=== PATIENT | female | born 1965 | race Caucasian/White ===

== ENCOUNTER 2019-10-07 12:04 | Emergency (ER) | payer OTHER, SELFPAY ==
[2019-10-07 12:21] VITALS: BP 135/89; PULSE 74; RESP 16; TEMP 36.6; O2SAT 100
--- NOTE | 2019-10-07 12:46 | ED.URI ---
HPI - URI/Sore Throat General Chief Complaint: Upper Respiratory Infection Stated Complaint: sore throat Time Seen by Provider: 10/07/19 12:30 Source: patient and RN notes reviewed Mode of arrival: ambulatory Limitations: no limitations History of Present Illness HPI Narrative: Patient presents today complaining of a 3-day history of severe postnasal drip and sore throat. 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 She is currently taking Zyrtec and using the [place] pot without relief. She was told that if her symptoms did not improve that she needed to be seen at urgent care and possibly tested for COVID-19. Denies congestion, rhinorrhea, fever. States he has a chronic cough for the past several years related to a hiatal hernia, but this cough is no worse than normal. Denies shortness of breath. Patient works at [employer] and states she has been exposed to people that were not wearing masks appropriately. MD elicited complaint: sore throat Related Data Home Medications Medication Instructions Recorded Confirmed cetirizine 10 mg PO DAILY 10/07/19 10/07/19 levothyroxine 88 mcg PO DAILY 10/07/19 10/07/19 Allergies Allergy/AdvReac Type Severity Reaction Status Date / Time adhesive Allergy Unknown Blister Verified 10/07/19 12:32 latex Allergy Unknown Blister Verified 10/07/19 12:32 Penicillins Allergy Unknown Itching Verified 10/07/19 12:32 sulfite Allergy Unknown Itching Verified 10/07/19 12:32 triamcinolone Allergy Headache Verified 10/07/19 12:32 [From Nasacort AQ] Contrast Media Allergy Unknown Hives Uncoded 10/07/19 12:32 MEPERIDINE HCL Allergy Unknown Hives Uncoded 10/07/19 12:32 Scallop Allergy Unknown Hives Uncoded 10/07/19 12:32 Review of Systems Review of Systems: Narrative: CONSTITUTIONAL: Denies body aches, fever, chills, or sweats. EYES: Denies visual changes, redness, or discharge. ENT: Denies rhinorrhea, congestion, or otalgia. + Sore throat, postnasal drip CARDIOVASCULAR: Denies chest pain, palpitations, or edema. RESPIRATORY: Denies cough or dyspnea. GASTROINTESTINAL: Denies abdominal pain, nausea, vomiting, or diarrhea. GENITOURINARY: Denies dysuria or hematuria. SKIN: Denies rash, itching, or wounds. MUSCULOSKELETAL: Denies back pain, joint pain, or myalgia. NEUROLOGIC: Denies headache, numbness, tingling, or weakness. PSYCH: Denies depression or anxiety. [facility] Past Medical History Medical History (Updated 10/07/19 @ 14:03 by Dominique Walker, [facility], ) Seasonal allergies Comments At time of signature, I have reviewed and agree with nursing past medical, surgical, social and family history unless otherwise noted. Please see nursing chart for further information. There is no relevant family history pertinent to the presenting complaint Exam Narrative: Exam Narrative: GENERAL: Well-appearing, well-nourished, and in no acute distress. HEAD: Normocephalic, atraumatic. EYES: EOMI. No redness or drainage. Conjunctivae normal. ENT: Mucous membranes pink and moist. Nares clear. No rhinorrhea. TMs normal bilaterally. Throat normal. Uvula midline. NECK: Normal AROM. Supple. Mild tenderness to the left anterior cervical chain. No lymphadenitis noted. CHEST: No respiratory distress. Clear to auscultation. HEART: Regular rate and rhythm. No murmur appreciated. Normal peripheral pulses. EXTREMITIES: Normal range of motion. No edema. SKIN: Warm, dry, no rash. Capillary refill normal. Normal skin turgor. NEURO: No focal deficits. Alert and oriented x3. Gait steady. PSYCH: Normal affect. No signs of depression or anxiety. Course Vital Signs Vital signs: Vital Signs Temperature 97.8 F 10/07/19 12:21 Pulse Rate 74 10/07/19 12:21 Respiratory Rate 16 10/07/19 12:21 Blood Pressure 135/89 10/07/19 12:21 Pulse Oximetry 100 10/07/19 12:21 Temperature 97.8 F 10/07/19 12:21 Pulse Rate 74 10/07/19 12:21 Respiratory Rate 16
--- NOTE | 2019-10-11 17:36 | PC.NURSE ---
sap pp consultant had talked to pt over telephone and pt requested copy of covid result. sap pp consultant requested to give copy of covid and strep cx. pt was given copy of results.
== END 2019-10-07 13:02 | disposition home or self-care (01) ==
PROVIDERS: Emergency Provider Nurse Practitioner; PCP Family Medicine
DX: J02.9 Acute pharyngitis, unspecified (principal); R09.82 Postnasal drip; Z20.828 Contact with and (suspected) exposure to other viral communicable diseases
CPT/HCPCS: 87081; 87880; 99213; G0463

== ENCOUNTER 2021-11-27 12:33 | Emergency (ER) | payer OTHER, SELFPAY ==
[2021-11-27] VITALS (20 sets, daily range): BP systolic 117–131; BP diastolic 74–98; PULSE 61–85; RESP 14–16; TEMP 36.2; O2SAT 97–100
--- NOTE | ~2021-11-27 | CT_ITS ---
EXAMINATION: CT brain wo con DATE: 11/27/2021 14:37 INDICATION: presyncope w/ headache . TECHNIQUE: Computed tomography (CT) of the head was performed without intravenous contrast. The mA wa s adjusted according to patient size. Iterative reconstruction technique was employed. The dose-lengt h product was 605.33 mGy-cm. COMPARISON: 09/10/2013 FINDINGS: No acute intracranial hemorrhage or extra-axial fluid collection. No hydrocephalus, mass, or herniation. No acute ischemic infarct. Unremarkable dural venous sinus attenuation. No acute osseous abnormality. Left maxillary mucosal thickening and small retention cyst/polyp. The remaining aerated spaces are cl ear. Mild atrophy and chronic white matter change. Atherosclerotic intracranial calcification. Possible sm all left hemisphere arachnoid cyst near the vertex. IMPRESSION: No acute intracranial process. Reviewed, dictated and finalized at location K.
--- NOTE | ~2021-11-27 | XR_ITS ---
EXAMINATION: XR chest 1V portable DATE: 11/27/2021 13:20 INDICATION: Arm weakness. TECHNIQUE: A single frontal view of the chest was obtained. COMPARISON: Chest 2 views 09/13/2018, CT abdomen and pelvis 09/13/2018 FINDINGS: There is mild atelectasis at left lung base. No pleural effusion or pneumothorax. The heart size is normal. IMPRESSION: 1. Mild atelectasis at left lung base. Reviewed, dictated and finalized at location A.
--- NOTE | 2021-11-27 13:05 | ECG_ITS ---
Measurements Intervals [place] Rate: 78 P: 19 [place]: 152 QRS: 7 QRSD: 79 T: 8 QT: 368 QTc: 420 Interpretive Statements SINUS RHYTHM MODERATE VOLTAGE CRITERIA FOR LVH, CONSIDER NORMAL VARIANT COMPARED TO ECG 09/13/2018 16:38:49 NO SIGNIFICANT CHANGES Electronically Signed On 11-28-2021 17:20:17 CDT by Kevyn Pearson M.D.
[2021-11-27 13:23] LABS: Basophils Percent Auto 0.4 % (0.2-1.2); Eosinophils Absolute Auto 0.1 K/mm3 (0-0.3); Eosinophils Percent Auto 2.5 % (0-4.4); Hematocrit 40.7 % (37.0-47.0); Hemoglobin 13.9 g/dL (12.0-15.0); Lymphocytes Absolute Auto 0.53 K/mm3 (0.9-3.2); Lymphocytes Percent Auto 11.2 % (18.3-44.2); Mean Corpuscular HGB Conc 34.2 g/dl (32-36); Mean Corpuscular Hemoglobin 32.4 pg (26-34); Mean Corpuscular Volume 94.9 fl (80-100); Mean Platelet Volume 9.1 fl (7.4-10.4); Monocytes Absolute Auto 0.6 K/mm3 (0.1-0.6); Monocytes Percent Auto 11.8 % (2.6-8.5); Neutrophils Absolute Auto 3.5 K/mm3 (1.3-6.7); Neutrophils Percent Auto 74.1 % (45.5-73.1); Platelet Count Result 216 k/mm3 (150-375); Red Blood Count 4.29 M/mm3 (4.2-5.4); Red Cell Distribution Width 12.7 % (11.5-14.5); White Blood Count 4.7 K/mm3 (4.5-10.0)
[2021-11-27 13:34] LABS: Appearance Urine Clear (Clear); Bilirubin Urine Negative (Negative); Blood Urine Negative (Negative); Color Urine Yellow (Yellow); Glucose Urine UA Negative (Negative); Ketones Urine Negative (Negative); Leukocyte Esterase Ur Negative LEU/UL (Negative); Nitrate Urine Negative (Negative); Protein Urine Negative (Negative); Urobilinogen Urine 0.2 mg/dL (<2.0)
[2021-11-27 13:38] LABS: Add Urine Microscopic? NO
[2021-11-27 13:42] LABS: Alanine Aminotransferase 17 U/L (6-35); Albumin Level 4.4 g/dL (3.5-5.1); Alkaline Phosphatase 109 U/L (38-126); Anion Gap 7 mmol/L (8-16); Aspartate Amino Transferase 25 U/L (14-36); Bilirubin,Total 0.4 mg/dL (0.2-1.3); Blood Urea Nitrogen 16 mg/dL (7-17); Calcium 8.9 mg/dL (8.4-10.2); Carbon Dioxide 27 mmol/L (22-30); Chloride 101 mmol/L (98-107); Estimated CRCL calculation 57 ml/min; Estimated Glomerular Filt Rate > 60; Glucose 85 mg/dL (65-110); Potassium 3.5 mmol/L (3.4-5.0); Sodium 135 mmol/L (137-145)
[2021-11-27 14:51] LABS: Troponin I < 0.012 ng/mL (0.000-0.034)
[2021-11-27 17:40] LABS: Troponin I < 0.012 ng/mL (0.000-0.034)
--- NOTE | 2021-11-27 21:57 | ED.GENADULT ---
HPI - General Adult General Chief complaint: Weakness Stated complaint: pain in arm, shaking, weakness Time Seen by Provider: 11/27/21 13:11 History of Present Illness HPI narrative: this is a 56-year-old female presenting to ED with a chief complaint of a dizzy spell. 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 Patient also felt dizzy at this time. It then resolved on its own after several minutes. Patient noticed that she was to have a sharp pain in her right shoulder at this time but is unknown if that is related or not. Patient says she has a history of dizzy spells like this in the happen multiple times per year and half gone on for many years. Patient denies any other complaints this time. Related Data Home Medications Medication Instructions Recorded Confirmed cetirizine 10 mg tablet 10 mg PO DAILY 10/07/19 10/07/19 levothyroxine 88 mcg tablet 88 mcg PO DAILY 10/07/19 10/07/19 Allergies Allergy/AdvReac Type Severity Reaction Status Date / Time adhesive Allergy Unknown Blister Verified 10/07/19 12:32 latex Allergy Unknown Blister Verified 10/07/19 12:32 Penicillins Allergy Unknown Itching Verified 10/07/19 12:32 sulfite Allergy Unknown Itching Verified 10/07/19 12:32 triamcinolone Allergy Headache Verified 10/07/19 12:32 [From Nasacort AQ] Contrast Media Allergy Unknown Hives Uncoded 10/07/19 12:32 MEPERIDINE HCL Allergy Unknown Hives Uncoded 10/07/19 12:32 Scallop Allergy Unknown Hives Uncoded 10/07/19 12:32 Review of Systems Review of Systems: CONSTITUTIONAL: Denies night sweats. EYES: No eye pain ENT: Denies rhinorrhea CARDIOVASCULAR: Denies palpitations RESPIRATORY: Denies hemoptysis GASTROINTESTINAL: Denies hematemesis GENITOURINARY: Denies hematuria. SKIN: Denies rash MUSCULOSKELETAL: Denies myalgia. NEUROLOGIC: Denies weakness. PSYCHIATRIC: Denies delusions PMFSH Past Medical History Medical History GERD (gastroesophageal reflux disease) Hypothyroid Seasonal allergies Surgical History Surgical History H/O: hysterectomy Social History Social History (Updated 11/27/21 @ 22:31 by Antwon Barron MD) Social History: Patient drinks alcohol occasionally, denies toba Exam Narrative: APPEARANCE: No apparent distress. Head atraumatic. EYES: PERRLA/EOMI, NOSE: Normal no drainage NECK: Supple, Trachea midline RESPIRATORY: CTAB, No increased work of breathing. CARDIOVASCULAR: S1S2 appreciated ABDOMINAL: Soft, nontender, nondistended, MUSCULOSKELETAl: No obvious deformities, Focal exam of the right upper extremity revealed tenderness palpation of the lateral deltoid. Median, ulnar and radial motor distributions are intact. Cap refills less than 2 seconds and pulses are +2 radial and ulnar distribution. No pain with range of motion of the shoulder or elbow or wrist. NEURO: Alert. Cranial nerves 2-12 grossly intact. Sensation light touch, motor function cerebellar function intact for 4 extremities. Gait exam was normal. SKIN:: Warm, dry. Normal color PSYCHIATRIC: Normal affect Course Vital Signs Vital signs: Vital Signs Temperature 97.2 F L 11/27/21 12:37 Pulse Rate 79 11/27/21 12:37 Respiratory Rate 14 11/27/21 12:37 Blood Pressure 121/90 11/27/21 12:37 Pulse Oximetry 100 11/27/21 12:37 Oxygen Delivery Room Air 11/27/21 12:37 Temperature 97.2 F L 11/27/21 12:37 Pulse Rate 79 11/27/21 17:45 Respiratory Rate 16 11/27/21 17:45 Blood Pressure 129/76 11/27/21 17:45 Pulse Oximetry 99 11/27/21 17:45 Oxygen Delivery Room Air 11/27/21 12:[address] [facility] Narrative Medical decision making narrative: This is a 56-year-old female presenting to the ED with a chief complaint of presyncope. Patient has a history o
== END 2021-11-27 18:00 | disposition home or self-care (01) ==
PROVIDERS: Emergency Provider Emergency Medicine
DX: R55 Syncope and collapse (principal); E03.9 Hypothyroidism, unspecified; K21.9 Gastro-esophageal reflux disease without esophagitis; Z90.710 Acquired absence of both cervix and uterus
CPT/HCPCS: 36415; 70450; 71045; 80053; 81003; 84484; 85025; 93005; 99284

== ENCOUNTER 2022-09-29 13:30 | Outpatient (RCR) | payer OTHER, SELFPAY ==
--- NOTE | 2022-08-29 16:08 | OPREHPOC ---
Outpatient Therapy Plan of Care This is a Multidisciplinary Plan of Care that may contain components documented by all disciplines (PT, OT, and ST.) PT Problem 1 PT Problem #1 Knowledge Deficit PT Goal 1 Goal 1. Patient will perform indpendent HEP Target Visit 4 PT Goal 1 Goal 1. No pain with palpation of pelvic floor Target Visit 5 PT Problem 3 PT Problem #3 Impaired Strength PT Goal 1 Goal 1. Improve pelvic floor strength to 4/5 Target Visit 5 PT Goal 2 Goal 2. Improve pelvic floor endurance to 10 seconds to decrease incontinence Target Visit 5
--- NOTE | 2022-08-29 16:09 | PTOPEVAL1 ---
Assessment and note entered by Nancy Brasher DPT Evaluation Information Assessment Status Evaluation Subjective Information Pt reports she had a hysterectomy in 2019 and was told she needed her bladder raised , was told to come back in 2019 but was unable due to needing to care for her parents. Will get incontinence if she lifts with a full bladder. Reports difficulty with stress as well. Urinary incontinence with cough or sneeze, a few drops at least multiple times a day. Amount may vary. Denies pain with urination. Wears a pad all the time, 4 a day. Urinates about 9 times a day, does not wake up at night. Urgency in the morning and occasionally throughout the week. BM 3 times a week, without pain. No fecal incontinence. Does report some pain that feels like menstrual cramps used to. In the past reports difficulty using tampons and may have had some pain. Patient goal: decrease incontinence, not have to wear pads any more D and C approximately 2002. Vaginal delivery with tearing in 2000. Reported Pain Level Pain Score 0: Self Report Assessment PT Clinical Summary The patient is presenting to skilled therapy with a history of urinary incontinence and pelvic pain. She presents with decreased pelvic floor muscle strength and endurance, decreased core strength, and increased pelvic floor muscle tone/pain with palpation. These impairments are contributing to her daily incontinence and pain. She will benefit from therapy to address these impairments and safely reduce pain and incontinence. Plan of Care Interventions Manual Therapy,Neuro Re-education,Patient/ Caregiver Education,Therapeutic Activities, Therapeutic Exercise PT Services Indicated Yes Treatment Frequency and 1 time a week for 4 weeks Duration These treatments will address the objective and functional deficits as defined above. The patient will be advanced safely and appropriately in order for the patient to progress towards his/her prior level of function. Additional exercises will be introduced and as well as a comprehensive home exercise program upon discharge, if needed, ?to ensure carryover of functional gains achieved in the clinic. This treatment plan has been reviewed and agreement upon by the patient.
--- NOTE | 2022-09-29 13:45 | OPREHPOC ---
Outpatient Therapy Plan of Care This is a Multidisciplinary Plan of Care that may contain components documented by all disciplines (PT, OT, and ST.) PT Problem 1 PT Problem #1 Knowledge Deficit PT Goal 1 Goal 1. Patient will perform indpendent HEP Target Visit 4 Progress Met PT Goal 1 Goal 1. No pain with palpation of pelvic floor Target Visit 5 Progress Met PT Problem 3 PT Problem #3 Impaired Strength PT Goal 1 Goal 1. Improve pelvic floor strength to 4/5 Target Visit 5 Progress Not Met PT Goal 2 Goal 2. Improve pelvic floor endurance to 10 seconds to decrease incontinence Target Visit 5 Progress Met
--- NOTE | 2022-09-29 13:45 | PTOPDC ---
Assessment and note entered by Nancy Brasher DPT Evaluation Information Assessment Status Discharge Subjective Information Pt reports improvements with therapy, is having less incontinence. Volume and frequency of incontinence has decreased. Still occuring daily. Has noticed urge to void without leaking though which is improvement. Feels confident continuing HEP independently at this point due to schedule and traveling and will follow up with MD if more is needed in the future. Reported Pain Level Pain Score 0: Self Report Assessment PT Clinical Summary The patient has made good progress in therapy and reports that the volume and frequency of her incontinence has decreased. She demonstrates improved pelvic floor endurance, no pain with palpation of pelvic floor, and improved overall hip and core strength. The patient reports she would like to continue HEP independently at this time and will follow up if more therapy is needed. Plan of Care PT Services Indicated No
== END 2022-09-30 14:25 | disposition home or self-care (01) ==
LOC: ANHPT 13:30
DX: N39.46 Mixed incontinence (principal); M79.18 Myalgia, other site; N95.2 Postmenopausal atrophic vaginitis
CPT/HCPCS: 97112; 97161; 97530

== ENCOUNTER 2024-04-25 12:34 | Inpatient (IN) | payer OTHER, SELFPAY ==
--- NOTE | ~2024-04-25 | XR_ITS ---
Portable chest x-ray Comparison: 11/27/2021 Clinical History: Tube placement Findings: Endotracheal tube, NG tube, and right IJ line are in place. Right IJ line tip is in the ri ght atrium. Lungs are clear, without focal consolidation or effusion. No pneumothorax. Cardiomediasti nal silhouette is stable. Bones and soft tissues are unremarkable. Impression: Support tubes, as above. Clear lungs. Reviewed, dictated and finalized at location M. RAL COMMUNICATIONS SPECIALIST Impression: Support tubes, as above. Clear lungs.
--- NOTE | ~2024-04-25 | CT_ITS ---
EXAMINATION: CT chst ab pel thor lum wo DATE: 04/25/2024 14:39 INDICATION: Rib and back pain post fall TECHNIQUE: Computed tomography (CT) of the chest, abdomen, pelvis as well as of the thoracic and lumb ar spine was performed without intravenous contrast. Automated exposure control and iterative reconst ruction technique were employed. The dose-length product was 381.23 mGy-cm. COMPARISON: Chest radiograph and CT abdomen and pelvis dated 09/13/2018 FINDINGS: CHEST CT: Mild elevation the left hemidiaphragm. Mild linear atelectasis/scarring at the basilar left lower lob e and lingula. No pneumonia, pulmonary edema, pleural effusion or pneumothorax. Heart size is normal. Small amount of atherosclerotic coronary artery calcification. No pericardial or pleural effusion. T horacic aorta is normal in caliber. No pathologically enlarged thoracic lymphadenopathy. ABDOMEN/PELVIS CT: Liver, gallbladder, spleen, pancreas and bilateral adrenal glands are normal. 1.3 cm low-attenuation left renal cyst. 1-2 mm nonobstructing stone at an inferior calyx of the right kidney. Bowels includi ng the appendix are normal. Bladder is normal. The uterus is not identified and has likely been surgi ephraim resected. No free intraperitoneal gas or fluid. No pathologically enlarged abdominal or pelvic lymphadenopathy. THORACIC SPINE CT: Thoracic kyphosis with chronic mild anterior wedging at T6, T7 and T8. There is an acute appearing T1 1 compression fracture with linear lucency along the fracture plane, buckling of the anterior cortex and 20% anterior vertebral body height loss. Mild disc height loss and small endplate osteophytes at several levels in the midthoracic spine. No central canal stenosis. Multilevel mild to moderate thora cic facet osteoarthritis with minimal to mild neural from stenosis at a few levels on the left and ri ght. LUMBAR SPINE CT: Alignment is normal. Vertebral body and disc heights are normal. No central canal stenosis. Mild mult ilevel lumbar lumbar facet osteoarthritis with minimal to mild neural from stenosis bilaterally at L2 -L3 to L5-S1. IMPRESSION: 1. Acute appearing T11 compression fracture with 20% anterior vertebral body height loss. 2. No acute pulmonary disease or acute intra-abdominal/pelvic process. 2. 1-2 mm nonobstructing stone at the lower pole of the right kidney. Reviewed, dictated and finalized at location L. ILE FINISHER IMPRESSION: 1. Acute appearing T11 compression fracture with 20% anterior vertebral body he ight loss. 2. No acute pulmonary disease or acute intra-abdominal/pelvic process. 2. 1-2 mm nonobstructing stone at the lower pole of the right kidney.
--- NOTE | ~2024-04-25 | MR_ITS ---
EXAMINATION: MR thoracic spine wo/w con DATE: 04/27/2024 12:33 INDICATION: T11 compression fracture TECHNIQUE: Magnetic resonance imaging (MRI) of the thoracic spine was performed without and with 13 m L ProHance intravenous contrast. Sagittal localizer T1-weighted FSE of the cervicothoracic spine was obtained. Sequences included sagittal T2-weighted FSE, sagittal T2-weighted FS FSE, sagittal T1-weigh raul FSE and axial T1-weighted SE. Postcontrast sequences included axial T2-weighted FSE, sagittal T1- weighted FS FSE, and axial T1-weighted FS SE. COMPARISON: None FINDINGS: Moderate thoracic kyphosis. Relatively acute T11 burst fracture with mild edema extending along the t ransverse fracture plane. There is 20% anterior vertebral body height loss. 1 mm retropulsion at the posterior wall. Chronic mild anterior wedging at T6-T8. Mild disc height loss at T5-T6 through T8-T9. Mild fibrovascular degenerative endplate changes anteriorly at T6-T7 through T8-T9. Marrow signal is otherwise unremarkable. Mild disc bulge atL1-L2.The thoracic discs do not extend beyond the endplate margin. No significant central canal stenosis. There is normal spinal cord signal. The conus termina julio cesar at L1. Paravertebral soft tissues are unremarkable. No abnormally enhancing lesions identified. IMPRESSION: 1. Acute T11 burst fracture with 20% anterior vertebral body height loss and 1 mm retropulsion. 2. Moderate thoracic kyphosis with additional chronic mild anterior wedging at T6-T8. 3. Mild thoracic and upper lumbar spondylosis. Reviewed, dictated and finalized at location A. E RACING MANAGER
--- NOTE | ~2024-04-25 | CT_ITS ---
Non-contrast Head CT History: status post fall Comparison: 04/25/2024 Technique: Axial non-contrast imaging of the brain was performed. Dose reduction technique was used on this scan by utilizing automated exposure control and iterative reconstruction technique. The dose -length product (DLP) was 756.67 mGy-cm. Findings: There is no evidence of intracranial hemorrhage, mass lesion, or acute infarct. Brain par enchyma appears normal. The ventricles and subarachnoid spaces are normal in size. The calvarium ap pears normal. The visualized paranasal sinuses and mastoid air cells are clear. Impression: No significant abnormality seen. Reviewed, dictated and finalized at location . WRAPPER OPERATOR Impression: No significant abnormality seen.
--- NOTE | ~2024-04-25 | CT_ITS ---
EXAMINATION: CT brain wo con DATE: 04/25/2024 14:39 INDICATION: Fall. TECHNIQUE: Computed tomography (CT) of the head was performed without intravenous contrast. The mA wa s adjusted according to patient size. Iterative reconstruction technique was employed. The dose-lengt h product was 681.00 mGy-cm. COMPARISON: Head CT 11/27/2021 FINDINGS: There is no intracranial hemorrhage, acute infarction, or abnormal intracranial mass lesion . The ventricles are normal in size. The orbits are normal. There is mild mucosal thickening in the p aranasal sinuses. The mastoid air cells are normal. There is plate and screw fixation of anterior wal l of right maxillary sinus. IMPRESSION: 1. Normal brain. Reviewed, dictated and finalized at location A. SCAPE CONTRACTOR IMPRESSION: 1. Normal brain.
--- NOTE | ~2024-04-25 | XR_ITS ---
Portable chest x-ray Comparison: 04/28/2024 Clinical History: Intubated Findings: Endotracheal tube, NG tube, and right IJ line are unchanged. Lungs are clear. Possible GENERAL WORKER D. Cardiomediastinal silhouette is stable. Bones and soft tissues are unremarkable. Impression: Stable support tubes. Right IJ line tip remains in the right atrium. Clear lungs. Possible COPD. Reviewed, dictated and finalized at location . IAN LANGUAGE INSTRUCTOR Impression: Stable support tubes. Right IJ line tip remains in the right atrium. Clear lungs. Possible COPD.
--- NOTE | ~2024-04-25 | CT_ITS ---
EXAMINATION: CT cervical spine wo con DATE: 04/25/2024 14:39 INDICATION: Neck injury. Fall. TECHNIQUE: Computed tomography (CT) of the cervical spine was performed without intravenous contrast. Automated exposure control and iterative reconstruction technique were employed. The dose-length pro duct was 115.55 mGy-cm. COMPARISON: CT cervical spine 09/10/2013 FINDINGS: There is hypolordosis of cervical spine. Vertebral body heights are normal. Intervertebral disc heights are normal. The following disc levels are specifically discussed: C2-C3: There is no uncovertebral joint osteoarthritis. There is moderate right and mild left facet darrian int osteoarthritis. There is no neural foraminal stenosis. There is no central canal stenosis. C3-C4: There is mild bilateral uncovertebral joint osteoarthritis. There is moderate right and mild l eft facet joint osteoarthritis. There is no neural foraminal stenosis. There is no central canal sten osis. C4-C5: There is no uncovertebral joint osteoarthritis. There is mild bilateral facet joint osteoarthr itis. There is no neural foraminal stenosis. There is no central canal stenosis. C5-C6: There is no uncovertebral joint osteoarthritis. There is severe right and mild left facet join t osteoarthritis. There is no neural foraminal stenosis. There is no central canal stenosis. C6-C7: There is no uncovertebral joint osteoarthritis. There is mild bilateral facet joint osteoarthr itis. There is no neural foraminal stenosis. There is no central canal stenosis. C7-T1: There is no uncovertebral joint osteoarthritis. There is mild bilateral facet joint osteoarthr itis. There is no neural foraminal stenosis. There is no central canal stenosis. IMPRESSION: 1. No fracture. 2. Mild cervical spondylosis. Reviewed, dictated and finalized at location A. OMER MARKETING INTERN
--- NOTE | ~2024-04-25 | XR_ITS ---
Ck). VIEWS THORACIC SPINE Ordering provider: Eber oGng MD History: . t11 compression fracture, . Comparison: None. FINDINGS: VERTEBRAL BODIES: Severe kyphosis. Loss of volume of T11 which may be acute or chronic with multiple vertebrae in the midthoracic area is noted most likely chronic. Otherwise, Normal height and alignmen t. No visible fracture or subluxation. DISK SPACES: Multiple narrowing in the upper and midthoracic area. SOFT TISSUES: Normal. IMPRESSION: Compression fracture of T11 which may be acute or chronic. MRI is advised. Loss of volume of multiple vertebrae in the midthoracic area most likely chronic. Reviewed, dictated and finalized at location A. RINARY PATHOLOGIST
--- NOTE | ~2024-04-25 | CT_ITS ---
Noncontrast CT scan of the cervical spine Technique: Multiple contiguous axial [address] images of the cervical spine were obtained and rec onstructed in 2D sagittal and coronal planes on the acquisition scanner. Dose reduction technique was used on this scan by utilizing automated exposure control, adjustment of the mA and/or kV according to patient size. The dose-length product (DLP) was 141.59 mGy-cm. Clinical History: Pain Comparison: 04/25/2024 Findings: No fractures or dislocations. Stable mild degenerative changes. The intervertebral disc sp aces are preserved. No prevertebral soft tissue swelling. Impression: No fracture or subluxation of the cervical spine. Reviewed, dictated and finalized at location . AND FISH PROTECTOR Impression: No fracture or subluxation of the cervical spine.
--- NOTE | ~2024-04-25 | CT_ITS ---
Clinical Indication: Status post fall CT Scan of the Chest with Contrast: Technique: Contiguous sections were acquired throughout the chest after intravenous administration of 100 cc of Omnipaque 350. Dose reduction technique was used on this scan by utilizing automated expos ure control and iterative reconstruction technique. The dose-length product (DLP) was 275.37 mGy-cm. Findings: There is no evidence of any significant mediastinal, hilar or axillary lymphadenopathy. There is no f illing defect in the pulmonary arterial tree to suggest pulmonary embolus. There is no evidence of ao rtic dissection or aneurysm. There is no evidence of pleural or pericardial effusion. The lungs are clear, aside from minimal dependent atelectatic changes. Images through the upper abdomen reveal no abnormalities. There is mild to moderate compression fract ure, likely acute. Impression: No evidence of pulmonary embolus, aortic dissection, or aortic aneurysm. Clear lungs. Acute T11 compression fracture. Please see prior MR from 04/27/2024. Reviewed, dictated and finalized at [facility]. 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 Clear lungs. Acute T11 compression fracture. Please see prior MR from 04/27/2024.
--- NOTE | ~2024-04-25 | US_ITS ---
EXAMINATION: US carotid duplex BI DATE: 04/28/2024 17:14 INDICATION: Syncope. TECHNIQUE: Grayscale, color Doppler, and pulsed Doppler images of the cervical carotid arteries were obtained. The degree of vessel stenosis is placed in one of the following categories: normal, <50%, 5 0-69%, >=70% but less than near-occlusion, near-occlusion, or total occlusion. Note that percent sten osis relative to normal distal artery lumen diameter is indirectly measured from velocity measurement s as described by Jose, et al. Radiology 2003; 229:340-346. COMPARISON: None. FINDINGS: RIGHT: The right common carotid artery (CCA) peak systolic velocity (PSV) cannot be measured due to an IV in the area. The right internal carotid artery (ICA) PSV is 52 cm/s. The right ICA end-diastolic veloci ty (EDV) is 18 cm/s. The right ICA/CCA PSV ratio could not be measured. Grayscale and color Doppler i mages yield an estimate of <50% diameter reduction from plaque in the ICA. There is antegrade flow in the right vertebral artery. LEFT: The left CCA PSV is 54 cm/s. The left ICA PSV is 60 cm/s. The left ICA EDV is 15 cm/s. The left ICA/C CA PSV ratio is 1.1. Grayscale and color Doppler images yield an estimate of <50% diameter reduction from plaque in the ICA. There is antegrade flow in the left vertebral artery. IMPRESSION: 1. <50% stenosis in the right internal carotid artery. 2. <50% stenosis in the left internal carotid artery. 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
[2024-04-25 13:08] VITALS: BP 120/77; PULSE 88; RESP 15; TEMP 36.4; O2SAT 97
--- OUTSIDE RECORDS SUMMARY | 2024-04-25 13:28 | XMS_ITS | Patient Health Summary ---
Author Organization [facility] Address [address] [place] [address] Care Team Providers Care Head Scorer Name Role Phone Pawan Blanchard MD Primary Care Provider Note from [facility],non-owned Affiliates and Associated Physician Practices is amultiple site organization consisting of ambulatory clinics and hospital sitesin [place], [place], [place] and [place]. This disclosure is being madepursuant to the Care Everywhere program and may not contain all information available regarding this patient. Last updated 17[facility] Allergies * Albuterol(Nausea and/or Vomiting) -Low Criticality * Sayda-D(Other) -Low Criticality * Contrast-Iodinated Agents For Ct/Other(Other) -Low Criticality * Latex(Skin Reactions) -Medium Criticality * Meperidine(Other) -Low Criticality * Penicillin G(Swelling) -Low Criticality * Shellfish-Derived Products(Itching,Swelling) -Medium Criticality * Sulfites(Nausea and/or Vomiting) -Low Criticality Medications * Be aware that medications may not be up to date on this document. Alwaysverify current medications with the patient. * betamethasone dipropionate augmented (DIPROLENE AF) 0.05 % cream(Started 05/08/2019) RUB IN WELL TO RED AREAS TWICE DAILY DIRECTED UNTIL CLEAR * cetirizine (ZYRTEC) 10 MG tablet(Started 10/14/2019) TAKE 1 TABLET BY MOUTH ONCE DAILY FOR 90 DAYS * clobetasol (TEMOVATE) 0.05 % cream Apply to affected area as needed * cyclobenzaprine (FLEXERIL) 10 MG tablet(Started 12/24/2019) Take 10 mg by mouth 3 times daily as needed FOR MUSCLE SPASM * Docusate Sodium (DSS) 100 MG Take 100 mg by mouth once daily as needed * famotidine (PEPCID) 40 MG tablet(Started 04/22/2020) Take 40 mg by mouth 2 times daily * levothyroxine (SYNTHROID) 88 MCG tablet(Started 02/07/2020) Take 88 mcg by mouth once daily * olopatadine (PATANASE) 0.6 % nasal solution(Started 03/25/2019) USE 2 SPRAY(S) IN EACH NOSTRIL TWICE DAILY * triamcinolone (NASACORT AQ) 55 MCG/ACT nasal inhaler [place] 2 sprays into the nose once daily Active Problems Problem Noted Date Diagnosed Date Closed fracture of zygoma 04/05/2013 Social History Tobacco Use Types Packs/Day Years Used Date Smoking Tobacco: Never Smokeless Tobacco: Never Alcohol Use Standard Drinks/Week Comments Not Currently 0 (1 standard drink = 0.6 oz pur e alcohol) less than one / month Sex and Gender Information Value Date Recorded Sex Assigned at Not on file Gender Identity Not on file Sexual Orientation Not on file Last Filed Vital Signs Vital Sign Reading Time Taken Comments Blood Pressure 106/71 08/16/2013 9:40 AM CDT Pulse 75 08/16/2013 9:40 AM CDT Temperature 36.6 C (97.9 F) 08/16/2013 9:40 AM CDT Respiratory Rate 13 04/10/2013 7:05 PM BI MANAGER Oxygen Saturation 97% 04/10/2013 7:50 PM BI MANAGER Inhaled Oxygen Concentration - - Weight 63.5 kg (140 lb) 12/03/2020 7:43 AM CDT Height 167.6 cm (5' 6 ) 12/03/2020 7:43 AM CDT Body Mass Index 22.6 12/03/2020 7:43 AM CDT Procedures * ESOPHAGUS/GASTROESOPHAGEAL REFLUX TEST(Performed 12/03/2020) Performed for Regurgitation of food, Cough * GASTRIC MOTILITY STUDY(Performed 12/03/2020) Performed for Regurgitation of food, Cough Care Teams Head Scorer Relationship Specialty Start Date End Date Pawan Blanchard MD PCP - General 04/04/13
--- OUTSIDE RECORDS SUMMARY | 2024-04-25 13:28 | XMS_ITS | Clinical Summary ---
Author Organization [facility] Address [address] [place] [address] Care Team Providers Care Oil House Attendant Name Role Phone Pawan Blanchard MD Primary Care Provider [phone] Source Comments [facility],non-owned Affiliates and Associated Physician Practices is amultiple site organization consisting of ambulatory clinics and hospital sitesin [place], [place], [place] and [place]. This disclosure is being madepursuant to the Care Everywhere program and may not contain all information available regarding this patient. Last updated 17.[facility] Allergies Active Allergy Reactions Criticality Noted Date Comments Albuterol Nausea and/or Vomiting Low 11/07/2018 Sayda-D Other Low 04/05/2013 Chest pain Contrast-Iodinated Agents For Ct/Other Other Low 04/05/2013 Body feels on fire Latex Skin Reactions Medium 04/05/2013 Latex paint causes chest tightness Meperidine Other Low 04/05/2013 vomiting Penicillin G Swelling Low 04/05/2013 Shellfish-Derived Products Itching,Swelling Medium 06/22/2012 Mostly scallops, can eat other shellfish without problems Sulfites Nausea and/or Vomiting Low 04/05/2013 Medications * Be aware that medications may not be up to date on this document. Alwaysverify current medications with the patient. Medication Sig Dispensed Refills Start Date End Date Status betamethasone dipropionate augmented (DIPROLENE AF) 0.05 % cream RUB IN WELL TO RED AREAS TWICE DAILY DIRECTED UNTIL CLEAR 05/08/2019 Active cetirizine (ZYRTEC) 10 MG tablet TAKE 1 TABLET BY MOUTH ONCE DAILY FOR 90 DAYS 10/14/2019 Active clobetasol (TEMOVATE) 0.05 % cream Apply to affected area as needed Active cyclobenzaprine (FLEXERIL) 10 MG tablet Take 10 mg by mouth 3 times daily as needed FOR MUSCLE SPASM 12/24/2019 Active Docusate Sodium (DSS) 100 MG Take 100 mg by mouth once daily as needed Active famotidine (PEPCID) 40 MG tablet Take 40 mg by mouth 2 times daily 04/22/2020 Active levothyroxine (SYNTHROID) 88 MCG tablet Take 88 mcg by mouth once daily 02/07/2020 Active olopatadine (PATANASE) 0.6 % nasal solution USE 2 SPRAY(S) IN EACH NOSTRIL TWICE DAILY 03/25/2019 Active triamcinolone (NASACORT AQ) 55 MCG/ACT nasal inhaler [place] 2 sprays into the nose once daily Active Active Problems Problem Noted Date Diagnosed Date Closed fracture of zygoma 04/05/2013 Family History Medical History Relation Name Comments Diabetes; unknown type Maternal Grandfather Relation Name Status Comments Maternal Grandfather Social History Tobacco Use Types Packs/Day Years [...] CDT Respiratory Rate 13 04/10/2013 7:05 PM GEOSPATIAL SPECIALIST Oxygen Saturation 97% 04/10/2013 7:50 PM GEOSPATIAL SPECIALIST Inhaled Oxygen Concentration - - Weight 63.5 kg (140 lb) 12/03/2020 7:43 AM CDT Height 167.6 cm (5' 6 ) 12/03/2020 7:43 AM CDT Body Mass Index 22.6 12/03/2020 7:43 AM CDT Plan of Treatment Health Maintenance Due Date Last Done Comments COLOGUARD (AGES 45-75) - COL ON CA SCREENING 1964 COLON MONITORING 1964 COLONOSCOPY - COLON CA SCREENING 1964 CT COLONOGRAPHY - COLON CA SCREENING 1964 Colorectal Cancer Screening 1964 FIT - COLON CA SCREENING 1964 FLEX SIG - COLON CA SCREENING 1964 LIPID TESTING 1964 MAMMOGRAM 1964 PAP SMEAR 1964 HIV SCREENING 02/05/1979 HEPATITIS C SCREENING 02/01/1982 DTAP/TDAP/TD VACCINES (1 - Tdap) 02/05/1983 PNEUMOCOCCAL VACCINE 50+ (1 of 1 - PCV) 02/05/2014 ZOSTER VACCINE (1 of 2) 02/05/2014 COVID-19 VACCINE (1 - 2023-2 5 season) 2023 INFLUENZA VACCINE (#1) 2023 0, 01/03/2019 DEPRESSION SCREENING 02/28/2024 Respiratory Syncytial Virus (RSV) Vaccine Pt: or over 60 yrs (1 - 1-dose 75+ series) 02/05/2039 HEPATITIS B VACCINE Aged Out No longe r eligible based on patient's age to complete this topic HIB VACCINE Aged Out No longer eligi ble based on patient's age to complete this topic HPV VACCINE Aged Out No longer eligi ble based on patient's age to complete this topic MENINGOCOCCAL (Group B) VACCINE Aged Out No longer eligible b ased on patient's age to complete this topic MENINGOCOCCAL VACCINE Aged Out No marcus sheila eligible based on patient's age to complete this topic PNEUMOCOCCAL VACCINE Aged Out No long er eligible based on patient's age to complete this topic Care Teams Oil House Attendant Relationship Specialty Start Date End Date Pawan Blanchard MD PCP - General 04/04/13
--- OUTSIDE RECORDS SUMMARY | 2024-04-25 13:28 | XMS_ITS | Encounter Summary ---
Author Organization [facility] Address 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
--- OUTSIDE RECORDS SUMMARY | 2024-04-25 13:28 | XMS_ITS | Encounter Summary ---
Author Organization [facility] Address 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
--- OUTSIDE RECORDS SUMMARY | 2024-04-25 13:28 | XMS_ITS | Clinical Summary ---
Author Organization [facility] Address [address] [facility] [place] [address] Care Team Providers Care Insulation Blanket Maker Name Role Phone Ruben Bird DO Primary Care Provider Allergies Active Allergy Reactions Criticality Noted Date Comments Fexofenadine Chest pressure Low 04/05/2013 Sayda D causes chest pain, heart races Esomeprazole Nausea Only 06/22/2012 Fluticasone Headache 09/29/2015 Iodinated Contrast Media Other (see comment) Low 04/05/2013 Body feels on fire Latex Hives Medium 04/05/2013 Latex paint causes chest tightness, latex causes hives on contact Meperidine Vomiting Low 04/05/2013 vomiting Penicillin G Swelling Low 04/05/2013 Albuterol Nausea and Vomiting 11/07/2018 Shellfish-Derived Products Itching,Swelling 06/22/2012 Mostly scallops, can eat other shellfish without problems Sulfa Antibiotics Unknown 07/03/2017 Sulfites Nausea and Vomiting Low 04/05/2013 Medications EPINEPHrine 0.3 MG/0.3ML injectionIndicatio ns:Allergy history, seafood Inject 0.3 mLs (0.3 mg total) into the muscle as needed. 1 each 9 Active famotidine 40 MG tablet Take 40 mg by mouth 2 (two) times daily. 1 Active ipratropium 0.03 % nasal spray USE 2 SPRAY(S) IN EACH NOSTRIL TWICE DAILY 2 Active triamcinolone (KENALOG) 0.025 % cream Apply topically 2 (two) times daily. Active clobetasol (TEMOVATE) 0.05 % cream Apply topically 2 (two) times daily. Active levothyroxine (SYNTHROID) 100 MCG tabletIndications: Acquired hypothyroidism TAKE 1 TABLET BY MOUTH IN THE MORNING 90 tablet 3 Active estradiol (ESTRACE) 0.1 MG/GM vaginal cream Insert one gram vaginally nightly for 2 weeks and then decrease to 2 times per week (such as Monday/ ay) 3 Active pantoprazole EC (PROTONIX) 40 MG tablet TAKE 1 TABLET BY MOUTH TWICE DAILY BEFORE MEAL(S) IN THE MORNING AND BEFORE DINNER 3 Active Active Problems Problem Noted Date Diagnosed Date Urinary incontinence, unspecified type 4 Upper respiratory tract infection, unspecified t ype 02/24/2023 Chronic left shoulder pain 03/14/2022 Lymphadenitis 09/29/2020 Anxiety 10/24/2019 Hiatal hernia 09/26/2018 Anemia 07/26/2017 Uterine prolapse 07/13/2017 Dyslipidemia 10/25/2016 Allergic rhinitis 06/22/2012 Overview (09/24/2018): Description: perennial Dermatitis 06/22/2012 Acquired hypothyroidism 06/22/2012 Resolved Problems Problem Noted Date Diagnosed Date Resolved Date Malodorous urine 02/01/2022 03/14/2022 Thoracic myofascial strain, initial encounter 12/24/19 20 03/14/2022 Acute upper respiratory infection 05/01/2019 03/14/2022 Dysuria 02/21/2017 03/14/2022 Closed fracture of zygoma ([facility]) 04/05/2013 11/18/2019 Knee pain 11/08/2012 03/14/2022 Routine general medical exam ination at a health care facility 05/07/2012 03/21/2022 Immunizations Name Administration Dates Next Due Dt (1-<7 Y.O.) 07/22/2003 Flublok (Quadrivalent) 03/14/2022,03/08/2021, Fluzone 6 Months+ Quad (0.5 mL Prefilled Syringe) 01/03/2019 Tdap (Generic) 10/07/2013 Family History Medical History Relation Comments Hypertension Brother COPD Father Cancer Father Tremors Father Heart Disease Maternal Aunt Stroke Maternal Aunt Heart Disease Maternal Uncle 1 Cancer Maternal Uncle 2 Heart Disease Maternal Uncle 2 Cancer Mother lung cancer, Heart Disease Mother [place] Mother Stroke Mother Cancer Paternal Grandfather Diabetes Paternal Grandfather Relation Status Comments Brother Alive Daughter Alive Father Alive Maternal Aunt Maternal Uncle 1 Maternal Uncle 2 Mother Alive Paternal Grandfather Social History Tobacco Use Types Packs/Day Years Used Date Smoking Tobacco: Never Smokeless Tobacco: Never Tobacco Cessation:Counseling Given: Not Answered Alcohol Use Standard Drinks/Week Comments No 0 (1 standard drink = 0.6 oz pur e alcohol) rarely drinks alcohol Comments No Sex and Gender Information Value Date Recorded Sex Assigned at Not on file Legal Sex Female 7:13 PM CDT Gender Identity Not on file Sexual Orientation Not on file Last Filed Vital Signs Vital Sign Reading Time Taken Comments Blood Pressure 119/86 05/31/2023 1:21 PM CDT Pulse 94 05/31/2023 1:21 PM CDT Temperature 36.3 C (97.4 F) 05/31/2023 7:35 AM CDT Respiratory Rate 18 05/31/2023 1:21 PM CDT Oxygen Saturation 99% 05/31/2023 1:21 PM CDT Inhaled Oxygen Concentration - - Weight 65.8 kg (145 lb) 05/31/2023 7:35 AM CDT Height 165.1 cm (5' 5 ) 05/31/2023 7:35 AM CDT Body Mass Index 24.13 05/31/2023 7:35 AM CDT Plan of Treatment Health Maintenance Due Date Last Done Comments Hepatitis C 02/05/1982 Zoster Vaccines (1 of 2) 02/05/2014 Colorectal Cancer Screening Colonoscopy (10 Years) 12/28/2014 12/28/2004 Annual Physical 03/14/2023 03/14/2022, 02/27, 11/18/2019, Additional history exists DTaP, Tdap and Td Vaccines (2 - Td or Tdap) 10/08/2023 10/07/2013, 07/22/2003 COVID-19 Vaccine ( season) 2023 01/24/2021, 05/24/2020, 05/03/2020 Influenza Adult (#1) 2023 03/14/2022, 03/08/2021, 12/24/2019, Additional history exists Mammogram Screening 02/11/2024 02/10/2022, 8 RSV Immunization or 60+ Years (1 - 1-dose 75+ series) 02/05/2039 Meningococcal B Vaccine Aged Out No l onger eligible based on patient's age to complete this topic Meningococcal Vaccine Aged Out No marcus sheila eligible based on patient's age to complete this topic Pneumococcal Vaccine: Pediatrics (0 to 5 Years) and At-Risk Patients (6 to 64 Years) Aged Out No longer eligible based on patient's age to complete this topic RSV Immunizations Under 20 Months Aged Out No longer eligible based on patient's age to complete this topic Procedures Procedure Name Priority Date/Time Associated Diagnosis Comments MG SCREENING W YULIANA ROBBIE DIGI Routine 02/10/2022 1:47 PM BLENDER SNUFF Encounter for screening mammogram for malignant neoplasm of breast COLONOSCOPY Routine 12/28/2004 12:00 AM BLENDER SNUFF from Last 3 Months or Most Recently Relevant to Health Maintenance Results * MG SCREENING W YULIANA ROBBIE DIGI (02/10/2022 1:47 PM BLENDER SNUFF) Anatomical Region Laterality Modality Breast Bilateral Mammography 02/10/2022 2:18 PM BLENDER SNUFF Narrative 02/10/2022 2:19 PM BLENDER SNUFF Examination: Digital screening mammogram with CAD. Clinical history: Asymptomatic patient presents for routine screening. Comparison: 10/23/2017, 03/30/2016, 06/15/2011. Technique: Bilateral digital mammograms. The exam was interpreted with the use of a computer-aided detection (CAD) system. Additional 3-D tomosynthesis images were acquired. Tissue density: The breast tissue is heterogeneously dense. Findings: The breast tissue is heterogeneously dense. The dense tissue may obscure some lesions mammographically. The denser tissues lie in the upper outer quadrants. Benign-appearing calcification noted. No suspicious mass, microcalcification or area of architectural distortion can be identified. From a mammographic standpoint, routine followup in one year would seem adequate. IMPRESSION: No suspicious change since the previous exams. Recommendation: 1: Routine Screening Bilateral in 1 Year Assessment: ACR BI-RADS 2 - BENIGN FINDING(S) Ordered By: BRADY GOODSON Interpreted By: Willie Landeros MD, 02/10/2022 2:18 PM us Brady Goodson MD MAMMO Final Resu lt * Colonoscopy (12/28/2004 12:00 AM BLENDER SNUFF) 12/28/2004 12/28/2004 Narrative TOUCHWORKS TO EPIC CONVERSION - 12/28/2004 12:00 AM BLENDER SNUFF Documented hx of procedure Procedure Note Lester Saucedo MD - 05/17/2018 Documented hx of procedure us Generic Conversion Md SAUC[facility] GI PROCEDURE ORDERABLES Final Result Performing Organization Address City/State/[facility] Co de Phone Number TOUCHWORKS TO EPIC CONVERSION from Last 3 Months or Most Recently Relevant to Health Maintenance Insurance [facility] Advance Directives * Full Code (Latest Code Status on File) Date Activated Date Inactivated Comments 07/13/2017 2:41 PM 07/14/2017 9:06 PM Care Teams Insulation Blanket Maker Relationship Specialty Start Date End Date Ruben Bird DO [address] [place] [id number] PCP - General FAMILY PRACTICE 05/31/23
--- OUTSIDE RECORDS SUMMARY | 2024-04-25 13:28 | XMS_ITS | Referral Summary ---
Author Organization [facility] Address [address] [place] [address] Care Team Providers Care High Density Finishing Operator Name Role Phone Pawan Blanchard MD Primary Care Provider Source Comments [facility],non-owned Affiliates and Associated Physician Practices is amultiple site organization consisting of ambulatory clinics and hospital sitesin [place], [place], [place] and [place]. This disclosure is being madepursuant to the Care Everywhere program and may not contain all information available regarding this patient. Last updated 17.[facility] Allergies Active Allergy Reactions Criticality Noted Date [...] triamcinolone (NASACORT AQ) 55 MCG/ACT nasal inhaler [place] 2 sprays into the nose once daily [...] CDT Respiratory Rate 13 04/10/2013 7:05 PM AFFIRMATIVE ACTION SPECIALIST Oxygen Saturation 97% 04/10/2013 7:50 PM AFFIRMATIVE ACTION SPECIALIST Inhaled Oxygen Concentration - - Weight 63.5 kg (140 lb) 12/03/2020 7:43 AM CDT Height 167.6 cm (5' 6 ) 12/03/2020 7:43 AM CDT Body Mass Index 22.6 12/03/2020 7:43 AM CDT Plan of Treatment Not on file Care Teams High Density Finishing Operator Relationship Specialty Start Date End Date Pawan Blanchard MD PCP - General 04/04/13
--- OUTSIDE RECORDS SUMMARY | 2024-04-25 13:28 | XMS_ITS | Encounter Summary ---
Author Organization [employer] Address 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
--- OUTSIDE RECORDS SUMMARY | 2024-04-25 13:28 | XMS_ITS | Encounter Summary ---
Author Organization [facility] Address [address] [place] [address] Care Team Providers Care Control Clerk Name Role Phone Pawan Blanchard MD Primary Care Provider [phone] Ruben Bird DO Primary Care Provider [phone] Encounter Details Date Type Department Care Team (Late st Contact Info) Description 03/28/2020 Prep for Procedure [facility] [place], [place] [id number] Garrett Adrian MD [address] [id number] Social History Tobacco Use Types Packs/Day Years Used Date Smoking Tobacco: Never Smokeless Tobacco: Never Alcohol Use Standard Drinks/Week Comments No 0 (1 standard drink = 0.6 oz pur e alcohol) rarely drinks alcohol Comments No Sex and Gender Information Value Date Recorded Sex Assigned at Not on file Legal Sex Female 7:13 PM CDT Gender Identity Not on file Sexual Orientation Not on file COVID-19 Exposure Response Date Recorded In the last month, have you been in contact with someone who was confirmed or suspected to have Coronavirus / COVID-19? No / Unsure 03/31/2020 12:39 PM MANAGER NON PROFIT documented as of this encounter Plan of Treatment Not on file documented as of this encounter Results * PRE-SURGICAL/PRE-PROCEDURE CORONAVIRUS (COVID 19) (03/28/2020 10:37 AM MANAGER NON PROFIT) CORONAVIRUS SARS COV 2 PCR (RESP) NOT DETECTED NOT DETECTED 03/29/2020 3:16 PM MANAGER NON PROFIT [facility] Comment: A Not Detected (negative) test result for this test means that SARS- CoV-2 RNA was not present in the specimen above the limit of detection. A negative result does not rule out the possibility of COVID-19 and should not be used as the sole basis for treatment or patient management decisions. If COVID-19 is still suspected, based on exposure history together with other clinical findings, re-testing should be considered in consultation with public health authorities. Laboratory test results should always be considered in the context of clinical observations and epidemiological data in making a final diagnosis and patient management decisions. Please review the Fact Sheets and FDA authorized labeling available for health care providers and patients using the following websites: https://www.[employer]/home/Covid-19/HCP/QuestIVD/fact- sheet.html https://www.[employer]/home/Covid-19/Patients/ Quest[employer]D/fact-sheet.html This test has been authorized by the FDA under an Emergency Use Authorization (EUA) for use by authorized laboratories. Due to the current public health emergency, [facility] [facility] is receiving a high volume of samples from a wide variety of swabs and media for COVID-19 testing. In order to serve patients during this public health crisis, samples from appropriate clinical sources are being tested. Negative test results derived from specimens received in non-commercially manufactured viral collection and transport media, or in media and sample collection kits not yet authorized by FDA for COVID-19 testing should be cautiously evaluated and the patient potentially subjected to extra precautions such as additional clinical monitoring, including collection of an additional specimen. Methodology: Nucleic Acid Amplification Test (NAAT) includes RT-PCR or TMA Additional information about COVID-19 can be found at the [employer] [facility] website: www.[employer]/Covid19. Test performed at [facility] [address] [place] [address] Director: PEDRO LUIS GONZALEZ DO,MPH FIRST TEST NO 03/28/2020 8:43 AM [facility] EMPLOYED IN [facility] NO 03/28/2020 8:43 AM MANAGER NON PROFIT [facility] SYMPTOMATIC DEFINED BY CDC NO 03/28/2020 8:43 AM MANAGER NON PROFIT [facility] DATE OF SYMPTOM ONSET NO 03/28/2020 11:03 AM MANAGER NON PROFIT [facility] HOSPITALIZATION STATUS NO 03/28/2020 8:43 AM MANAGER NON PROFIT [facility] PATIENT IN ICU NO 03/28/2020 8:43 AM MANAGER NON PROFIT [facility] RESIDENT OF [facility] NO 03/28/2020 8:43 AM MANAGER NON PROFIT [facility] NOT 03/28/2020 8:43 AM MANAGER NON PROFIT [facility] PATIENT'S RACE WHITE OR 03/28/2020 8:43 AM MANAGER NON PROFIT [facility] ETHNICITY NONHISPANIC 03/28/2020 8:43 AM MANAGER NON PROFIT [facility] SOURCE (QST) NASOPHARYNGEAL SWAB 03/28/2020 8:43 AM MANAGER NON PROFIT [facility] NASOPHARYNGEAL SWAB / Unknown 03/28/2020 10:37 AM MANAGER NON PROFIT us Garrett Adrian MD MICROBIOLOGY - GENERAL YEMI GRANADOS Final Result [facility] [address] [place] [address], [facility] [facility] [address] [place] [address], documented in this encounter Visit Diagnoses Diagnosis Early satiety- Primary documented in this encounter Additional Health Concerns Infection Onset Date Last Indicated Resolved Time COVID-19 Rule Out 03/28/2020 03/28/2020 03/29/2020 3:16 PM MANAGER NON PROFIT documented as of this encounter Care Teams Control Clerk Relationship Specialty Start Date End Date Pawan Blanchard MD [address] [address] PCP - General 03/30/16 05/30/23 Ruben Bird DO [address] [place] [id number] PCP - General FAMILY PRACTICE 05/31/23 documented as of this encounter
--- OUTSIDE RECORDS SUMMARY | 2024-04-25 13:28 | XMS_ITS | Encounter Summary ---
Author Organization [facility] Address [address] [place] [address] Care Team Providers Care Hog Sawyer Name Role Phone Unavailable Primary Care Provider Unavailabl e Encounter Details Date Type Department Care Team (Latest Contact Info) Description 02/02/2000 Outpatient Historical [facility] Pickett, Ashlee Lloyd MD NO ADDRESS ON FILE Female infertility associated with anovulation (Primary Dx) Social History Tobacco Use Types Packs/Day Years Used Date Smoking Tobacco: Never Assessed Comments Unknown Sex and Gender Information Value Date Recorded Sex Assigned at Not on file Legal Sex Female 4:11 AM CRUISE GUIDE Gender Identity Not on file Sexual Orientation Not on file documented as of this encounter Plan of Treatment Not on file documented as of this encounter Visit Diagnoses Diagnosis Female infertility associated with anovulation- Primary documented in this encounter
--- OUTSIDE RECORDS SUMMARY | 2024-04-25 13:28 | XMS_ITS | Clinical Summary ---
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 Gender Identity Not on file Sexual Orientation Not on file Plan of Treatment Health Maintenance Due Date Last Done Comments DTAP/TDAP/TD VACCINES (1 - Tdap) 02/05/1983 CERVICAL CANCER SCREENING 02/05/1994 BREAST CANCER SCREENING 2004 COLORECTAL SCREENING 02/05/2009 Colorectal Cancer Screening 02/05/2009 FIT-DNA Q 3 years 02/05/2009 FIT/FOBT Q 1 year 02/05/2009 Flex Sig/CT Colonography Q 5 years 02/05/2009 ZOSTER VACCINE (1 of 2) 02/05/2014 INFLUENZA VACCINE (#1) 2023 RSV VACCINE (60+ or ) (1 - 1-dose 75+ series) 02/05/2039 HEPATITIS B VACCINES Aged Out No long er eligible based on patient's age to complete this topic
--- OUTSIDE RECORDS SUMMARY | 2024-04-25 13:28 | XMS_ITS | Continuity of Care Document ---
Author Organization [facility] Address [id number] [place] [address] [address] [place] [address] Phone Care Team Providers Care Fire Management Technician Name Role Phone Doisy, Edward Unavailable Unavailable Advance Directives Directive Yes / No Effective Date File Name No Information Encounters Encounter Description Practice Location Reason(s) For Visit Diagnoses Date Provider Providers Copied on Encounter [facility], [address], [place], [place], [id number], [place] tel:[phone] [facility] No Information Apr-2 1-200 3 Doisy Edward. [address] , [address], [place], [address], [place]. tel:[phone] Family History Family Member Type Diagnosis Age At Onset No Information Payers Payer name Insurance type Covered constitution party ID Authoriza tion(s) No Information Social History [...]
--- OUTSIDE RECORDS SUMMARY | 2024-04-25 13:28 | XMS_ITS | Encounter Summary ---
Author Organization [facility] Address 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
--- NOTE | 2024-04-25 14:09 | ED_ITS ---
HPI - Fall General Chief Complaint: Fall <Birgit Adan PA-C - Last Filed: 04/26/24 10:48> Stated Complaint: fall, does not remember falling, back pain <Birgit Adan PA-C - Last Filed: 04/26/24 10:48> Time Seen by Provider: 04/25/24 14:09 <Birgit Adan PA-C - Last Filed: 04/26/24 10:48> Focused HPI: This is a 59 year old female that presents to the ER for a fall. Reports after taking a bath she fell. She is unsure what caused her to fall. Reports lower right sided low back pain. No other focal injuries or areas of pain at this time. Reports she currently has influenza B. She is currently taking Tamiflu GENERAL: Uncomfortable, well-nourished, in no acute distress. HEAD: Normocephalic, atraumatic. CHEST: Clear to auscultation. ?No respiratory distress. HEART: Regular rate and rhythm.? NEURO: ?Alert and oriented x3. Patient screened in triage and initial orders placed.? ?Additional care and disposition to be based upon?diagnostic testing and treatment. <Birgit Adan PA-C - Last Filed: 04/26/24 10:48> History of Present Illness HPI Narrative: Patient is 59-year-old female who presents emergency department with chief complaint of fall patient reports that she has influenza B has been taking Tamiflu and also Zithromax the patient states she took a bath apparently got out of the bathtub and does not remember falling and landing on the floor the patient reports he has severe back pain patient denies bowel or bladder incontinence denies numbness or tingling in her lower extremities denies footdrop. <Eber Gong MD - Last Filed: 04/25/24 16:30> Related Data Home Medications: Home Medications ?Medication ?Instructions ?Recorded ?Confirmed ?Last Taken ?Type levothyroxine 88 mcg tablet 88 mcg PO DAILY 10/07/19 04/25/24 04/25/24 History azithromycin 250 mg tablet 250 mg PO Q12H 04/25/24 04/25/24 04/25/24 History ipratropium bromide 21 mcg (0.03 2 spray intranasal BID allergies 04/25/24 04/25/24 04/24/24 History %) nasal spray oseltamivir 75 mg capsule 75 mg PO Q12H 04/25/24 04/25/24 04/25/24 History <Birgit Adan PA-C - Last Filed: 04/26/24 10:48> Allergies/Adverse Reactions: Allergies Allergy/AdvReac Type Severity Reaction Status Date / Time Penicillins Allergy Severe Swelling Verified 04/25/24 18:43 latex Allergy Unknown Blister Verified 04/25/24 18:43 triamcinolone (From Nasacort Allergy Headache Verified 04/25/24 18:43 AQ) honey AdvReac Intermediate Migraine Verified 04/25/24 18:44 sulfite AdvReac Intermediate Migraine Verified 04/25/24 18:43 fexofenadine (From Sayda-D) AdvReac Mild Headache Verified 04/25/24 18:43 pseudoephedrine (From AdvReac Mild Headache Verified 04/25/24 18:43 Sayda-D) Scallop Allergy Severe Anaphylaxis Uncoded 04/25/24 18:43 Contrast Media Allergy Unknown burning Uncoded 04/25/24 18:43 MEPERIDINE HCL AdvReac Unknown Headache Uncoded 04/25/24 18:43 <Birgit Adan PA-C - Last Filed: 04/26/24 10:48> Review of Systems 2 Review of Systems: A 10 system review of systems was completed on the patient and is negative except for what is stated in the HPI. Nursing and ancillary documentation was reviewed. <Eber Gong MD - Last Filed: 04/25/24 16:30> [facility] Past Medical History Medical History: Medical History GERD (gastroesophageal reflux disease) Hypothyroid Seasonal allergies <Birgit Adan PA-C - Last Filed: 04/26/24 10:48> Surgical History Surgical History: Surgical History H/O: hysterectomy <Birgit Adan PA-C - Last Filed: 04/26/24 10:48> Social History Social History: Social History Social History: Patient drinks alcohol occasionally, denies toba Smoking status: Never smoker Alcohol intake: former Substance use: never Substance use type: does not use Do You Feel Safe in your Home?: Yes Lack of Transportation: No Lack of Food: Never True Current Housing: Decline to Answer Concerned About Future Housing: Decline to Answer Difficulty Paying Gas/Electric Bills: Decline to Answer Difficulty Paying for Meds: Decline to Answer Currently Unemployed: Decline to Answer Education: Decline to Answer Difficulty w/ Childcare or Family Care: Decline to Answer Spiritual care concerns: No <Birgit Adan PA-C - Last Filed: 04/26/24 10:48> Exam 2 Narrative: GENERAL: Well-appearing, well-nourished, and in moderate acute pain distress. HEAD: Normocephalic, atraumatic. EYES: PERRLA and EOMI. ENT: Nares clear, no rhinorrhea or epistaxis. Mucous membranes moist. NECK: Supple. CHEST: Clear to auscultation. No respiratory distress. HEART: Regular rate and rhythm. No murmur heard. Normal peripheral pulses. ABDOMEN: Soft, nontender, nondistended, normal active bowel sounds. Back: Tenderness to palpation in the thoracic spine area no step-off EXTREMITIES: Normal range of motion. No edema. SKIN: Warm, dry, no rash. NEURO: No focal deficits. Alert and oriented x3. No saddle anesthesia no foot drop PSYCH: Normal mood and affect. <Birgit Adan PA-C - Last Filed: 04/26/24 10:48> GENERAL: Well-appearing, well-nourished, and in moderate acute pain distress. HEAD: Normocephalic, atraumatic. EYES: PERRLA and EOMI. ENT: Nares clear, no rhinorrhea or epistaxis. Mucous membranes moist. NECK: Supple. CHEST: Clear to auscultation. No respiratory distress. HEART: Regular rate and rhythm. No murmur heard. Normal peripheral pulses. ABDOMEN: Soft, nontender, nondistended, normal active bowel sounds. Back: Tenderness to palpation in the thoracic spine area no step-off EXTREMITIES: Normal range of motion. No edema. SKIN: Warm, dry, no rash. NEURO: No focal deficits. Alert and oriented x3. No saddle anesthesia no footdrop PSYCH: Normal mood and affect. <Eber Gong MD - Last Filed: 04/25/24 16:30> Course Vital Signs Vital signs: Vital Signs Temperature 97.6 F 04/25/24 13:08 Pulse Rate 88 04/25/24 13:08 Respiratory Rate 15 04/25/24 13:08 Blood Pressure 120/77 04/25/24 13:08 Pulse Oximetry 97 04/25/24 13:08 Oxygen Delivery Room Air 04/25/24 13:08 Temperature 97.1 F L 04/26/24 06:00 Pulse Rate 59 L 04/26/24 06:00 Respiratory Rate 14 04/26/24 06:00 Blood Pressure 106/67 04/26/24 06:00 Pulse Oximetry 95 04/26/24 06:00 Oxygen Delivery Room Air 04/25/24 20:00 <Birgit Adan PA-C - Last Filed: 04/26/24 10:48> Vital Signs Temperature 97.6 F 04/25/24 13:08 Pulse Rate 88 04/25/24 13:08 Respiratory Rate 15 04/25/24 13:08 Blood Pressure 120/77 04/25/24 13:08 Pulse Oximetry 97 04/25/24 13:08 Oxygen Delivery Room Air 04/25/24 13:08 Temperature 97.1 F L 04/26/24 06:00 Pulse Rate 59 L 04/26/24 06:00 Respiratory Rate 14 04/26/24 06:00 Blood Pressure 106/67 04/26/24 06:00 Pulse Oximetry 95 04/26/24 06:00 Oxygen Delivery Room Air 04/25/24 20:00 <Eber Gong MD - Last Filed: 04/25/24 16:30> MDM - Fall MDM Narrative Medical decision making narrative: Differential diagnosis includes syncope, influenza, pneumonia, fracture, intrathoracic injury, intra-abdominal injury CT head was negative CT C-spine was negative CT chest abdomen pelvis showed a T11 compression fracture with approximately 20% loss of height with no retropulsion of fragments. Patient is neurologically intact showing no signs of cauda equina The case was discussed with neurosurgery who will consult on the patient a TLSO brace was ordered The case was discussed with the hospitalist for admission for pain control PT and also syncope workup. <Eber Gong MD - Last Filed: 04/25/24 16:30> Lab Data Result diagrams: 04/26/24 05:28 04/26/24 05:28 <Birgit Adan PA-C - Last Filed: 04/26/24 10:48> Labs: Lab Results 04/25/24 Range/Units 15:16 WBC 4.9 (4.5-10.0) K/mm3 RBC 4.50 (4.2-5.4) M/mm3 Hgb 13.7 (12.0-15.0) g/dL Hct 41.0 (37.0-47.0) % MCV 91.1 (80-100) fl MCH 30.4 (26-34) pg MCHC 33.4 (32-36) g/dl RDW 12.5 (11.5-14.5) % Plt Count 192 (150-375) k/mm3 MPV 9.9 (7.4-10.4) fl Immature Gran % (Auto) 0.4 (0-0.5) % Neut % (Auto) 83.9 H (45.5-73.1) % Lymph % (Auto) 8.2 L (18.3-44.2) % Sebastian % (Auto) 7.3 (2.6-8.5) % Eos % (Auto) 0.0 (0-4.4) % Baso % (Auto) 0.2 (0.2-1.2) % Lymph # (Auto) 0.40 L (0.9-3.2) K/mm3 Sebastian # (Auto) 0.4 (0.1-0.6) K/mm3 Eos # (Auto) 0.0 (0-0.3) K/mm3 Baso # (Auto) 0.0 (0.0-0.1) K/mm3 Abs Immat Gran (auto) 0.02 (0.00-0.031) K/mm3 Absolute Neuts (auto) 4.1 (1.3-6.7) K/mm3 Absolute Nucleated RBC 0.000 (0.0-0.012) K/mm3 Nucleated RBC % 0.0 (0.0-0.2) % PT 13.4 (11.1-14.7) Seconds INR 1.0 APTT 27.5 (22.3-36.8) Seconds Sodium 134 L (137-145) mmol/L Potassium 4.5 (3.4-5.0) mmol/L Chloride 103 (98-107) mmol/L Carbon Dioxide 19 L (22-30) mmol/L Anion Gap 12 (4-12) mmol/L BUN 25 H (7-17) mg/dL Creatinine 0.69 L (0.7-1.0) mg/dL Estim Creat Clear Calc 67 ml/min Estimated GFR > 60 (59 - ) Glucose 101 (65-110) mg/dL Calcium 9.3 (8.4-10.2) mg/dL Total Bilirubin 0.7 (0.2-1.3) mg/dL AST 43 H (14-36) U/L ALT 24 (6-35) U/L Alkaline Phosphatase 95 (38-126) U/L Troponin I < 0.012 (0.000-0.034) ng/mL Total Protein 7.0 (6.3-8.2) g/dL Albumin 4.2 (3.5-5.1) g/dL <Birgit Adan PA-C - Last Filed: 04/26/24 10:48> Lab Results 04/25/24 Range/Units 15:16 WBC 4.9 (4.5-10.0) K/mm3 RBC 4.50 (4.2-5.4) M/mm3 Hgb 13.7 (12.0-15.0) g/dL Hct 41.0 (37.0-47.0) % MCV 91.1 (80-100) fl MCH 30.4 (26-34) pg MCHC 33.4 (32-36) g/dl RDW 12.5 (11.5-14.5) % Plt Count 192 (150-375) k/mm3 MPV 9.9 (7.4-10.4) fl Immature Gran % (Auto) 0.4 (0-0.5) % Neut % (Auto) 83.9 H (45.5-73.1) % Lymph % (Auto) 8.2 L (18.3-44.2) % Sebastian % (Auto) 7.3 (2.6-8.5) % Eos % (Auto) 0.0 (0-4.4) % Baso % (Auto) 0.2 (0.2-1.2) % Lymph # (Auto) 0.40 L (0.9-3.2) K/mm3 Sebastian # (Auto) 0.4 (0.1-0.6) K/mm3 Eos # (Auto) 0.0 (0-0.3) K/mm3 Baso # (Auto) 0.0 (0.0-0.1) K/mm3 Abs Immat Gran (auto) 0.02 (0.00-0.031) K/mm3 Absolute Neuts (auto) 4.1 (1.3-6.7) K/mm3 Absolute Nucleated RBC 0.000 (0.0-0.012) K/mm3 Nucleated RBC % 0.0 (0.0-0.2) % PT 13.4 (11.1-14.7) Seconds INR 1.0 APTT 27.5 (22.3-36.8) Seconds Sodium 134 L (137-145) mmol/L Potassium 4.5 (3.4-5.0) mmol/L Chloride 103 (98-107) mmol/L Carbon Dioxide 19 L (22-30) mmol/L Anion Gap 12 (4-12) mmol/L BUN 25 H (7-17) mg/dL Creatinine 0.69 L (0.7-1.0) mg/dL Estim Creat Clear Calc 67 ml/min Estimated GFR > 60 (59 - ) Glucose 101 (65-110) mg/dL Calcium 9.3 (8.4-10.2) mg/dL Total Bilirubin 0.7 (0.2-1.3) mg/dL AST 43 H (14-36) U/L ALT 24 (6-35) U/L Alkaline Phosphatase 95 (38-126) U/L Troponin I < 0.012 (0.000-0.034) ng/mL Total Protein 7.0 (6.3-8.2) g/dL Albumin 4.2 (3.5-5.1) g/dL <Eber Gong MD - Last Filed: 04/25/24 16:30> Imaging Data Radiologist's impression: ITS Impressions Chest/Abdomen/Pelvis/Spine CT 04/25/24 14:41 IMPRESSION: 1. Acute appearing T11 compression fracture with 20% anterior vertebral body height loss. 2. No acute pulmonary disease or acute intra-abdominal/pelvic process. 2. 1-2 mm nonobstructing stone at the lower pole of the right kidney. Head CT 04/25/24 14:41 IMPRESSION: 1. Normal brain. Cervical Spine CT 04/25/24 14:43 IMPRESSION: 1. No fracture. 2. Mild cervical spondylosis. <Birgit Adan PA-C - Last Filed: 04/26/24 10:48> Critical Care Time Critical Care Time Critical Care Time: No <Birgit Adan PA-C - Last Filed: 04/26/24 10:48> Discharge Plan Discharge Clinical Impression: Syncope Qualifiers: Syncope type: unspecified Qualified Code(s): R55 - Syncope and collapse Fracture of T11 vertebra Qualifiers: Encounter type: initial encounter Fracture type: closed Fracture morphology: o ther fracture Qualified Code(s): S22.088A - Other fracture of T11-T12 vertebra, initial encounter for closed fracture <Birgit Adan PA-C - Last Filed: 04/26/24 10:48> Patient Disposition: Still a Patient <Birgit Adan PA-C - Last Filed: 04/26/24 10:48> Condition: Stable <Birgit Adan PA-C - Last Filed: 04/26/24 10:48> Time of Disposition: 16:27 <Birgit Adan PA-C - Last Filed: 04/26/24 10:48> 16:27 <Eber Gong MD - Last Filed: 04/25/24 16:30>
--- NOTE | 2024-04-25 14:12 | ECG_ITS ---
Test Date: 2024-04-25 15:11:27 Measurements Intervals Badger Rate: 79 P: 240 CO: 157 QRS: 73 QRSD: 80 T: 155 QT: 364 QTc: 418 Interpretive Statements SINUS RHYTHM LOW QRS VOLTAGE INLIMB LEADS BORDERLINE T WAVE ABNORMALITY- ANTERIOR LEADS BASELINE ARTIFACT- I, II, III, AVR, AVL, AVF BORDERLINE ECG No previous ECG available for comparison Electronically Signed On 04-25-2024 15:12:53 BOX OFFICE MANAGER by Juan Manuel Mittal D.O.
[2024-04-25 15:17] VITALS: BP 110/78; PULSE 89; RESP 18; O2SAT 96
[2024-04-25 15:29] LABS: Basophils Percent Auto 0.2 % (0.2-1.2); Hemoglobin 13.7 g/dL (12.0-15.0); Immature Granulocyte Absolute 0.02 K/mm3 (0.00-0.031); Immature Granulocyte Percent A 0.4 % (0-0.5); Lymphocytes Percent Auto 8.2 % (18.3-44.2); Mean Corpuscular HGB Conc 33.4 g/dl (32-36); Mean Corpuscular Hemoglobin 30.4 pg (26-34); Mean Corpuscular Volume 91.1 fl (80-100); Mean Platelet Volume 9.9 fl (7.4-10.4); Monocytes Absolute Auto 0.4 K/mm3 (0.1-0.6); Monocytes Percent Auto 7.3 % (2.6-8.5); Neutrophils Absolute Auto 4.1 K/mm3 (1.3-6.7); Neutrophils Percent Auto 83.9 % (45.5-73.1); Platelet Count Result 192 k/mm3 (150-375); Red Cell Distribution Width 12.5 % (11.5-14.5); White Blood Count 4.9 K/mm3 (4.5-10.0)
[2024-04-25] MEDS: MORPHINE SULFATE (*CRX) 4 MG/ML INJ IV PUSH (15:35)
[2024-04-25 15:41] LABS: Alanine Aminotransferase 24 U/L (6-35); Albumin Level 4.2 g/dL (3.5-5.1); Alkaline Phosphatase 95 U/L (38-126); Anion Gap 12 mmol/L (4-12); Aspartate Amino Transferase 43 U/L (14-36); Bilirubin,Total 0.7 mg/dL (0.2-1.3); Blood Urea Nitrogen 25 mg/dL (7-17); Calcium 9.3 mg/dL (8.4-10.2); Carbon Dioxide 19 mmol/L (22-30); Chloride 103 mmol/L (98-107); Estimated CRCL calculation 67 ml/min; Estimated Glomerular Filt Rate > 60; Glucose 101 mg/dL (65-110); Potassium 4.5 mmol/L (3.4-5.0); Sodium 134 mmol/L (137-145)
--- OUTSIDE RECORDS SUMMARY | 2024-04-25 15:41 | XMS_ITS | Clinical Summary ---
Author Organization [facility] Address [address] [place] [address] Care Team Providers Care Senior Clinical Consultant Name Role Phone Ruben Bird DO Primary Care Provider Allergies Active Allergy Reactions Criticality Noted Date Comments Albuterol Nausea And Vomiting Low 11/07/2018 Fexofenadine Palpitations,Chest tightness Medium 04/05/2013 Sayda D causes chest pain, heart races Fexofenadine-Pseudoeph edrine Palpitations High 04/05/2013 Chest pain Folic Acid Headache Low 07/14/2022 Iodinated Contrast Media Other (See comments) Low Feels like my veins are on fire Iodine And Iodide Containing Products Other (See comments) Low Feels like veins are on fire Latex Blisters High Meperidine Vomiting Low Penicillins Hives Medium Scallops Anaphylaxis High 07/14/2022 Sulfa (Sulfonamide Antibiotics) Swelling,Headache Medium Medications ipratropium (ATROVENT) 21 mcg (0.03 %) nasal sprayIndications:P erennial Allergic Rhinitis Administer 2 sprays into each nostril 2 (two) times a day 2 Active acetaminophen-aspi rin-caffeine (Excedrin Migraine) 250-250-65 mg per tabletIndications: Migraine Take 1 tablet by mouth every 6 (six) hours as needed for headaches or pain Active EPINEPHrine 0.3 mg/0.3 mL auto-injection syringe Inject 0.3 mL (0.3 mg total) into the muscle as instructed as needed 9 Active famotidine (PEPCID) 40 mg tabletIndications: gastroesophageal reflux disease Take 1 tablet (40 mg total) by mouth nightly And as needed if has problems during day 1 Active estradioL (Estrace) 0.01 % (0.1 mg/gram) vaginal creamIndications:V aginal atrophy Insert one gram vaginally nightly for 2 weeks and then decrease to 2 times per week (such as Monday/) 42.5 g 1 3 Active cholecalciferol, vitamin D3, 1,000 unit tablet,chewableInd ications:Vitamin D Deficiency Take 3 tablet/chew tab by mouth 2 (two) times a day [place] Brand Active triamcinolone (KENALOG) 0.1 % cream Apply 1 g topically 2 (two) times a day as needed for irritation Active clobetasoL (TEMOVATE) 0.05 % ointment APPLY OINTMENT TOPICALLY TWICE DAILY FOR 14 DAYS THEN ONCE DAILY FOR 7 DAYS 15 g 4 Active levothyroxine (SYNTHROID) 100 mcg tabletIndications: Acquired hypothyroidism Take 1 tablet (100 mcg total) by mouth every morning 90 tablet [address] (PROTONIX) 40 mg EC tabletIndications: gastroesophageal reflux disease Take 1 tablet (40 mg total) by mouth 2 (two) times a day 180 tablet 3 4 025 Active tacrolimus (PROTOPIC) 0.1 % ointment 4 Active Active Problems Problem Noted Date Diagnosed Date Vitiligo 10/02/2023 GERD without esophagitis 10/02/2023 Overview (10/02/2023): Chronic, stable condition on Protonix and Pepcid Continue same medications Routine physical examination 06/06/2023 Overview (06/06/2023): New: June 06, 2023 Hematoma 05/31/2023 Mixed stress and urge urinary incontinence 07/15 Overview (06/06/2023): Mid urethral sling procedure April 2023 Continues to follow with Urology Assessment & Plan (10/24/2022 12:13 PM CDT): -somewhat improved with PFPT but still reports RENALDO -reviewed lifestyle changes including avoidance of bladder irritants (carbonated beverages) -she will keep a 3 day bladder diary and return for urodynamics to further assess symptoms and guide management Assessment & Plan (07/15/2022 5:26 AM CDT): -There is no evidence of incomplete bladder emptying on PVR check today and she has good pelvic support -Management options were discussed for stress-predominant MARLEY including expectant, conservative (behavioral modification, pelvic floor physical therapy, incontinence pessary), medical management and surgical management (synthetic midurethral sling, sacral neuromodulation, intravesicular botulinum toxin injections). -Urine culture is being sent today to rule out a UTI as a possible cause of her symptoms. -I reviewed the behavior modification recommendations for urgency, frequency and urge incontinence inclusive of: volume restriction to 50-60 ounces per day, avoidance of bladder irritants specifically caffeine and artificial sweeteners, scheduled voids q 2-3 hours as tolerated -We discussed that her vaginal atrophy may be contributing to her urinary symptoms (see below). -Her pelvic floor dysfunction likely plays a role in her symptoms, and will be addressed with pelvic floor PT -Would recommend urodynamics if no significant improvement following PFPT Pelvic floor dysfunction in female 07/15/2022 Assessment & Plan (10/24/2022 12:13 PM CDT): -continue PFPT exercises -may want to consider WUPFPT consult in future Assessment & Plan (07/15/2022 5:24 AM CDT): -Exam limited secondary to vaginal stenosis and patinet tolerance however, on examination, we elicited significant pain to palpation of the pelvic floor muscles: bilateral levator ani (cutting sensation). -We discussed the role that her pelvic floor muscle dysfunction is likely playing in her urinary symptoms. -Management options for levator ani/obturator pain/spasm were discussed including pelvic floor physical therapy. -A prescription for PFPT was given. Vaginal atrophy 07/15/2022 Assessment & Plan (10/24/2022 12:14 PM CDT): -symptomatically improved, continue twice weekly VET Assessment & Plan (07/15/2022 5:28 AM CDT): We discussed the use of vaginal estrogen cream. I discussed the WHI study and the risks of systemic estrogen use. I explained that with vaginal application of 1g 2X per week minimal systemic absorption of estrogen occurs. We discussed the risks of not using the cream including atrophy, erosion, increased risk of UTI. At the end of the discussion the patient desires to use vaginal estrogen. She will start with nightly VET for two weeks and then decrease to twice per week. Vaginal stenosis 07/15/2022 Bilateral myofascial pain 07/15/2022 Overview (06/06/2023): Overall stable with very rare use of muscle relaxer Lymphadenitis 09/29/2020 07/15/2022 Anxiety 10/24/2019 07/15/2022 Hiatal hernia 09/26/2018 07/15/2022 Anemia 07/26/2017 07/15/2022 Dyslipidemia 10/25/2016 07/15/2022 Overview (06/06/2023): Chronic, stable condition requiring medication LDL 101 in February 2022 Knee pain 11/08/2012 Acquired hypothyroidism 06/22/2012 07/16/19 23 Overview (10/02/2023): Chronic and stable on daily replacement Normal labs April 2022, May 2023 Assessment & Plan (06/06/2023 3:12 PM CDT): Repeat lab today Resolved Problems Problem Noted Date Diagnosed Date Resolved Date Urinary incontinence 03/23/2023 024 Upper respiratory tract infection 02/24/2023 06/06/2023 RENALDO (stress urinary incontinence, female) 01/18/2023 06/06/2023 Uterine prolapse 07/13/2017 07/15/2022 07/15/2022 Closed fracture of zygoma ([facility]) 04/05/201307/1507/15/2022 Encounters Date Type Department Care Team Description 04/25/2024 Nurse Triage [facility] [address] [place] [phone] Tammie Kiser, RN 04/18/2024 Telephone [facility] [address] [place] [phone] Ruben Bird, Medical Question/Miscellane ous 03/20/2024 Telephone [facility] [address] [place] [phone] Ruben Bird, DO Test Results 03/20/2024 Telephone [facility] [address] [place] [phone] Ruben Bird, DO Test Results 03/19/2024 3:15 PM [employer] Office Visit [facility] [address] [place] [phone] Ruben Bird, Left wrist pain (Primary Dx) 03/19/2024 12:45 PM [employer] - 03/19/2024 11:59 PM [employer] Hospital Encounter [facility] 1 DIAG IMG [address] [place] [phone] Left wrist pain Discharge Disposition: Discharge to home or self care 03/09/2024 8:30 AM [employer] Clinical Support [facility] at [address] [phone] Left wrist pain (Primary Dx) 03/08/2024 12:40 PM [employer] Ancillary Procedure [facility] at [address] [phone] Left hand pain 03/08/2024 12:35 PM [employer] Ancillary Procedure [facility] at [address] [phone] Left hand pain 03/08/2024 12:30 PM [employer] Office Visit [facility] [address] [phone] Jillian Ram NP Left hand pain (Primary Dx); Accidental fall, initial encounter 03/08/2024 Nurse Triage [facility] [address] [place] [address] Ruben Bird DO from Last 3 Months Immunizations Immunization Administration Dates Next Due DT 07/22/2003 Influenza, Quadrivalent, Rec ombinant, Egg Free, Preservative Free, Intramuscular 03/14/2022,03/08/2021,12/24/2019 Influenza, Quadrivalent, Spl it, Preservative Free, Intramuscular 01/03/2019 Influenza, Unspecified 01/01/2024(Deferr ed: Patient Refused),05/27/2023(Deferred: Patient Refused) Tdap 10/07/2013 Surgical History Surgery Date Site/Laterality Comments DILATION AND CURETTAGE OF UTERUS 4 - 02/27/20042003 FACIAL SURGERY 02/27/2017 - 02/26/2018 Fell on ice and broke facial bones- doesn't know exact date VAGINAL HYSTERECTOMY W/ ANTE RIOR AND POSTERIOR VAGINAL REPAIR 07/13/2017 COLONOSCOPY ESOPHAGOGASTRODUODENOSCOPY 03/31/2020 OTHER SURGICAL HISTORY 12/03/2020 Gastric Motility Study HYSTERECTOMY RETROPUBIC SLING 05/11/2023 TVT CYSTOSCOPY 05/11/2023 Medical History Medical History Date Comments Thyroid disease Kidney stones 1998,2021, 2022 Hiatal hernia Vertigo Uterine prolapse 07/13/2017 PONV (postoperative nausea and vomiting) Delayed emergence from gener al anesthesia Motion sickness TMJ (dislocation of temporom andibular joint) Hypothyroidism GERD (gastroesophageal reflux disease) Allergic rhinitis Migraines Not sure happens for Over 40 years Family History Medical History Relation Name Comments Hypertension Brother 1 KRM Other Brother 3 Alive and well; Hyperlipidemia Brother 4 Hyperlipidemi a; Cancer Father DDA Family history of malignant neoplasm - (Added by TW Conv) Other Father DDA Alive and well; Skin cancer Father DDA Cancer, skin; Cancer Maternal Grandfather ELM Family history of malignant neoplasm - Relation: Grandfather (Added by TW Conv) Cancer Mother JMA Family history of malignant neoplasm - (Added by TW Conv) Hearing loss Mother JMA Heart attack Mother JMA Myocardial infa rction; Hyperlipidemia Mother JMManolo Hyperlipidemi a; Hypertension Mother JMA Hypertension; Lung cancer Mother JMA Cancer, lung; Other Mother JMA Alive and well; Skin cancer Mother JMA Cancer, skin; Stroke Mother JMA Stroke; Heart attack Mother's Brother 1 LM Heart attack Mother's Brother 2 GM Heart disease Mother's Sister FM Stroke Mother's Sister FM Cancer Paternal Grandfather HAA Diabetes Paternal Grandfather HAA Family history of diabetes mellitus - (Added by TW Conv) Anesthesia problems Neg Hx Relation Name Status Comments Brother 1 KRM Alive Brother 2 Alive Brother 3 Brother 4 Father DDA Alive Maternal Grandfather ELM Mother JMA Alive Mother's Brother 1 LM Mother's Brother 2 GM Mother's Sister FM Paternal Grandfather HAA Social History Tobacco Use Types Packs/Day Years Used Date Smoking Tobacco: Never Passive Smoke Exposure: Current Smokeless Tobacco: Never Tobacco Cessation:Counseling Given: Not Answered Alcohol Use Standard Drinks/Week Comments Yes 0 (1 standard drink = 0.6 oz pur e alcohol) AUDIT-C Answer Date Recorded Q1: How often do you have a drink containing alcohol? Never 06/06/2023 Q2: How many drinks containi ng alcohol do you have on a typical day when you are drinking? Patient does not drink Q3: How often do you have si x or more drinks on one occasion? Never 06/06/2023 PHQ-2 Answer Date Recorded PHQ-2 Total Score (If total score is 3 or more points, staff should administer the PHQ-9) 0 06/06/2023 Personal Safety Answer Date Recorded Have you ever been in or are you currently in a harmful physical or emotional relationship or is someone making you feel afraid or unsafe? Denies 05/31/2023 Comments No Sex and Gender Information Value Date Recorded Sex Assigned at Not on file Legal Sex Female 8:09 PM [employer] Gender Identity Female 05/30/2023 9:12 AM CDT Sexual Orientation Not on file Obstetrics History Para Term AB IAB SAB Ectopic Multiple Livin g Live Births 2 1 1 1 1 1 1 Date Outcome GA Total Labor Labor/2nd/3rd Weight Sex Type Anes PTL María A1 A5 Name Clin SAB Demise 2000 Term F Vag-S pont Living Last Filed Vital Signs Vital Sign Reading Time Taken Comments Blood Pressure 122/80 03/19/2024 3:00 PM [employer] Pulse 82 03/19/2024 3:00 PM [employer] Temperature 35.9 C (96.7 F) 03/19/2024 3:00 PM [employer] Respiratory Rate 18 03/19/2024 3:00 PM [employer] Oxygen Saturation 99% 03/19/2024 3:00 PM [employer] Inhaled Oxygen Concentration - - Weight 65.5 kg (144 lb 8 oz) 03/19/2024 3:00 PM [employer] Height 163.8 cm (5' 4.5 ) 03/19/2024 3:00 PM [employer] Body Mass Index 24.42 03/19/2024 3:00 PM [employer] Plan of Treatment Health Maintenance Due Date Last Done Comments Hepatitis B Screening 02/05/1982 Zoster Vaccine (1 of 2) 02/05/2014 Breast Cancer Screening-Mammogram 02/10/2023 02/10/2022, 02/10/2022, 10/23/2017 DTaP/Tdap/Td Vaccine (3 - Td or Tdap) 10/08/2023 10/07/2013, 07/22/2003 Covid-19 Vaccine ( season) 2023 08/09/2021, 01/24/2021, 05/24/2020, Additional history exists Influenza Vaccine (#1) 2023 , 03/08/2021, 12/24/2019, Additional history exists Depression Screening 06/05/2024 06/06/2023, 05/31/2023, 05/31/2023 Regular Well Visit/Exam 18-64 06/05/2024 06/06/2023 Colon Cancer Screening-Colonoscopy 12/28/2024 12/28/2014 Hepatitis C Screening Completed 06/06/2023 Pneumococcal vaccine <65 Aged Out No longer eligible based on patient's age to complete this topic Medical Devices Implanted Type Area Firer Portable Boiler Device Identifier Shelf Expiration Date Model / Serial / Lot [employer] Endo Surgery Gynecare Tvt Tape Laser Cut Retropubic Mesh Gynecological Blue [id number] - [id number] Implanted:Qty: 1 on 05/11/2023 by Digna Goodman MD at [facility] Mesh N/A: Urethra [employer] Endo Surgery 08/26/2025 [id number] / / [id number] Procedures Procedure Name Priority Date/Time Associated Diagnosis Comments XR WRIST LEFT 3 OR MORE VIEWS Schedule Routine, Read Routine (OP Routine) 03/19/2024 3:39 PM [employer] Left wrist pain XR WRIST LEFT 3 OR MORE VIEWS Schedule BREE, Read BREE (Appt Today, Awaiting Results) 03/08/2024 12:44 PM [employer] Left hand pain XR HAND LEFT 3 OR MORE VIEWS Schedule BREE, Read BREE (Appt Today, Awaiting Results) 03/08/2024 12:43 PM [employer] Left hand pain HEPATITIS C ANTIBODY Routine 06/06/2023 3:19 PM CDT Need for hepatitis C screening test COLONOSCOPY Routine 12/28/2014 from Last 3 Months or Most Recently Relevant to Health Maintenance Results * XR Wrist Left 3+ Vw (03/19/2024 3:39 PM [employer]) Anatomical Region Laterality Modality Upper Extremities, Wrist Left Compute d Radiography 03/20/2024 11:3 5 AM [employer] Narrative 03/20/2024 11:36 AM [employer] EXAM DESCRIPTION: XR WRIST LEFT 3 OR MORE VIEWS REASON FOR STUDY: fall 03/08 -- initial imaging negative - still pain L wrist and base thumb FINDINGS: Three views of the left wrist are submitted for interpretation and compared to prior 03/08/2024. Moderate basal joint thumb osteoarthritis. No fracture seen. Alignment is anatomic. IMPRESSION: Moderate basal joint thumb osteoarthritis. No radiographically evident acute left wrist fracture. THIS IS AN ELECTRONICALLY VERIFIED FINAL REPORT 03/20/2024 11:36 AM - Electronically signed by Dorian Ragsdale M.D. TH: TH Report ID: [id number] Reading Location: [id number] Procedure Note Dorian Ragsdale MD - 03/20/2024 EXAM DESCRIPTION: XR WRIST LEFT 3 OR MORE VIEWS REASON FOR STUDY: fall 03/08 -- initial imaging negative - still pain Lwrist and base thumb FINDINGS: Three views of the left wrist are submitted for interpretationand compared to prior 03/08/2024. Moderate basal joint thumb osteoarthritis. No fracture seen. Alignmentis anatomic. IMPRESSION: Moderate basal joint thumb osteoarthritis. No radiographically evident acute left wrist fracture. THIS IS AN ELECTRONICALLY VERIFIED FINAL REPORT 03/20/2024 11:36 AM - Electronically signed by Dorian Ragsdale M.D. TH: TH Report ID: [id number] Reading Location: [id number] Ruben Bird DO IMG XR PROCEDURES Jen l Result * XR Wrist Left 3 or More Views (03/08/2024 12:44 PM [employer]) Anatomical Region Laterality Modality Upper Extremities, Wrist Left Digital Radiography 03/08/2024 2:00 PM [employer] Narrative 03/08/2024 2:02 PM [employer] EXAM DESCRIPTION: XR WRIST LEFT 3 OR MORE VIEWS; XR HAND LEFT 3 OR MORE VIEWS REASON FOR STUDY: accidental fall Pt complains of hand and wrist pain after falling on ice x 1 day ago. No prior fx or surgery ; accidental fall, yesterday Pt complains of hand and wrist pain after falling on ice x 1 day ago. No prior fx or surgery TECHNIQUE: There are 3 radiographic view(s) of the left wrist. There are three views of the left hand. COMPARISON: No prior. FINDINGS: Left hand: Normal mineralization. No acute fracture or dislocation. Joint spaces are intact. Cazo-fx-wdttggqe osteoarthritis 1st carpometacarpal joint. Soft tissues are unremarkable. Left wrist: No fracture or dislocation. Lkwk-kw-qbtllpce osteoarthritis 1st carpometacarpal joint. Soft tissue structures are unremarkable. IMPRESSION: No acute fracture. Vjql-xq-nmhjbrpm osteoarthritis 1st carpometacarpal joint. THIS IS AN ELECTRONICALLY VERIFIED FINAL REPORT 03/08/2024 2:02 PM - Electronically signed by Brady Paz M.D. T: Report ID: [id number] Reading Location: [id number] Procedure Note Brady Paz MD - 03/08/2024 EXAM DESCRIPTION: XR WRIST LEFT 3 OR MORE VIEWS; XR HAND LEFT 3 OR MOREVIEWS REASON FOR STUDY: accidental fall Pt complains of hand and wrist pain after falling on ice x 1 day ago. Noprior fx or surgery ; accidental fall, yesterday Pt complains of hand and wrist pain after falling on ice x 1 day ago. Noprior fx or surgery TECHNIQUE: There are 3 radiographic view(s) of the left wrist. There are three views of the left hand. COMPARISON: No prior. FINDINGS: Left hand: Normal mineralization. No acute fracture or dislocation. Joint spacesare intact. Ejkf-rd-aqwnjqzt osteoarthritis 1st carpometacarpal joint. Soft tissues are unremarkable. Left wrist: No fracture or dislocation. Fgvk-hh-arkxlqsc osteoarthritis 1st carpometacarpal joint. Soft tissue structures are unremarkable. IMPRESSION: No acute fracture. Ofaz-sd-ucqvlovc osteoarthritis 1st carpometacarpal joint. THIS IS AN ELECTRONICALLY VERIFIED FINAL REPORT 03/08/2024 2:02 PM - Electronically signed by Brady PFEIFFER T: Report ID: [id number] Reading Location: [id number] Jillian Ram NP IM XR PROCEDURES Final Result * XR Hand Left 3 or More Views (03/08/2024 12:43 PM [employer]) Anatomical Region Laterality Modality Upper Extremities, Hand Left Digital Radiography 03/08/2024 2:00 PM [employer] Narrative 03/08/2024 2:02 PM [employer] EXAM DESCRIPTION: XR WRIST LEFT 3 OR MORE VIEWS; XR HAND LEFT 3 OR MORE VIEWS REASON FOR STUDY: accidental fall Pt complains of hand and wrist pain after falling on ice x 1 day ago. No prior fx or surgery ; accidental fall, yesterday Pt complains of hand and wrist pain after falling on ice x 1 day ago. No prior fx or surgery TECHNIQUE: There are 3 radiographic view(s) of the left wrist. There are three views of the left hand. COMPARISON: No prior. FINDINGS: Left hand: Normal mineralization. No acute fracture or dislocation. Joint spaces are intact. Thnv-xh-uuxpuhuh osteoarthritis 1st carpometacarpal joint. Soft tissues are unremarkable. Left wrist: No fracture or dislocation. Xide-zx-qumzustw osteoarthritis 1st carpometacarpal joint. Soft tissue structures are unremarkable. IMPRESSION: No acute fracture. Fiax-th-wkqdypmx osteoarthritis 1st carpometacarpal joint. THIS IS AN ELECTRONICALLY VERIFIED FINAL REPORT 03/08/2024 2:02 PM - Electronically signed by Brady PFEIFFER T: Report ID: [id number] Reading Location: [id number] Procedure Note Brady Paz MD - 03/08/2024 EXAM DESCRIPTION: XR WRIST LEFT 3 OR MORE VIEWS; XR HAND LEFT 3 OR MOREVIEWS REASON FOR STUDY: accidental fall Pt complains of hand and wrist pain after falling on ice x 1 day ago. Noprior fx or surgery ; accidental fall, yesterday Pt complains of hand and wrist pain after falling on ice x 1 day ago. Noprior fx or surgery TECHNIQUE: There are 3 radiographic view(s) of the left wrist. There are three views of the left hand. COMPARISON: No prior. FINDINGS: Left hand: Normal mineralization. No acute fracture or dislocation. Joint spacesare intact. Xgtk-qz-lkwjjxyy osteoarthritis 1st carpometacarpal joint. Soft tissues are unremarkable. Left wrist: No fracture or dislocation. Ypsm-oo-jikdjhtz osteoarthritis 1st carpometacarpal joint. Soft tissue structures are unremarkable. IMPRESSION: No acute fracture. Hnbl-bb-uvfelhhg osteoarthritis 1st carpometacarpal joint. THIS IS AN ELECTRONICALLY VERIFIED FINAL REPORT 03/08/2024 2:02 PM - Electronically signed by Brady PFEIFFER T: Report ID: [id number] Reading Location: [id number] Jillian Ram NP IMG XR PROCEDURES Final Result * Hepatitis C antibody Blood (06/06/2023 3:19 PM CDT) Hep C Ab Nonreactive Nonreactive Comment: Antibodies to HCV not detected. Does NOT exclude the possibility of recent exposure to HCV. Current interpretive data was last revised on 21 Interpretive Data Nonreactive: Antibodies to HCV not detected. Does NOT exclude the possibility of recent exposure to HCV. Equivocal: Equivocal for HCV antibodies. Supplemental molecular testing will be automatically performed to determine infection status in accordance with current CDC screening recommendations. Reactive: Positive for HCV antibodies. This may represent current or past HCV infection. Supplemental molecular testing will be automatically performed to determine current infection status in accordance with current CDC screening recommendations. Interpretive data was last revised on 2019. Blood 06/06/2023 3:19 PM CDT 06/06/2023 5:18 PM CDT Ruben Bird DO LAB MICROBIOLOGY - GEN ERAL ORDERABLES Final Result Performing Organization Address City/State/[facility] Co de Phone Number ELIZABETH [address] [facility] Department [place] [address] * Colonoscopy (12/28/2014) Anatomical Region Laterality Modality Other Historical Provider ENDOSCOPY PROCEDURES Jen l Result from Last 3 Months or Most Recently Relevant to Health Maintenance Insurance [facility] Address: [address] [address] [facility] Address: [address] [address] Advance Directives For more information, please contact: [phone] * Full Code (Latest Code Status on File) Date Activated Date Inactivated Comments 05/31/2023 5:39 PM 06/01/2023 8:27 PM * Full Code Date Activated Date Inactivated Comments 05/11/2023 1:25 PM 05/12/2023 1:00 AM * Full Code Date Activated Date Inactivated Comments 05/11/2023 1:25 PM 05/11/2023 1:25 PM Care Teams Senior Clinical Consultant Relationship Specialty Start Date End Date Ruben Bird DO [address] [place] [id number] PCP - General Family Medicine 06/06/23
--- OUTSIDE RECORDS SUMMARY | 2024-04-25 15:41 | XMS_ITS | Encounter Summary ---
Author Organization [facility] Healthcare Address [address] [place] [address] Care Team Providers Care Dietitian Therapeutic Name Role Phone WinnRuben giron Primary Care Provider Reason for Visit * Reason Onset Date Comments Fall 04/25/2024 Encounter Details Date Type Department Care Team (Late st Contact Info) Description 04/25/[address] [facility] Medical Group Primary Care [address] [place] [phone] Tammie Ksier, RN Social History Tobacco Use Types Packs/Day Years Used Date Smoking Tobacco: Never Passive Smoke Exposure: Current Smokeless Tobacco: Never Alcohol Use Standard Drinks/Week Comments Yes 0 [...] on file Legal Sex Female 8:09 PM DIRECTOR OF PHARMACY Gender Identity Female 05/30/2023 9:12 AM CDT Sexual Orientation Not on file documented as of this encounter Miscellaneous Notes * Telephone Encounter - Tammie Kiser RN - 04/25/2024 11:43 AM DIRECTOR OF PHARMACY [facility] Nurse Triage: [facility] 03/19/24 cc: fall, LOC, back pain, nausea Patient doesn't have any memory of what happened. She was taking a bath and fell about 2.5 hours ago. She had extreme low back pain. Her hair was what but that is how she knew she had been taking a bath. She took 2 Alieve and one muscle relaxer and still in intense pain. Pain is lower back, mostly on the right side. She also felt nauseated but hasn't vomitted yet. Her head does not hurt. She is also having numbness and tingling in both arms and back. She was lightheaded but not anymore. She hasinfluenza B (she found out Monday) and is on Tamiflu and a z-mecca. She has 2 days left on the z-mecca. She is having difficulty walking and even standing. She normally ambulates with a cane and she cannot get around now without leaning on her spouse quite a bit. Disposition indicated is ED Now. Patient is requesting Dr. Bird's opinion. Provider contacted via secure chat for ED disposition consult. Recommendation from provider:Proceedto ED I called the patient back and reviewed Dr. Bird's recommendations with her. She agrees to go to the ED. [facility]. Reason for Disposition Passed out (e.g., fainted, lost consciousness, blacked out and was not responding) Fainted > 15 minutes ago and still feels weak or dizzy Protocols used: Falls and Ojfpkxu-Oyfym-AT, Pzevbgbb-Xwufr-TZ CTOR OF PHARMACY * Telephone Encounter - Haylie Rivera - 04/25/2024 11:36 AM CST Call Back Caller???s Concern: Patient having issues with her phone; would like to be called at [phone]. Dropped call as information was being collected. Does message need to be routed? Yes-FYI Only CTOR OF PHARMACY * Telephone Encounter - Heidy Hernandez RN - 04/25/2024 11:17 AM DIRECTOR OF PHARMACY Regarding: Fall, LOC, Back Pain, Nausea ----- Message from [employer] sent at 04/25/2024 11:10 AM DIRECTOR OF PHARMACY ----- Symptom Based Call Chief Complaint(s): Fall, LOC, Back Pain, Nausea Duration: 2-2.5 hours What type of symptom(s) is the patient experiencing? Red Flag. Is the patient concerned they are experiencing a medical emergency requiring an ambulance? No Additional Comments: Patient reports she fell while getting dressed after a bath this morning. Patient states when she first got back up, she had no memory of the day, but her memories have slowly been returning. Patient states she has had severe low back pain since the fall. Patient reports she initially felt nauseous after regaining consciousness. Patient states she took two aleve and a muscle r elaxant to help with the pain. Does message need to be routed? Yes-Action Needed CTOR OF PHARMACY documented in this encounter Plan of Treatment Not on file documented as of this encounter Visit Diagnoses Not on filedocumented in this encounter Care Teams Dietitian Therapeutic Relationship Specialty Start Date End Date Ruben Bird DO [address] [place] [address] PCP - General Family Medicine 06/06/23 documented as of this encounter
--- OUTSIDE RECORDS SUMMARY | 2024-04-25 15:41 | XMS_ITS | Encounter Summary ---
Author Organization [employer] [facility] Address [address] [place] [address] Care Team Providers Care Record Center Coordinator Name Role Phone Unavailable Primary Care Provider Unavailabl e Encounter Details Date Type Department Care Team (Latest Contact Info) Description 04/26/2000 Outpatient Historical HIS [facility] HERMINIA [place], Ashlee Lloyd MD NO ADDRESS ON FILE Female infertility of unspecified origin (Primary Dx) Social History Tobacco Use Types Packs/Day Years Used Date Smoking Tobacco: Never Assessed Comments Unknown Sex and Gender Information Value Date Recorded Sex Assigned at Not on file Legal Sex 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
--- OUTSIDE RECORDS SUMMARY | 2024-04-25 15:41 | XMS_ITS | Encounter Summary ---
Author Organization [employer] Address [address] [place] [address] Care Team Providers Care Survey Research Center Director Name Role Phone Unavailable Primary Care Provider [...] on file Legal Sex Female 4:11 AM WEB SERVICES DEVELOPER Gender Identity Not on file Sexual Orientation Not on file documented as of this encounter Plan of Treatment Not on file documented as of this encounter Visit Diagnoses Diagnosis with history of infertility- Primary documented in this encounter
--- OUTSIDE RECORDS SUMMARY | 2024-04-25 15:41 | XMS_ITS | Referral Summary ---
Author Organization [facility] Address [address] [place] [address] Care Team Providers Care Gear Straightener Name Role Phone Ruben Bird DO Primary Care Provider Encounters Date Type Department Care Team Description 04/25/2024 Nurse Triage [facility] Primary Care [address] [place] [phone] Tammie Kiser, SHANNON 04/18/2024 Telephone [facility] Primary Care [address] [place] [phone] Ruben Bird, Medical Question/Miscellane ous 03/20/2024 Telephone [facility] Primary Care [address] [place] [phone] Ruben Bird, Test Results 03/20/2024 Telephone [facility] Primary Care [address] [place] [phone] Ruben Bird, Test Results 03/19/2024 12:45 PM COURTROOM DEPUTY OR CALENDAR CLERK - 03/19/2024 11:59 PM COURTROOM DEPUTY OR CALENDAR CLERK Hospital Encounter [facility] MOB 1 DIAG IMG [address] [place] [address] Left wrist pain Discharge Disposition: Discharge to home or self care 03/19/2024 3:15 PM COURTROOM DEPUTY OR CALENDAR CLERK Office Visit [facility] Primary Care [address] [place] [phone] Ruben Bird DO Left wrist pain (Primary Dx) 03/09/2024 8:30 AM COURTROOM DEPUTY OR CALENDAR CLERK Clinical Support [facility] at [address] [phone] Left wrist pain (Primary Dx) 03/08/2024 12:40 PM COURTROOM DEPUTY OR CALENDAR CLERK Ancillary Procedure [facility] Imaging at [address] [phone] Left hand pain 03/08/2024 12:35 PM COURTROOM DEPUTY OR CALENDAR CLERK Ancillary Procedure [facility] Imaging at [address] [phone] Left hand pain 03/08/2024 12:30 PM COURTROOM DEPUTY OR CALENDAR CLERK Office Visit [facility] at [address] [phone] Jillian Ram NP Left hand pain (Primary Dx); Accidental fall, initial encounter 03/08/2024 Nurse Triage [facility] Primary Care [facility] [address] [place] [address] Ruben Bird DO from Last 3 Months Allergies Active Allergy Reactions Criticality Noted Date [...] by mouth 2 (two) times a day CyberSp[employer] Active triamcinolone (KENALOG) 0.1 % cream Apply [...] 07/13/2017 07/15/2022 07/15/2022 Closed fracture of zygoma ([facility]) 04/05/201307/1507/15/2022 Immunizations Immunization Administration Dates Next Due DT 07/22/2003 Influenza, Quadrivalent, Rec ombinant, Egg Free, Preservative Free, Intramuscular 03/14/2022,03/08/2021,12/24/2019 Influenza, Quadrivalent, Spl it, Preservative Free, Intramuscular 01/03/2019 Influenza, Unspecified 01/01/2024(Deferr ed: Patient Refused),05/27/2023(Deferred: Patient Refused) Tdap 10/07/2013 Social History Tobacco Use Types Packs/Day Years [...] on file Legal Sex Female 8:09 PM COURTROOM DEPUTY OR CALENDAR CLERK Gender Identity Female 05/30/2023 9:12 AM CDT Sexual Orientation Not on file Last Filed Vital Signs Vital Sign Reading Time Taken Comments Blood Pressure 122/80 03/19/2024 3:00 PM COURTROOM DEPUTY OR CALENDAR CLERK Pulse 82 03/19/2024 3:00 PM COURTROOM DEPUTY OR CALENDAR CLERK Temperature 35.9 C (96.7 F) 03/19/2024 3:00 PM COURTROOM DEPUTY OR CALENDAR CLERK Respiratory Rate 18 03/19/2024 3:00 PM COURTROOM DEPUTY OR CALENDAR CLERK Oxygen Saturation 99% 03/19/2024 3:00 PM COURTROOM DEPUTY OR CALENDAR CLERK Inhaled Oxygen Concentration - - Weight 65.5 kg (144 lb 8 oz) 03/19/2024 3:00 PM COURTROOM DEPUTY OR CALENDAR CLERK Height 163.8 cm (5' 4.5 ) 03/19/2024 3:00 PM COURTROOM DEPUTY OR CALENDAR CLERK Body Mass Index 24.42 03/19/2024 3:00 PM COURTROOM DEPUTY OR CALENDAR CLERK Plan of Treatment Not on file Medical Devices Implanted Type Area Wax Specialist Device Identifier Shelf Expiration Date Model / Serial / Lot Ethicon Endo Surgery Gynecare Tvt Tape Laser Cut Retropubic Mesh Gynecological Blue [id number] - [id number] Implanted:Qty: 1 on 05/11/2023 by Digna Goodman MD at [facility] Mesh N/A: Urethra Ethicon Endo Surgery 08/26/2025 [id number] / / [id number] Procedures Procedure Name Priority Date/Time Associated Diagnosis Comments XR WRIST LEFT 3 OR MORE VIEWS Schedule Routine, Read Routine (OP Routine) 03/19/2024 3:39 PM COURTROOM DEPUTY OR CALENDAR CLERK Left wrist pain XR WRIST LEFT 3 OR MORE VIEWS Schedule BREE, Read BREE (Appt Today, Awaiting Results) 03/08/2024 12:44 PM COURTROOM DEPUTY OR CALENDAR CLERK Left hand pain XR HAND LEFT 3 OR MORE VIEWS Schedule BREE, Read BREE (Appt Today, Awaiting Results) 03/08/2024 12:43 PM COURTROOM DEPUTY OR CALENDAR CLERK Left hand pain HEPATITIS C ANTIBODY Routine 06/06/2023 3:19 PM CDT Need for hepatitis C screening test COLONOSCOPY Routine 12/28/2014 from Last 3 Months or Most Recently Relevant to Health Maintenance Results * XR Wrist Left 3+ Vw (03/19/2024 3:39 PM COURTROOM DEPUTY OR CALENDAR CLERK) Anatomical Region Laterality Modality Upper Extremities, Wrist Left Compute d Radiography 03/20/2024 11:3 5 AM COURTROOM DEPUTY OR CALENDAR CLERK Narrative 03/20/2024 11:36 AM COURTROOM DEPUTY OR CALENDAR CLERK EXAM DESCRIPTION: XR WRIST LEFT 3 OR [...] Dorian Ragsdale M.D. TH: TH Report ID: [id number] Reading Location: [id number] Procedure Note Dorian Ragsdale MD - 03/20/2024 [...] Dorian Ragsdale M.D. TH: TH Report ID: [id number] Reading Location: [id number] Ruben Bird DO IMG XR PROCEDURES Jen l Result * XR Wrist Left 3 or More Views (03/08/2024 12:44 PM COURTROOM DEPUTY OR CALENDAR CLERK) Anatomical Region Laterality Modality Upper Extremities, Wrist Left Digital Radiography 03/08/2024 2:00 PM COURTROOM DEPUTY OR CALENDAR CLERK Narrative 03/08/2024 2:02 PM COURTROOM DEPUTY OR CALENDAR CLERK EXAM DESCRIPTION: XR WRIST LEFT 3 OR [...] fracture or dislocation. Joint spaces are intact. Qmdy-al-feaqpwnq osteoarthritis 1st carpometacarpal joint. Soft tissues are unremarkable. Left wrist: No fracture or dislocation. Yxkj-ks-kbgxeesf osteoarthritis 1st carpometacarpal joint. Soft tissue structures are unremarkable. IMPRESSION: No acute fracture. Pfhs-cd-tqbufyjk osteoarthritis 1st carpometacarpal joint. THIS IS AN ELECTRONICALLY VERIFIED FINAL REPORT 03/08/2024 2:02 PM - Electronically signed by Brady PFEIFFER T: Report ID: [id number] Reading Location: [place] [address] Procedure Note Brady Paz MD - 03/08/2024 [...] acute fracture or dislocation. Joint spacesare intact. Srze-lq-ktrztjjo osteoarthritis 1st carpometacarpal joint. Soft tissues are unremarkable. Left wrist: No fracture or dislocation. Qyrc-jt-ykzdtbfp osteoarthritis 1st carpometacarpal joint. Soft tissue structures are unremarkable. IMPRESSION: No acute fracture. Axuq-pm-fyshrfsw osteoarthritis 1st carpometacarpal joint. THIS IS AN ELECTRONICALLY VERIFIED FINAL REPORT 03/08/2024 2:02 PM - Electronically signed by Brady PFEIFFER T: Report ID: [id number] Reading Location: [id number] us Jillian Ram PEDIATRIC NURSE PRACTITIONER IMG XR PROCEDURES Final Result * XR Hand Left 3 or More Views (03/08/2024 12:43 PM COURTROOM DEPUTY OR CALENDAR CLERK) Anatomical Region Laterality Modality Upper Extremities, Hand Left Digital Radiography 03/08/2024 2:00 PM COURTROOM DEPUTY OR CALENDAR CLERK Narrative 03/08/2024 2:02 PM COURTROOM DEPUTY OR CALENDAR CLERK EXAM DESCRIPTION: XR WRIST LEFT 3 OR [...] fracture or dislocation. Joint spaces are intact. Frcl-tf-swdthhpn osteoarthritis 1st carpometacarpal joint. Soft tissues are unremarkable. Left wrist: No fracture or dislocation. Rhch-is-fiiwjxnl osteoarthritis 1st carpometacarpal joint. Soft tissue structures are unremarkable. IMPRESSION: No acute fracture. Eglf-ez-ltrshsiw osteoarthritis 1st carpometacarpal joint. THIS IS AN ELECTRONICALLY VERIFIED FINAL REPORT 03/08/2024 2:02 PM - Electronically signed by Brady PFEIFFER T: Report ID: [id number] Reading Location: [id number] Procedure Note Brady Paz MD - 03/08/2024 [...] acute fracture or dislocation. Joint spacesare intact. Otlj-jd-gfmgdxyw osteoarthritis 1st carpometacarpal joint. Soft tissues are unremarkable. Left wrist: No fracture or dislocation. Hhwz-bv-upoyhxxc osteoarthritis 1st carpometacarpal joint. Soft tissue structures are unremarkable. IMPRESSION: No acute fracture. Yvgr-kb-dpyvnlan osteoarthritis 1st carpometacarpal joint. THIS IS AN ELECTRONICALLY VERIFIED FINAL REPORT 03/08/2024 2:02 PM - Electronically signed by Brady Paz M.D. MJ T: Report ID: [id number] Reading Location: [id number] Jillian Ram NP IMG XR PROCEDURES Final [...] MICROBIOLOGY - GEN ERAL ORDERABLES Final Result [facility] [address] [facility] Department [place] [address] * Colonoscopy (12/28/2014) Anatomical Region Laterality Modality Other Historical Provider ENDOSCOPY PROCEDURES Jen l Result from Last 3 Months or Most Recently Relevant to Health Maintenance Insurance [address] [place] [id number] [facility] Member Subscriber Plan / Payer (Ef fective 2021-Present) Name:Leticia Doyle Member ID:[id number] Relation to Subscriber:Self Name:Leticia Doyle Subscriber ID:[id number] Payer ID:[id number] (NAIC) Type:[facility] HMO/PPO Address: [place] [id number] [address] [place] [id number] [facility] Advance Directives For more information, please contact: [phone] * Full Code (Latest Code Status on File) Date Activated Date Inactivated Comments 05/31/2023 5:39 PM 06/01/2023 8:27 PM * Full Code Date Activated Date Inactivated Comments 05/11/2023 1:25 PM 05/12/2023 1:00 AM * Full Code Date Activated Date Inactivated Comments 05/11/2023 1:25 PM 05/11/2023 1:25 PM Care Teams Gear Straightener Relationship Specialty Start Date End Date Ruben Bird DO [address] [address] PCP - General Family Medicine 06/06/23
--- OUTSIDE RECORDS SUMMARY | 2024-04-25 15:41 | XMS_ITS | Encounter Summary ---
Author Organization [employer] Address 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
--- OUTSIDE RECORDS SUMMARY | 2024-04-25 15:41 | XMS_ITS | Continuity of Care Document ---
Author Organization [facility] Address [address] [place] [address] [address] [place] [address] Phone Care Team Providers Care Rolled Glass Crosscutter Name Role Phone Doisy, Edward Unavailable Unavailable Advance Directives Directive Yes / No Effective Date File Name No Information Encounters Encounter Description Practice Location Reason(s) For Visit Diagnoses Date Provider Providers Copied on Encounter [facility], [address], [place], [place], [id number], [place] tel:[phone] [facility] No Information Apr-2 1-200 3 Doisy Edward. [address] [facility] , [address], [place], [address], [place]. tel:[phone] Family History Family Member Type Diagnosis Age [...]
--- OUTSIDE RECORDS SUMMARY | 2024-04-25 15:41 | XMS_ITS | Clinical Summary ---
Author Organization [facility] Address [facility] [place] [address] Care Team Providers Care Size Maker Name Role Phone Ruben Bird DO [...] Dysuria 02/21/2017 03/14/2022 Closed fracture of zygoma ([facility]) 04/05/2013 11/18/2019 Knee pain 11/08/2012 03/14/2022 Routine [...] Cancer Mother lung cancer, Heart Disease Mother NM Mother Stroke Mother Cancer Paternal Grandfather Diabetes [...] YULIANA ROBBIE DIGI Routine 02/10/2022 1:47 PM CALL CENTER TRAINER Encounter for screening mammogram for malignant neoplasm of breast COLONOSCOPY Routine 12/28/2004 12:00 AM CALL CENTER TRAINER from Last 3 Months or Most Recently Relevant to Health Maintenance Results * MG SCREENING W YULIANA ROBBIE DIGI (02/10/2022 1:47 PM CALL CENTER TRAINER) Anatomical Region Laterality Modality Breast Bilateral Mammography 02/10/2022 2:18 PM CALL CENTER TRAINER Narrative 02/10/2022 2:19 PM CALL CENTER TRAINER Examination: Digital screening mammogram with CAD. Clinical [...] Resu lt * Colonoscopy (12/28/2004 12:00 AM CALL CENTER TRAINER) 12/28/2004 12/28/2004 Narrative TOUCHWORKS TO EPIC CONVERSION - 12/28/2004 12:00 AM CALL CENTER TRAINER Documented hx of procedure Procedure Note Lester Saucedo MD - 05/17/2018 Documented hx of procedure us Generic Conversion Md [facility] GI PROCEDURE ORDERABLES Final Result Performing Organization Address City/State/RUST Co de Phone Number TOUCHWORKS TO EPIC CONVERSION from Last 3 Months or Most Recently Relevant to Health Maintenance Insurance [facility] Advance Directives * Full Code (Latest Code Status on File) Date Activated Date Inactivated Comments 07/13/2017 2:41 PM 07/14/2017 9:06 PM Care Teams Size Maker Relationship Specialty Start Date End Date Ruben Bird DO [address] [place] [address] PCP - General FAMILY PRACTICE 05/31/23
--- OUTSIDE RECORDS SUMMARY | 2024-04-25 15:41 | XMS_ITS | Encounter Summary ---
Author Organization [employer] Address 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
--- OUTSIDE RECORDS SUMMARY | 2024-04-25 15:41 | XMS_ITS | Referral Summary ---
Author Organization [facility] [employer] Address [address] [place] [address] Care Team Providers Care Cordwood Cutter Name Role Phone Pawan Blanchard MD Primary Care Provider Source Comments [facility] [employer],non-owned Affiliates and Associated Physician Practices is amultiple site organization consisting of ambulatory clinics and hospital sitesin [place], [place], [place] and [place]. This disclosure is being madepursuant to the Care Everywhere program and may not contain all information available regarding this patient. Last updated 17.[facility] [employer] Allergies Active Allergy Reactions Criticality Noted Date [...] triamcinolone (NASACORT AQ) 55 MCG/ACT nasal inhaler [facility] 2 sprays into the nose once daily [...] CDT Respiratory Rate 13 04/10/2013 7:05 PM REHABILITATION CONSTRUCTION SPECIALIST Oxygen Saturation 97% 04/10/2013 7:50 PM REHABILITATION CONSTRUCTION SPECIALIST Inhaled Oxygen Concentration - - Weight 63.5 kg (140 lb) 12/03/2020 7:43 AM CDT Height 167.6 cm (5' 6 ) 12/03/2020 7:43 AM CDT Body Mass Index 22.6 12/03/2020 7:43 AM CDT Plan of Treatment Not on file Care Teams Cordwood Cutter Relationship Specialty Start Date End Date Pawan Blanchard MD PCP - General 04/04/13
--- OUTSIDE RECORDS SUMMARY | 2024-04-25 15:41 | XMS_ITS | Encounter Summary ---
Author Organization [employer] [facility] Address 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
--- OUTSIDE RECORDS SUMMARY | 2024-04-25 15:41 | XMS_ITS | Clinical Summary ---
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
--- OUTSIDE RECORDS SUMMARY | 2024-04-25 15:41 | XMS_ITS | Clinical Summary ---
Author Organization [facility] Address [address] [place] [address] Care Team Providers Care Engraving Plate Maker Name Role Phone Pawan Blanchard MD Primary Care Provider Source Comments [facility],non-owned Affiliates and Associated Physician Practices is amultiple site organization consisting of ambulatory clinics and hospital sitesin [place], [place], [place] and [place]. This disclosure is being madepursuant to the Care Everywhere program and may not contain all information available regarding this patient. Last updated 17.[facility] Allergies Active Allergy Reactions Criticality Noted Date [...] triamcinolone (NASACORT AQ) 55 MCG/ACT nasal inhaler [place] 2 sprays into the nose once daily [...] CDT Respiratory Rate 13 04/10/2013 7:05 PM CAPACITY PLANNER Oxygen Saturation 97% 04/10/2013 7:50 PM CAPACITY PLANNER Inhaled Oxygen Concentration - - Weight 63.5 [...] age to complete this topic Care Teams Engraving Plate Maker Relationship Specialty Start Date End Date Pawan Blanchard MD PCP - General 04/04/13
--- OUTSIDE RECORDS SUMMARY | 2024-04-25 15:41 | XMS_ITS | Encounter Summary ---
Author Organization [facility] Address [address] [place] [address] Care Team Providers Care Evening Or Night Nurse Supervisor Name Role Phone Pawan Blanchard MD Primary Care Provider [phone] Ruben Bird DO Primary Care Provider [phone] Encounter Details Date Type Department Care Team (Late st Contact Info) Description 03/28/2020 Prep for Procedure [facility] [place], [place] [id number] Garrett Adrian MD [address] [id number] Social History Tobacco Use Types Packs/Day Years [...] COVID-19? No / Unsure 03/31/2020 12:39 PM INDUSTRIAL RELATIONS ANALYST documented as of this encounter Plan of Treatment Not on file documented as of this encounter Results * PRE-SURGICAL/PRE-PROCEDURE CORONAVIRUS (COVID 19) (03/28/2020 10:37 AM INDUSTRIAL RELATIONS ANALYST) CORONAVIRUS SARS COV 2 PCR (RESP) NOT DETECTED NOT DETECTED 03/29/2020 3:16 PM INDUSTRIAL RELATIONS ANALYST [facility] Comment: A Not Detected (negative) test result [...] providers and patients using the following websites: https://www.ethority.Seahorse/home/Covid-19/HCP/[facility]/fact- sheet.html https://www.ethority.Seahorse/home/Covid-19/Patients/ [facility]/fact-sheet.html This test has been authorized by the FDA under an Emergency Use Authorization (EUA) for use by authorized laboratories. Due to the current public health emergency, [facility] is receiving a high volume of samples [...] about COVID-19 can be found at the [facility] website: www.Yours Florally.Seahorse/Covid19. Test performed at [facility] [place] [address] [place] [address] Director: PEDRO LUIS GONZALEZ DO,MPH FIRST TEST NO 03/28/2020 8:43 AM [facility] NO 03/28/2020 8:43 AM INDUSTRIAL RELATIONS ANALYST [facility] SYMPTOMATIC DEFINED BY CDC NO 03/28/2020 8:43 AM INDUSTRIAL RELATIONS ANALYST [facility] DATE OF SYMPTOM ONSET NO 03/28/2020 11:03 AM INDUSTRIAL RELATIONS ANALYST [facility] HOSPITALIZATION STATUS NO 03/28/2020 8:43 AM INDUSTRIAL RELATIONS ANALYST [facility] PATIENT IN ICU NO 03/28/2020 8:43 AM INDUSTRIAL RELATIONS ANALYST [facility] RESIDENT OF [facility] NO 03/28/2020 8:43 AM INDUSTRIAL RELATIONS ANALYST [facility] NOT 03/28/2020 8:43 AM INDUSTRIAL RELATIONS ANALYST [facility] PATIENT'S RACE WHITE OR 03/28/2020 8:43 AM INDUSTRIAL RELATIONS ANALYST [facility] ETHNICITY NONHISPANIC 03/28/2020 8:43 AM INDUSTRIAL RELATIONS ANALYST [facility] SOURCE (QST) NASOPHARYNGEAL SWAB 03/28/2020 8:43 AM INDUSTRIAL RELATIONS ANALYST [facility] NASOPHARYNGEAL SWAB / Unknown 03/28/2020 10:37 AM INDUSTRIAL RELATIONS ANALYST us Garrett Adrian MD MICROBIOLOGY - GENERAL YEMI GRANADOS Final Result [facility] [address] [place] [address], [facility] [address] [place] [address], documented in this encounter Visit Diagnoses Diagnosis Early satiety- Primary documented in this encounter Additional Health Concerns Infection Onset Date Last Indicated Resolved Time COVID-19 Rule Out 03/28/2020 03/28/2020 03/29/2020 3:16 PM INDUSTRIAL RELATIONS ANALYST documented as of this encounter Care Teams Evening Or Night Nurse Supervisor Relationship Specialty Start Date End Date Pawan Blanchard MD [address] [address] PCP - General 03/30/16 05/30/23 Ruben Bird DO [address] [place] [id number] PCP - General FAMILY PRACTICE 05/31/23 documented as of this encounter
--- OUTSIDE RECORDS SUMMARY | 2024-04-25 15:41 | XMS_ITS | Patient Health Summary ---
Author Organization [facility] Address [address] [place] [address] Care Team Providers Care Wild Oyster Harvester Name Role Phone Pawan Blanchard MD Primary Care Provider Note from [facility] [place][note 2],non-owned Affiliates and Associated Physician Practices is amultiple site organization consisting of ambulatory clinics and hospital sitesin [place], [place], [place] and [place]. This disclosure is being madepursuant to the Care Everywhere program and may not contain all information available regarding this patient. Last updated 17.[facility] Allergies * Albuterol(Nausea and/or Vomiting) -Low Criticality [...] triamcinolone (NASACORT AQ) 55 MCG/ACT nasal inhaler [place] 2 sprays into the nose once daily [...] CDT Respiratory Rate 13 04/10/2013 7:05 PM FILAMENT WELDER Oxygen Saturation 97% 04/10/2013 7:50 PM FILAMENT WELDER Inhaled Oxygen Concentration - - Weight 63.5 kg (140 lb) 12/03/2020 7:43 AM CDT Height 167.6 cm (5' 6 ) 12/03/2020 7:43 AM CDT Body Mass Index 22.6 12/03/2020 7:43 AM CDT Procedures * ESOPHAGUS/GASTROESOPHAGEAL REFLUX TEST(Performed 12/03/2020) Performed for Regurgitation of food, Cough * GASTRIC MOTILITY STUDY(Performed 12/03/2020) Performed for Regurgitation of food, Cough Care Teams Wild Oyster Harvester Relationship Specialty Start Date End Date Pawan Blanchard MD PCP - General 04/04/13
[2024-04-25 15:42] LABS: Partial Thromboplastin Time 27.5 Seconds (22.3-36.8); Prothrombin Time 13.4 Seconds (11.1-14.7)
[2024-04-25 15:52] LABS: Troponin I < 0.012 ng/mL (0.000-0.034)
--- NOTE | 2024-04-25 17:24 | PC.NURSE ---
pt dinner tray ordered.
[2024-04-25 17:35] VITALS: BP 103/73; PULSE 84; RESP 18; O2SAT 97
--- NOTE | 2024-04-25 17:39 | PC.NURSE ---
Patient currently rates pain 3/10. Offered patient tylenol, patient declines.
[2024-04-25 18:01] VITALS: BP 102/81; PULSE 84; RESP 18; O2SAT 96
[2024-04-25] MEDS: SODIUM CHLORIDE 0.9% IV 1,000 ML 125 ML IV CONT (18:26)
[2024-04-25 18:43] VITALS: BMI 23.8
--- NOTE | 2024-04-25 18:56 | ADMGEN ---
This patient, Leticia Doyle, was admitted to Medical Room 344-01. Patient/family oriented to hospital policies and general routines including ID bracelet, bed and alarms, visiting hours, pain management, procedures, bathroom and other care routines, personal items, smoking policy, room service/diet, and visiting hours. Information on how to activate the Rapid Response Team has been discussed. Patient/Family are encouraged to report perceived risks to care and to ask questions if they do not understand what they are told or what they should do.
[2024-04-25] MEDS: HYDROcodone/acetaminophen (*CRX) 5-325 MG TABLET 1 TAB PO (20:00)
[2024-04-25 21:15] VITALS: PULSE 86
[2024-04-25 21:49] VITALS: BP 94/52; PULSE 80; RESP 16; TEMP 36.1; O2SAT 95
--- NOTE | 2024-04-25 22:40 | P.HP_ITS ---
H&P: HPI History of Present Illness Date/Time: 04/26/24 02:16 Chief Complaint: 1. Fall 2. Back pain Narrative: Leticia Doyle is a 59 F with a Mhx significant for multiple fractures, kyphoplasty, Hypothyroidism. Hours SURGICAL RESIDENT, after coming out to the tub and walking a few steps, she lost consciousness and recalls waking up on the floor; she is unsure how long she laid there; but when she woke up she had developed new onset mid-back pain; she describes the pain as sharp, localized; rated 10 in intensity; aggravated by movement of her trunk and on standing;; associated with an antalgic gait and a restriction of her ADLs. Her was downstairs and the fall was not witnessed. Her attempts at standing up by self was unsuccessful and she texted him asking for help and when he came up to help her, she was unable to bear weight but with assist devices previously owned, she was able to get to the vehicle and her drove her to the ED. She has previously experienced feet fractures deemed stress fractures as well as a clavicular fracture due to a hyperextension of the ipsilateral limb; does not smoke/chew tobacco, drink alcohol or consume recreational/illicit drugs. Work-up findings: CTAP: 1. Acute appearing T11 compression fracture with 20% anterior vertebral body height loss. 2. No acute pulmonary disease or acute intra-abdominal/pelvic process. 2. 1-2 mm nonobstructing stone at the lower pole of the right kidney. CT Head: Unremarkable CT cervical spine: 1. No fracture. 2. Mild cervical spondylosis. XR thoracic spine: VERTEBRAL BODIES: Severe kyphosis. Loss of volume of T11 which may be acute or chronic with multiple vertebrae in the midthoracic area is noted most likely chronic. Otherwise, Normal height and alignment. No visible fracture or subluxation. DISK SPACES: Multiple narrowing in the upper and midthoracic area. SOFT TISSUES: Normal. IMPRESSION: Compression fracture of T11 which may be acute or chronic. MRI is advised. Loss of volume of multiple vertebrae in the midthoracic area most likely chronic. Leticia Doyle will be admitted, evaluated and managed for Review of Systems Review of Systems: All systems reviewed & are unremarkable except as noted in HPI and below PMFSH Past Medical History Medical History GERD (gastroesophageal reflux disease) Hypothyroid Seasonal allergies Surgical History Surgical History H/O: hysterectomy Social History Social History Social History: Patient drinks alcohol occasionally, denies toba Smoking status: Never smoker Alcohol intake: former Substance use: never Substance use type: does not use Do You Feel Safe in your Home?: Yes Lack of Transportation: No Lack of Food: Never True Current Housing: Decline to Answer Concerned About Future Housing: Decline to Answer Difficulty Paying Gas/Electric Bills: Decline to Answer Difficulty Paying for Meds: Decline to Answer Currently Unemployed: Decline to Answer Education: Decline to Answer Difficulty w/ Childcare or Family Care: Decline to Answer Spiritual care concerns: No Meds Home Medications and Allergies Home Medications ?Medication ?Instructions ?Recorded ?Confirmed ?Type levothyroxine 88 mcg tablet 88 mcg PO DAILY 10/07/19 04/25/24 History azithromycin 250 mg tablet 250 mg PO Q12H 04/25/24 04/25/24 History ipratropium bromide 21 mcg (0.03 2 spray intranasal BID allergies 04/25/24 04/25/24 History %) nasal spray oseltamivir 75 mg capsule 75 mg PO Q12H 04/25/24 04/25/24 History Allergies Allergy/AdvReac Type Severity Reaction Status Date / Time Penicillins Allergy Severe Swelling Verified 04/25/24 18:43 latex Allergy Unknown Blister Verified 04/25/24 18:43 triamcinolone (From Nasacort Allergy Headache Verified 04/25/24 18:43 AQ) honey AdvReac Intermediate Migraine Verified 04/25/24 18:44 sulfite AdvReac Intermediate Migraine Verified 04/25/24 18:43 fexofenadine (From Sayda-D) AdvReac Mild Headache Verified 04/25/24 18:43 pseudoephedrine (From AdvReac Mild Headache Verified 04/25/24 18:43 Sayda-D) Scallop Allergy Severe Anaphylaxis Uncoded 04/25/24 18:43 Contrast Media Allergy Unknown burning Uncoded 04/25/24 18:43 MEPERIDINE HCL AdvReac Unknown Headache Uncoded 04/25/24 18:43 Vital Signs Vital Signs - 24 hr 04/25/24 13:08 04/25/24 15:17 04/25/24 17:35 Temperature 97.6 F Pulse Rate 88 89 84 Respiratory Rate 15 18 18 Blood Pressure 120/77 110/78 103/73 Pulse Oximetry 97 96 97 Oxygen Delivery Room Air 04/25/24 18:01 04/25/24 20:00 04/25/24 21:15 Temperature Pulse Rate 84 86 Respiratory Rate 18 Blood Pressure 102/81 Pulse Oximetry 96 Oxygen Delivery Room Air 04/25/24 21:49 04/26/24 00:00 Temperature 97.0 F L Pulse Rate 80 61 Respiratory Rate 16 Blood Pressure 94/52 L Pulse Oximetry 95 Oxygen Delivery Exam Const: General: in distress HENMT: Face/Nose/Sinus: Normal nares present Mouth: Yes moist mucous membranes Eyes: General: appearance normal, both eyes and all related structures Pupils: Equal, round and reactive pupils present Neck: Neck: supple and no JVD Resp: Effort & Inspection: normal respiratory effort Auscultation: clear to auscultation bilaterally, no crackles, no rales and no rhonchi Cardio: Rate: regular rate Rhythm: regular rhythm Back/Spine/Pelvis: Thoracic/Lumbar Spine: thoracic and lumbar spine normal to inspection, kyphosis and thoracic spinal tenderness Skin: General skin exam: normal color Lesions: lesion noted Rashes: rashes noted Neuro: General: No gait normal Motor exam (neuro): 5/5 motor strength present throughout, Normal motor muscle tone present throughout and Abnormal motor strength present Extrem: General: normal to inspection Psych: Mental Status: mental status grossly normal Affect: normal affect and Anxious affect present H&P: Results Labs Labs: Short CBC 04/25/24 Range/Units 15:16 WBC 4.9 (4.5-10.0) K/mm3 Hgb 13.7 (12.0-15.0) g/dL Hct 41.0 (37.0-47.0) % Plt Count 192 (150-375) k/mm3 BMP 04/25/24 15:16 Sodium 134 L Potassium 4.5 Chloride 103 Carbon Dioxide 19 L BUN 25 H Creatinine 0.69 L Glucose 101 Calcium 9.3 Cardiac Enzymes 04/25/24 Range/Units 15:16 Troponin I < 0.012 (0.000-0.034) ng/mL Liver Function 04/25/24 Range/Units 15:16 Total Bilirubin 0.7 (0.2-1.3) mg/dL AST 43 H (14-36) U/L ALT 24 (6-35) U/L Alkaline Phosphatase 95 (38-126) U/L Albumin 4.2 (3.5-5.1) g/dL Assessment and Plan Assessment and plan (1) Fracture of T11 vertebra: Qualifiers: Encounter type: initial encounter Fracture morphology: other fracture Fracture type: closed Qualified Code(s): S22.088A - Other fracture of T11-T12 vertebra, initial encounter for closed fracture Code(s): S22.089A - Unspecified fracture of T11-T12 vertebra, initial encounter for closed fracture Status: Acute (2) GERD (gastroesophageal reflux disease): Code(s): K21.9 - Gastro-esophageal reflux disease without esophagitis Status: Acute (3) Hypothyroid: Code(s): E03.9 - Hypothyroidism, unspecified Status: Acute (4) Syncope: Code(s): R55 - Syncope and collapse Status: Acute Plan Acute and principal conditions 1. Fall 2. Syncope 3. Back pain; T11 fractures Rx: A. MRI thoracic spine B. Analgesia; Anti-spasmodic C. PT/OT eval and Rx Chronic and stable conditions 1. Hypothyroidism. On Levothyroxine 2. Kyphosis 3. Recurrent fractures. 4. GERD. Miscellaneous care 1. Code status. Full 2. Nutrition. NPO 3. VTE prophylaxis. SCDs; SHAVON Hospitalist MIPS Advance Care Plan I have confirmed that the patient's Advanced Care Plan is present, code status is documented, or surrogate decision maker is listed in patient medical record.: Yes Medication Reconciliation I have utilized all available resources to obtain, update and review the patients current medications (includes all prescriptions, OTC, herbals, cannabis, and nutritional supplements).: Yes The patient is not eligible for med reconciliation; the patient is in a emergent medical situation where delaying treatment would jeopardize the patients health.: Yes
[2024-04-26] VITALS (7 sets, daily range): BP systolic 106–117; BP diastolic 64–79; PULSE 59–81; RESP 14–18; TEMP 35.3–36.2; O2SAT 95–99
--- NOTE | 2024-04-26 | ECHO_ITS ---
Patient Info Name: Leticia Doyle Age: 59 years : 1965 Gender: Female Ht: 65 in Wt: 143 lbs BSA: 1.73 m2 HR: 59 bpm BP: 106 / 67 mmHg Technical Quality: Fair Exam Date: 04/26/2024 11:40 AM Exam Location: Echo Lab Patient Status: Inpatient Admit Date: 04/25/2024 Staff Ordering Physician: Baljeet Hernandez MD Industrial Psychology Professor: Desiree Lopez RDCS Attending Provider: Jani Jarrett MD Referring Physician: David GIBBONS; Exam Type: CA echo doppler color flow Study Info Indications - SYNCOPE Complete two-dimensional, color flow and Doppler transthoracic echocardiogram is performed. Summary 1. Complete two-dimensional, color flow and Doppler transthoracic echocardiogram is performed. 2. Left ventricular chamber dimension is normal. 3. Left ventricular systolic function is normal, estimated at 55-60%. 4. The left ventricular diastolic function is grade I diastolic dysfunction. 5. E/e' 4 is not elevated. 6. There is trace mitral valve regurgitation. 7. There is trace tricuspid valve regurgitation. 8. No pulmonary hypertension, estimated pulmonary arterial systolic pressure is 27 mmHg. Left Ventricle E/e' 4 is not elevated. Left ventricular chamber dimension is normal. Left ventricular systolic function is normal, estimated at 55-60%. The left ventricular diastolic function is grade I diastolic dysfunction. Right Ventricle Right ventricular systolic function is normal and with normal TAPSE 1.8 cm. Right ventricular chamber dimension is normal. Left Atria Left atrial chamber dimension is normal. Right Atria Right atrial chamber dimension is normal. Aortic Valve The aortic valve is trileaflet. There is no aortic valve stenosis. There is no aortic valve regurgitation. Pulmonic Valve There is no pulmonic regurgitation. Mitral Valve There is no mitral valve stenosis. There is trace mitral valve regurgitation. Tricuspid Valve There is trace tricuspid valve regurgitation. No pulmonary hypertension, estimated pulmonary arterial systolic pressure is 27 mmHg. Pericardium/Pleural There is no pericardial effusion. Inferior Vena Cava Normal inferior vena cava with >50% collapse upon inspiration consistent with normal right atrial pressure, 5 mmHg. Aorta The aortic root size at the sinus of Valsalva is normal. Left Ventricular Outflow Tract Name Value Normal LVOT 2D LVOT Diameter 1.8 cm LVOT Doppler LVOT Peak Gradient 3 mmHg LVOT Mean Gradient 2 mmHg LVOT VTI 21 cm LVOT VTI/AV VTI Ratio 1.0 LVOT Stroke Volume 53 ml Pulmonic Valve Name Value Normal RVOT Doppler RVOT Peak Gradient 1 mmHg PV Doppler PV Peak Gradient 2 mmHg Mitral Valve Name Value Normal MV Doppler MV Decel [place] 218 cm/s2 MV PHT 61 ms MV Area (PHT) 3.6 cm2 4.0-5.0 MV Diastolic Function MV E Peak Velocity 46 cm/s MV A Peak Velocity 44 cm/s MV E/A 1.0 MV Decel Time 209 ms Tricuspid Valve Name Value Normal TV Regurgitation Doppler TR Peak Velocity 235 cm/s TR Peak Gradient 18 mmHg Estimated PAP/RSVP RA Pressure 5 mmHg <=5 PA Systolic Pressure 27 mmHg <36 RV Systolic Pressure 27 mmHg <36 Aorta Name Value Normal Ascending Aorta Ao Root Diameter (MM) 3.7 cm Ao Root Diam Index (MM) 2.1 cm/m2 Aortic Valve Name Value Normal AV 2D/MM AV Cusp Sep (MM) 2.0 cm AV Doppler AV Peak Velocity 101 cm/s AV Peak Gradient 4 mmHg AV Mean Gradient 2 mmHg AV VTI 21 cm AV Area (Cont Eq VTI) 2.5 cm2 >=3.0 AV Area (Cont Eq [place]) 2.4 cm2 AV Regurgitation 2D LVOT Area 2.6 cm2 Ventricles Name Value Normal LV Dimensions 2D/MM IVS Diastolic Thickness (2D) 1.0 cm 0.6-1.0 LVID Diastole (2D) 3.3 cm 3.8-5.2 LVIW Diastolic Thickness (2D) 0.8 cm 0.6-0.9 LVID Systole (2D) 2.3 cm 2.2-3.5 LVOT Diameter 1.8 cm LV Mass (2D Cubed) 83.52 g 67.00-162.00 LV Mass Index (2D Cubed) 48 g/m2 43-95 Relative Wall Thickness (2D) 0.48 LV Fractional Shortening/Ejection Fraction 2D/MM LV Fractional Shortening (2D) 31 % 27-45 LV EF (2D [place]and[place]) 60 % 54-74 LV Diastolic Volume (4C MOD) 64 ml LV EF (4C MOD) 44 % LV Diastolic Volume (2C MOD) 55 ml LV EF (2C MOD) 33 % LV Diastolic Volume (BP MOD) 59 ml 46-106 LV Diastolic Volume Index (BP MOD) 34 ml/m2 29-61 LV Systolic Volume (BP MOD) 38 ml 14-42 LV Systolic Volume Index (BP MOD) 22 ml/m2 8-24 LV EF (BP MOD) 37 % 54-74 LV Diastolic Length (4C) 6.7 cm LV Systolic Length (4C) 5.5 cm LV Stroke Volume (4C MOD) 28 ml Atria Name Value Normal LA Dimensions LA Dimension (MM) 3.5 cm 2.7-3.8 LA Volume (4C A-L) 36 ml LA Volume (BP A-L) 44 ml RA Dimensions RA Area (4C) 21.4 cm2 <=18.0 Report Signatures
[2024-04-26] MEDS: SODIUM CHLORIDE 0.9% IV 1,000 ML 75 ML IV CONT ×2 (02:40→17:22)
[2024-04-26 02:49] LABS: Add Urine Microscopic? YES; Appearance Urine Cloudy (Clear); Bacteria Urine 2+ /hpf; Bilirubin Urine Negative (Negative); Blood Urine Negative (Negative); Color Urine Yellow (Yellow); Glucose Urine UA Negative (Negative); Ketones Urine Trace mg/dL (Negative); Leukocyte Esterase Ur 1+ LEU/UL (Negative); Nitrate Urine Positive (Negative); Protein Urine Trace mg/dL (Negative); RBC Urine 0-2 /hpf (0-2); Specific Grav Ur 1.023 (1.001-1.035); Squamous Epithelial Cell Urine Occasional /hpf (Few); Urobilinogen Urine 0.2 mg/dL (<2.0); WBC Urine 21-50 /hpf (0-3); pH Urine 5.5 (5.0-9.0)
[2024-04-26 05:42] LABS: Basophils Percent Auto 0.3 % (0.2-1.2); Hematocrit 37.6 % (37.0-47.0); Hemoglobin 12.5 g/dL (12.0-15.0); Immature Granulocyte Absolute 0.02 K/mm3 (0.00-0.031); Immature Granulocyte Percent A 0.7 % (0-0.5); Lymphocytes Absolute Auto 0.51 K/mm3 (0.9-3.2); Lymphocytes Percent Auto 17.6 % (18.3-44.2); Mean Corpuscular HGB Conc 33.2 g/dl (32-36); Mean Corpuscular Hemoglobin 30.6 pg (26-34); Mean Corpuscular Volume 92.2 fl (80-100); Mean Platelet Volume 9.4 fl (7.4-10.4); Monocytes Absolute Auto 0.4 K/mm3 (0.1-0.6); Monocytes Percent Auto 12.5 % (2.6-8.5); Neutrophils Percent Auto 67.9 % (45.5-73.1); Platelet Count Result 149 k/mm3 (150-375); Red Blood Count 4.08 M/mm3 (4.2-5.4); Red Cell Distribution Width 12.6 % (11.5-14.5); White Blood Count 2.9 K/mm3 (4.5-10.0)
[2024-04-26 05:51] LABS: Alanine Aminotransferase 22 U/L (6-35); Albumin Level 3.5 g/dL (3.5-5.1); Alkaline Phosphatase 78 U/L (38-126); Anion Gap 4 mmol/L (4-12); Aspartate Amino Transferase 36 U/L (14-36); Bilirubin,Total 0.6 mg/dL (0.2-1.3); Blood Urea Nitrogen 18 mg/dL (7-17); Calcium 8.8 mg/dL (8.4-10.2); Carbon Dioxide 27 mmol/L (22-30); Chloride 106 mmol/L (98-107); Estimated CRCL calculation 66 ml/min; Estimated Glomerular Filt Rate > 60; Glucose 86 mg/dL (65-110); Potassium 4.5 mmol/L (3.4-5.0); Sodium 137 mmol/L (137-145)
[2024-04-26] MEDS: LEVOTHYROXINE SODIUM 88 MCG TABLET PO (05:55)
[2024-04-26] MEDS: ACETAMINOPHEN 325 MG TABLET 650 MG PO (05:55)
--- NOTE | 2024-04-26 07:34 | P.CONNS_ITS ---
Assessment and Plan Assessment and plan (1) Fracture of T11 vertebra: Qualifiers: Encounter type: initial encounter Fracture morphology: other fracture Fracture type: closed Qualified Code(s): S22.088A - Other fracture of T11-T12 vertebra, initial encounter for closed fracture Code(s): S22.089A - Unspecified fracture of T11-T12 vertebra, initial encounter for closed fracture Status: Acute Assessment and Plan: This is a 59-year-old female status post syncopal episode and fall found to have a T11 compression fracture. I do not recommend any acute neurosurgical intervention for this. I do not think she needs surgical intervention. She needs to manage her fracture conservatively. I recommend a full bone health workup including DEXA scan vitamin-D levels calcium levels and endocrinology evaluation to diagnose treat manage possible osteopenia or osteoporosis. In regards to the fracture she should maintain the brace when she is upright or moving this includes while she is at work. This brace should be maintained likely for a period of at least 6-8 weeks. She should follow-up with nurse practitioner Dominique Granger in clinic in 6-8 weeks with repeat AP lateral upright thoracic spine x-rays. She should get upright AP lateral thoracic spine x-rays in her brace this admission to obtain a baseline of the fracture while she is standing upright. She may benefit from physical therapy as well as a dietitian consult to discussed proper nutrition to optimize bone health. Consult date: 04/26/24 Reason for consult: Evaluation of thoracic compression fracture HPI: Leticia Doyle is a 59 year old female with a history of hypothyroidism on levothyroxine, known spinal kyphosis, recurrent fractures, GERD who presents following a fall. She explains that she was coming out of her tub and walking a few steps when she fell and remembers waking up on the floor. She was unsure how long she was there when she woke up she noted pain in her mid back that was localized to the area and felt like a 10/10 pain. The pain was worsened whenever she moved. The fall was not witnessed. She was taken to the emergency room for further evaluation. She was worked up with a CT chest and pelvis which indicated T11 compression fracture with 20% vertebral body height loss without significant retropulsion of fragments. She was admitted for syncopal workup and I was consulted to comment on the T11 compression fracture. She denies any numbness tingling weakness or shooting pain down her legs. Review of Systems 2 Review of Systems: Full review of systems was performed and negative other than what is listed in history of presenting illness PMFSH Past Medical History Medical History GERD (gastroesophageal reflux disease) Hypothyroid Seasonal allergies Surgical History Surgical History H/O: hysterectomy Social History Social History Social History: Patient drinks alcohol occasionally, denies toba Smoking status: Never smoker Alcohol intake: former Substance use: never Substance use type: does not use Do You Feel Safe in your Home?: Yes Lack of Transportation: No Lack of Food: Never True Current Housing: Decline to Answer Concerned About Future Housing: Decline to Answer Difficulty Paying Gas/Electric Bills: Decline to Answer Difficulty Paying for Meds: Decline to Answer Currently Unemployed: Decline to Answer Education: Decline to Answer Difficulty w/ Childcare or Family Care: Decline to Answer Spiritual care concerns: No Meds Home Medications and Allergies Home Medications ?Medication ?Instructions ?Recorded ?Confirmed ?Type levothyroxine 88 mcg tablet 88 mcg PO DAILY 10/07/19 04/25/24 History azithromycin 250 mg tablet 250 mg PO Q12H 04/25/24 04/25/24 History ipratropium bromide 21 mcg (0.03 2 spray intranasal BID allergies 04/25/24 04/25/24 History %) nasal spray oseltamivir 75 mg capsule 75 mg PO Q12H 04/25/24 04/25/24 History Allergies Allergy/AdvReac Type Severity Reaction Status Date / Time Penicillins Allergy Severe Swelling Verified 04/25/24 18:43 latex Allergy Unknown Blister Verified 04/25/24 18:43 triamcinolone (From Nasacort Allergy Headache Verified 04/25/24 18:43 AQ) honey AdvReac Intermediate Migraine Verified 04/25/24 18:44 sulfite AdvReac Intermediate Migraine Verified 04/25/24 18:43 fexofenadine (From Sayda-D) AdvReac Mild Headache Verified 04/25/24 18:43 pseudoephedrine (From AdvReac Mild Headache Verified 04/25/24 18:43 Sayda-D) Scallop Allergy Severe Anaphylaxis Uncoded 04/25/24 18:43 Contrast Media Allergy Unknown burning Uncoded 04/25/24 18:43 MEPERIDINE HCL AdvReac Unknown Headache Uncoded 04/25/24 18:43 Vital Signs Vital Signs - 24 hr 04/25/24 13:08 04/25/24 15:17 04/25/24 17:35 Temperature 97.6 F Pulse Rate 88 89 84 Respiratory Rate 15 18 18 Blood Pressure 120/77 110/78 103/73 Pulse Oximetry 97 96 97 Oxygen Delivery Room Air 04/25/24 18:01 04/25/24 20:00 04/25/24 21:15 Temperature Pulse Rate 84 86 Respiratory Rate 18 Blood Pressure 102/81 Pulse Oximetry 96 Oxygen Delivery Room Air 04/25/24 21:49 04/26/24 00:00 04/26/24 04:00 Temperature 97.0 F L Pulse Rate 80 61 71 Respiratory Rate 16 Blood Pressure 94/52 L Pulse Oximetry 95 Oxygen Delivery 04/26/24 06:00 Temperature 97.1 F L Pulse Rate 59 L Respiratory Rate 14 Blood Pressure 106/67 Pulse Oximetry 95 Oxygen Delivery Exam 2 Narrative: She is awake alert in no acute distress she is wearing a TLSO brace in bed. She moves all her extremities well 5/5 strength including iliopsoas, quadriceps, hamstrings, plantar flexors, dorsiflexors, EHL. She has no clonus on examination. Her reflexes are 2+ and symmetric in the lower extremities. Her sensation is intact to light touch. I reviewed her thoracic spine CT scan which does show a slight wedge deformity at T11. She does have an exaggerated kyphosis that is pre-existing. Results Labs 04/26/24 05:28 04/26/24 05:28 Labs: Short CBC 04/25/24 04/26/24 Range/Units 15:16 05: WBC 4.9 2.9 L (4.5-10.0) K/mm3 Hgb 13.7 12.5 (12.0-15.0) g/dL Hct 41.0 37.6 (37.0-47.0) % Plt Count 192 149 L (150-375) k/mm3 BMP 02/27/25 02/28/25 15:16 05:28 Sodium 134 L 137 Potassium 4.5 4.5 Chloride 103 106 Carbon Dioxide 19 L 27 BUN 25 H 18 H Creatinine 0.69 L 0.70 Glucose 101 86 Calcium 9.3 8.8 Cardiac Enzymes 04/25/24 Range/Units 15:16 Troponin I < 0.012 (0.000-0.034) ng/mL Liver Function 04/25/24 04/26/24 Range/Units 15:16 05:28 Total Bilirubin 0.7 0.6 (0.2-1.3) mg/dL AST 43 H 36 (14-36) U/L ALT 24 22 (6-35) U/L Alkaline Phosphatase 95 78 (38-126) U/L Albumin 4.2 3.5 (3.5-5.1) g/dL Urine 04/26/24 Range/Units 02:36 Urine Color Yellow (Yellow) Urine Appearance Cloudy H (Clear) Urine pH 5.5 (5.0-9.0) Ur Specific [place] 1.023 (1.001-1.035) Urine Protein Trace (Negative) mg/dL Urine Glucose (UA) Negative (Negative) mg/dL
--- NOTE | 2024-04-26 07:48 | PM.IMPN ---
Progress Note: A&P Assessment and Plan (1) Fracture of T11 vertebra: Qualifiers: Encounter type: initial encounter Fracture morphology: other fracture Fracture type: closed Qualified Code(s): S22.088A - Other fracture of T11-T12 vertebra, initial encounter for closed fracture Code(s): S22.089A - Unspecified fracture of T11-T12 vertebra, initial encounter for closed fracture Status: Acute Assessment and Plan: ## Compression fracture of T11 which may be acute or chronic. MRI is advised. Loss of volume of multiple vertebrae in the midthoracic area most likely chronic. --> Neurosurgeon consulted. -Back brace at all times unless bathing. --> MRI scheduled. awaiting results - needs pre-mediciated due to feeling like urinating allergy to contrast. -> Analgesia; -> Anti-spasmodics as needed -> PT/OT eval (2) GERD (gastroesophageal reflux disease): Code(s): K21.9 - Gastro-esophageal reflux disease without esophagitis Status: Acute Assessment and Plan: continue home medications (3) Hypothyroid: Code(s): E03.9 - Hypothyroidism, unspecified Status: Acute Assessment and Plan: continue home medications (4) Syncope: Code(s): R55 - Syncope and collapse Status: Acute Assessment and Plan: ## r/t influenza?? R/t UTI?? - patient unsure if she truly had LOC, but reported LOC? - tele for now. - up with assist only (5) UTI (urinary tract infection): Code(s): N39.0 - Urinary tract infection, site not specified Status: Acute Assessment and Plan: ## nitrate positive, leukocyte 1+, trace keytone, urine WBC 21-50, Bacteria 2+ -- cultures pending -- started levaquin IVPB --trend WBC and cultures Plan Miscellaneous care 1. Code status. Full 2. Nutrition. NPO 3. VTE prophylaxis. SCDs; SHAVON Subjective Date/time seen: 04/26/24 07:48 Interval history: This is a very pleasant 59 female with medical history of multiple fractures, kyphoplasty, Hypothyroidism, renal calculi, vitamin-D deficiency. Patient reports she still having some back pain, she did see the neurosurgeon, he stated that at this time she is not a surgical candidate but we will wait for MRI evaluation. Patient was put in a brace which she states does cause some pain. She denies any nausea, vomiting or diarrhea. She states that she did have influenza last Monday she was started on antibiotic for her influenza as well as Tamiflu. She informed this provider that her doctor told her that is the only way to treat the flu was with an antibiotic and Tamiflu. Patient denies any shortness of breath any fever, cough, chills she denies any nausea, vomiting or diarrhea. She denies any dizziness or distress. She denies any frequency or dysuria. The patient was found to have positive nitrates in her urine this a.m., started on Levaquin 750 mg IV piggyback. Review of Systems Review of Systems: All systems reviewed & are unremarkable except as noted in HPI and below Exam Const: General: cooperative, no acute distress, alert, awake and uncomfortable Nutritional Appearance: average body habitus Orientation/consciousness: patient oriented x3 Limitations: physical limitations HENMT: Head: normal to inspection and normocephalic Face/Nose/Sinus: Normal nares present Mouth: Yes moist mucous membranes Eyes: General: appearance normal, both eyes and all related structures Pupils: Equal, round and reactive pupils present Neck: Neck: full ROM, no lymphadenopathy, supple and no JVD Chest: Chest palpation & inspection: normal inspection of the chest Resp: Effort & Inspection: normal respiratory effort Auscultation: clear to auscultation bilaterally Cardio: Rate: regular rate Rhythm: regular rhythm Heart sounds: S1 normal heart sound present and S2 normal heart sound present Peripheral pulses: Peripheral pulses 2+ throughout GI: Inspection: normal to inspection GI Palp: Yes Soft to palpation Auscultation: normal bowel sounds Back/Spine/Pelvis: Back: back tenderness Thoracic/Lumbar Spine: thoracic and lumbar spine normal to inspection, kyphosis and thoracic spinal tenderness Pelvis: no pain with anterior-posterior compression and no pain with lateral compression Skin: General skin exam: normal color Neuro: General: patient oriented x3 Cranial nerves: Yes Equal, round and reactive pupils present Motor exam (neuro): 5/5 motor strength present throughout, Normal motor muscle tone present throughout and Abnormal motor strength present Extrem: General: normal to inspection Right upper extremity: normal to inspection Left upper extremity: normal to inspection Right lower extremity: normal to inspection Left lower extremity: normal to inspection Psych: Mental Status: mental status grossly normal Speech and movement: Normal speech and movement present Affect: normal affect and Anxious affect present Attitude: cooperative Thought process: Normal thought process present Thought content: Yes Normal thought content present Insight: Good insight present (Psych) Judgement: Good judgement present (Psych) Objective Data Vital Signs Vital Signs: Vital Signs - 24 hr 04/25/24 13:08 04/25/24 15:17 04/25/24 17:35 Temperature 97.6 F Pulse Rate 88 89 84 Respiratory Rate 15 18 18 Blood Pressure 120/77 110/78 103/73 Pulse Oximetry 97 96 97 Oxygen Delivery Room Air 04/25/24 18:01 04/25/24 20:00 04/25/24 21:15 Temperature Pulse Rate 84 86 Respiratory Rate 18 Blood Pressure 102/81 Pulse Oximetry 96 Oxygen Delivery Room Air 04/25/24 21:49 04/26/24 00:00 04/26/24 04:00 Temperature 97.0 F L Pulse Rate 80 61 71 Respiratory Rate 16 Blood Pressure 94/52 L Pulse Oximetry 95 Oxygen Delivery 04/26/24 06:00 Temperature 97.1 F L Pulse Rate 59 L Respiratory Rate 14 Blood Pressure 106/67 Pulse Oximetry 95 Oxygen Delivery Intake/Output Intake/Output: Intake & Output 04/23/24 04/24/24 04/25/24 04/26/24 23:59 23:59 23:59 23:59 Intake Total 50 Output Total 400 Balance -350 Meds/Results Medications: Active Medications Generic Name Dose Route Start Last Admin Trade Name Freq PRN Reason Stop Dose Admin Acetaminophen 650 mg 04/25/24 16:28 04/26/24 05:55 Acetaminophen 325 Mg Tablet PO 650 mg Q4H PRN Administration Mild Pain (1-3) or Fever Hydrocodone Bitart/Acetaminophen 1 tab 04/25/24 16:28 04/25/24 20:00 Hydrocodone/Acetaminophen (*Crx) 5-325 Mg Tablet PO 1 tab Q4H PRN Administration Pain Rated 4-6 Albuterol/Ipratropium 3 ml 04/26/24 02:12 Ipratropium 0.5 Mg/Albuterol Sulfate 2.5 Mg Ampul.Neb 3 Ml INHALATION Q4HRT PRN shortness of breath/Wheezing Cyclobenzaprine HCl 5 mg 04/26/24 02:37 Cyclobenzaprine Hcl 5 Mg Tablet PO Q12H PRN Muscle Spasm Heparin Sodium (Porcine) 5,000 units 04/26/24 09:00 Heparin Sodium 5,000 Units/Ml Vial SUB-Q Q12HR SHAVON Hydromorphone HCl 0.5 mg 04/26/24 02:37 Hydromorphone Hcl Inj (*Crx) 1 Mg/Ml Syr IV PUSH Q3H PRN Pain Rated 7-10 Sodium Chloride 1,000 mls @ 75 mls/hr 04/26/24 02:15 04/26/24 02:40 Normal Saline Iv IV CONT 75 mls/hr .[id number] SHAVON Administration Levofloxacin/Dextrose 750 mg in 150 mls @ 100 mls/hr 04/26/24 07:50 Levaquin 750 Mg/D5w 150 Ml IVPB Q24H SHAVON Levothyroxine Sodium 88 mcg 04/26/24 06:30 04/26/24 05:55 Levothyroxine Sodium 88 Mcg Tablet PO 88 mcg DAILY@0630 SHAVON Administration Ondansetron HCl 4 mg 04/25/24 16:28 Ondansetron Inj 4 Mg/2 Ml Vial IV PUSH Q4H PRN Nausea Perflutren Lipid Microsphere 0 ml 04/26/24 02:47 Perflutren Lipid Microspheres 1.5 Ml Vial Diluted To 10 Ml Total Volume IV PUSH 04/29/24 02:47 ONCE PRN adequate visualization Protocol Prochlorperazine Edisylate 10 mg 04/26/24 02:12 Prochlorperazine Edisylate 10 Mg/2 Ml Vial IV PUSH Q6H PRN Nausea And Vomiting Radiology Results: ITS Impressions Chest/Abdomen/Pelvis/Spine CT 04/25/24 14:41 IMPRESSION: 1. Acute appearing T11 compression fracture with 20% anterior vertebral body height loss. 2. No acute pulmonary disease or acute intra-abdominal/pelvic process. 2. 1-2 mm nonobstructing stone at the lower pole of the right kidney. Head CT 04/25/24 14:41 IMPRESSION: 1. Normal brain. Cervical Spine CT 04/25/24 14:43 IMPRESSION: 1. No fracture. 2. Mild cervical spondylosis. Thoracic Spine X-Ray 04/25/24 17:05 IMPRESSION: Compression fracture of T11 which may be acute or chronic. MRI is advised. Loss of volume of multiple vertebrae in the midthoracic area most likely chronic. Labs Labs: Laboratory Results - last 24 hr 04/25/24 04/26/24 04/26/24 15:16 02:36 05:28 WBC 4.9 2.9 L RBC 4.50 4.08 L Hgb 13.7 12.5 Hct 41.0 37.6 MCV 91.1 92.2 MCH 30.4 30.6 MCHC 33.4 33.2 RDW 12.5 12.6 Plt Count 192 149 L MPV 9.9 9.4 Immature Gran % (Auto) 0.4 0.7 H Neut % (Auto) 83.9 H 67.9 Lymph % (Auto) 8.2 L 17.6 L [place] % (Auto) 7.3 12.5 H Eos % (Auto) 0.0 1.0 Baso % (Auto) 0.2 0.3 Lymph # (Auto) 0.40 L 0.51 L [place] # (Auto) 0.4 0.4 Eos # (Auto) 0.0 0.0 Baso # (Auto) 0.0 0.0 Abs Immat Gran (auto) 0.02 0.02 Absolute Neuts (auto) 4.1 2.0 Absolute Nucleated RBC 0.000 0.000 Nucleated RBC % 0.0 0.0 PT 13.4 INR 1.0 APTT 27.5 Sodium 134 L 137 Potassium 4.5 4.5 Chloride 103 106 Carbon Dioxide 19 L 27 Anion Gap 12 4 BUN 25 H 18 H Creatinine 0.69 L 0.70 Estim Creat Clear Calc 67 66 Estimated GFR > 60 > 60 Glucose 101 86 Calcium 9.3 8.8 Total Bilirubin 0.7 0.6 AST 43 H 36 ALT 24 22 Alkaline Phosphatase 95 78 Troponin I < 0.012 Total Protein 7.0 6.0 L Albumin 4.2 3.5 Urine Color Yellow Urine Appearance Cloudy H Urine pH 5.5 Ur Specific [place] 1.023 Urine Protein Trace Urine Glucose (UA) Negative Urine Ketones Trace H Ur Blood (Man) Negative Urine Nitrate Positive H Urine Bilirubin Negative Urine Urobilinogen 0.2 Leukocyte Esterase Rfl 1+ H Urine RBC 0-2 Urine WBC 21-50 H Ur Squamous Epith Cells Occasional Urine Bacteria 2+ H Urine Casts 3-5
[2024-04-26] MEDS: levoFLOXacin 750 MG/D5W 150 ML 750 MG/150 ML BAG 100 MG IVPB (08:50)
[2024-04-26] MEDS: HEPARIN SODIUM 5,000 UNITS/ML VIAL 5000 UNITS SUB-Q ×2 (08:51→22:40)
[2024-04-26] MEDS: CYCLOBENZAPRINE HCL 5 MG TABLET PO ×2 (08:56→22:42)
[2024-04-26 09:12] LABS: Magnesium 1.9 mg/dL (1.6-2.3); Vitamin D 25 Hydroxy 88.3 ng/mL
[2024-04-26] MEDS: HYDROcodone/acetaminophen (*CRX) 5-325 MG TABLET 1 TAB PO ×3 (12:23→22:41)
[2024-04-26 13:22] LABS: Influenza A QL RT-PCR Positive (Negative); Influenza B QL RT-PCR Negative (Negative); SARS-CoV-2 RNA PCR Negative (Negative)
[2024-04-26] MEDS: predniSONE 40 MG, predniSONE 10 MG 50 MG PO (22:40)
[2024-04-27 04:34] VITALS: BP 119/88; PULSE 69; RESP 18; TEMP 36.3; O2SAT 97
[2024-04-27] MEDS: predniSONE 40 MG, predniSONE 10 MG 50 MG PO ×2 (05:13→11:02)
[2024-04-27] MEDS: LEVOTHYROXINE SODIUM 88 MCG TABLET PO (05:21)
[2024-04-27] MEDS: HYDROcodone/acetaminophen (*CRX) 5-325 MG TABLET 1 TAB PO ×2 (05:48→13:04)
[2024-04-27 05:58] LABS: Basophils Percent Auto 0.4 % (0.2-1.2); Eosinophils Percent Auto 0.4 % (0-4.4); Hematocrit 39.9 % (37.0-47.0); Hemoglobin 13.3 g/dL (12.0-15.0); Immature Granulocyte Absolute 0.01 K/mm3 (0.00-0.031); Immature Granulocyte Percent A 0.4 % (0-0.5); Lymphocytes Absolute Auto 0.28 K/mm3 (0.9-3.2); Lymphocytes Percent Auto 10.1 % (18.3-44.2); Mean Corpuscular HGB Conc 33.3 g/dl (32-36); Mean Corpuscular Hemoglobin 30.8 pg (26-34); Mean Corpuscular Volume 92.4 fl (80-100); Mean Platelet Volume 9.6 fl (7.4-10.4); Monocytes Absolute Auto 0.1 K/mm3 (0.1-0.6); Monocytes Percent Auto 3.6 % (2.6-8.5); Neutrophils Absolute Auto 2.4 K/mm3 (1.3-6.7); Neutrophils Percent Auto 85.1 % (45.5-73.1); Platelet Count Result 166 k/mm3 (150-375); Red Blood Count 4.32 M/mm3 (4.2-5.4); Red Cell Distribution Width 12.4 % (11.5-14.5); White Blood Count 2.8 K/mm3 (4.5-10.0)
[2024-04-27 06:09] LABS: Alanine Aminotransferase 27 U/L (6-35); Alkaline Phosphatase 86 U/L (38-126); Anion Gap 8 mmol/L (4-12); Aspartate Amino Transferase 37 U/L (14-36); Bilirubin,Total 0.5 mg/dL (0.2-1.3); Blood Urea Nitrogen 11 mg/dL (7-17); Calcium 9.1 mg/dL (8.4-10.2); Carbon Dioxide 26 mmol/L (22-30); Chloride 103 mmol/L (98-107); Estimated CRCL calculation 74 ml/min; Estimated Glomerular Filt Rate > 60; Glucose 124 mg/dL (65-110); Potassium 4.8 mmol/L (3.4-5.0); Sodium 137 mmol/L (137-145)
[2024-04-27] MEDS: FAMOTIDINE 20 MG/2 ML VIAL IV PUSH (11:03)
[2024-04-27] MEDS: diphenhydrAMINE HCl CAP 25 MG CAPSULE 50 MG PO (11:03)
[2024-04-27] MEDS: HEPARIN SODIUM 5,000 UNITS/ML VIAL 5000 UNITS SUB-Q ×2 (11:05→21:39)
--- NOTE | 2024-04-27 11:42 | PC.NURSE ---
Patient off of unit to MRI
--- NOTE | 2024-04-27 11:54 | P.PNIM_ITS ---
Progress Note: A&P Assessment and Plan (1) UTI (urinary tract infection): Code(s): N39.0 - Urinary tract infection, site not specified Status: Acute Assessment and Plan: * UA showing cloudy urine appearance, trace urine ketone, positive urine nitrate, 1+ leukocyte, 21-50 urine WBC, 2+ urine bacteria * Urine culture pending * Continue Levaquin (2) Fall: Code(s): W19.XXXA - Unspecified fall, initial encounter Status: Acute Assessment and Plan: Likely secondary to UTI and dehydration * Chest/abdomen/pelvis/spine CT shown acute appearing T11 compression fracture with 20% anterior vertebral body height loss, 1-2 mm nonobstructing stone at the lower pole of the right kidney * Head CT showed normal brain * Cervical spine CT was negative for fracture, showed mild cervical spondylosis * Thoracic spine x-ray showed compression fracture of T11 which may be acute or chronic * Of the thoracic spine shows acute T11 burst fracture with 20% anterior vertebral body height loss retropulsion, moderate thoracic kyphosis with additional chronic mild anterior wedging at T6-T8, mild thoracic and upper lumbar spondylosis * Continue fall precautions * PT and OT ordered * Continue pain control * Continue TLSO brace per Neurosurgery recommendation--brace should be used at all times unless bathing (3) Fracture of T11 vertebra: Qualifiers: Encounter type: initial encounter Fracture morphology: other fracture Fracture type: closed Qualified Code(s): S22.088A - Other fracture of T11-T12 vertebra, initial encounter for closed fracture Code(s): S22.089A - Unspecified fracture of T11-T12 vertebra, initial encounter for closed fracture Status: Acute Assessment and Plan: See above (4) GERD (gastroesophageal reflux disease): Code(s): K21.9 - Gastro-esophageal reflux disease without esophagitis Status: Acute Assessment and Plan: * Continue Pepcid (5) Hypothyroid: Code(s): E03.9 - Hypothyroidism, unspecified Status: Acute Assessment and Plan: * Continue Synthroid Time Spent With Patient Time with patient: 25 - 35 minutes Subjective Date/time seen: 04/27/24 11:54 Interval history: Interval history: This is a 59 year female with a significant past medical history of GERD, hypothyroidism, multiple fractures, kyphoplasty, hysterectomy who presented to the hospital after sustaining a ground level fall and for evaluation of back pain. Workup in the hospital included chest/abdomen/pelvis/spine CT which shown acute appearing T11 compression fracture with 20% anterior vertebral body height loss, 1-2 mm nonobstructing stone at the lower pole of the right kidney, no acute pulmonary disease. Head CT showed normal brain. Cervical spine CT was negative for fracture showed mild cervical spondylosis. Thoracic spine x-ray showed compression fracture of T11 which may be acute or chronic. Initial labs showed a normal white blood cell count of 4.9, sodium 134, bicarb 19, AST 43, troponin negative. UA was obtained which showed cloudy urine appearance, trace urine ketone, positive nitrate, 1+ leukocytes, 21-50 urine WBC, 2+ urine bacteria. Respiratory panel was positive for influenza A. Urine culture was obtained and pending. EKG showed sinus rhythm with a rate of 79, QTC 418. Echocardiogram showed normal LV systolic function with an estimated EF of 55-60 %, grade 1 diastolic dysfunction. Patient was started on Levaquin, she was ordered a TLSO brace, and she will obtain an MRI today. Subjective: Patient denies any new complaints today. Labs reviewed. Review of Systems Review of Systems: All systems reviewed & are unremarkable except as noted in HPI and below Exam Narrative: General: In no acute distress, well nourished Head: atraumatic, no encephalopathy Eyes: EOMI, PERRLA, sclera clear ENT: moist mucous membranes, nasal passages clear Neck: supple, no JVD, no adenopathy, trachea midline Cardiac: Normal S1 and S2. No murmur, gallops or friction rubs, peripheral pulses intact. Respiratory: Lungs coarse on the right greater than the left, no adventitious lung sounds, currently on room air, productive cough Gastrointestinal: soft, non-distended, non-tender, normoactive bowel sounds. : voiding without difficulty. Extremities: moves all extremities well, no edema, Skin: clean, dry, intact. No wounds or lesions. Neuro: Alert and oriented x4, cranial nerves intact, no neuro deficits. Psych: normal mood, normal affect, interactive Objective Data Vital Signs Vital Signs: Vital Signs - 24 hr 04/26/24 12:00 04/26/24 14:00 04/26/24 20:45 Temperature 95.5 F L 97.2 F L Pulse Rate 81 78 71 Respiratory Rate 16 18 Blood Pressure 111/79 117/64 Pulse Oximetry 99 97 Oxygen Delivery 04/27/24 04:34 04/27/24 10:33 Temperature 97.4 F L Pulse Rate 69 Respiratory Rate 18 Blood Pressure 119/88 Pulse Oximetry 97 Oxygen Delivery Room Air Intake/Output Intake/Output: Intake & Output 04/24/24 04/25/24 04/26/24 04/27/24 23:59 23:59 23:59 23:59 Intake Total 2527 690 Output Total 1310 1150 Balance 1217 -460 Meds/Results Medications: Active Medications Generic Name Dose Route Start Last Admin Trade Name Freq PRN Reason Stop Dose Admin Acetaminophen 650 mg 04/25/24 16:28 04/26/24 05:55 Acetaminophen 325 Mg Tablet PO 650 mg Q4H PRN Administration Mild Pain (1-3) or Fever Hydrocodone Bitart/Acetaminophen 1 tab 04/25/24 16:28 04/27/24 05:48 Hydrocodone/Acetaminophen (*Crx) 5-325 Mg Tablet PO 1 tab Q4H PRN Administration Pain Rated 4-6 Albuterol/Ipratropium 3 ml 04/26/24 02:12 Ipratropium 0.5 Mg/Albuterol Sulfate 2.5 Mg Ampul.Neb 3 Ml INHALATION Q4HRT PRN shortness of breath/Wheezing Cyclobenzaprine HCl 5 mg 04/26/24 02:37 04/26/24 22:42 Cyclobenzaprine Hcl 5 Mg Tablet PO 5 mg Q12H PRN Administration Muscle Spasm Heparin Sodium (Porcine) 5,000 units 04/26/24 09:00 04/27/24 11:05 Heparin Sodium 5,000 Units/Ml Vial SUB-Q 5,000 units Q12HR SHAVON Administration Hydromorphone HCl 0.5 mg 04/26/24 02:37 Hydromorphone Hcl Inj (*Crx) 1 Mg/Ml Syr IV PUSH Q3H PRN Pain Rated 7-10 Sodium Chloride 1,000 mls @ 75 mls/hr 04/26/24 02:15 04/27/24 10:59 Normal Saline Iv IV CONT Not Given .[id number] SHAVON Levofloxacin/Dextrose 750 mg in 150 mls @ 100 mls/hr 04/26/24 08:00 04/26/24 10:20 Levaquin 750 Mg/D5w 150 Ml IVPB Infused Q24H SHAVON Infusion Levothyroxine Sodium 88 mcg 04/26/24 06:30 04/27/24 05:21 Levothyroxine Sodium 88 Mcg Tablet PO 88 mcg DAILY@0630 SHAVON Administration Lorazepam 0.5 mg 04/26/24 11:39 Lorazepam (*Crx) 0.5 Mg Tablet PO Q6H PRN Anxiety Ondansetron HCl 4 mg 04/25/24 16:28 Ondansetron Inj 4 Mg/2 Ml Vial IV PUSH Q4H PRN Nausea Perflutren Lipid Microsphere 0 ml 04/26/24 02:47 Perflutren Lipid Microspheres 1.5 Ml Vial Diluted To 10 Ml Total Volume IV PUSH 04/29/24 02:47 ONCE PRN adequate visualization Protocol Prochlorperazine Edisylate 10 mg 04/26/24 02:12 Prochlorperazine Edisylate 10 Mg/2 Ml Vial IV PUSH Q6H PRN Nausea And Vomiting Radiology Results: ITS Impressions Chest/Abdomen/Pelvis/Spine CT 04/25/24 14:41 IMPRESSION: 1. Acute appearing T11 compression fracture with 20% anterior vertebral body height loss. 2. No acute pulmonary disease or acute intra-abdominal/pelvic process. 2. 1-2 mm nonobstructing stone at the lower pole of the right kidney. Head CT 04/25/24 14:41 IMPRESSION: 1. Normal brain. Cervical Spine CT 04/25/24 14:43 IMPRESSION: 1. No fracture. 2. Mild cervical spondylosis. Thoracic Spine X-Ray 04/25/24 17:05 IMPRESSION: Compression fracture of T11 which may be acute or chronic. MRI is advised. Loss of volume of multiple vertebrae in the midthoracic area most likely chronic. Labs Labs: Laboratory Results - last 24 hr 04/26/24 04/27/24 12:32 05:47 WBC 2.8 L RBC 4.32 Hgb 13.3 Hct 39.9 MCV 92.4 MCH 30.8 MCHC 33.3 RDW 12.4 Plt Count 166 MPV 9.6 Immature Gran % (Auto) 0.4 Neut % (Auto) 85.1 H Lymph % (Auto) 10.1 L [place] % (Auto) 3.6 Eos % (Auto) 0.4 Baso % (Auto) 0.4 Lymph # (Auto) 0.28 L [place] # (Auto) 0.1 Eos # (Auto) 0.0 Baso # (Auto) 0.0 Abs Immat Gran (auto) 0.01 Absolute Neuts (auto) 2.4 Absolute Nucleated RBC 0.000 Nucleated RBC % 0.0 Sodium 137 Potassium 4.8 Chloride 103 Carbon Dioxide 26 Anion Gap 8 BUN 11 D Creatinine 0.62 L Estim Creat Clear Calc 74 Estimated GFR > 60 Glucose 124 H Calcium 9.1 Total Bilirubin 0.5 AST 37 H ALT 27 Alkaline Phosphatase 86 Total Protein 7.0 Albumin 4.0 Influenza A (RT-PCR) Positive A Influenza B (RT-PCR) Negative SARS-CoV-2 RNA (RT-PCR) Negative Quality VTE Prophylaxis VTE prophylaxis: pharmacologic ordered
[2024-04-27] MEDS: levoFLOXacin 750 MG/D5W 150 ML 750 MG/150 ML BAG 100 MG IVPB (13:04)
[2024-04-27 14:07] VITALS: BP 124/93; PULSE 83; RESP 18; TEMP 36.6; O2SAT 95
[2024-04-27 20:55] VITALS: BP 136/96; PULSE 73; RESP 18; TEMP 36.9; O2SAT 97
[2024-04-27] MEDS: LORazepam (*CRX) 0.5 MG TABLET PO (21:40)
[2024-04-27] MEDS: FAMOTIDINE 20 MG TABLET PO (21:40)
[2024-04-28] VITALS (26 sets, daily range): BP systolic 104–165; BP diastolic 80–93; PULSE 57–125; RESP 12–22; TEMP 36.5–37.6; O2SAT 96–100
[2024-04-28] MEDS: HYDROcodone/acetaminophen (*CRX) 5-325 MG TABLET 1 TAB PO (05:07)
[2024-04-28] MEDS: LEVOTHYROXINE SODIUM 88 MCG TABLET PO (05:07)
[2024-04-28 07:26] LABS: Basophils Percent Auto 0.2 % (0.2-1.2); Hematocrit 37.2 % (37.0-47.0); Hemoglobin 12.5 g/dL (12.0-15.0); Immature Granulocyte Absolute 0.02 K/mm3 (0.00-0.031); Immature Granulocyte Percent A 0.4 % (0-0.5); Lymphocytes Absolute Auto 0.58 K/mm3 (0.9-3.2); Lymphocytes Percent Auto 10.8 % (18.3-44.2); Mean Corpuscular HGB Conc 33.6 g/dl (32-36); Mean Corpuscular Hemoglobin 30.6 pg (26-34); Mean Platelet Volume 10.5 fl (7.4-10.4); Monocytes Absolute Auto 0.6 K/mm3 (0.1-0.6); Neutrophils Absolute Auto 4.2 K/mm3 (1.3-6.7); Neutrophils Percent Auto 77.6 % (45.5-73.1); Platelet Count Result 188 k/mm3 (150-375); Red Blood Count 4.09 M/mm3 (4.2-5.4); Red Cell Distribution Width 12.3 % (11.5-14.5); White Blood Count 5.4 K/mm3 (4.5-10.0)
[2024-04-28 07:39] LABS: Alanine Aminotransferase 25 U/L (6-35); Albumin Level 3.7 g/dL (3.5-5.1); Alkaline Phosphatase 61 U/L (38-126); Anion Gap 6 mmol/L (4-12); Aspartate Amino Transferase 36 U/L (14-36); Bilirubin,Total 0.6 mg/dL (0.2-1.3); Blood Urea Nitrogen 14 mg/dL (7-17); Calcium 9.3 mg/dL (8.4-10.2); Carbon Dioxide 27 mmol/L (22-30); Chloride 104 mmol/L (98-107); Estimated CRCL calculation 77 ml/min; Estimated Glomerular Filt Rate > 60; Glucose 99 mg/dL (65-110); Potassium 4.3 mmol/L (3.4-5.0); Sodium 137 mmol/L (137-145)
--- NOTE | 2024-04-28 08:17 | P.DS_ITS ---
DS: Admitting Diagnosis Discharge Date 04/28/24 DS: Discharge Diagnosis Discharge Diagnosis (1) UTI (urinary tract infection): Code(s): N39.0 - Urinary tract infection, site not specified Status: Acute (2) Fall: Code(s): W19.XXXA - Unspecified fall, initial encounter Status: Acute (3) Fracture of T11 vertebra: Qualifiers: Encounter type: initial encounter Fracture morphology: other fracture Fracture type: closed Qualified Code(s): S22.088A - Other fracture of T11-T12 vertebra, initial encounter for closed fracture Code(s): S22.089A - Unspecified fracture of T11-T12 vertebra, initial encounter for closed fracture Status: Acute (4) GERD (gastroesophageal reflux disease): Code(s): K21.9 - Gastro-esophageal reflux disease without esophagitis Status: Acute (5) Hypothyroid: Code(s): E03.9 - Hypothyroidism, unspecified Status: Acute DS: Summary Hospital Course Hospital Course: This is a 59 year female with a significant past medical history of GERD, hypothyroidism, multiple fractures, kyphoplasty, hysterectomy who presented to the hospital after sustaining a ground level fall and for evaluation of back pain. Workup in the hospital included chest/abdomen/pelvis/spine CT which shown acute appearing T11 compression fracture with 20% anterior vertebral body height loss, 1-2 mm nonobstructing stone at the lower pole of the right kidney, no acute pulmonary disease. Head CT showed normal brain. Cervical spine CT was negative for fracture showed mild cervical spondylosis. Thoracic spine x-ray showed compression fracture of T11 which may be acute or chronic. Initial labs showed a normal white blood cell count of 4.9, sodium 134, bicarb 19, AST 43, troponin negative. UA was obtained which showed cloudy urine appearance, trace urine ketone, positive nitrate, 1+ leukocytes, 21-50 urine WBC, 2+ urine bacteria. Respiratory panel was positive for influenza A. Urine culture was obtained and pending. EKG showed sinus rhythm with a rate of 79, QTC 418. Echocardiogram showed normal LV systolic function with an estimated EF of 55- 60%, grade 1 diastolic dysfunction. Patient was started on Levaquin, she was ordered a TLSO brace, and she will obtain an MRI today. MRI shown Acute T11 burst fracture with 20% anterior vertebral body height loss and 1mm retropulsion, moderate thoracic kyphosis with additional chronic mild anterior wedging at T6-T8, mild thoracic and upper lumbar spondylosis. She will continue use of TLSO brace. She will need to follow up with Neurosurgery in 4 weeks and her primary care doctor in 2 weeks. I did discuss with her about getting an outpatient bone density scan in the future after she is stable from rehab. She is agreeable. Final diagnosis: Acute UTI, Compression fracture of T 11 vertebra Status at Discharge Cognitive/behavioral status at discharge: Alert and oriented x3 Functional status at discharge: uses cane/walker Overall status at discharge: patient is progressing back to baseline Time Spent with Patient Time attestation: Total time spent providing and/or coordinating discharge services: Time spent: Greater than 30 minutes Exam Narrative: General: In no acute distress, well nourished Cardiac: Normal S1 and S2. No murmur, gallops or friction rubs, peripheral pulses intact. Respiratory: Lungs coarse on the right greater than the left, no adventitious lung sounds, currently on room air, productive cough Gastrointestinal: soft, non-distended, non-tender, normoactive bowel sounds. : voiding without difficulty. Neuro: Alert and oriented x4 DS: Data Data Completed and Pending Completed studies during hospitalization: Thoracic spine MRI Thoracic spine CT Cervical spine CT head CT Chest/abdomen/pelvis/spine CT Pending studies at discharge: Urine culture Labs on day of discharge: Labs from last 24 hours 04/28/24 06:27 WBC 5.4 RBC 4.09 L Hgb 12.5 Hct 37.2 MCV 91.0 MCH 30.6 MCHC 33.6 RDW 12.3 Plt Count 188 MPV 10.5 H Immature Gran % (Auto) 0.4 Neut % (Auto) 77.6 H Lymph % (Auto) 10.8 L [place] % (Auto) 11.0 H Eos % (Auto) 0.0 Baso % (Auto) 0.2 Lymph # (Auto) 0.58 L [place] # (Auto) 0.6 Eos # (Auto) 0.0 Baso # (Auto) 0.0 Abs Immat Gran (auto) 0.02 Absolute Neuts (auto) 4.2 Absolute Nucleated RBC 0.000 Nucleated RBC % 0.0 Sodium 137 Potassium 4.3 Chloride 104 Carbon Dioxide 27 Anion Gap 6 BUN 14 Creatinine 0.59 L Estim Creat Clear Calc 77 Estimated GFR > 60 Glucose 99 Calcium 9.3 Total Bilirubin 0.6 AST 36 ALT 25 Alkaline Phosphatase 61 Total Protein 7.0 Albumin 3.7 Preliminary micro results at discharge 04/26/24 02:36 Urine Culture - Preliminary Urine Clean Catch Escherichia Coli Procedures/Treatments: None Discharge Plan Discharge Attending physician on discharge: Zarina Noriega Consulting providers: Hari Patel Discharging Clinician: Chayo Martínez Anticipated Discharge Date/Time: 04/28/24 08:11 Patient Disposition: Home, Self-Care Activity: as tolerated Diet: as tolerated and heart healthy Discharge Instructions: * continue to wear TLSO brace at all times with the exception of showering * Follow up with Neurosurgery in 4 weeks * Get bone density test as an outpatient and follow up with primary care doctor in 1 week * Finish all of your antibiotic as prescribed even if you are feeling better. Patient Instructions: Vertebral Compression Fracture (DC) Patient Language: Italian Stand Alone Forms: General Discharge Information Follow-up/Referrals: Pelon,Ruben Miller DO [Primary Care Provider] - 1 Week Hugo Glass MD [Physician] - 4 Weeks Discharge Medications: New hydrocodone-acetaminophen 5-325 mg Tablet 1 tablet PO Q4H PRN (Reason: Pain Rated 4-6) Qty: 20 0RF cyclobenzaprine 5 mg tablet 5 mg PO TID PRN (Reason: Muscle Spasm) Qty: 14 0RF cyclobenzaprine 5 mg tablet 5 mg PO TID PRN (Reason: Muscle Spasm) Qty: 14 0RF levofloxacin 750 mg tablet 750 mg PO DAILY Qty: 5 0RF Continued levothyroxine 88 mcg tablet 88 mcg PO DAILY ipratropium bromide 21 mcg (0.03 %) spray,non-aerosol 2 spray INTRANASAL BID Discontinued azithromycin 250 mg tablet 250 mg PO Q12H oseltamivir 75 mg capsule 75 mg PO Q12H Other Ambulatory Orders: NM bone scan whole body (Routine) Timeframe: 1 Week Location: Determined by Patient Ordered By: Chayo Martínez Date of admission: 04/25/24 16:28 Primary Care Provider: PelonRuben Admitting Provider: Jani Jarrett Attending physician on admission: Chayo Martínez Condition: Stable Quality VTE Prophylaxis VTE prophylaxis: pharmacologic ordered Hospitalist MIPS Heart Failure (Exclusion) Patient has history of Heart Transplant or Left Ventricular Assistive Device?: No IF YES, STOP HERE Heart Failure (Qualifier) Patient has current or prior documentation of LVEF less than or equal to 40%, or mod/servere depressed LVSF?: No IF NO, STOP HERE
[2024-04-28] MEDS: levoFLOXacin 750 MG TABLET PO (09:01)
[2024-04-28] MEDS: FAMOTIDINE 20 MG TABLET PO (09:01)
[2024-04-28] MEDS: HEPARIN SODIUM 5,000 UNITS/ML VIAL 5000 UNITS SUB-Q ×2 (09:01→21:03)
--- NOTE | 2024-04-28 09:41 | P.PNIM_ITS ---
Progress Note: A&P Assessment and Plan (1) UTI (urinary tract infection): Code(s): N39.0 - Urinary tract infection, site not specified Status: Acute Assessment and Plan: * UA showing cloudy urine appearance, trace urine ketone, positive urine nitrate, 1+ leukocyte, 21-50 urine WBC, 2+ urine bacteria * Urine culture pending * Continue Levaquin 3/2 * Continue Levaquin * Urine culture showing E. coli on preliminary read. (2) Fall: Code(s): W19.XXXA - Unspecified fall, initial encounter Status: Acute Assessment and Plan: Likely secondary to UTI and dehydration * Chest/abdomen/pelvis/spine CT shown acute appearing T11 compression fracture with 20% anterior vertebral body height loss, 1-2 mm nonobstructing stone at the lower pole of the right kidney * Head CT showed normal brain * Cervical spine CT was negative for fracture, showed mild cervical spondylosis * Thoracic spine x-ray showed compression fracture of T11 which may be acute or chronic * Of the thoracic spine shows acute T11 burst fracture with 20% anterior vertebral body height loss retropulsion, moderate thoracic kyphosis with additional chronic mild anterior wedging at T6-T8, mild thoracic and upper lumbar spondylosis * Continue fall precautions * PT and OT ordered * Continue pain control * Continue TLSO brace per Neurosurgery recommendation--brace should be used at all times unless bathing 3/2 * Continue fall precautions * Continue PT and OT * Continue TLSO brace * Dennard and Dilaudid discontinued, we will use Tramadol and tylenol for pain due to increased confusion today. (3) Fracture of T11 vertebra: Qualifiers: Encounter type: initial encounter Fracture morphology: other fracture Fracture type: closed Qualified Code(s): S22.088A - Other fracture of T11-T12 vertebra, initial encounter for closed fracture Code(s): S22.089A - Unspecified fracture of T11-T12 vertebra, initial encounter for closed fracture Status: Acute Assessment and Plan: See above (4) AMS (altered mental status): Code(s): R41.82 - Altered mental status, unspecified Status: Acute Assessment and Plan: Possibly secondary to Narcotic use versus UTI versus stroke/neurological event * Alert and oriented x2 today, person and place. She was unable to list the correct president or year. While in the room, she grabbed her bedside phone and was attempting to turn down the TV volume. * Dennard and dilaudid discontinued, will use Ultram and tylenol for pain * Will get MRI of brain * Previous Head CT was negative for any acute findings. (5) GERD (gastroesophageal reflux disease): Code(s): K21.9 - Gastro-esophageal reflux disease without esophagitis Status: Acute Assessment and Plan: * Continue Pepcid / * No change to current treatment plan (6) Hypothyroid: Code(s): E03.9 - Hypothyroidism, unspecified Status: Acute Assessment and Plan: * Continue Synthroid / * No change to current treatment plan Time Spent With Patient Time with patient: 25 - 35 minutes Subjective Date/time seen: 04/28/24 09:41 Interval history: Interval history: This is a 59 year female with a significant past medical history of GERD, hypothyroidism, multiple fractures, kyphoplasty, hysterectomy who presented to the hospital after sustaining a ground level fall and for evaluation of back pain. Workup in the hospital included chest/abdomen/pelvis/spine CT which shown acute appearing T11 compression fracture with 20% anterior vertebral body height loss, 1-2 mm nonobstructing stone at the lower pole of the right kidney, no acute pulmonary disease. Head CT showed normal brain. Cervical spine CT was negative for fracture showed mild cervical spondylosis. Thoracic spine x-ray showed compression fracture of T11 which may be acute or chronic. Initial labs showed a normal white blood cell count of 4.9, sodium 134, bicarb 19, AST 43, troponin negative. UA was obtained which showed cloudy urine appearance, trace urine ketone, positive nitrate, 1+ leukocytes, 21-50 urine WBC, 2+ urine bacteria. Respiratory panel was positive for influenza A. Urine culture was obtained and pending. EKG showed sinus rhythm with a rate of 79, QTC 418. Echocardiogram showed normal LV systolic function with an estimated EF of 55- 60%, grade 1 diastolic dysfunction. Patient was started on Levaquin, she was ordered a TLSO brace, and she will obtain an MRI today. Subjective: Patient confused this morning. She is oriented to self, place, month however she thought the president was [place] and that the year was 2021. While talking with her she picked up the bedside phone and started pressing numbers, when we asked what she was doing she stated she was trying to turn the volume down on the TV. She denies any headache, lightheadedness, dizziness, vision changes, she is moving all extremities, facial features are normal, PERRLA. She is being treated for a UTI however she was Alert and oriented x4 yesterday. She did receive Dennard for pain yesterday but nothing today. Labs reviewed. Review of Systems Review of Systems: All systems reviewed & are unremarkable except as noted in HPI and below Exam Narrative: General: In no acute distress, well nourished Cardiac: Normal S1 and S2. No murmur, gallops or friction rubs, peripheral pulses intact. Respiratory: Lungs coarse on the right greater than the left, no adventitious lung sounds, currently on room air, productive cough Gastrointestinal: soft, non-distended, non-tender, normoactive bowel sounds. : voiding without difficulty. Neuro: Alert and oriented x2, no focal deficits visualized, she is confused to what year it is, unable to tell me the correct president, and using the phone to try and turn down the TV volume. She is oriented to self and place. PERRLA, no facial drooping. Denies lightheadedness, dizziness, headache, or vision changes. Objective Data Vital Signs Vital Signs: Vital Signs - 24 hr 04/27/24 10:33 04/27/24 11:05 04/27/24 14:07 Temperature 97.9 F Pulse Rate 83 Respiratory Rate 18 Blood Pressure 124/93 H Pulse Oximetry 95 Oxygen Delivery Room Air Room Air 04/27/24 14:56 04/27/24 20:00 04/27/24 20:55 Temperature 98.4 F Pulse Rate 73 Respiratory Rate 18 Blood Pressure 136/96 H Pulse Oximetry 97 Oxygen Delivery Room Air Room Air 04/28/24 04:16 04/28/24 09:01 Temperature 97.7 F Pulse Rate 78 Respiratory Rate 18 Blood Pressure 156/86 H Pulse Oximetry 96 Oxygen Delivery Room Air Intake/Output Intake/Output: Intake & Output 04/25/24 04/26/24 04/27/24 04/28/24 23:59 23:59 23:59 23:59 Intake Total 2527 2280 200 Output Total 1310 2400 Balance 1217 -120 200 Meds/Results Medications: Active Medications Generic Name Dose Route Start Last Admin Trade Name Freq PRN Reason Stop Dose Admin Acetaminophen 650 mg 04/25/24 16:28 04/26/24 05:55 Acetaminophen 325 Mg Tablet PO 650 mg Q4H PRN Administration Mild Pain (1-3) or Fever Albuterol/Ipratropium 3 ml 04/26/24 02:12 Ipratropium 0.5 Mg/Albuterol Sulfate 2.5 Mg Ampul.Neb 3 Ml INHALATION Q4HRT PRN shortness of breath/Wheezing Cyclobenzaprine HCl 5 mg 04/26/24 02:37 04/26/24 22:42 Cyclobenzaprine Hcl 5 Mg Tablet PO 5 mg Q12H PRN Administration Muscle Spasm Famotidine 20 mg 04/27/24 21:00 04/28/24 09:01 Famotidine 20 Mg Tablet PO 20 mg Q12HR SHAVON Administration Heparin Sodium (Porcine) 5,000 units 04/26/24 09:00 04/28/24 09:01 Heparin Sodium 5,000 Units/Ml Vial SUB-Q 5,000 units Q12HR SHAVON Administration Levofloxacin 750 mg 04/28/24 09:00 04/28/24 09:01 Levofloxacin 750 Mg Tablet PO 750 mg DAILY SHAVON Administration Levothyroxine Sodium 88 mcg 04/26/24 06:30 04/28/24 05:07 Levothyroxine Sodium 88 Mcg Tablet PO 88 mcg DAILY@0630 SHAVON Administration Lorazepam 0.5 mg 04/26/24 11:39 04/27/24 21:40 Lorazepam (*Crx) 0.5 Mg Tablet PO 0.5 mg Q6H PRN Administration Anxiety Ondansetron HCl 4 mg 04/25/24 16:28 Ondansetron Inj 4 Mg/2 Ml Vial IV PUSH Q4H PRN Nausea Perflutren Lipid Microsphere 0 ml 04/26/24 02:47 Perflutren Lipid Microspheres 1.5 Ml Vial Diluted To 10 Ml Total Volume IV PUSH 04/29/24 02:47 ONCE PRN adequate visualization Protocol Prochlorperazine Edisylate 10 mg 04/26/24 02:12 Prochlorperazine Edisylate 10 Mg/2 Ml Vial IV PUSH Q6H PRN Nausea And Vomiting Tramadol HCl 25 mg 04/28/24 09:37 Tramadol Hcl (*Crx) 25 Mg Tablet PO Q6H PRN Pain Rated 4-6 Radiology Results: ITS Impressions Chest/Abdomen/Pelvis/Spine CT 04/25/24 14:41 IMPRESSION: 1. Acute appearing T11 compression fracture with 20% anterior vertebral body height loss. 2. No acute pulmonary disease or acute intra-abdominal/pelvic process. 2. 1-2 mm nonobstructing stone at the lower pole of the right kidney. Head CT 04/25/24 14:41 IMPRESSION: 1. Normal brain. Cervical Spine CT 04/25/24 14:43 IMPRESSION: 1. No fracture. 2. Mild cervical spondylosis. Thoracic Spine X-Ray 04/25/24 17:05 IMPRESSION: Compression fracture of T11 which may be acute or chronic. MRI is advised. Loss of volume of multiple vertebrae in the midthoracic area most likely chronic. Thoracic Spine MRI 04/27/24 12:49 IMPRESSION: 1. Acute T11 burst fracture with 20% anterior vertebral body height loss and 1 mm retropulsion. 2. Moderate thoracic kyphosis with additional chronic mild anterior wedging at T6-T8. 3. Mild thoracic and upper lumbar spondylosis. Labs Labs: Laboratory Results - last 24 hr 04/28/24 06:27 WBC 5.4 RBC 4.09 L Hgb 12.5 Hct 37.2 MCV 91.0 MCH 30.6 MCHC 33.6 RDW 12.3 Plt Count 188 MPV 10.5 H Immature Gran % (Auto) 0.4 Neut % (Auto) 77.6 H Lymph % (Auto) 10.8 L [place] % (Auto) 11.0 H Eos % (Auto) 0.0 Baso % (Auto) 0.2 Lymph # (Auto) 0.58 L [place] # (Auto) 0.6 Eos # (Auto) 0.0 Baso # (Auto) 0.0 Abs Immat Gran (auto) 0.02 Absolute Neuts (auto) 4.2 Absolute Nucleated RBC 0.000 Nucleated RBC % 0.0 Sodium 137 Potassium 4.3 Chloride 104 Carbon Dioxide 27 Anion Gap 6 BUN 14 Creatinine 0.59 L Estim Creat Clear Calc 77 Estimated GFR > 60 Glucose 99 Calcium 9.3 Total Bilirubin 0.6 AST 36 ALT 25 Alkaline Phosphatase 61 Total Protein 7.0 Albumin 3.7 Quality VTE Prophylaxis VTE prophylaxis: pharmacologic ordered
--- NOTE | 2024-04-28 10:05 | PC.NURSE ---
RN spoke with hospitalist Chayo Martínez in regards to patient's MRI brain ordered today 04/28/2024. Patient has to have a pretreatment plan because she states it feels like she has to pee when she receives IV contrast. Hospitalist Chayo stated to hold off on MRI until tomorrow 04/29/24 to see if orientation improves.
--- NOTE | 2024-04-28 11:50 | PC.NURSE ---
RN heard bed alarm alarming in 344. RN immediately went into room and patient ran into the bathroom. While patient was in the bathroom, RN gave her privacy. RN spoke with patient's spouse Laureano and updated him that the hospitalist Chayo will have the MRI done tomorrow 04/29/2024 if patient's orientation status does not improve. Laureano understood and stated he didn't think she had slept all night last night, so maybe a better nights rest would help. RN went back to the nurses station to finish AMA paperwork for 341. Patient's Laureano came out to the nurses station and told RN I think Leticia is sleeping in the bathroom or maybe laying on the floor . RN ran into bathroom and found patient on floor, heavy breathing, pulse present, but patient was unconscious. RN told Graduate Nurse Alma to call rapid response and RN grabbed the other RN Esther to help. See rapid response report for remainder of situation.
[2024-04-28] MEDS: DEXTROSE 50% 25 GM/50 ML SYRINGE IV PUSH (12:11)
[2024-04-28] MEDS: SUCCINYLCHOLINE CHLORIDE 20 MG/ML 10 ML VIAL 50 MG IV PUSH ×2 (12:13→12:22)
[2024-04-28] MEDS: ETOMIDATE 20 MG/10 ML AMPUL IV PUSH (12:13)
[2024-04-28] MEDS: fentaNYL CITRATE INJ (*CRX) 250 MCG/5 ML VIAL 100 MCG IV PUSH ×2 (12:32→13:04)
[2024-04-28] MEDS: fentaNYL CITRATE INJ (*CRX) 100 MCG/2 ML VIAL (12:32)
[2024-04-28 12:45] LABS: Glucose Point of Care 95 mg/dl (65-105)
--- NOTE | 2024-04-28 12:45 | P.RRN_ITS ---
Critical Care Event Note Summary Code activated: No (Rapid Response) Narrative: Rapid response called around 12 p.m. today. Patient was found unresponsive with sonorous breathing on the floor of the bathroom. According to nursing patient got up abruptly from her bed and ran into the bathroom. Nursing checked on her and she was ok at the time she entered the bathroom. told nursing a bit later that it sounded like she fell asleep in the bathroom. Nursing went to check again and found her on the floor, unresponsive with eyes deviated to the right. Her O2 saturation was in the 60's and nonrebreather mask was placed on her with improvement in her oxygenation. She was placed on a lift pad and manually lifted back into the bed. She was still unresponsive with sonorous breathing. Material Attendant was called to the bedside for rapid intubation for airway protection. Tube placement was attempted but no CO2 color change x3 attempts. She was then successfully intubated with use of GlideScope assist by Dr. Louis, internet media planner. She was found to have thick secretions in her airway which were suctioned at the bedside. Concerns for aspiration. As well as concerns for seizure activity versus stroke. Her heart rate was in the 130's, blood pressures were recording 150-170's systolic, BG was checked and was 95. She was taken to CT scan and then will be admitted to ICU bed 5. was at bedside and update through the process. This case had a high probability of a clinically significant, sudden, or life threatening deterioration of this patient's condition which required my full and direct attention, intervention and personal management. Critical care time: 30 - 74 mins
--- NOTE | 2024-04-28 12:55 | P.PCNBED_ITS ---
Procedures Intubation Intubation Date: 04/28/24 Intubation Time: 12:20 A pre-procedural Time-Out was completed immediately before starting the procedure and confirmed: Patient Identification, Site, Procedure, Patient Position and the Availability of Requisite Equipment: Yes Sedative: etomidate Paralytic: succinylcholine Laryngoscope: fiber optic video scope Assist device used: fiber optic device ET tube size: 7 Tube secured depth (cm): 23 Tube secured location: lips Tube placement confirmation: visualized tube passing through cords, equal breath sounds bilaterally, no breath sounds over epigastrium and confirmation by capnometry Patient tolerated procedure: well Intubation complications: none Additional comments: Try to intubate patient with a MAC blade, airways pre anterior. I used the gl keanu scope intubate the patient.
--- NOTE | 2024-04-28 12:57 | WPDCNINT ---
Assessment and Plan Assessment and plan (1) Acute respiratory failure: Code(s): J96.00 - Acute respiratory failure, unspecified whether with hypoxia or hypercapnia Status: Acute Assessment and Plan: 04/25/2024: Patient had a fall in her bathroom 04/28/2024: Patient had a fall in the bathroom in the hospital, found down with LOC, sonorous breaths. Patient was intubated on the medical floor -currently on CMV mode of ventilation, peep of 5, 100% FiO2 -awaiting post intubation ABGs, will adjust ventilator accordingly -continue bronchodilators -sedated with propofol, 04/28/2024: Chest CTA Impression: No evidence of pulmonary embolus, aortic dissection, or aortic aneurysm. Clear lungs. Acute T11 compression fracture. Please see prior MR from 04/27/2024. (2) Fall: Code(s): W19.XXXA - Unspecified fall, initial encounter Status: Acute Assessment and Plan: 04/25/2024: Patient had a fall in her bathroom 04/28/2024: Patient had a fall in the bathroom in the hospital, found down with LOC, sonorous breaths. Patient was intubated on the medical floor -unclear etiology of falls -will get Neurology to follow and may require a EEG to rule out seizure activity currently intubated and sedated (3) Syncope: Qualifiers: Syncope type: unspecified Qualified Code(s): R55 - Syncope and collapse Code(s): R55 - Syncope and collapse Status: Acute Assessment and Plan: Unknown etiology, now patient is on a telemonitor, will evaluate for arrhythmias. Echocardiogram is under 04/26/2024 echocardiogram: Summary 1. Complete two-dimensional, color flow and Doppler transthoracic echocardiogram is performed. 2. Left ventricular chamber dimension is normal. 3. Left ventricular systolic function is normal, estimated at 55-60%. 4. The left ventricular diastolic function is grade I diastolic dysfunction. 5. E/e' 4 is not elevated. 6. There is trace mitral valve regurgitation. 7. There is trace tricuspid valve regurgitation. 8. No pulmonary hypertension, estimated pulmonary arterial systolic pressure is 27 mmHg. (4) AMS (altered mental status): Code(s): R41.82 - Altered mental status, unspecified Status: Acute Assessment and Plan: Altered mental status post fall, could be concussion, encephalopathy secondary to seizures, arrhythmia -currently intubated and sedated (5) Fracture of T11 vertebra: Qualifiers: Encounter type: initial encounter Fracture morphology: other fracture Fracture type: closed Qualified Code(s): S22.088A - Other fracture of T11-T12 vertebra, initial encounter for closed fracture Code(s): S22.089A - Unspecified fracture of T11-T12 vertebra, initial encounter for closed fracture Status: Acute Assessment and Plan: Neurosurgery has evaluated the patient, no plan for surgical intervention. Patient has to wear her brace for 6-8 weeks (6) Hypothyroid: Code(s): E03.9 - Hypothyroidism, unspecified Status: Acute Assessment and Plan: Since patient is intubated and sedated, will switch to IV levothyroxine (7) GERD (gastroesophageal reflux disease): Code(s): K21.9 - Gastro-esophageal reflux disease without esophagitis Status: Acute Assessment and Plan: IV famotidine has been ordered (8) UTI (urinary tract infection): Code(s): N39.0 - Urinary tract infection, site not specified Status: Acute Assessment and Plan: E coli UTI pansensitive, -continue levofloxacin IV Plan DVT prophylaxis: Heparin SQ Stress ulcer prophylaxis: Famotidine Nutrition: NPO, will start tube feeds in a.m. Code Status: Full code Critical Care Time Spent: 81 minutes Discussed with patient's spouse, updated him with patient's condition and plan of care. He is aware that we are unaware why she fell and that we will be looking into it. He is aware that she will be getting a CT scan of the brain, cervical spine and CT chest. Due to a high probability of clinically significant, life threatening deterioration, the patient required my highest level of preparedness to intervene emergently and I personally spent this critical care time directly and personally managing the patient. This critical care time included obtaining a history; examining the patient; pulse oximetry; ordering and review of studies; arranging urgent treatment with development of a management plan; evaluation of patient's response to treatment; frequent reassessment; and discussions with other providers. It was exclusive of separately billable procedures and treating other patients and teaching time. Please see Assessment and Plan section and the rest of the note for further information on patient assessment and treatment This dictation may have been done utilizing a voice recognition system. Attempts have been made to correct errors. However, there may be uncorrected grammatical, spelling, and recognitions errors present. [employer] Consultant Consult Note Consult date: 04/28/24 HPI: Leticia Doyle is a 59 year old female with past medical history of GERD, hypothyroidism,, kyphosis, recurrent fractures seasonal allergies presented the ED on 04/25/2024 with complains of fall. According the records patient was coming out of her tub in walking a few steps when she found, remembers waking up on the floor. She was unsure how long she was on on the floor 4. When she woke up she noted pain in her midback that was localized to the area and felt like 10/10 in intensity. The pain worsened when she moved. Fall was not witnessed. She use brought to the ER where CT scan of the chest and pelvis indicated T11 compression fracture with 20% vertebral body height loss without significant retropulsion of fragments. She was admitted for workup of syncope. Neurosurgery was consulted for T11 compression fracture, no surgical intervention per Neurosurgery recs. Brace for 6-8 weeks. Patient was also positive for influenza A, she stated that she was already tested positive on 04/22/2024 and was on Tamiflu. UA was also positive for UTI, cultures growing E coli, pansensitive. Patient is on levofloxacin On 04/28/2024: Patient was confused this morning according the hospitalist who saw the patient. (patient was otherwise alert, oriented x4 on 04/27/2024 per hospitalist's note). This afternoon patient had a fall when she was getting up and going to the bathroom and fell in the bathroom, follows again unwitnessed. Patient with LOC, picked up input in bed, having sonorous respirations, was called to bedside, she was not responding. I intubated the patient on the medical floor and center for CT scan of the head, cervical spine and chest CTA. CT head: No significant abnormality CT cervical spine: No fracture or subluxation of the cervical spine CTA chest: No evidence of pulmonary embolism, aortic dissection or or aortic aneurysm. Clear lungs. Acute T11 compression fracture Patient was transferred to the ICU after a CT scan, right IJ central line was inserted for IV support. Patient seen and examined the ICU, remains intubated on CMV mode of ventilation, peep of 5, 100% FiO2. Sedated with propofol infusion, patient has received IV Versed pushes x2. Hemodynamically stable. I have asked the bedside RN to put a [place] catheter. Currently afebrile. Patient does not open her eyes or follow simple command Review of Systems Review of Systems: ROS unobtainable: Yes unobtainable due to endotracheal tube, unobtainable due to medical condition and unobtainable due to mental status PMFSH Past Medical History Medical History GERD (gastroesophageal reflux disease) Hypothyroid Seasonal allergies Surgical History Surgical History H/O: hysterectomy Social History Social History Social History: Patient drinks alcohol occasionally, denies toba Smoking status: Never smoker Alcohol intake: former Substance use: never Substance use type: does not use Do You Feel Safe in your Home?: Yes Lack of Transportation: No Lack of Food: Never True Current Housing: Decline to Answer Concerned About Future Housing: Decline to Answer Difficulty Paying Gas/Electric Bills: Decline to Answer Difficulty Paying for Meds: Decline to Answer Currently Unemployed: Decline to Answer Education: Decline to Answer Difficulty w/ Childcare or Family Care: Decline to Answer Spiritual care concerns: No Meds Home Medications and Allergies Home Medications ?Medication ?Instructions ?Recorded ?Confirmed ?Type levothyroxine 88 mcg tablet 88 mcg PO DAILY 10/07/19 04/25/24 History azithromycin 250 mg tablet 250 mg PO Q12H 04/25/24 04/25/24 History ipratropium bromide 21 mcg (0.03 2 spray intranasal BID allergies 04/25/24 04/25/24 History %) nasal spray oseltamivir 75 mg capsule 75 mg PO Q12H 04/25/24 04/25/24 History hydrocodone 5 mg-acetaminophen 325 1 tablet PO Q4H PRN Pain Rated 4-6 04/28/24 Rx mg tablet #20 tabs Allergies Allergy/AdvReac Type Severity Reaction Status Date / Time Penicillins Allergy Severe Swelling Verified 04/25/24 18:43 latex Allergy Unknown Blister Verified 04/25/24 18:43 triamcinolone (From Nasacort Allergy Headache Verified 04/25/24 18:43 AQ) honey AdvReac Intermediate Migraine Verified 04/25/24 18:44 sulfite AdvReac Intermediate Migraine Verified 04/25/24 18:43 fexofenadine (From Sayda-D) AdvReac Mild Headache Verified 04/25/24 18:43 pseudoephedrine (From AdvReac Mild Headache Verified 04/25/24 18:43 Sayda-D) Scallop Allergy Severe Anaphylaxis Uncoded 04/25/24 18:43 Contrast Media Allergy Unknown burning Uncoded 04/25/24 18:43 MEPERIDINE HCL AdvReac Unknown Headache Uncoded 04/25/24 18:43 Vital Signs Vital Signs - 24 hr 04/27/24 14:07 04/27/24 14:56 04/27/24 20:00 Temperature 97.9 F Pulse Rate 83 Respiratory Rate 18 Blood Pressure 124/93 H Pulse Oximetry 95 Oxygen Delivery Room Air Room Air 04/27/24 20:55 04/28/24 04:16 04/28/24 09:01 Temperature 98.4 F 97.7 F Pulse Rate 73 78 Respiratory Rate 18 18 Blood Pressure 136/96 H 156/86 H Pulse Oximetry 97 96 Oxygen Delivery Room Air Exam Narrative: General: Intubated and sedated, in no acute distress HEENT:? Pupils are equal and reactive, sclerae is clear ETT in place Neck:? Supple Respiratory:? Clear to auscultation bilaterally, no wheezing, adequate air entry Cardiac:? S1-S2 normal, regular rate and rhythm Abdomen:? Soft, nontender, nondistended, hypoactive bowel sounds. Patient does have brace in place for a T11 fracture Extremities:? Palpable pedal pulses, no edema Neuro:? Intubated sedated, does not open her eyes or follow simple commands. Skin:? No skin lesions noted Psych:? Unable to assess Results Labs 04/28/24 06:27 04/28/24 06:27 Labs: Short CBC 04/28/24 Range/Units 06:27 WBC 5.4 (4.5-10.0) K/mm3 Hgb 12.5 (12.0-15.0) g/dL Hct 37.2 (37.0-47.0) % Plt Count 188 (150-375) k/mm3 BMP 04/28/24 06:27 Sodium 137 Potassium 4.3 Chloride 104 Carbon Dioxide 27 BUN 14 Creatinine 0.59 L Glucose 99 Calcium 9.3 Liver Function 04/28/24 Range/Units 06:27 Total Bilirubin 0.6 (0.2-1.3) mg/dL AST 36 (14-36) U/L ALT 25 (6-35) U/L Alkaline Phosphatase 61 (38-126) U/L Albumin 3.7 (3.5-5.1) g/dL Quality VTE Prophylaxis VTE prophylaxis: pharmacologic ordered Hospitalist MIPS Advance Care Plan I have confirmed that the patient's Advanced Care Plan is present, code status is documented, or surrogate decision maker is listed in patient medical record.: Yes Medication Reconciliation I have utilized all available resources to obtain, update and review the patients current medications (includes all prescriptions, OTC, herbals, cannabis, and nutritional supplements).: Yes
[2024-04-28] MEDS: MIDAZOLAM HCL (*CRX) 2 MG/2 ML VIAL 4 MG IV PUSH (13:14)
--- NOTE | 2024-04-28 13:29 | WPDPROCEDUR ---
Procedures Central Line Placement Right IJ: Central Line Date: 04/28/24 Central Line Time: 13:25 Discussed w/ the patient/family/POA,the placement of a central venous catheter, including its clinical necessity/indication & associated potential risks, benifits and alternatives.: Yes The patient/family/POA understand(s) and acknowledge(s) the need to proceed with central venous catheter insertion as an important element of the patient's clinical management.: Yes Consent: I have discussed with the patient and/or surrogate, the non-emergent placement of a central venous catheter, including its clinical necessity/indication and associated potential risks and complications. The patient and/or surrogate understand(s) and acknowledge(s) the need to proceed with central venous catheter insertion as an important element of the patient's clinical management. Time Out Performed: Yes Patient Position: supine Patient placed on monitor/pulse ox: Yes Provider Prep: mask, sterile gown, sterile gloves, Max. sterile barrier precautions, cap and hand hygiene with conventional soap/water or alcohol based hand rub Central line prep: 2% Chlorhexidine scrub Local anesthesia used: lidocaine 1% Amount of anesthesia used (ml): 2 Sterile US Technique with sterile gel/sterile probe covers: Yes Central line lumen inserted: triple Italian: 12 Length (cm): 16 Depth of Insertion (cm): 16 Post Procedure: sutured in place, good blood return, all ports aspirated, flushed, capped, transparent dressing, hemostatic product, antimicrobial product, securement product and aseptic technique maintained throughout procedure Post procedure x-ray: tip of catheter in good position Patient tolerated procedure: well Complications: none
--- NOTE | 2024-04-28 13:36 | PC.NURSE ---
Rapid Response called at 1200 after patient found down in bathroom. Patient was unresponsive with sonorous respirations and O2 sats at 60%. Patient was placed on 100% NRB. Patient was lifted off the floor and back to her bed using a lift sheet by 4 nursing staff with c-spine precautions maintained. Dr. Louis arrived at bedside to assess the patient and decided that intubation was needed. 1211: 1/2 amp D5 was given (blood glucose 93) 1213: Prepare for intubation Etomidate 20mg and Succinylcholine 50mg given 1215: 1st intubation attempt 7.5 ETT at 23 Lip. Color changed achieved. HR 128 ST, BP 165/93, 99% 1217: ETT removed due to absent breath sounds. O2 sats 99%. Patient bagged with 100% O2 by RT 1221: 2nd attempt at intubation unsuccessful. 1222: Preparing for intubation: Versed 2mg and Succinylcholine 50mg IVP given 1225: 3rd attempt at intubation unsuccessful. 1226: Versed 4mg given 1227: 4th intubation attempt performed with glidescope. Successful intubation. Breath sounds auscultated bilaterally. #7 ETT at 23 @lip. Patient continues to be bagged by RT 1232: Fentanyl 100mcg given for transport to CT scan 1235: Patient transported to CT. 1250: Patient arrived to ICU 5. Propofol started. Patient placed on ventilator. Settings given by Dr. Louis.
--- NOTE | 2024-04-28 14:02 | PCOTNOTE ---
Patient transferred to the ICU and intubated. Discharged therapy orders at this time. Please re-order therapy when medically stable.
[2024-04-28 14:14] LABS: Basophils Percent Auto 0.1 % (0.2-1.2); Hematocrit 35.1 % (37.0-47.0); Hemoglobin 11.7 g/dL (12.0-15.0); Immature Granulocyte Absolute 0.04 K/mm3 (0.00-0.031); Immature Granulocyte Percent A 0.5 % (0-0.5); Lymphocytes Absolute Auto 0.35 K/mm3 (0.9-3.2); Lymphocytes Percent Auto 4.6 % (18.3-44.2); Mean Corpuscular HGB Conc 33.3 g/dl (32-36); Mean Corpuscular Hemoglobin 30.3 pg (26-34); Mean Corpuscular Volume 90.9 fl (80-100); Mean Platelet Volume 9.7 fl (7.4-10.4); Monocytes Absolute Auto 0.7 K/mm3 (0.1-0.6); Monocytes Percent Auto 9.2 % (2.6-8.5); Neutrophils Absolute Auto 6.6 K/mm3 (1.3-6.7); Neutrophils Percent Auto 85.6 % (45.5-73.1); Platelet Count Result 195 k/mm3 (150-375); Red Blood Count 3.86 M/mm3 (4.2-5.4); Red Cell Distribution Width 12.3 % (11.5-14.5); White Blood Count 7.7 K/mm3 (4.5-10.0)
[2024-04-28] MEDS: SODIUM CHLORIDE 0.9% IV 1,000 ML 999 ML IV CONT (14:20)
[2024-04-28] MEDS: PROPOFOL IV EMULSION 100 ML 13.65 MG IV CONT ×2 (14:30→18:44)
[2024-04-28] MEDS: CENTRAL LINE FLUSH 10 ML IV PUSH ×2 (14:31→21:04)
[2024-04-28 14:32] LABS: Troponin I < 0.012 ng/mL (0.000-0.034)
[2024-04-28 14:39] LABS: Prothrombin Time 13.4 Seconds (11.1-14.7)
[2024-04-28 14:40] LABS: Lactic Acid Reflex 2.2 mmol/L (0.7-2.0)
[2024-04-28 14:41] LABS: Alveolar/Arterial O2 Gradient 172.4 mmHg; Base Excess ABG -0.5 mEq/l (+/-2.0); Fractional Inspired Oxygen 100 %; HCO3 ABG 23.7 mEq/l (22.0-26.0); Oxygen Content ABG 18.3 %vol (16.0-22.0); Oxygen Saturation ABG 99.9 % (95.0-100.0); Oxyhemoglobin 99.3 % THb (90.0-100.0); PCO2 ABG 37.4 mmHg (35.0-45.0); PO2 ABG 503.2 mmHg (80.0-100.0); PO2 FiO2 Ratio Arterial Blood 5.03 %; Total Hemoglobin 12.1 g/dL (12.0-18.0)
[2024-04-28 14:41] LABS: Partial Thromboplastin Time 23.5 Seconds (22.3-36.8)
[2024-04-28 14:42] LABS: Arterial Blood Gas PEEP 5 cmH2O; Arterial Blood Gas Tidal Volume 400 ml; Arterial Blood Gas Vent Mode CMV; Arterial Blood Gas Ventilator rate 22 /MIN; Device VENTILATOR; Modified Allen's Test Pass; Site Drawn LEFT RADIAL
[2024-04-28 14:42] LABS: Alanine Aminotransferase 25 U/L (6-35); Albumin Level 3.5 g/dL (3.5-5.1); Alkaline Phosphatase 65 U/L (38-126); Anion Gap 7 mmol/L (4-12); Aspartate Amino Transferase 31 U/L (14-36); Bilirubin,Total 0.6 mg/dL (0.2-1.3); Blood Urea Nitrogen 15 mg/dL (7-17); Calcium 8.6 mg/dL (8.4-10.2); Carbon Dioxide 26 mmol/L (22-30); Chloride 101 mmol/L (98-107); Creatine Kinase 79 U/L (30-135); Estimated CRCL calculation 87 ml/min; Estimated Glomerular Filt Rate > 60; Glucose 102 mg/dL (65-110); Magnesium 1.8 mg/dL (1.6-2.3); Phosphorus 2.3 mg/dL (2.5-4.5); Potassium 3.8 mmol/L (3.4-5.0); Sodium 134 mmol/L (137-145)
[2024-04-28] MEDS: IPRATROPIUM 0.5 MG/ALBUTEROL SULFATE 2.5 MG AMPUL.NEB 3 ML INHALATION ×2 (14:48→20:27)
[2024-04-28] MEDS: FENTANYL 2,500MCG/NS250ML(*CRX 2,500 MCG/250 ML BAG IV CONT (15:27)
[2024-04-28] MEDS: fentaNYL CITRATE INJ (*CRX) 100 MCG/2 ML VIAL IV PUSH (15:27)
[2024-04-28] MEDS: LACTATED RINGERS 1,000 ML 75 ML IV CONT (15:28)
[2024-04-28 17:07] LABS: Reflex Lactic Acid Yes or No Add Lactic
[2024-04-28] MEDS: FAMOTIDINE 20 MG/2 ML VIAL IV PUSH (21:03)
[2024-04-28] MEDS: MINERAL OIL/WHITE PETROLATUM OINTMENT 1 APPLIC EACH EYE (21:03)
[2024-04-29] VITALS (50 sets, daily range): BP systolic 88–164; BP diastolic 61–99; PULSE 50–115; RESP 12–22; TEMP 36.8–37.6; O2SAT 95–100; BMI 22.9
[2024-04-29] MEDS: IPRATROPIUM 0.5 MG/ALBUTEROL SULFATE 2.5 MG AMPUL.NEB 3 ML INHALATION ×4 (01:49→20:18)
[2024-04-29] MEDS: MIDAZOLAM HCL (*CRX) 2 MG/2 ML VIAL IV PUSH ×2 (02:49→02:50)
[2024-04-29 05:06] LABS: Alveolar/Arterial O2 Gradient 107.1 mmHg; Base Excess ABG 1.5 mEq/l (+/-2.0); Carboxyhemoglobin 0.3 % THb (0-2.0); Fractional Inspired Oxygen 40 %; HCO3 ABG 24.5 mEq/l (22.0-26.0); Methemoglobin ABG 0.1 %THb (0-1.5); Oxygen Content ABG 16.6 %vol (16.0-22.0); Oxyhemoglobin 98.5 % THb (90.0-100.0); PCO2 ABG 33.2 mmHg (35.0-45.0); PO2 ABG 139.9 mmHg (80.0-100.0); Reduced Hemoglobin 1.1 %THb (0-5.0); Total Hemoglobin 11.8 g/dL (12.0-18.0); pH ABG 7.486 (7.350-7.450)
[2024-04-29 05:09] LABS: Device VENTILATOR; Modified Allen's Test Pass; Site Drawn RIGHT RADIAL
[2024-04-29 05:10] LABS: Arterial Blood Gas PEEP 5 cmH2O; Arterial Blood Gas Tidal Volume 400 ml; Arterial Blood Gas Vent Mode CMV; Arterial Blood Gas Ventilator rate 20 /MIN
[2024-04-29 05:26] LABS: Eosinophils Percent Auto 0.4 % (0-4.4); Hematocrit 32.7 % (37.0-47.0); Immature Granulocyte Absolute 0.02 K/mm3 (0.00-0.031); Immature Granulocyte Percent A 0.4 % (0-0.5); Lymphocytes Absolute Auto 0.58 K/mm3 (0.9-3.2); Lymphocytes Percent Auto 12.7 % (18.3-44.2); Mean Corpuscular HGB Conc 33.6 g/dl (32-36); Mean Corpuscular Hemoglobin 30.6 pg (26-34); Mean Corpuscular Volume 91.1 fl (80-100); Mean Platelet Volume 9.5 fl (7.4-10.4); Monocytes Absolute Auto 0.5 K/mm3 (0.1-0.6); Neutrophils Absolute Auto 3.4 K/mm3 (1.3-6.7); Neutrophils Percent Auto 75.5 % (45.5-73.1); Platelet Count Result 137 k/mm3 (150-375); Red Blood Count 3.59 M/mm3 (4.2-5.4); Red Cell Distribution Width 12.7 % (11.5-14.5); White Blood Count 4.6 K/mm3 (4.5-10.0)
[2024-04-29 05:35] LABS: Alanine Aminotransferase 24 U/L (6-35); Albumin Level 2.9 g/dL (3.5-5.1); Alkaline Phosphatase 73 U/L (38-126); Anion Gap 6 mmol/L (4-12); Aspartate Amino Transferase 29 U/L (14-36); Bilirubin,Total 0.4 mg/dL (0.2-1.3); Blood Urea Nitrogen 11 mg/dL (7-17); Calcium 8.6 mg/dL (8.4-10.2); Carbon Dioxide 27 mmol/L (22-30); Chloride 102 mmol/L (98-107); Estimated CRCL calculation 75 ml/min; Estimated Glomerular Filt Rate > 60; Glucose 81 mg/dL (65-110); Magnesium 1.8 mg/dL (1.6-2.3); Phosphorus 2.6 mg/dL (2.5-4.5); Potassium 3.2 mmol/L (3.4-5.0); Sodium 135 mmol/L (137-145); Triglycerides 242 mg/dL (<150)
[2024-04-29] MEDS: PROPOFOL IV EMULSION 100 ML 17.55 MG IV CONT ×2 (06:12)
[2024-04-29] MEDS: LEVOTHYROXINE SODIUM INJ 100 MCG/5 ML VIAL 44 MCG IV PUSH (06:13)
[2024-04-29] MEDS: CENTRAL LINE FLUSH 10 ML IV PUSH ×3 (06:13→20:46)
[2024-04-29] MEDS: ALBUMIN HUMAN 25% 25 GM/100 ML 100 ML IVPB ×2 (08:05→13:33)
[2024-04-29] MEDS: FAMOTIDINE 20 MG/2 ML VIAL IV PUSH ×2 (08:06→20:45)
[2024-04-29] MEDS: MAGNESIUM SULF 2 GM/WATER 50ML 2 GM/50 ML BAG IVPB (08:11)
[2024-04-29] MEDS: HEPARIN SODIUM 5,000 UNITS/ML VIAL 5000 UNITS SUB-Q ×2 (08:11→20:45)
[2024-04-29] MEDS: KCL 40 MEQ/WATER 100 ML 100 ML 25 ML IVPB (08:11)
[2024-04-29] MEDS: MINERAL OIL/WHITE PETROLATUM OINTMENT 1 APPLIC EACH EYE (08:12)
--- NOTE | 2024-04-29 08:26 | PM.IMPN ---
Progress Note: A&P Assessment and Plan (1) Acute respiratory failure: Code(s): J96.00 - Acute respiratory failure, unspecified whether with hypoxia or hypercapnia Status: Acute Assessment and Plan: Patient with a fall in her BR and presented to ED 04/25. CT imaging showed a T11 compression fracture On 04/28, patient ambulated to the BR. in the room did not hear her fall. She was found a short time later on the ground with snoring respirations, eyes deviated to the right and was hypoxic. Patient was intubated and moved to the ICU. Head CT and Cervical spine CT showed no acute findings. Chest CTA was negative for PE. CXR today showing clear lungs. ABG 7.48/33/140 on MV Etiology unclear but consider seizure and aspiration. Consider related to pain medications. Vent management per renewable energy technician; appreciate their input (2) Fall: Code(s): W19.XXXA - Unspecified fall, initial encounter Status: Acute Assessment and Plan: Patient had a fall in her bathroom at home that prompted this admission on 04/25. CT chest/abdomen/pelvis/spine showing acute appearing T11 compression fracture with 20% anterior vertebral body height loss, 1-2 mm nonobstructing stone at the lower pole of the right kidney, no acute pulmonary disease. Head CT showed normal brain. Cervical spine CT was negative for fracture showed mild cervical spondylosis. Thoracic spine MRI showed acute T11 burst fracture with 20% anterior vertebral body height loss and 1mm retropulsion. Initial labs showed a normal WBC of 4.9, sodium 134, bicarb 19, AST 43, troponin negative. UA was concerning for UTI. Respiratory panel was positive for influenza A. EKG showed sinus rhythm with a rate of 79, QTC 418. Echo showed normal LV systolic function with an estimated EF of 55-60%, grade 1 diastolic dysfunction. Patient was started on Levaquin and Tamiflu. She was ordered a TLSO brace (3) Syncope: Qualifiers: Syncope type: unspecified Qualified Code(s): R55 - Syncope and collapse Code(s): R55 - Syncope and collapse Status: Acute Assessment and Plan: As above. Unknown etiology Echo as above. Continue to monitor on tele. (4) AMS (altered mental status): Code(s): R41.82 - Altered mental status, unspecified Status: Acute Assessment and Plan: Altered mental status post fall, could be concussion, encephalopathy secondary to seizures, arrhythmia -currently intubated and sedated (5) Fracture of T11 vertebra: Qualifiers: Encounter type: initial encounter Fracture morphology: other fracture Fracture type: closed Qualified Code(s): S22.088A - Other fracture of T11-T12 vertebra, initial encounter for closed fracture Code(s): S22.089A - Unspecified fracture of T11-T12 vertebra, initial encounter for closed fracture Status: Acute Assessment and Plan: Neurosurgery has evaluated the patient with no plan for surgical intervention. Patient has to wear her brace for 6-8 weeks (6) Hypothyroid: Code(s): E03.9 - Hypothyroidism, unspecified Status: Acute Assessment and Plan: Since patient is intubated and sedated, switched to IV levothyroxine (7) GERD (gastroesophageal reflux disease): Code(s): K21.9 - Gastro-esophageal reflux disease without esophagitis Status: Acute Assessment and Plan: IV famotidine has been ordered (8) UTI (urinary tract infection): Code(s): N39.0 - Urinary tract infection, site not specified Status: Acute Assessment and Plan: UA is consistent with UTI. UCx collected. Abx started. UCx grew spaulding-sensitive EColi. She was treated with 3 days of levaquin 750mg . (9) Influenza A: Code(s): J10.1 - Influenza due to other identified influenza virus with other respiratory manifestations Status: Acute Assessment and Plan: Patient was Influenza A positive on 04/26 She was on Tamiflu on admission and completed a course of Tamiflu. Plan DVT prophylaxis: Heparin SQ Stress ulcer prophylaxis: Famotidine Nutrition: NPO, will start tube feeds in a.m. Subjective Date/time seen: 04/29/24 08:26 Interval history: 59yo female with GERD, hypothyroidism, multiple fractures, kyphoplasty, hysterectomy who presented to the hospital after sustaining a ground level fall and for evaluation of back pain. Patient intubated and sedated. Family in the room and they were updated. Review of Systems Review of Systems: ROS unobtainable: Yes unobtainable due to endotracheal tube Exam Narrative: AF 99.1 89/64 53 18 100% MV Gen - intubated and sedated HEENT - ETT and NGT secured Neck - Rt IJ TLC secured Chest - lungs clear anteriorly CV - RRR S1/S2 with extra beat. Tele showing no significant dysrhythmia Abd - Soft, hypoactive bowel sounds -[place] secured draining clear yellow urine. Ext - No pedal edema Neuro -sedated Skin - Warm and dry Objective Data Vital Signs Vital Signs: Vital Signs - 24 hr 04/28/24 09:01 04/28/24 13:00 04/28/24 13:05 Temperature Pulse Rate 76 Respiratory Rate Blood Pressure Pulse Oximetry 100 Oxygen Delivery Room Air Mechanical Ventilation Oxygen Flow Rate Fraction of Inspired Oxygen 50 100 04/28/24 13:19 04/28/24 13:30 04/28/24 14:00 Temperature Pulse Rate 125 H 72 Respiratory Rate 12 22 H Blood Pressure 165/93 H 104/82 Pulse Oximetry 99 100 100 Oxygen Delivery Bag Valve Mask Mechanical Ventilation Oxygen Flow Rate 15 Fraction of Inspired Oxygen 50 04/28/24 14:00 04/28/24 14:14 04/28/24 14:30 Temperature 97.7 F Pulse Rate 65 69 Respiratory Rate 20 Blood Pressure Pulse Oximetry Oxygen Delivery Oxygen Flow Rate Fraction of Inspired Oxygen 04/28/24 14:48 04/28/24 14:48 04/28/24 14:56 Temperature Pulse Rate 57 L 57 L 63 Respiratory Rate 22 H 20 Blood Pressure Pulse Oximetry 100 Oxygen Delivery Mechanical Ventilation Oxygen Flow Rate Fraction of Inspired Oxygen 50 04/28/24 15:27 04/28/24 16:00 04/28/24 16:00 Temperature Pulse Rate 69 63 64 Respiratory Rate 20 20 20 Blood Pressure Pulse Oximetry Oxygen Delivery Oxygen Flow Rate Fraction of Inspired Oxygen 04/28/24 16:00 04/28/24 16:00 04/28/24 16:00 Temperature 98.7 F Pulse Rate 63 62 Respiratory Rate 20 Blood Pressure 115/86 Pulse Oximetry 100 Oxygen Delivery Oxygen Flow Rate Fraction of Inspired Oxygen 50 04/28/24 16:36 04/28/24 17:06 04/28/24 17:52 Temperature Pulse Rate 64 70 Respiratory Rate 20 Blood Pressure Pulse Oximetry 100 100 100 Oxygen Delivery Mechanical Ventilation Mechanical Ventilation Oxygen Flow Rate Fraction of Inspired Oxygen 50 50 40 04/28/24 18:00 04/28/24 18:00 04/28/24 18:00 Temperature 99.4 F Pulse Rate 65 63 64 Respiratory Rate 20 20 20 Blood Pressure 117/86 Pulse Oximetry 100 Oxygen Delivery Oxygen Flow Rate Fraction of Inspired Oxygen 04/28/24 18:18 04/28/24 18:44 04/28/24 18:44 Temperature Pulse Rate 64 66 66 Respiratory Rate 20 20 Blood Pressure Pulse Oximetry Oxygen Delivery Oxygen Flow Rate Fraction of Inspired Oxygen 04/28/24 20:00 04/28/24 20:00 04/28/24 20:00 Temperature Pulse Rate 65 Respiratory Rate Blood Pressure Pulse Oximetry 100 Oxygen Delivery Mechanical Ventilation Oxygen Flow Rate Fraction of Inspired Oxygen 40 40 04/28/24 20:00 04/28/24 20:27 04/28/24 20:27 Temperature 99.6 F Pulse Rate 65 96 96 Respiratory Rate 20 20 Blood Pressure 121/84 Pulse Oximetry 100 100 Oxygen Delivery Mechanical Ventilation Oxygen Flow Rate Fraction of Inspired Oxygen 40 04/28/24 20:43 04/28/24 20:44 04/28/24 20:45 Temperature Pulse Rate 96 96 96 Respiratory Rate 20 20 20 Blood Pressure Pulse Oximetry Oxygen Delivery Oxygen Flow Rate Fraction of Inspired Oxygen 04/28/24 21:01 04/28/24 21:02 04/28/24 21:09 Temperature Pulse Rate 87 86 85 Respiratory Rate 20 20 20 Blood Pressure Pulse Oximetry Oxygen Delivery Oxygen Flow Rate Fraction of Inspired Oxygen 04/28/24 22:00 04/28/24 22:00 04/28/24 22:00 Temperature 99.1 F Pulse Rate 67 67 67 Respiratory Rate 20 20 20 Blood Pressure 107/80 Pulse Oximetry 100 Oxygen Delivery Oxygen Flow Rate Fraction of Inspired Oxygen 04/28/24 22:00 04/29/24 00:00 04/29/24 00:00 Temperature Pulse Rate 67 58 L 58 L Respiratory Rate 20 20 Blood Pressure Pulse Oximetry Oxygen Delivery Oxygen Flow Rate Fraction of Inspired Oxygen 04/29/24 00:00 04/29/24 00:00 04/29/24 00:00 Temperature Pulse Rate 59 L Respiratory Rate 20 Blood Pressure Pulse Oximetry 100 Oxygen Delivery Mechanical Ventilation Oxygen Flow Rate Fraction of Inspired Oxygen 40 40 04/29/24 00:00 04/29/24 00:00 04/29/24 00:43 Temperature 99.2 F Pulse Rate 59 L 59 L 58 L Respiratory Rate 20 Blood Pressure 89/68 L Pulse Oximetry 100 100 Oxygen Delivery Mechanical Ventilation Oxygen Flow Rate Fraction of Inspired Oxygen 40 04/29/24 01:12 04/29/24 01:15 04/29/24 01:35 Temperature Pulse Rate 58 L 58 L 55 L Respiratory Rate 20 20 20 Blood Pressure Pulse Oximetry Oxygen Delivery Oxygen Flow Rate Fraction of Inspired Oxygen 04/29/24 01:40 04/29/24 01:49 04/29/24 02:00 Temperature Pulse Rate 53 L 52 L 54 L Respiratory Rate 20 20 20 Blood Pressure Pulse Oximetry Oxygen Delivery Oxygen Flow Rate Fraction of Inspired Oxygen 04/29/24 02:00 04/29/24 02:00 04/29/24 02:00 Temperature 99.0 F Pulse Rate 54 L 56 L 56 L Respiratory Rate 20 20 Blood Pressure 88/61 L Pulse Oximetry 100 Oxygen Delivery Oxygen Flow Rate Fraction of Inspired Oxygen 04/29/24 02:05 04/29/24 02:27 04/29/24 02:52 Temperature Pulse Rate 52 L 67 76 Respiratory Rate 20 20 20 Blood Pressure Pulse Oximetry Oxygen Delivery Oxygen Flow Rate Fraction of Inspired Oxygen 04/29/24 03:58 04/29/24 04:00 04/29/24 04:00 Temperature Pulse Rate 58 L 55 L 55 L Respiratory Rate 20 20 Blood Pressure Pulse Oximetry 100 Oxygen Delivery Mechanical Ventilation Oxygen Flow Rate Fraction of Inspired Oxygen 40 04/29/24 04:00 04/29/24 04:00 04/29/24 04:00 Temperature Pulse Rate 55 L Respiratory Rate Blood Pressure Pulse Oximetry 100 Oxygen Delivery Mechanical Ventilation Oxygen Flow Rate Fraction of Inspired Oxygen 40 40 04/29/24 04:00 04/29/24 05:15 04/29/24 05:15 Temperature 98.4 F Pulse Rate 55 L 70 70 Respiratory Rate 20 20 20 Blood Pressure 99/69 L Pulse Oximetry 100 Oxygen Delivery Oxygen Flow Rate Fraction of Inspired Oxygen 04/29/24 05:17 04/29/24 06:00 04/29/24 06:00 Temperature 99.1 F Pulse Rate 59 L 55 L 55 L Respiratory Rate 20 Blood Pressure 102/71 Pulse Oximetry 100 100 Oxygen Delivery Mechanical Ventilation Oxygen Flow Rate Fraction of Inspired Oxygen 40 04/29/24 06:12 04/29/24 06:12 04/29/24 06:13 Temperature Pulse Rate 55 L 55 L 56 L Respiratory Rate 20 20 20 Blood Pressure Pulse Oximetry Oxygen Delivery Oxygen Flow Rate Fraction of Inspired Oxygen 04/29/24 07:52 04/29/24 08:00 04/29/24 08:13 Temperature 99.1 F Pulse Rate 54 L 55 L 53 L Respiratory Rate 20 20 18 Blood Pressure 89/64 L Pulse Oximetry 100 Oxygen Delivery Oxygen Flow Rate Fraction of Inspired Oxygen 04/29/24 08:14 Temperature Pulse Rate 53 L Respiratory Rate 18 Blood Pressure Pulse Oximetry Oxygen Delivery Oxygen Flow Rate Fraction of Inspired Oxygen Intake/Output Intake/Output: Intake & Output 04/26/24 04/27/24 04/28/24 04/29/24 23:59 23:59 23:59 23:59 Intake Total 2527 2280 608.6 223.2 Output Total 1310 2400 300 700 Balance 1217 -120 308.6 -476.8 Meds/Results Medications: Active Medications Generic Name Dose Route Start Last Admin Trade Name Freq PRN Reason Stop Dose Admin Acetaminophen 650 mg 04/25/24 16:28 04/26/24 05:55 Acetaminophen 325 Mg Tablet PO 650 mg Q4H PRN Administration Mild Pain (1-3) or Fever Albuterol/Ipratropium 3 ml 04/28/24 14:00 04/29/24 08:23 Ipratropium 0.5 Mg/Albuterol Sulfate 2.5 Mg Ampul.Neb 3 Ml INHALATION 3 ml Q6HRT SHAVON Administration Cyclobenzaprine HCl 5 mg 04/26/24 02:37 04/26/24 22:42 Cyclobenzaprine Hcl 5 Mg Tablet PO 5 mg Q12H PRN Administration Muscle Spasm Famotidine 20 mg 04/27/24 21:00 04/28/24 09:01 Famotidine 20 Mg Tablet PO 20 mg Q12HR SHAVON Administration Famotidine 20 mg 04/28/24 21:00 04/29/24 08:06 Famotidine 20 Mg/2 Ml Vial IV PUSH 20 mg Q12HR SHAVON Administration Heparin Sodium (Porcine) 5,000 units 04/26/24 09:00 04/29/24 08:11 Heparin Sodium 5,000 Units/Ml Vial SUB-Q 5,000 units Q12HR SHAVON Administration Propofol 100 mls @ 15.6 mls/hr 04/28/24 14:30 04/29/24 08:14 Diprivan IV CONT 35 mcg/kg/min .Q6H25M SHAVON 13.65 mls/hr Titration Protocol 40 MCG/KG/MIN Fentanyl Citrate 2,500 mcg in 250 mls @ 5 mls/hr 04/28/24 15:20 04/29/24 08:13 Fentanyl 2,500 Mcg/Ns 250 Ml IV CONT 75 mcg/hr .Q50H SHAVON 7.5 mls/hr Titration Protocol 50 MCG/HR Potassium Chloride 100 mls @ 25 mls/hr 04/29/24 07:45 04/29/24 08:11 Kcl 40 Meq/Water 100 Ml IVPB 04/29/24 11:44 25 mls/hr ONCE ONE Administration Magnesium Sulfate 2 gm in 50 mls @ 50 mls/hr 04/29/24 07:45 04/29/24 08:11 Magnesium Sulf 2 Gm/Water 50ml IVPB 04/29/24 08:44 50 mls/hr ONCE ONE Administration Albumin Human 100 mls @ 60 mls/hr 04/29/24 07:30 04/29/24 08:05 Albutein IVPB 04/30/24 01:39 60 mls/hr Q6HR SHAVON Administration Levothyroxine Sodium 44 mcg 04/29/24 06:30 04/29/24 06:13 Levothyroxine Sodium Inj 100 Mcg/5 Ml Vial IV PUSH 44 mcg DAILY@0630 SHAVON Administration Lorazepam 0.5 mg 04/26/24 11:39 04/27/24 21:40 Lorazepam (*Crx) 0.5 Mg Tablet PO 0.5 mg Q6H PRN Administration Anxiety Midazolam HCl 4 mg 04/29/24 02:31 Midazolam Hcl (*Crx) 2 Mg/2 Ml Vial IV PUSH PRN PRN Sedation Midazolam HCl 2 mg 04/29/24 05:41 Midazolam Hcl (*Crx) 2 Mg/2 Ml Vial IV PUSH Q2H PRN Sedation Multi-Ingred Cream/Lotion/Oil/Oint 1 applic 04/28/24 21:00 04/29/24 08:12 Mineral Oil/White Petrolatum Ointment EACH EYE 1 applic Q12HR SHAVON Administration Ondansetron HCl 4 mg 04/25/24 16:28 Ondansetron Inj 4 Mg/2 Ml Vial IV PUSH Q4H PRN Nausea Sodium Chloride 10 ml 04/28/24 14:00 04/29/24 06:13 Central Line Flush IV PUSH 10 ml Q8HR SHAVON Administration Sodium Chloride 20 ml 04/28/24 13:51 Central Line Flush IV PUSH PRN PRN after blood draws Tramadol HCl 25 mg 04/28/24 09:37 Tramadol Hcl (*Crx) 25 Mg Tablet PO Q6H PRN Pain Rated 4-6 Radiology Results: ITS Impressions Chest/Abdomen/Pelvis/Spine CT 04/25/24 14:41 IMPRESSION: 1. Acute appearing T11 compression fracture with 20% anterior vertebral body height loss. 2. No acute pulmonary disease or acute intra-abdominal/pelvic process. 2. 1-2 mm nonobstructing stone at the lower pole of the right kidney. Thoracic Spine X-Ray 04/25/24 17:05 IMPRESSION: Compression fracture of T11 which may be acute or chronic. MRI is advised. Loss of volume of multiple vertebrae in the midthoracic area most likely chronic. Thoracic Spine MRI 04/27/24 12:49 IMPRESSION: 1. Acute T11 burst fracture with 20% anterior vertebral body height loss and 1 mm retropulsion. 2. Moderate thoracic kyphosis with additional chronic mild anterior wedging at T6-T8. 3. Mild thoracic and upper lumbar spondylosis. Head CT 04/28/24 13:04 Impression: No significant abnormality seen. Cervical Spine CT 04/28/24 13:08 Impression: No fracture or subluxation of the cervical spine. Chest CTA 04/28/24 13:19 Impression: No evidence of pulmonary embolus, aortic dissection, or aortic aneurysm. Clear lungs. Acute T11 compression fracture. Please see prior MR from 04/27/2024. Chest X-Ray 04/29/24 07:42 Impression: Stable support tubes. Right IJ line tip remains in the right atrium. Clear lungs. Possible COPD. Carotid Doppler Study 04/29/24 07:59 IMPRESSION: 1. <50% stenosis in the right internal carotid artery. 2. <50% stenosis in the left internal carotid artery. Labs Labs: Laboratory Results - last 24 hr 04/28/24 04/28/24 04/28/24 12:11 14:02 14:03 WBC 7.7 RBC 3.86 L Hgb 11.7 L Hct 35.1 L MCV 90.9 MCH 30.3 MCHC 33.3 RDW 12.3 Plt Count 195 MPV 9.7 Immature Gran % (Auto) 0.5 Neut % (Auto) 85.6 H Lymph % (Auto) 4.6 L [place] % (Auto) 9.2 H Eos % (Auto) 0.0 Baso % (Auto) 0.1 L Lymph # (Auto) 0.35 L [place] # (Auto) 0.7 H Eos # (Auto) 0.0 Baso # (Auto) 0.0 Abs Immat Gran (auto) 0.04 H Absolute Neuts (auto) 6.6 Absolute Nucleated RBC 0.000 Nucleated RBC % 0.0 % Immature Plt Fraction PT 13.4 INR 1.0 APTT 23.5 Puncture Site ABG pH ABG pCO2 ABG pO2 ABG PO2/FiO2 Ratio ABG HCO3 ABG O2 Saturation ABG O2 Content ABG Base Excess A-a Gradient Oxyhemoglobin Carboxyhemoglobin Methemoglobin Reduced Hemoglobin Total Hemoglobin O2 Delivery Device O2 Liters/Min Minute Volume Vent Rate Vent Mode FiO2 Tidal Volume PEEP Peak Inspir Pressure Pressure Support Sodium 134 L Potassium 3.8 Chloride 101 Carbon Dioxide 26 Anion Gap 7 BUN 15 Creatinine 0.52 L Estim Creat Clear Calc 87 Estimated GFR > 60 Glucose 102 POC Capillary Glucose 95 Lactic Acid 2.2 H Calcium 8.6 Phosphorus 2.3 L Magnesium 1.8 Total Bilirubin 0.6 AST 31 ALT 25 Alkaline Phosphatase 65 Total Creatine Kinase 79 Troponin I < 0.012 Total Protein 6.0 L Albumin 3.5 Triglycerides 04/28/24 04/29/24 04/29/24 14:38 05:03 05:15 WBC 4.6 RBC 3.59 L Hgb 11.0 L Hct 32.7 L MCV 91.1 MCH 30.6 MCHC 33.6 RDW 12.7 Plt Count 137 L MPV 9.5 Immature Gran % (Auto) 0.4 Neut % (Auto) 75.5 H Lymph % (Auto) 12.7 L [place] % (Auto) 11.0 H Eos % (Auto) 0.4 Baso % (Auto) 0.0 L Lymph # (Auto) 0.58 L [place] # (Auto) 0.5 Eos # (Auto) 0.0 Baso # (Auto) 0.0 Abs Immat Gran (auto) 0.02 Absolute Neuts (auto) 3.4 Absolute Nucleated RBC 0.000 Nucleated RBC % 0.0 % Immature Plt Fraction 3.0 PT INR APTT Puncture Site Left radial Right radial ABG pH 7.420 7.486 H ABG pCO2 37.4 33.2 L ABG pO2 503.2 H 139.9 H ABG PO2/FiO2 Ratio 5.03 3.50 ABG HCO3 23.7 24.5 ABG O2 Saturation 99.9 99.0 ABG O2 Content 18.3 16.6 ABG Base Excess -0.5 1.5 A-a Gradient 172.4 107.1 Oxyhemoglobin 99.3 98.5 Carboxyhemoglobin 0.3 Methemoglobin 0.1 Reduced Hemoglobin 1.1 Total Hemoglobin 12.1 11.8 L O2 Delivery Device Ventilator Ventilator O2 Liters/Min Not Reportable Not Reportable Minute Volume Not Reportable Not Reportable Vent Rate 22 20 Vent Mode Cmv Cmv FiO2 100 40 Tidal Volume 400 400 PEEP 5 5 Peak Inspir Pressure Not Reportable Not Reportable Pressure Support Not Reportable Not Reportable Sodium 135 L Potassium 3.2 L Chloride 102 Carbon Dioxide 27 Anion Gap 6 BUN 11 Creatinine 0.61 L Estim Creat Clear Calc 75 Estimated GFR > 60 Glucose 81 POC Capillary Glucose Lactic Acid Calcium 8.6 Phosphorus 2.6 Magnesium 1.8 Total Bilirubin 0.4 AST 29 ALT 24 Alkaline Phosphatase 73 Total Creatine Kinase Troponin I Total Protein 6.0 L Albumin 2.9 L Triglycerides 242 H
[2024-04-29] MEDS: dexmedeTOMIDine 400 MCG/100 ML 400 MCG/100 ML BAG IV CONT (08:57)
[2024-04-29 10:15] LABS: Amphetamine Screen Urine Negative (Negative); Barbiturate Screen Urine Negative (Negative); Benzodiazepines Screen Urine Positive (Negative); Cannabinoid Screen Urine Negative (Negative); Cocaine Screen Urine Negative (Negative); Methadone Screen Urine Negative (Negative); Opiate Screen Urine Positive (Negative); Phencyclidine Screen Urine Negative (Negative)
[2024-04-29] MEDS: levoFLOXacin 750 MG/D5W 150 ML 750 MG/150 ML BAG 100 MG IVPB (13:33)
--- NOTE | 2024-04-29 14:49 | WPDINTPN ---
Progress Note: A&P Assessment and Plan (1) Acute respiratory failure: Code(s): J96.00 - Acute respiratory failure, unspecified whether with hypoxia or hypercapnia Status: Acute Assessment and Plan: 04/25/2024: Patient had a fall in her bathroom 04/28/2024: Patient had a fall in the bathroom in the hospital, found down with LOC, sonorous breaths. Patient was intubated on the medical floor -currently on CMV mode of ventilation, peep of 5, 100% FiO2 -awaiting post intubation ABGs, will adjust ventilator accordingly -continue bronchodilators -sedated with propofol and Versed -advised the bedside RN to start Precedex infusion and wean off propofol and Versed. Will place patient on SBT and evaluate for extubation -04/29: patient was extubated successfully 04/28/2024: Chest CTA Impression: No evidence of pulmonary embolus, aortic dissection, or aortic aneurysm. Clear lungs. Acute T11 compression fracture. Please see prior MR from 04/27/2024. (2) Fall: Code(s): W19.XXXA - Unspecified fall, initial encounter Status: Acute Assessment and Plan: 04/25/2024: Patient had a fall in her bathroom 04/28/2024: Patient had a fall in the bathroom in the hospital, found down with LOC, sonorous breaths. Patient was intubated on the medical floor -unclear etiology of falls -will get Neurology to follow and may require a EEG to rule out seizure activity currently intubated and sedated (3) Syncope: Qualifiers: Syncope type: unspecified Qualified Code(s): R55 - Syncope and collapse Code(s): R55 - Syncope and collapse Status: Acute Assessment and Plan: Unknown etiology, now patient is on a telemonitor, will evaluate for arrhythmias. Echocardiogram is under -no arrhythmias noted on monitor 04/28/2024: Carotid Doppler 1. <50% stenosis in the right internal carotid artery. 2. <50% stenosis in the left internal carotid artery 04/26/2024 echocardiogram: Summary 1. Complete two-dimensional, color flow and Doppler transthoracic echocardiogram is performed. 2. Left ventricular chamber dimension is normal. 3. Left ventricular systolic function is normal, estimated at 55-60%. 4. The left ventricular diastolic function is grade I diastolic dysfunction. 5. E/e' 4 is not elevated. 6. There is trace mitral valve regurgitation. 7. There is trace tricuspid valve regurgitation. 8. No pulmonary hypertension, estimated pulmonary arterial systolic pressure is 27 mmHg. (4) AMS (altered mental status): Code(s): R41.82 - Altered mental status, unspecified Status: Acute Assessment and Plan: Altered mental status post fall, could be concussion, encephalopathy secondary to seizures, arrhythmia -currently intubated and sedated -once patient was on Precedex she was awake, alert, nodding to questions and following commands (5) Fracture of T11 vertebra: Qualifiers: Encounter type: initial encounter Fracture morphology: other fracture Fracture type: closed Qualified Code(s): S22.088A - Other fracture of T11-T12 vertebra, initial encounter for closed fracture Code(s): S22.089A - Unspecified fracture of T11-T12 vertebra, initial encounter for closed fracture Status: Acute Assessment and Plan: Neurosurgery has evaluated the patient, no plan for surgical intervention. Patient has to wear her brace for 6-8 weeks (6) Hypothyroid: Code(s): E03.9 - Hypothyroidism, unspecified Status: Acute Assessment and Plan: Since patient is intubated and sedated, will switch to IV levothyroxine (7) GERD (gastroesophageal reflux disease): Code(s): K21.9 - Gastro-esophageal reflux disease without esophagitis Status: Acute Assessment and Plan: IV famotidine has been ordered (8) UTI (urinary tract infection): Code(s): N39.0 - Urinary tract infection, site not specified Status: Acute Assessment and Plan: E coli UTI pansensitive, -continue levofloxacin IV total 7 days Plan DVT prophylaxis: Heparin SQ Stress ulcer prophylaxis: Famotidine Nutrition: Patient was set to started on tube feeds but was extubated Code Status: Full code Critical Care Time Spent: 34 minutes Discussed with patient's spouse, updated him with patient's condition and plan of care. I answered all his questions Due to a high probability of clinically significant, life threatening deterioration, the patient required my highest level of preparedness to intervene emergently and I personally spent this critical care time directly and personally managing the patient. This critical care time included obtaining a history; examining the patient; pulse oximetry; ordering and review of studies; arranging urgent treatment with development of a management plan; evaluation of patient's response to treatment; frequent reassessment; and discussions with other providers. It was exclusive of separately billable procedures and treating other patients and teaching time. Please see Assessment and Plan section and the rest of the note for further information on patient assessment and treatment This dictation may have been done utilizing a voice recognition system. Attempts have been made to correct errors. However, there may be uncorrected grammatical, spelling, and recognitions errors present. Subjective Date/time seen: 04/29/24 14:49 Interval history: 59yo female with GERD, hypothyroidism, multiple fractures, kyphoplasty, hysterectomy who presented to the hospital after sustaining a ground level fall and for evaluation of back pain. 04/29/2024: Patient seen and examined the ICU, remains intubated on CMV mode of ventilation 40% FiO2, peep of 5. Patient and propofol and Versed infusion, patient is agitated, uncomfortable tries to sit up. Urine output has been adequate, afebrile full hemodynamically stable Review of Systems Review of Systems: ROS unobtainable: Yes unobtainable due to endotracheal tube, unobtainable due to medical condition and unobtainable due to mental status Exam Narrative: General: Intubated and sedated, in no acute distress HEENT:? Pupils are equal and reactive, sclerae is clear ETT in place Neck:? Supple Respiratory:? Clear to auscultation bilaterally, no wheezing, adequate air entry Cardiac:? S1-S2 normal, regular rate and rhythm Abdomen:? Soft, nontender, nondistended, hypoactive bowel sounds. Patient does have brace in place for a T11 fracture Extremities:? Palpable pedal pulses, no edema Neuro:? Intubated sedated, does not open her eyes or follow simple commands. Skin:? No skin lesions noted Psych:? Unable to assess Objective Data Vital Signs Vital Signs: Vital Signs - 24 hr 04/28/24 14:56 04/28/24 15:27 04/28/24 16:00 Temperature Pulse Rate 63 69 63 Respiratory Rate 20 20 20 Blood Pressure Pulse Oximetry Oxygen Delivery Fraction of Inspired Oxygen 04/28/24 16:00 04/28/24 16:00 04/28/24 16:00 Temperature 98.7 F Pulse Rate 64 63 Respiratory Rate 20 20 Blood Pressure 115/86 Pulse Oximetry 100 Oxygen Delivery Fraction of Inspired Oxygen 50 04/28/24 16:00 04/28/24 16:36 04/28/24 17:06 Temperature Pulse Rate 62 64 70 Respiratory Rate 20 Blood Pressure Pulse Oximetry 100 100 Oxygen Delivery Mechanical Ventilation Mechanical Ventilation Fraction of Inspired Oxygen 50 50 04/28/24 17:52 04/28/24 18:00 04/28/24 18:00 Temperature Pulse Rate 65 63 Respiratory Rate 20 20 Blood Pressure Pulse Oximetry 100 Oxygen Delivery Fraction of Inspired Oxygen 40 04/28/24 18:00 04/28/24 18:18 04/28/24 18:44 Temperature 99.4 F Pulse Rate 64 64 66 Respiratory Rate 20 20 Blood Pressure 117/86 Pulse Oximetry 100 Oxygen Delivery Fraction of Inspired Oxygen 04/28/24 18:44 04/28/24 20:00 04/28/24 20:00 Temperature Pulse Rate 66 65 Respiratory Rate 20 Blood Pressure Pulse Oximetry 100 Oxygen Delivery Mechanical Ventilation Fraction of Inspired Oxygen 40 04/28/24 20:00 04/28/24 20:00 04/28/24 20:27 Temperature 99.6 F Pulse Rate 65 96 Respiratory Rate 20 Blood Pressure 121/84 Pulse Oximetry 100 100 Oxygen Delivery Mechanical Ventilation Fraction of Inspired Oxygen 40 40 04/28/24 20:27 04/28/24 20:43 04/28/24 20:44 Temperature Pulse Rate 96 96 96 Respiratory Rate 20 20 20 Blood Pressure Pulse Oximetry Oxygen Delivery Fraction of Inspired Oxygen 04/28/24 20:45 04/28/24 21:01 04/28/24 21:02 Temperature Pulse Rate 96 87 86 Respiratory Rate 20 20 20 Blood Pressure Pulse Oximetry Oxygen Delivery Fraction of Inspired Oxygen 04/28/24 21:09 04/28/24 22:00 04/28/24 22:00 Temperature Pulse Rate 85 67 67 Respiratory Rate 20 20 20 Blood Pressure Pulse Oximetry Oxygen Delivery Fraction of Inspired Oxygen 04/28/24 22:00 04/28/24 22:00 04/29/24 00:00 Temperature 99.1 F Pulse Rate 67 67 58 L Respiratory Rate 20 20 Blood Pressure 107/80 Pulse Oximetry 100 Oxygen Delivery Fraction of Inspired Oxygen 04/29/24 00:00 04/29/24 00:00 04/29/24 00:00 Temperature Pulse Rate 58 L 59 L Respiratory Rate 20 20 Blood Pressure Pulse Oximetry 100 Oxygen Delivery Mechanical Ventilation Fraction of Inspired Oxygen 40 04/29/24 00:00 04/29/24 00:00 04/29/24 00:00 Temperature 99.2 F Pulse Rate 59 L 59 L Respiratory Rate 20 Blood Pressure 89/68 L Pulse Oximetry 100 Oxygen Delivery Fraction of Inspired Oxygen 40 04/29/24 00:43 04/29/24 01:12 04/29/24 01:15 Temperature Pulse Rate 58 L 58 L 58 L Respiratory Rate 20 20 Blood Pressure Pulse Oximetry 100 Oxygen Delivery Mechanical Ventilation Fraction of Inspired Oxygen 40 04/29/24 01:35 04/29/24 01:40 04/29/24 01:49 Temperature Pulse Rate 55 L 53 L 52 L Respiratory Rate 20 20 20 Blood Pressure Pulse Oximetry Oxygen Delivery Fraction of Inspired Oxygen 04/29/24 02:00 04/29/24 02:00 04/29/24 02:00 Temperature Pulse Rate 54 L 54 L 56 L Respiratory Rate 20 20 Blood Pressure Pulse Oximetry Oxygen Delivery Fraction of Inspired Oxygen 04/29/24 02:00 04/29/24 02:05 04/29/24 02:27 Temperature 99.0 F Pulse Rate 56 L 52 L 67 Respiratory Rate 20 20 20 Blood Pressure 88/61 L Pulse Oximetry 100 Oxygen Delivery Fraction of Inspired Oxygen 04/29/24 02:52 04/29/24 03:58 04/29/24 04:00 Temperature Pulse Rate 76 58 L 55 L Respiratory Rate 20 20 Blood Pressure Pulse Oximetry 100 Oxygen Delivery Mechanical Ventilation Fraction of Inspired Oxygen 40 04/29/24 04:00 04/29/24 04:00 04/29/24 04:00 Temperature Pulse Rate 55 L Respiratory Rate 20 Blood Pressure Pulse Oximetry 100 Oxygen Delivery Mechanical Ventilation Fraction of Inspired Oxygen 40 40 04/29/24 04:00 04/29/24 04:00 04/29/24 05:15 Temperature 98.4 F Pulse Rate 55 L 55 L 70 Respiratory Rate 20 20 Blood Pressure 99/69 L Pulse Oximetry 100 Oxygen Delivery Fraction of Inspired Oxygen 04/29/24 05:15 04/29/24 05:17 04/29/24 06:00 Temperature Pulse Rate 70 59 L 55 L Respiratory Rate 20 Blood Pressure Pulse Oximetry 100 Oxygen Delivery Mechanical Ventilation Fraction of Inspired Oxygen 40 04/29/24 06:00 04/29/24 06:12 04/29/24 06:12 Temperature 99.1 F Pulse Rate 55 L 55 L 55 L Respiratory Rate 20 20 20 Blood Pressure 102/71 Pulse Oximetry 100 Oxygen Delivery Fraction of Inspired Oxygen 04/29/24 06:13 04/29/24 07:52 04/29/24 08:00 Temperature 99.1 F Pulse Rate 56 L 54 L 55 L Respiratory Rate 20 20 20 Blood Pressure 89/64 L Pulse Oximetry 100 Oxygen Delivery Fraction of Inspired Oxygen 04/29/24 08:13 04/29/24 08:14 04/29/24 08:27 Temperature Pulse Rate 53 L 53 L 59 L Respiratory Rate 18 18 Blood Pressure Pulse Oximetry 100 Oxygen Delivery Mechanical Ventilation Fraction of Inspired Oxygen 30 04/29/24 08:34 04/29/24 08:56 04/29/24 08:57 Temperature Pulse Rate 59 L 66 64 Respiratory Rate 18 18 18 Blood Pressure Pulse Oximetry Oxygen Delivery Fraction of Inspired Oxygen 04/29/24 09:48 04/29/24 09:57 04/29/24 09:58 Temperature Pulse Rate 54 L 54 L 56 L Respiratory Rate 18 18 18 Blood Pressure Pulse Oximetry Oxygen Delivery Fraction of Inspired Oxygen 04/29/24 10:00 04/29/24 12:00 04/29/24 14:00 Temperature 98.6 F 99.0 F 98.7 F Pulse Rate 54 L 72 66 Respiratory Rate 18 12 16 Blood Pressure 92/63 L 121/84 113/71 Pulse Oximetry 100 97 97 Oxygen Delivery Fraction of Inspired Oxygen Intake/Output Intake/Output: Intake & Output 04/26/24 04/27/24 04/28/24 04/29/24 23:59 23:59 23:59 23:59 Intake Total 2527 2280 608.6 351.7 Output Total 1310 2400 300 700 Balance 1217 -120 308.6 -348.3 Meds/Results Medications: Active Medications Generic Name Dose Route Start Last Admin Trade Name Freq PRN Reason Stop Dose Admin Acetaminophen 650 mg 04/25/24 16:28 04/26/24 05:55 Acetaminophen 325 Mg Tablet PO 650 mg Q4H PRN Administration Mild Pain (1-3) or Fever Albuterol/Ipratropium 3 ml 04/28/24 14:00 04/29/24 08:23 Ipratropium 0.5 Mg/Albuterol Sulfate 2.5 Mg Ampul.Neb 3 Ml INHALATION 3 ml Q6HRT SHAVON Administration Cyclobenzaprine HCl 5 mg 04/26/24 02:37 04/26/24 22:42 Cyclobenzaprine Hcl 5 Mg Tablet PO 5 mg Q12H PRN Administration Muscle Spasm Famotidine 20 mg 04/27/24 21:00 04/28/24 09:01 Famotidine 20 Mg Tablet PO 20 mg Q12HR SHAVON Administration Famotidine 20 mg 04/28/24 21:00 04/29/24 08:06 Famotidine 20 Mg/2 Ml Vial IV PUSH 20 mg Q12HR SHAVON Administration Heparin Sodium (Porcine) 5,000 units 04/26/24 09:00 04/29/24 08:11 Heparin Sodium 5,000 Units/Ml Vial SUB-Q 5,000 units Q12HR SHAVON Administration Propofol 100 mls @ 11.7 mls/hr 04/28/24 14:30 04/29/24 09:58 Diprivan IV CONT 30 mcg/kg/min .Q8H33M SHAVON 11.7 mls/hr Titration Protocol 30 MCG/KG/MIN Fentanyl Citrate 2,500 mcg in 250 mls @ 7.5 mls/hr 04/28/24 15:20 04/29/24 08:13 Fentanyl 2,500 Mcg/Ns 250 Ml IV CONT 75 mcg/hr .[id number] SHAVON 7.5 mls/hr Titration Protocol 75 MCG/HR Albumin Human 100 mls @ 60 mls/hr 04/29/24 07:30 04/29/24 13:33 Albutein IVPB 04/30/24 01:39 60 mls/hr Q6HR SHAVON Administration Dexmedetomidine HCl 400 mcg in 100 mls @ 4.695 mls/hr 04/29/24 08:30 04/29/24 09:57 Precedex 400 Mcg/100 Ml IV CONT 0.3 mcg/kg/hr .[id number] SHAVON 4.7 mls/hr Titration Protocol 0.3 MCG/KG/HR Levofloxacin/Dextrose 750 mg in 150 mls @ 100 mls/hr 04/29/24 12:00 04/29/24 13:33 Levaquin 750 Mg/D5w 150 Ml IVPB 05/03/24 11:59 100 mls/hr Q24H SHAVON Administration Levothyroxine Sodium 44 mcg 04/29/24 06:30 04/29/24 06:13 Levothyroxine Sodium Inj 100 Mcg/5 Ml Vial IV PUSH 44 mcg DAILY@0630 SHAVON Administration Lorazepam 0.5 mg 04/26/24 11:39 04/27/24 21:40 Lorazepam (*Crx) 0.5 Mg Tablet PO 0.5 mg Q6H PRN Administration Anxiety Midazolam HCl 4 mg 04/29/24 02:31 Midazolam Hcl (*Crx) 2 Mg/2 Ml Vial IV PUSH PRN PRN Sedation Midazolam HCl 2 mg 04/29/24 05:41 Midazolam Hcl (*Crx) 2 Mg/2 Ml Vial IV PUSH Q2H PRN Sedation Multi-Ingred Cream/Lotion/Oil/Oint 1 applic 04/28/24 21:00 04/29/24 08:12 Mineral Oil/White Petrolatum Ointment EACH EYE 1 applic Q12HR SHAVON Administration Ondansetron HCl 4 mg 04/25/24 16:28 Ondansetron Inj 4 Mg/2 Ml Vial IV PUSH Q4H PRN Nausea Sodium Chloride 10 ml 04/28/24 14:00 04/29/24 13:49 Central Line Flush IV PUSH 10 ml Q8HR SHAVON Administration Sodium Chloride 20 ml 04/28/24 13:51 Central Line Flush IV PUSH PRN PRN after blood draws Tramadol HCl 25 mg 04/28/24 09:37 Tramadol Hcl (*Crx) 25 Mg Tablet PO Q6H PRN Pain Rated 4-6 Radiology Results: ITS Impressions Chest/Abdomen/Pelvis/Spine CT 04/25/24 14:41 IMPRESSION: 1. Acute appearing T11 compression fracture with 20% anterior vertebral body height loss. 2. No acute pulmonary disease or acute intra-abdominal/pelvic process. 2. 1-2 mm nonobstructing stone at the lower pole of the right kidney. Thoracic Spine X-Ray 04/25/24 17:05 IMPRESSION: Compression fracture of T11 which may be acute or chronic. MRI is advised. Loss of volume of multiple vertebrae in the midthoracic area most likely chronic. Thoracic Spine MRI 04/27/24 12:49 IMPRESSION: 1. Acute T11 burst fracture with 20% anterior vertebral body height loss and 1 mm retropulsion. 2. Moderate thoracic kyphosis with additional chronic mild anterior wedging at T6-T8. 3. Mild thoracic and upper lumbar spondylosis. Head CT 04/28/24 13:04 Impression: No significant abnormality seen. Cervical Spine CT 04/28/24 13:08 Impression: No fracture or subluxation of the cervical spine. Chest CTA 04/28/24 13:19 Impression: No evidence of pulmonary embolus, aortic dissection, or aortic aneurysm. Clear lungs. Acute T11 compression fracture. Please see prior MR from 04/27/2024. Chest X-Ray 04/29/24 07:42 Impression: Stable support tubes. Right IJ line tip remains in the right atrium. Clear lungs. Possible COPD. Carotid Doppler Study 04/29/24 07:59 IMPRESSION: 1. <50% stenosis in the right internal carotid artery. 2. <50% stenosis in the left internal carotid artery. Labs Labs: Laboratory Results - last 24 hr 04/29/24 04/29/24 04/29/24 05:03 05:15 09:51 WBC 4.6 RBC 3.59 L Hgb 11.0 L Hct 32.7 L MCV 91.1 MCH 30.6 MCHC 33.6 RDW 12.7 Plt Count 137 L MPV 9.5 Immature Gran % (Auto) 0.4 Neut % (Auto) 75.5 H Lymph % (Auto) 12.7 L [place] % (Auto) 11.0 H Eos % (Auto) 0.4 Baso % (Auto) 0.0 L Lymph # (Auto) 0.58 L [place] # (Auto) 0.5 Eos # (Auto) 0.0 Baso # (Auto) 0.0 Abs Immat Gran (auto) 0.02 Absolute Neuts (auto) 3.4 Absolute Nucleated RBC 0.000 Nucleated RBC % 0.0 % Immature Plt Fraction 3.0 Puncture Site Right radial ABG pH 7.486 H ABG pCO2 33.2 L ABG pO2 139.9 H ABG PO2/FiO2 Ratio 3.50 ABG HCO3 24.5 ABG O2 Saturation 99.0 ABG O2 Content 16.6 ABG Base Excess 1.5 A-a Gradient 107.1 Oxyhemoglobin 98.5 Carboxyhemoglobin 0.3 Methemoglobin 0.1 Reduced Hemoglobin 1.1 Total Hemoglobin 11.8 L O2 Delivery Device Ventilator O2 Liters/Min Not Reportable Minute Volume Not Reportable Vent Rate 20 Vent Mode Cmv FiO2 40 Tidal Volume 400 PEEP 5 Peak Inspir Pressure Not Reportable Pressure Support Not Reportable Sodium 135 L Potassium 3.2 L Chloride 102 Carbon Dioxide 27 Anion Gap 6 BUN 11 Creatinine 0.61 L Estim Creat Clear Calc 75 Estimated GFR > 60 Glucose 81 Calcium 8.6 Phosphorus 2.6 Magnesium 1.8 Total Bilirubin 0.4 AST 29 ALT 24 Alkaline Phosphatase 73 Total Protein 6.0 L Albumin 2.9 L Triglycerides 242 H Urine Opiates Screen Positive A Urine Methadone Screen Negative Ur Barbiturates Screen Negative Ur Phencyclidine Scrn Negative Ur Amphetamine Screen Negative U Benzodiazepines Scrn Positive A Urine Cocaine Screen Negative U Cannabinoids Screen Negative
[2024-04-29] MEDS: ONDANSETRON INJ 4 MG/2 ML VIAL IV PUSH (19:37)
[2024-04-29] MEDS: ACETAMINOPHEN 325 MG TABLET 650 MG PO (20:51)
[2024-04-30] VITALS (16 sets, daily range): BP systolic 138–166; BP diastolic 86–105; PULSE 87–124; RESP 15–233; TEMP 37.5–38.3; O2SAT 93–100; BMI 21.9
[2024-04-30] MEDS: IPRATROPIUM 0.5 MG/ALBUTEROL SULFATE 2.5 MG AMPUL.NEB 3 ML INHALATION ×2 (01:40→08:51)
[2024-04-30] MEDS: LEVOTHYROXINE SODIUM INJ 100 MCG/5 ML VIAL 44 MCG IV PUSH (05:53)
[2024-04-30] MEDS: CENTRAL LINE FLUSH 10 ML IV PUSH ×3 (05:53→21:59)
[2024-04-30 06:15] LABS: Eosinophils Percent Auto 0.2 % (0-4.4); Hematocrit 35.8 % (37.0-47.0); Immature Granulocyte Absolute 0.05 K/mm3 (0.00-0.031); Lymphocytes Absolute Auto 0.33 K/mm3 (0.9-3.2); Lymphocytes Percent Auto 6.5 % (18.3-44.2); Mean Corpuscular HGB Conc 33.5 g/dl (32-36); Mean Corpuscular Volume 89.5 fl (80-100); Mean Platelet Volume 9.4 fl (7.4-10.4); Monocytes Absolute Auto 0.5 K/mm3 (0.1-0.6); Monocytes Percent Auto 9.7 % (2.6-8.5); Neutrophils Absolute Auto 4.2 K/mm3 (1.3-6.7); Neutrophils Percent Auto 82.6 % (45.5-73.1); Platelet Count Result 173 k/mm3 (150-375); Red Cell Distribution Width 11.9 % (11.5-14.5); White Blood Count 5.1 K/mm3 (4.5-10.0)
[2024-04-30 06:27] LABS: Alanine Aminotransferase 24 U/L (6-35); Albumin Level 4.1 g/dL (3.5-5.1); Alkaline Phosphatase 83 U/L (38-126); Anion Gap 7 mmol/L (4-12); Aspartate Amino Transferase 29 U/L (14-36); Bilirubin,Total 0.8 mg/dL (0.2-1.3); Blood Urea Nitrogen 5 mg/dL (7-17); Calcium 8.9 mg/dL (8.4-10.2); Carbon Dioxide 30 mmol/L (22-30); Chloride 99 mmol/L (98-107); Estimated CRCL calculation 87 ml/min; Estimated Glomerular Filt Rate > 60; Glucose 114 mg/dL (65-110); Phosphorus 3.3 mg/dL (2.5-4.5); Sodium 136 mmol/L (137-145)
[2024-04-30] MEDS: FAMOTIDINE 20 MG/2 ML VIAL IV PUSH ×2 (09:28→21:58)
[2024-04-30] MEDS: HEPARIN SODIUM 5,000 UNITS/ML VIAL 5000 UNITS SUB-Q ×2 (09:28→21:58)
--- NOTE | 2024-04-30 11:46 | WPDINTPN ---
Progress Note: A&P Assessment and Plan (1) Acute respiratory failure: Code(s): J96.00 - Acute respiratory failure, unspecified whether with hypoxia or hypercapnia Status: Acute Assessment and Plan: 04/29 extubated. Now on room air Add incentive spirometry 04/28/2024: Chest CTA Impression: No evidence of pulmonary embolus, aortic dissection, or aortic aneurysm. Clear lungs. Acute T11 compression fracture. Please see prior MR from 04/27/2024. (2) Fall: Code(s): W19.XXXA - Unspecified fall, initial encounter Status: Acute Assessment and Plan: 04/25/2024: Patient had a fall in her bathroom 04/28/2024: Patient had a fall in the bathroom in the hospital, found down with LOC, sonorous breaths. Patient was intubated on the medical floor -unclear etiology of falls Carotid Dopplers unremarkable Neurology consulted Cut down on medications that can cause sedation Conservative with pain medication Telemetry monitoring Monitor (3) Syncope: Qualifiers: Syncope type: unspecified Qualified Code(s): R55 - Syncope and collapse Code(s): R55 - Syncope and collapse Status: Acute Assessment and Plan: Unknown etiology, now patient is on a telemonitor, will evaluate for arrhythmias. Echocardiogram is under -no arrhythmias noted on monitor 04/28/2024: Carotid Doppler 1. <50% stenosis in the right internal carotid artery. 2. <50% stenosis in the left internal carotid artery 04/26/2024 echocardiogram: Summary 1. Complete two-dimensional, color flow and Doppler transthoracic echocardiogram is performed. 2. Left ventricular chamber dimension is normal. 3. Left ventricular systolic function is normal, estimated at 55-60%. 4. The left ventricular diastolic function is grade I diastolic dysfunction. 5. E/e' 4 is not elevated. 6. There is trace mitral valve regurgitation. 7. There is trace tricuspid valve regurgitation. 8. No pulmonary hypertension, estimated pulmonary arterial systolic pressure is 27 mmHg. (4) AMS (altered mental status): Code(s): R41.82 - Altered mental status, unspecified Status: Acute Assessment and Plan: Altered mental status post fall, could be concussion, encephalopathy secondary to seizures, arrhythmia -currently intubated and sedated -once patient was on Precedex she was awake, alert, nodding to questions and following commands (5) Fracture of T11 vertebra: Qualifiers: Encounter type: initial encounter Fracture morphology: other fracture Fracture type: closed Qualified Code(s): S22.088A - Other fracture of T11-T12 vertebra, initial encounter for closed fracture Code(s): S22.089A - Unspecified fracture of T11-T12 vertebra, initial encounter for closed fracture Status: Acute Assessment and Plan: Neurosurgery has evaluated the patient, no plan for surgical intervention. Patient has to wear her brace for 6-8 weeks Requested nurse to assist patient in wearing the brace. (6) Hypothyroid: Code(s): E03.9 - Hypothyroidism, unspecified Status: Acute Assessment and Plan: Continue levothyroxine (7) GERD (gastroesophageal reflux disease): Code(s): K21.9 - Gastro-esophageal reflux disease without esophagitis Status: Acute Assessment and Plan: IV famotidine has been ordered (8) UTI (urinary tract infection): Code(s): N39.0 - Urinary tract infection, site not specified Status: Acute Assessment and Plan: E coli UTI pansensitive, -continue levofloxacin IV total 7 days (9) Delirium: Code(s): R41.0 - Disorientation, unspecified Status: Acute Assessment and Plan: Avoid sedatives. Supported treatment Off Precedex now Plan DVT prophylaxis: Heparin SQ Stress ulcer prophylaxis: Famotidine Nutrition: Diet order Code Status: Full code Transfer out of ICU today Subjective Date/time seen: 04/30/24 Patient alert awake but slightly confused. Denies any specific complaints. States that she had some nausea but no vomiting. Denies any chest pain shortness a breath back pain belly pain diarrhea. [place] is in place. Sinus rhythm on the monitor. Good urine output. Tolerating p.o. diet. Afebrile overnight but febrile this morning. She was extubated yesterday after a successful weaning trial. On room air this morning Interval history: 59yo female with GERD, hypothyroidism, multiple fractures, kyphoplasty, hysterectomy who presented to the hospital after sustaining a ground level fall and for evaluation of back pain. Review of Systems Review of Systems: All systems reviewed & are unremarkable except as noted in HPI and below (HPI) Exam Narrative: General: Pt is alert awake and in NAD Lungs/Chest: Trachea central Clear BS B/L, No crackles or wheezing. Cardiac: RRR. Normal S1 S2. No murmurs Circulation: Pedal pulses are intact and symmetrical. Abdomen: Normal bowel sounds.. Soft. NT. ND. Extremities: No clubbing, cyanosis or edema. Warm : [place] in place Neurologic: Follows commands. Moves all 4 extremities PERRL AO x2 Skin: No Rash Objective Data Vital Signs Vital Signs: Vital Signs - 24 hr 04/29/24 12:00 04/29/24 12:00 04/29/24 12:00 Temperature 37.2 C Pulse Rate 72 65 Respiratory Rate 12 Blood Pressure 121/84 Pulse Oximetry 97 97 Oxygen Delivery Nasal Cannula Oxygen Flow Rate 2 04/29/24 13:37 04/29/24 14:00 04/29/24 14:00 Temperature 37.1 C Pulse Rate 62 66 61 Respiratory Rate 15 16 13 Blood Pressure 113/71 Pulse Oximetry 97 Oxygen Delivery Oxygen Flow Rate 04/29/24 14:00 04/29/24 14:35 04/29/24 15:09 Temperature Pulse Rate 61 72 87 Respiratory Rate 16 20 Blood Pressure Pulse Oximetry 100 Oxygen Delivery Nasal Cannula Oxygen Flow Rate 2 04/29/24 15:17 04/29/24 16:00 04/29/24 16:00 Temperature 36.8 C Pulse Rate 92 103 H Respiratory Rate 18 18 Blood Pressure 155/99 H Pulse Oximetry 100 Oxygen Delivery Room Air Oxygen Flow Rate 04/29/24 16:00 04/29/24 16:00 04/29/24 18:00 Temperature 37.5 C Pulse Rate 103 H 84 94 Respiratory Rate 18 15 Blood Pressure 164/89 H Pulse Oximetry 97 Oxygen Delivery Oxygen Flow Rate 04/29/24 18:00 04/29/24 18:00 04/29/24 20:00 Temperature 37.6 C Pulse Rate 94 94 76 Respiratory Rate 15 22 H Blood Pressure 146/94 H Pulse Oximetry 95 Oxygen Delivery Oxygen Flow Rate 04/29/24 20:00 04/29/24 20:00 04/29/24 20:00 Temperature Pulse Rate 76 79 Respiratory Rate 22 H Blood Pressure Pulse Oximetry Oxygen Delivery Room Air Oxygen Flow Rate 04/29/24 20:18 04/29/24 20:52 04/29/24 22:00 Temperature 37.5 C Pulse Rate 91 115 H 108 H Respiratory Rate 18 20 20 Blood Pressure 125/76 Pulse Oximetry 99 Oxygen Delivery Oxygen Flow Rate 04/29/24 22:00 03/03/25 22:00 04/30/24 00:00 Temperature Pulse Rate 108 H 108 H Respiratory Rate 20 Blood Pressure Pulse Oximetry 100 Oxygen Delivery Nasal Cannula Oxygen Flow Rate 2 04/30/24 00:00 04/30/24 00:00 04/30/24 00:00 Temperature 37.5 C Pulse Rate 100 100 87 Respiratory Rate 15 15 Blood Pressure 166/105 H Pulse Oximetry 100 Oxygen Delivery Oxygen Flow Rate 04/30/24 01:40 04/30/24 01:52 04/30/24 02:00 Temperature 37.6 C Pulse Rate 105 H 108 H 119 H Respiratory Rate 22 H 22 H 20 Blood Pressure 145/86 H Pulse Oximetry 100 Oxygen Delivery Oxygen Flow Rate 04/30/24 02:00 04/30/24 02:00 04/30/24 04:00 Temperature 38.1 C H Pulse Rate 119 H 119 H 108 H Respiratory Rate 20 20 Blood Pressure 156/91 H Pulse Oximetry 97 Oxygen Delivery Oxygen Flow Rate 04/30/24 04:00 04/30/24 04:00 04/30/24 04:00 Temperature Pulse Rate 104 H 98 Respiratory Rate 29 H Blood Pressure Pulse Oximetry 100 Oxygen Delivery Nasal Cannula Oxygen Flow Rate 2 04/30/24 06:00 04/30/24 06:00 04/30/24 08:00 Temperature 37.9 C H Pulse Rate 94 94 Respiratory Rate 21 H Blood Pressure 146/95 H Pulse Oximetry 100 93 Oxygen Delivery Room Air Oxygen Flow Rate 04/30/24 08:00 04/30/24 08:00 04/30/24 08:51 Temperature 38.1 C H Pulse Rate 89 89 93 Respiratory Rate 17 20 Blood Pressure 150/100 H Pulse Oximetry 96 Oxygen Delivery Oxygen Flow Rate 04/30/24 09:05 04/30/24 10:00 04/30/24 10:00 Temperature Pulse Rate 110 H 124 H 120 H Respiratory Rate 17 18 Blood Pressure 159/99 H Pulse Oximetry 95 Oxygen Delivery Oxygen Flow Rate Intake/Output Intake/Output: Intake & Output 04/27/24 04/28/24 04/29/24 04/30/24 23:59 23:59 23:59 23:59 Intake Total 2280 608.6 747.0 150 Output Total 2400 300 2100 1550 Balance -120 308.6 -1353.0 -1400 Meds/Results Medications: Active Medications Generic Name Dose Route Start Last Admin Trade Name Freq PRN Reason Stop Dose Admin Acetaminophen 650 mg 04/25/24 16:28 04/29/24 20:51 Acetaminophen 325 Mg Tablet PO 650 mg Q4H PRN Administration Mild Pain (1-3) or Fever Hydrocodone Bitart/Acetaminophen 1 tab 04/30/24 08:47 Hydrocodone/Acetaminophen (*Crx) 5-325 Mg Tablet PO Q4H PRN Pain Rated > 6 Albuterol/Ipratropium 3 ml 04/30/24 11:43 Ipratropium 0.5 Mg/Albuterol Sulfate 2.5 Mg Ampul.Neb 3 Ml INHALATION Q6HRT PRN shortness of breath/Wheezing Famotidine 20 mg 04/28/24 21:00 04/30/24 09:28 Famotidine 20 Mg/2 Ml Vial IV PUSH 20 mg Q12HR SHAVON Administration Heparin Sodium (Porcine) 5,000 units 04/26/24 09:00 04/30/24 09:28 Heparin Sodium 5,000 Units/Ml Vial SUB-Q 5,000 units Q12HR SHAVON Administration Levofloxacin/Dextrose 750 mg in 150 mls @ 100 mls/hr 04/29/24 12:00 04/29/24 13:33 Levaquin 750 Mg/D5w 150 Ml IVPB 05/03/24 11:59 100 mls/hr Q24H SHAVON Administration Levothyroxine Sodium 44 mcg 04/29/24 06:30 04/30/24 05:53 Levothyroxine Sodium Inj 100 Mcg/5 Ml Vial IV PUSH 44 mcg DAILY@0630 SHAVON Administration Ondansetron HCl 4 mg 04/25/24 16:28 04/29/24 19:37 Ondansetron Inj 4 Mg/2 Ml Vial IV PUSH 4 mg Q4H PRN Administration Nausea Sodium Chloride 10 ml 04/28/24 14:00 04/30/24 05:53 Central Line Flush IV PUSH 10 ml Q8HR SHAVON Administration Sodium Chloride 20 ml 04/28/24 13:51 Central Line Flush IV PUSH PRN PRN after blood draws Radiology Results: ITS Impressions Chest/Abdomen/Pelvis/Spine CT 04/25/24 14:41 IMPRESSION: 1. Acute appearing T11 compression fracture with 20% anterior vertebral body height loss. 2. No acute pulmonary disease or acute intra-abdominal/pelvic process. 2. 1-2 mm nonobstructing stone at the lower pole of the right kidney. Thoracic Spine X-Ray 04/25/24 17:05 IMPRESSION: Compression fracture of T11 which may be acute or chronic. MRI is advised. Loss of volume of multiple vertebrae in the midthoracic area most likely chronic. Thoracic Spine MRI 04/27/24 12:49 IMPRESSION: 1. Acute T11 burst fracture with 20% anterior vertebral body height loss and 1 mm retropulsion. 2. Moderate thoracic kyphosis with additional chronic mild anterior wedging at T6-T8. 3. Mild thoracic and upper lumbar spondylosis. Head CT 04/28/24 13:04 Impression: No significant abnormality seen. Cervical Spine CT 04/28/24 13:08 Impression: No fracture or subluxation of the cervical spine. Chest CTA 04/28/24 13:19 Impression: No evidence of pulmonary embolus, aortic dissection, or aortic aneurysm. Clear lungs. Acute T11 compression fracture. Please see prior MR from 04/27/2024. Chest X-Ray 04/29/24 07:42 Impression: Stable support tubes. Right IJ line tip remains in the right atrium. Clear lungs. Possible COPD. Carotid Doppler Study 04/29/24 07:59 IMPRESSION: 1. <50% stenosis in the right internal carotid artery. 2. <50% stenosis in the left internal carotid artery. Labs Labs: Laboratory Results - last 24 hr 04/30/24 05:55 WBC 5.1 RBC 4.00 L Hgb 12.0 Hct 35.8 L MCV 89.5 MCH 30.0 MCHC 33.5 RDW 11.9 Plt Count 173 MPV 9.4 Immature Gran % (Auto) 1.0 H Neut % (Auto) 82.6 H Lymph % (Auto) 6.5 L [place] % (Auto) 9.7 H Eos % (Auto) 0.2 Baso % (Auto) 0.0 L Lymph # (Auto) 0.33 L [place] # (Auto) 0.5 Eos # (Auto) 0.0 Baso # (Auto) 0.0 Abs Immat Gran (auto) 0.05 H Absolute Neuts (auto) 4.2 Absolute Nucleated RBC 0.000 Nucleated RBC % 0.0 Sodium 136 L Potassium 4.0 Chloride 99 Carbon Dioxide 30 Anion Gap 7 BUN 5 L D Creatinine 0.52 L Estim Creat Clear Calc 87 Estimated GFR > 60 Glucose 114 H Calcium 8.9 Phosphorus 3.3 Magnesium 2.0 Total Bilirubin 0.8 AST 29 ALT 24 Alkaline Phosphatase 83 Total Protein 7.0 Albumin 4.1 Quality VTE Prophylaxis VTE prophylaxis: pharmacologic ordered
[2024-04-30] MEDS: levoFLOXacin 750 MG/D5W 150 ML 750 MG/150 ML BAG 100 MG IVPB (11:51)
--- NOTE | 2024-04-30 19:31 | PC.NURSE ---
Patient complained of severe dizziness when this RN had her tilt her head back and to the left for Right IJ dressing change. Patient is unsure if she has told any provider of having issues with vertigo in the past
[2024-05-01] VITALS (18 sets, daily range): BP systolic 135–166; BP diastolic 91–108; PULSE 81–137; RESP 16–21; TEMP 36.6–38; O2SAT 94–96
[2024-05-01] MEDS: LEVOTHYROXINE SODIUM 88 MCG TABLET PO (06:30)
[2024-05-01] MEDS: CENTRAL LINE FLUSH 10 ML IV PUSH ×3 (06:30→20:52)
[2024-05-01 06:38] LABS: Basophils Percent Auto 0.2 % (0.2-1.2); Eosinophils Percent Auto 0.3 % (0-4.4); Hematocrit 39.8 % (37.0-47.0); Hemoglobin 13.7 g/dL (12.0-15.0); Immature Granulocyte Absolute 0.11 K/mm3 (0.00-0.031); Immature Granulocyte Percent A 1.9 % (0-0.5); Lymphocytes Absolute Auto 0.36 K/mm3 (0.9-3.2); Lymphocytes Percent Auto 6.2 % (18.3-44.2); Mean Corpuscular HGB Conc 34.4 g/dl (32-36); Mean Corpuscular Hemoglobin 30.8 pg (26-34); Mean Corpuscular Volume 89.4 fl (80-100); Mean Platelet Volume 9.2 fl (7.4-10.4); Monocytes Absolute Auto 0.5 K/mm3 (0.1-0.6); Monocytes Percent Auto 8.9 % (2.6-8.5); Neutrophils Absolute Auto 4.8 K/mm3 (1.3-6.7); Neutrophils Percent Auto 82.5 % (45.5-73.1); Platelet Count Result 234 k/mm3 (150-375); Red Blood Count 4.45 M/mm3 (4.2-5.4); Red Cell Distribution Width 12.2 % (11.5-14.5); White Blood Count 5.8 K/mm3 (4.5-10.0)
[2024-05-01 06:47] LABS: Triglycerides 90 mg/dL (<150)
[2024-05-01 06:49] LABS: Alanine Aminotransferase 35 U/L (6-35); Albumin Level 4.2 g/dL (3.5-5.1); Alkaline Phosphatase 90 U/L (38-126); Anion Gap 6 mmol/L (4-12); Aspartate Amino Transferase 53 U/L (14-36); Bilirubin,Total 0.8 mg/dL (0.2-1.3); Blood Urea Nitrogen 9 mg/dL (7-17); Calcium 9.3 mg/dL (8.4-10.2); Carbon Dioxide 30 mmol/L (22-30); Chloride 98 mmol/L (98-107); Estimated CRCL calculation 80 ml/min; Estimated Glomerular Filt Rate > 60; Glucose 108 mg/dL (65-110); Magnesium 2.1 mg/dL (1.6-2.3); Phosphorus 2.6 mg/dL (2.5-4.5); Potassium 3.8 mmol/L (3.4-5.0); Sodium 134 mmol/L (137-145)
--- NOTE | 2024-05-01 06:50 | PC.NURSE ---
This patient, Leticia Doyle, was transferred to [[id number] ] on 05/01/24 at 0652. Personal belongings sent with patient. Report given to [Maria G RN ]. Appropriate documentation sent with patient. , Laureano, notified of patient's transfer. Verbalized understanding and thanked this nurse for informing him.
[2024-05-01] MEDS: FAMOTIDINE 20 MG/2 ML VIAL IV PUSH ×2 (09:12→20:48)
[2024-05-01] MEDS: HEPARIN SODIUM 5,000 UNITS/ML VIAL 5000 UNITS SUB-Q ×2 (09:12→20:52)
[2024-05-01] MEDS: levoFLOXacin 750 MG/D5W 150 ML 750 MG/150 ML BAG 100 MG IVPB (11:30)
[2024-05-01] MEDS: METOPROLOL TARTRATE INJ 5 MG/5 ML VIAL IV PUSH ×2 (13:48→17:59)
--- NOTE | 2024-05-01 17:48 | ECG_ITS ---
Test Date: 2024-05-01 18:05:29 Measurements Intervals [place] Rate: 97 P: 40 DC: 149 QRS: 15 QRSD: 84 T: 40 QT: 319 QTc: 407 Interpretive Statements SINUS RHYTHM POSSIBLE LEFT ATRIAL ENLARGEMENT [-0.1mV P WAVE IN V1/V2] NONSPECIFIC ST DEPRESSION WARNING: DATA QUALITY MAY AFFECT INTERPRETATION Electronically Signed On 05-02-2024 13:55:46 [employer] by Yousuf Monroy M.D.
[2024-05-01] MEDS: METOPROLOL TARTRATE 50 MG TAB PO (18:23)
[2024-05-02] VITALS (11 sets, daily range): BP systolic 122–148; BP diastolic 71–99; PULSE 80–107; RESP 16–20; TEMP 36.8–37.1; O2SAT 93–96
--- NOTE | 2024-05-02 02:33 | PC.NURSE ---
RN responding to monitor being off monitor . found patient sitting in chair next to bed pt states she is trying to find the remote. Bed alarm was set an hour prior. Side rales up x 4 PT very unsteady on her feet . pt reminded again that she should not be up by herself and that she needs to use the call champagne. Pt states she can not get any work done. Pt reminded that she is a patient at [facility] and does not have any work to be done
[2024-05-02 04:53] LABS: Basophils Percent Auto 0.4 % (0.2-1.2); Eosinophils Percent Auto 0.3 % (0-4.4); Hematocrit 41.1 % (37.0-47.0); Hemoglobin 13.9 g/dL (12.0-15.0); Immature Granulocyte Absolute 0.27 K/mm3 (0.00-0.031); Immature Granulocyte Percent A 2.8 % (0-0.5); Lymphocytes Absolute Auto 0.78 K/mm3 (0.9-3.2); Lymphocytes Percent Auto 8.2 % (18.3-44.2); Mean Corpuscular HGB Conc 33.8 g/dl (32-36); Mean Corpuscular Hemoglobin 30.2 pg (26-34); Mean Corpuscular Volume 89.3 fl (80-100); Mean Platelet Volume 9.1 fl (7.4-10.4); Monocytes Absolute Auto 1.2 K/mm3 (0.1-0.6); Monocytes Percent Auto 12.2 % (2.6-8.5); Neutrophils Absolute Auto 7.2 K/mm3 (1.3-6.7); Neutrophils Percent Auto 76.1 % (45.5-73.1); Platelet Count Result 257 k/mm3 (150-375); Red Cell Distribution Width 12.3 % (11.5-14.5); White Blood Count 9.5 K/mm3 (4.5-10.0)
[2024-05-02 05:07] LABS: Alanine Aminotransferase 50 U/L (6-35); Alkaline Phosphatase 89 U/L (38-126); Anion Gap 11 mmol/L (4-12); Aspartate Amino Transferase 51 U/L (14-36); Bilirubin,Total 0.8 mg/dL (0.2-1.3); Blood Urea Nitrogen 16 mg/dL (7-17); Calcium 9.5 mg/dL (8.4-10.2); Carbon Dioxide 26 mmol/L (22-30); Chloride 97 mmol/L (98-107); Estimated CRCL calculation 67 ml/min; Estimated Glomerular Filt Rate > 60; Glucose 105 mg/dL (65-110); Magnesium 2.1 mg/dL (1.6-2.3); Phosphorus 2.9 mg/dL (2.5-4.5); Potassium 3.6 mmol/L (3.4-5.0); Sodium 134 mmol/L (137-145)
[2024-05-02] MEDS: CENTRAL LINE FLUSH 10 ML IV PUSH (06:11)
[2024-05-02] MEDS: LEVOTHYROXINE SODIUM 88 MCG TABLET PO (06:11)
[2024-05-02] MEDS: HEPARIN SODIUM 5,000 UNITS/ML VIAL 5000 UNITS SUB-Q ×2 (09:36→21:25)
[2024-05-02] MEDS: METOPROLOL TARTRATE 50 MG TAB PO ×2 (09:36→21:25)
[2024-05-02] MEDS: FAMOTIDINE 20 MG/2 ML VIAL IV PUSH ×2 (09:36→21:25)
--- NOTE | 2024-05-02 10:05 | P.PNIM_ITS ---
Progress Note: A&P Assessment and Plan (1) Acute respiratory failure: Code(s): J96.00 - Acute respiratory failure, unspecified whether with hypoxia or hypercapnia Status: Acute (2) Fall: Code(s): W19.XXXA - Unspecified fall, initial encounter Status: Acute (3) Influenza A: Code(s): J10.1 - Influenza due to other identified influenza virus with other respiratory manifestations Status: Acute (4) UTI (urinary tract infection): Code(s): N39.0 - Urinary tract infection, site not specified Status: Acute (5) Hypothyroid: Code(s): E03.9 - Hypothyroidism, unspecified Status: Acute (6) GERD (gastroesophageal reflux disease): Code(s): K21.9 - Gastro-esophageal reflux disease without esophagitis Status: Acute (7) Syncope: Qualifiers: Syncope type: unspecified Qualified Code(s): R55 - Syncope and collapse Code(s): R55 - Syncope and collapse Status: Acute Plan (1) Acute respiratory failure: Code(s): J96.00 - Acute respiratory failure, unspecified whether with hypoxia or hypercapnia Status: Acute Assessment and Plan: 04/29 extubated. Now on room air Add incentive spirometry 04/28/2024: Chest CTA Impression: No evidence of pulmonary embolus, aortic dissection, or aortic aneurysm. Clear lungs. Acute T11 compression fracture. Please see prior MR from 04/27/2024. Not continue to improve, chronic patient is on 2 L oxygen (2) Fall: Code(s): W19.XXXA - Unspecified fall, initial encounter Status: Acute Assessment and Plan: 04/25/2024: Patient had a fall in her bathroom 04/28/2024: Patient had a fall in the bathroom in the hospital, found down with LOC, sonorous breaths. Patient was intubated on the medical floor -unclear etiology of falls Carotid Dopplers unremarkable Neurology consulted Cut down on medications that can cause sedation Conservative with pain medication Discontinue Telemetry monitoring Move patient to medical floor consult PT OT (3) Syncope: Qualifiers: Syncope type: unspecified Qualified Code(s): R55 - Syncope and collapse Code(s): R55 - Syncope and collapse Status: Acute Assessment and Plan: Unknown etiology, now patient is on a telemonitor, will evaluate for arrhythmias. Echocardiogram is under -no arrhythmias noted on monitor 04/28/2024: Carotid Doppler 1. <50% stenosis in the right internal carotid artery. 2. <50% stenosis in the left internal carotid artery 04/26/2024 echocardiogram: Summary 1. Complete two-dimensional, color flow and Doppler transthoracic echocardiogram is performed. 2. Left ventricular chamber dimension is normal. 3. Left ventricular systolic function is normal, estimated at 55-60%. 4. The left ventricular diastolic function is grade I diastolic dysfunction. 5. E/e' 4 is not elevated. 6. There is trace mitral valve regurgitation. 7. There is trace tricuspid valve regurgitation. 8. No pulmonary hypertension, estimated pulmonary arterial systolic pressure is 27 mmHg. gambling monitor shows sinus tachycardia, received metoprolol 5 mg x 2, start metoprolol 50 mg b.i.d. p.o. Continue telemetry monitoring (4) AMS (altered mental status): Code(s): R41.82 - Altered mental status, unspecified Status: Acute Assessment and Plan: Altered mental status post fall, could be concussion, encephalopathy secondary to seizures, arrhythmia -currently intubated and sedated -once patient was on Precedex she was awake, alert, nodding to questions and following commands (5) Fracture of T11 vertebra: Qualifiers: Encounter type: initial encounter Fracture morphology: other fracture Fracture type: closed Qualified Code(s): S22.088A - Other fracture of T11-T12 vertebra, initial encounter for closed fracture Code(s): S22.089A - Unspecified fracture of T11-T12 vertebra, initial encounter for closed fracture Status: Acute Assessment and Plan: Neurosurgery has evaluated the patient, no plan for surgical intervention. Patient has to wear her brace for 6-8 weeks Requested nurse to assist patient in wearing the brace. (6) Hypothyroid: Code(s): E03.9 - Hypothyroidism, unspecified Status: Acute Assessment and Plan: Continue levothyroxine (7) GERD (gastroesophageal reflux disease): Code(s): K21.9 - Gastro-esophageal reflux disease without esophagitis Status: Acute Assessment and Plan: IV famotidine has been ordered (8) UTI (urinary tract infection): Code(s): N39.0 - Urinary tract infection, site not specified Status: Acute Assessment and Plan: E coli UTI pansensitive, -continue levofloxacin IV total 7 days (9) Delirium: Code(s): R41.0 - Disorientation, unspecified Status: Acute Assessment and Plan: Avoid sedatives. Supported treatment Off Precedex now Resolved Plan DVT prophylaxis: Heparin SQ Stress ulcer prophylaxis: Famotidine Nutrition: Diet order Code Status: Full code Moved patient to medical floor. Patient has a general weakness Consult PT OT adult caregiver for evaluation and assisting placement Subjective Date/time seen: 05/02/24 10:05 Interval history: I saw examined the patient present of patient's family. Patient feels better today, patient still has weakness, denies chest pain abdomen pain shortness of breath at rest. Exam Narrative: GENERAL: Pleasant, in no acute distress. Well-nourished. - EYES: EOMI. Anicteric. - HENT: Moist mucous membranes. Right I J central line in-situ - LUNGS: Clear to auscultation bilateral ly, no wheezing, rhonchi, or rales. - CARDIOVASCULAR: Regular rate and rhyth m. No murmur. No JVD. - ABDOMEN: Soft, non-tender and non-dist ended. No palpable masses. - EXTREMITIES: No edema. Peripheral puls es 2+. Non-tender. - NEUROLOGIC: No focal neurological defi cits. CN II-XII grossly intact. - PSYCHIATRIC: Awake, Alert and oriented x 3. Appropriate mood and affect. - SKIN: No rashes or lesions. Warm. - LYMPH: No cervical lymphadenopathy. Objective Data Vital Signs Vital Signs: Vital Signs - 24 hr 05/01/24 11:32 05/01/24 12:00 05/01/24 12:00 Temperature 98.3 F Pulse Rate 115 H 122 H Respiratory Rate 20 Blood Pressure 143/92 H Pulse Oximetry 96 Oxygen Delivery Room Air Fraction of Inspired Oxygen 05/01/24 13:48 05/01/24 14:00 05/01/24 16:00 Temperature 98.6 F Pulse Rate 129 H 96 127 H Respiratory Rate 16 Blood Pressure 166/108 H Pulse Oximetry 95 Oxygen Delivery Fraction of Inspired Oxygen 05/01/24 16:00 05/01/24 16:00 05/01/24 17:59 Temperature Pulse Rate 126 H 137 H Respiratory Rate Blood Pressure Pulse Oximetry Oxygen Delivery Room Air Fraction of Inspired Oxygen 05/01/24 18:00 05/01/24 18:23 05/01/24 20:00 Temperature Pulse Rate 126 H 111 H 90 Respiratory Rate 16 Blood Pressure Pulse Oximetry 95 Oxygen Delivery Room Air Fraction of Inspired Oxygen 30 05/01/24 20:00 05/01/24 20:00 05/01/24 21:55 Temperature 98.5 F Pulse Rate 90 88 88 Respiratory Rate 17 Blood Pressure 145/91 H Pulse Oximetry 95 Oxygen Delivery Fraction of Inspired Oxygen 05/01/24 23:52 05/02/24 00:00 05/02/24 00:00 Temperature 98.0 F Pulse Rate 85 86 86 Respiratory Rate 16 16 Blood Pressure 135/95 H Pulse Oximetry 94 94 Oxygen Delivery Room Air Fraction of Inspired Oxygen 05/02/24 02:00 05/02/24 03:23 05/02/24 03:23 Temperature Pulse Rate 87 85 87 Respiratory Rate 16 Blood Pressure Pulse Oximetry 94 Oxygen Delivery Room Air Fraction of Inspired Oxygen 05/02/24 04:00 05/02/24 06:00 05/02/24 07:57 Temperature 98.5 F 98.8 F Pulse Rate 85 98 103 H Respiratory Rate 17 20 Blood Pressure 139/71 148/99 H Pulse Oximetry 96 95 Oxygen Delivery Fraction of Inspired Oxygen 05/02/24 09:36 Temperature Pulse Rate 98 Respiratory Rate Blood Pressure Pulse Oximetry Oxygen Delivery Fraction of Inspired Oxygen Intake/Output Intake/Output: Intake & Output 04/29/24 04/30/24 05/01/24 05/02/24 23:59 23:59 23:59 23:59 Intake Total 897.0 540 990 Output Total 2100 2800 1175 Balance -1203.0 -2260 -185 Meds/Results Medications: Active Medications Generic Name Dose Route Start Last Admin Trade Name Freq PRN Reason Stop Dose Admin Acetaminophen 650 mg 04/25/24 16:28 04/29/24 20:51 Acetaminophen 325 Mg Tablet PO 650 mg Q4H PRN Administration Mild Pain (1-3) or Fever Hydrocodone Bitart/Acetaminophen 1 tab 04/30/24 08:47 Hydrocodone/Acetaminophen (*Crx) 5-325 Mg Tablet PO Q4H PRN Pain Rated > 6 Albuterol/Ipratropium 3 ml 04/30/24 11:43 Ipratropium 0.5 Mg/Albuterol Sulfate 2.5 Mg Ampul.Neb 3 Ml INHALATION Q6HRT PRN shortness of breath/Wheezing Famotidine 20 mg 04/28/24 21:00 05/02/24 09:36 Famotidine 20 Mg/2 Ml Vial IV PUSH 20 mg Q12HR SHAVON Administration Heparin Sodium (Porcine) 5,000 units 04/26/24 09:00 05/02/24 09:36 Heparin Sodium 5,000 Units/Ml Vial SUB-Q 5,000 units Q12HR SHAVON Administration Levofloxacin/Dextrose 750 mg in 150 mls @ 100 mls/hr 04/29/24 12:00 05/01/24 11:30 Levaquin 750 Mg/D5w 150 Ml IVPB 05/03/24 11:59 100 mls/hr Q24H SHAVON Administration Levothyroxine Sodium 88 mcg 05/01/24 06:30 05/02/24 06:11 Levothyroxine Sodium 88 Mcg Tablet PO 88 mcg DAILY@0630 SHAVON Administration Metoprolol Tartrate 50 mg 05/01/24 18:15 05/02/24 09:36 Metoprolol Tartrate 50 Mg Tab PO 50 mg Q12HR SHAVON Administration Ondansetron HCl 4 mg 04/25/24 16:28 04/29/24 19:37 Ondansetron Inj 4 Mg/2 Ml Vial IV PUSH 4 mg Q4H PRN Administration Nausea Sodium Chloride 10 ml 04/28/24 14:00 05/02/24 06:11 Central Line Flush IV PUSH 10 ml Q8HR SHAVON Administration Sodium Chloride 20 ml 04/28/24 13:51 Central Line Flush IV PUSH PRN PRN after blood draws Radiology Results: ITS Impressions Chest/Abdomen/Pelvis/Spine CT 04/25/24 14:41 IMPRESSION: 1. Acute appearing T11 compression fracture with 20% anterior vertebral body height loss. 2. No acute pulmonary disease or acute intra-abdominal/pelvic process. 2. 1-2 mm nonobstructing stone at the lower pole of the right kidney. Thoracic Spine X-Ray 04/25/24 17:05 IMPRESSION: Compression fracture of T11 which may be acute or chronic. MRI is advised. Loss of volume of multiple vertebrae in the midthoracic area most likely chronic. Thoracic Spine MRI 04/27/24 12:49 IMPRESSION: 1. Acute T11 burst fracture with 20% anterior vertebral body height loss and 1 mm retropulsion. 2. Moderate thoracic kyphosis with additional chronic mild anterior wedging at T6-T8. 3. Mild thoracic and upper lumbar spondylosis. Head CT 04/28/24 13:04 Impression: No significant abnormality seen. Cervical Spine CT 04/28/24 13:08 Impression: No fracture or subluxation of the cervical spine. Chest CTA 04/28/24 13:19 Impression: No evidence of pulmonary embolus, aortic dissection, or aortic aneurysm. Clear lungs. Acute T11 compression fracture. Please see prior MR from 04/27/2024. Chest X-Ray 04/29/24 07:42 Impression: Stable support tubes. Right IJ line tip remains in the right atrium. Clear lungs. Possible COPD. Carotid Doppler Study 04/29/24 07:59 IMPRESSION: 1. <50% stenosis in the right internal carotid artery. 2. <50% stenosis in the left internal carotid artery. Labs Labs: Laboratory Results - last 24 hr 05/02/24 04:00 WBC 9.5 RBC 4.60 Hgb 13.9 Hct 41.1 MCV 89.3 MCH 30.2 MCHC 33.8 RDW 12.3 Plt Count 257 MPV 9.1 Immature Gran % (Auto) 2.8 H Neut % (Auto) 76.1 H Lymph % (Auto) 8.2 L [place] % (Auto) 12.2 H Eos % (Auto) 0.3 Baso % (Auto) 0.4 Lymph # (Auto) 0.78 L [place] # (Auto) 1.2 H Eos # (Auto) 0.0 Baso # (Auto) 0.0 Abs Immat Gran (auto) 0.27 H Absolute Neuts (auto) 7.2 H Absolute Nucleated RBC 0.000 Nucleated RBC % 0.0 Sodium 134 L Potassium 3.6 Chloride 97 L Carbon Dioxide 26 Anion Gap 11 BUN 16 Creatinine 0.69 L Estim Creat Clear Calc 67 Estimated GFR > 60 Glucose 105 Calcium 9.5 Phosphorus 2.9 Magnesium 2.1 Total Bilirubin 0.8 AST 51 H ALT 50 H Alkaline Phosphatase 89 Total Protein 7.0 Albumin 4.0
[2024-05-02] MEDS: levoFLOXacin 750 MG/D5W 150 ML 750 MG/150 ML BAG 100 MG IVPB (13:29)
[2024-05-03 05:00] VITALS: BP 131/82; PULSE 82; RESP 20; TEMP 36.5; O2SAT 98
[2024-05-03] MEDS: LEVOTHYROXINE SODIUM 88 MCG TABLET PO (05:49)
[2024-05-03 06:23] LABS: Basophils Percent Auto 0.2 % (0.2-1.2); Eosinophils Percent Auto 0.4 % (0-4.4); Hematocrit 41.2 % (37.0-47.0); Hemoglobin 13.9 g/dL (12.0-15.0); Immature Granulocyte Absolute 0.28 K/mm3 (0.00-0.031); Immature Granulocyte Percent A 2.6 % (0-0.5); Lymphocytes Absolute Auto 0.79 K/mm3 (0.9-3.2); Lymphocytes Percent Auto 7.5 % (18.3-44.2); Mean Corpuscular HGB Conc 33.7 g/dl (32-36); Mean Corpuscular Hemoglobin 30.5 pg (26-34); Mean Corpuscular Volume 90.5 fl (80-100); Mean Platelet Volume 9.2 fl (7.4-10.4); Monocytes Absolute Auto 1.3 K/mm3 (0.1-0.6); Monocytes Percent Auto 12.7 % (2.6-8.5); Neutrophils Absolute Auto 8.1 K/mm3 (1.3-6.7); Neutrophils Percent Auto 76.6 % (45.5-73.1); Platelet Count Result 230 k/mm3 (150-375); Red Blood Count 4.55 M/mm3 (4.2-5.4); Red Cell Distribution Width 12.6 % (11.5-14.5); White Blood Count 10.6 K/mm3 (4.5-10.0)
[2024-05-03 06:34] LABS: Alanine Aminotransferase 39 U/L (6-35); Albumin Level 4.2 g/dL (3.5-5.1); Alkaline Phosphatase 92 U/L (38-126); Anion Gap 8 mmol/L (4-12); Aspartate Amino Transferase 27 U/L (14-36); Bilirubin,Total 0.7 mg/dL (0.2-1.3); Blood Urea Nitrogen 16 mg/dL (7-17); Calcium 9.7 mg/dL (8.4-10.2); Carbon Dioxide 30 mmol/L (22-30); Chloride 100 mmol/L (98-107); Estimated CRCL calculation 67 ml/min; Estimated Glomerular Filt Rate > 60; Glucose 105 mg/dL (65-110); Magnesium 2.2 mg/dL (1.6-2.3); Phosphorus 3.2 mg/dL (2.5-4.5); Potassium 3.6 mmol/L (3.4-5.0); Sodium 138 mmol/L (137-145); Triglycerides 130 mg/dL (<150)
[2024-05-03 08:00] VITALS: O2SAT 98
[2024-05-03 08:20] VITALS: PULSE 96
[2024-05-03] MEDS: METOPROLOL TARTRATE 50 MG TAB PO ×2 (08:20→21:39)
[2024-05-03] MEDS: FAMOTIDINE 20 MG/2 ML VIAL IV PUSH ×2 (08:20→21:39)
[2024-05-03] MEDS: HEPARIN SODIUM 5,000 UNITS/ML VIAL 5000 UNITS SUB-Q ×2 (08:20→21:39)
--- NOTE | 2024-05-03 08:25 | P.PNIM_ITS ---
Progress Note: A&P Assessment and Plan (1) Acute respiratory failure: Code(s): J96.00 - Acute respiratory failure, unspecified whether with hypoxia or hypercapnia Status: Acute (2) Fall: Code(s): W19.XXXA - Unspecified fall, initial encounter Status: Acute (3) Influenza A: Code(s): J10.1 - Influenza due to other identified influenza virus with other respiratory manifestations Status: Acute (4) UTI (urinary tract infection): Code(s): N39.0 - Urinary tract infection, site not specified Status: Acute (5) Hypothyroid: Code(s): E03.9 - Hypothyroidism, unspecified Status: Acute (6) GERD (gastroesophageal reflux disease): Code(s): K21.9 - Gastro-esophageal reflux disease without esophagitis Status: Acute (7) Syncope: Qualifiers: Syncope type: unspecified Qualified Code(s): R55 - Syncope and collapse Code(s): R55 - Syncope and collapse Status: Acute Plan (1) Acute respiratory failure: Code(s): J96.00 - Acute respiratory failure, unspecified whether with hypoxia or hypercapnia Status: Acute Assessment and Plan: 04/29 extubated. Now on room air Add incentive spirometry 04/28/2024: Chest CTA Impression: No evidence of pulmonary embolus, aortic dissection, or aortic aneurysm. Clear lungs. Acute T11 compression fracture. Please see prior MR from 04/27/2024. Now continue to improve, chronic patient is on 2 L oxygen (2) Fall: Code(s): W19.XXXA - Unspecified fall, initial encounter Status: Acute Assessment and Plan: 04/25/2024: Patient had a fall in her bathroom 04/28/2024: Patient had a fall in the bathroom in the hospital, found down with LOC, sonorous breaths. Patient was intubated on the medical floor -unclear etiology of falls Carotid Dopplers unremarkable Neurology consulted Cut down on medications that can cause sedation Conservative with pain medication Discontinue Telemetry monitoring Move patient to medical floor consult PT OT (3) Syncope: Qualifiers: Syncope type: unspecified Qualified Code(s): R55 - Syncope and collapse Code(s): R55 - Syncope and collapse Status: Acute Assessment and Plan: Unknown etiology, now patient is on a telemonitor, will evaluate for arrhythmias. Echocardiogram is under -no arrhythmias noted on monitor 04/28/2024: Carotid Doppler 1. <50% stenosis in the right internal carotid artery. 2. <50% stenosis in the left internal carotid artery 04/26/2024 echocardiogram: Summary 1. Complete two-dimensional, color flow and Doppler transthoracic echocardiogram is performed. 2. Left ventricular chamber dimension is normal. 3. Left ventricular systolic function is normal, estimated at 55-60%. 4. The left ventricular diastolic function is grade I diastolic dysfunction. 5. E/e' 4 is not elevated. 6. There is trace mitral valve regurgitation. 7. There is trace tricuspid valve regurgitation. 8. No pulmonary hypertension, estimated pulmonary arterial systolic pressure is 27 mmHg. pharmacy services representative shows sinus tachycardia, received metoprolol 5 mg x 2, start metoprolol 50 mg b.i.d. p.o. Continue telemetry monitoring (4) AMS (altered mental status): Code(s): R41.82 - Altered mental status, unspecified Status: Acute Assessment and Plan: Altered mental status post fall, could be concussion, encephalopathy secondary to seizures, arrhythmia Patient was initially intubated and sedated Now AMS has resolved, patient alert oriented x3 (5) Fracture of T11 vertebra: Qualifiers: Encounter type: initial encounter Fracture morphology: other fracture Fracture type: closed Qualified Code(s): S22.088A - Other fracture of T11-T12 vertebra, initial encounter for closed fracture Code(s): S22.089A - Unspecified fracture of T11-T12 vertebra, initial encounter for closed fracture Status: Acute Assessment and Plan: Neurosurgery has evaluated the patient, no plan for surgical intervention. Patient has to wear her brace for 6-8 weeks Requested nurse to assist patient in wearing the brace. (6) Hypothyroid: Code(s): E03.9 - Hypothyroidism, unspecified Status: Acute Assessment and Plan: Continue levothyroxine (7) GERD (gastroesophageal reflux disease): Code(s): K21.9 - Gastro-esophageal reflux disease without esophagitis Status: Acute Assessment and Plan: IV famotidine has been ordered (8) UTI (urinary tract infection): Code(s): N39.0 - Urinary tract infection, site not specified Status: Acute Assessment and Plan: E coli UTI pansensitive, -continue levofloxacin IV total 7 days (9) Delirium: Code(s): R41.0 - Disorientation, unspecified Status: Acute Assessment and Plan: Avoid sedatives. Supported treatment Off Precedex now Resolved Plan DVT prophylaxis: Heparin SQ Stress ulcer prophylaxis: Famotidine Nutrition: Diet order Code Status: Full code Moved patient to medical floor. Patient has a general weakness Consult PT OT critical care technician for evaluation and assisting placement Subjective Date/time seen: 05/03/24 08:25 Interval history: I saw examined the patient present of patient's family. Patient feels better today, patient still has weakness, denies chest pain abdomen pain shortness of breath at rest. Patient ambulated with assistance of physical therapist with a walker Exam Narrative: GENERAL: Pleasant, in no acute distress. Well-nourished. - EYES: EOMI. Anicteric. - HENT: Moist mucous membranes. Right I J central line in-situ - LUNGS: Clear to auscultation bilateral ly, no wheezing, rhonchi, or rales. - CARDIOVASCULAR: Regular rate and rhyth m. No murmur. No JVD. - ABDOMEN: Soft, non-tender and non-dist ended. No palpable masses. - EXTREMITIES: No edema. Peripheral puls es 2+. Non-tender. - NEUROLOGIC: No focal neurological defi cits. CN II-XII grossly intact. - PSYCHIATRIC: Awake, Alert and oriented x 3. Appropriate mood and affect. - SKIN: No rashes or lesions. Warm. - LYMPH: No cervical lymphadenopathy. Objective Data Vital Signs Vital Signs: Vital Signs - 24 hr 05/02/24 09:36 05/02/24 12:00 05/02/24 16:00 Temperature 98.5 F 98.7 F Pulse Rate 98 80 107 H Respiratory Rate 20 18 Blood Pressure 123/82 146/85 H Pulse Oximetry 96 95 Oxygen Delivery Fraction of Inspired Oxygen 05/02/24 20:00 05/02/24 20:40 05/02/24 21:25 Temperature 98.2 F Pulse Rate 95 100 Respiratory Rate 16 Blood Pressure 122/89 Pulse Oximetry 93 Oxygen Delivery Room Air Fraction of Inspired Oxygen 30 05/03/24 05:00 05/03/24 08:20 Temperature 97.7 F Pulse Rate 82 96 Respiratory Rate 20 Blood Pressure 131/82 Pulse Oximetry 98 Oxygen Delivery Fraction of Inspired Oxygen Intake/Output Intake/Output: Intake & Output 04/30/24 05/01/24 05/02/24 05/03/24 23:59 23:59 23:59 23:59 Intake Total 540 1140 550 300 Output Total 2800 1175 Balance -2260 -35 550 300 Meds/Results Medications: Active Medications Generic Name Dose Route Start Last Admin Trade Name Freq PRN Reason Stop Dose Admin Acetaminophen 650 mg 04/25/24 16:28 04/29/24 20:51 Acetaminophen 325 Mg Tablet PO 650 mg Q4H PRN Administration Mild Pain (1-3) or Fever Hydrocodone Bitart/Acetaminophen 1 tab 04/30/24 08:47 Hydrocodone/Acetaminophen (*Crx) 5-325 Mg Tablet PO Q4H PRN Pain Rated > 6 Albuterol/Ipratropium 3 ml 04/30/24 11:43 Ipratropium 0.5 Mg/Albuterol Sulfate 2.5 Mg Ampul.Neb 3 Ml INHALATION Q6HRT PRN shortness of breath/Wheezing Famotidine 20 mg 04/28/24 21:00 05/03/24 08:20 Famotidine 20 Mg/2 Ml Vial IV PUSH 20 mg Q12HR SHAVON Administration Heparin Sodium (Porcine) 5,000 units 04/26/24 09:00 05/03/24 08:20 Heparin Sodium 5,000 Units/Ml Vial SUB-Q 5,000 units Q12HR SHAVON Administration Levofloxacin/Dextrose 750 mg in 150 mls @ 100 mls/hr 04/29/24 12:00 05/02/24 13:29 Levaquin 750 Mg/D5w 150 Ml IVPB 05/03/24 11:59 100 mls/hr Q24H SHAVON Administration Levothyroxine Sodium 88 mcg 05/01/24 06:30 05/03/24 05:49 Levothyroxine Sodium 88 Mcg Tablet PO 88 mcg DAILY@0630 SHAVON Administration Metoprolol Tartrate 50 mg 05/01/24 18:15 05/03/24 08:20 Metoprolol Tartrate 50 Mg Tab PO 50 mg Q12HR SHAVON Administration Ondansetron HCl 4 mg 04/25/24 16:28 04/29/24 19:37 Ondansetron Inj 4 Mg/2 Ml Vial IV PUSH 4 mg Q4H PRN Administration Nausea Sodium Chloride 20 ml 04/28/24 13:51 Central Line Flush IV PUSH PRN PRN after blood draws Radiology Results: ITS Impressions Chest/Abdomen/Pelvis/Spine CT 04/25/24 14:41 IMPRESSION: 1. Acute appearing T11 compression fracture with 20% anterior vertebral body height loss. 2. No acute pulmonary disease or acute intra-abdominal/pelvic process. 2. 1-2 mm nonobstructing stone at the lower pole of the right kidney. Thoracic Spine X-Ray 04/25/24 17:05 IMPRESSION: Compression fracture of T11 which may be acute or chronic. MRI is advised. Loss of volume of multiple vertebrae in the midthoracic area most likely chronic. Thoracic Spine MRI 04/27/24 12:49 IMPRESSION: 1. Acute T11 burst fracture with 20% anterior vertebral body height loss and 1 mm retropulsion. 2. Moderate thoracic kyphosis with additional chronic mild anterior wedging at T6-T8. 3. Mild thoracic and upper lumbar spondylosis. Head CT 04/28/24 13:04 Impression: No significant abnormality seen. Cervical Spine CT 04/28/24 13:08 Impression: No fracture or subluxation of the cervical spine. Chest CTA 04/28/24 13:19 Impression: No evidence of pulmonary embolus, aortic dissection, or aortic aneurysm. Clear lungs. Acute T11 compression fracture. Please see prior MR from 04/27/2024. Chest X-Ray 04/29/24 07:42 Impression: Stable support tubes. Right IJ line tip remains in the right atrium. Clear lungs. Possible COPD. Carotid Doppler Study 04/29/24 07:59 IMPRESSION: 1. <50% stenosis in the right internal carotid artery. 2. <50% stenosis in the left internal carotid artery. Labs Labs: Laboratory Results - last 24 hr 05/03/24 05:40 WBC 10.6 H RBC 4.55 Hgb 13.9 Hct 41.2 MCV 90.5 MCH 30.5 MCHC 33.7 RDW 12.6 Plt Count 230 MPV 9.2 Immature Gran % (Auto) 2.6 H Neut % (Auto) 76.6 H Lymph % (Auto) 7.5 L [place] % (Auto) 12.7 H Eos % (Auto) 0.4 Baso % (Auto) 0.2 Lymph # (Auto) 0.79 L [place] # (Auto) 1.3 H Eos # (Auto) 0.0 Baso # (Auto) 0.0 Abs Immat Gran (auto) 0.28 H Absolute Neuts (auto) 8.1 H Absolute Nucleated RBC 0.000 Nucleated RBC % 0.0 Sodium 138 Potassium 3.6 Chloride 100 Carbon Dioxide 30 Anion Gap 8 BUN 16 Creatinine 0.69 L Estim Creat Clear Calc 67 Estimated GFR > 60 Glucose 105 Calcium 9.7 Phosphorus 3.2 Magnesium 2.2 Total Bilirubin 0.7 AST 27 ALT 39 H Alkaline Phosphatase 92 Total Protein 7.0 Albumin 4.2 Triglycerides 130
--- NOTE | 2024-05-03 10:37 | PCNFU ---
Nutrition Follow-Up Complete: Inadequate oral intake related to acute condition, as evidenced by clear liquids Adequate PO intake when diet is advanced - Goal is met. Diet is advanced to regular. Intakes progressing Goal: Pt current nutrition is Regular diet. Appetite fair. No intakes recorded, pt said she ate some breakfast. Nutrition recommendation: Oral nutrition supplements: Ensure Enlive BID (350 kcal, 20 g protein each) Last recorded weight is 59.4 kg. Bowel Motility: +1 BM 04/30/24 Labs Reviewed:Cre 0.69 Meds Noted: Zofran Skin: No skin issues Additional Notes: Pt able to eat some breakfast. Agreeable to try Ensure. Agree with current regular diet. Add supplement. Monitoring intakes, diet orders, weights, labs, meds, output, plan of care Follow up in 3 days. Daily in rounds
[2024-05-03 16:00] VITALS: BP 109/79; PULSE 105; RESP 18; TEMP 36.6; O2SAT 94
[2024-05-03 21:39] VITALS: PULSE 74
[2024-05-04] VITALS: BP 139/88; PULSE 104; RESP 20; TEMP 37.1; O2SAT 96
[2024-05-04] MEDS: LEVOTHYROXINE SODIUM 88 MCG TABLET PO (05:53)
[2024-05-04 06:03] VITALS: BP 145/91; PULSE 81; RESP 20; TEMP 37.1; O2SAT 96
[2024-05-04 06:28] LABS: Basophils Absolute Auto 0.1 K/mm3 (0.0-0.1); Basophils Percent Auto 0.5 % (0.2-1.2); Eosinophils Percent Auto 0.4 % (0-4.4); Immature Granulocyte Absolute 0.26 K/mm3 (0.00-0.031); Immature Granulocyte Percent A 2.6 % (0-0.5); Lymphocytes Absolute Auto 0.71 K/mm3 (0.9-3.2); Lymphocytes Percent Auto 7.1 % (18.3-44.2); Mean Corpuscular HGB Conc 33.3 g/dl (32-36); Mean Corpuscular Volume 90.1 fl (80-100); Monocytes Percent Auto 10.2 % (2.6-8.5); Neutrophils Percent Auto 79.2 % (45.5-73.1); Platelet Count Result 258 k/mm3 (150-375); Red Blood Count 4.66 M/mm3 (4.2-5.4); Red Cell Distribution Width 12.6 % (11.5-14.5)
[2024-05-04 06:48] LABS: Alanine Aminotransferase 30 U/L (6-35); Albumin Level 4.2 g/dL (3.5-5.1); Alkaline Phosphatase 93 U/L (38-126); Anion Gap 7 mmol/L (4-12); Aspartate Amino Transferase 21 U/L (14-36); Bilirubin,Total 0.7 mg/dL (0.2-1.3); Blood Urea Nitrogen 14 mg/dL (7-17); Calcium 9.6 mg/dL (8.4-10.2); Carbon Dioxide 29 mmol/L (22-30); Chloride 103 mmol/L (98-107); Estimated CRCL calculation 70 ml/min; Estimated Glomerular Filt Rate > 60; Glucose 106 mg/dL (65-110); Potassium 3.8 mmol/L (3.4-5.0); Sodium 139 mmol/L (137-145)
[2024-05-04] MEDS: METOPROLOL TARTRATE 50 MG TAB PO (08:43)
[2024-05-04] MEDS: FAMOTIDINE 20 MG/2 ML VIAL IV PUSH (08:43)
[2024-05-04] MEDS: HEPARIN SODIUM 5,000 UNITS/ML VIAL 5000 UNITS SUB-Q (08:43)
--- NOTE | 2024-05-04 09:48 | P.PNIM_ITS ---
Progress Note: A&P Assessment and Plan (1) Acute respiratory failure: Code(s): J96.00 - Acute respiratory failure, unspecified whether with hypoxia or hypercapnia Status: Acute (2) Fall: Code(s): W19.XXXA - Unspecified fall, initial encounter Status: Acute (3) Influenza A: Code(s): J10.1 - Influenza due to other identified influenza virus with other respiratory manifestations Status: Acute (4) UTI (urinary tract infection): Code(s): N39.0 - Urinary tract infection, site not specified Status: Acute (5) Hypothyroid: Code(s): E03.9 - Hypothyroidism, unspecified Status: Acute (6) GERD (gastroesophageal reflux disease): Code(s): K21.9 - Gastro-esophageal reflux disease without esophagitis Status: Acute (7) Syncope: Qualifiers: Syncope type: unspecified Qualified Code(s): R55 - Syncope and collapse Code(s): R55 - Syncope and collapse Status: Acute Plan (1) Acute respiratory failure: Code(s): J96.00 - Acute respiratory failure, unspecified whether with hypoxia or hypercapnia Status: Acute Assessment and Plan: 04/29 extubated. Now on room air Add incentive spirometry 04/28/2024: Chest CTA Impression: No evidence of pulmonary embolus, aortic dissection, or aortic aneurysm. Clear lungs. Acute T11 compression fracture. Please see prior MR from 04/27/2024. Resolved, patient is on room air, pulse ox 96% (2) Fall: Code(s): W19.XXXA - Unspecified fall, initial encounter Status: Acute Assessment and Plan: 04/25/2024: Patient had a fall in her bathroom 04/28/2024: Patient had a fall in the bathroom in the hospital, found down with LOC, sonorous breaths. Patient was intubated on the medical floor -unclear etiology of falls Carotid Dopplers unremarkable Neurology consulted Cut down on medications that can cause sedation Conservative with pain medication Discontinue Telemetry monitoring Move patient to medical floor consult PT OT Patient will discharge home with home health (3) Syncope: Qualifiers: Syncope type: unspecified Qualified Code(s): R55 - Syncope and collapse Code(s): R55 - Syncope and collapse Status: Acute Assessment and Plan: Unknown etiology, now patient is on a telemonitor, will evaluate for arrhythmias. Echocardiogram is under -no arrhythmias noted on monitor 04/28/2024: Carotid Doppler 1. <50% stenosis in the right internal carotid artery. 2. <50% stenosis in the left internal carotid artery 04/26/2024 echocardiogram: Summary 1. Complete two-dimensional, color flow and Doppler transthoracic echocardiogram is performed. 2. Left ventricular chamber dimension is normal. 3. Left ventricular systolic function is normal, estimated at 55-60%. 4. The left ventricular diastolic function is grade I diastolic dysfunction. 5. E/e' 4 is not elevated. 6. There is trace mitral valve regurgitation. 7. There is trace tricuspid valve regurgitation. 8. No pulmonary hypertension, estimated pulmonary arterial systolic pressure is 27 mmHg. chief operating engineer shows sinus tachycardia, received metoprolol 5 mg x 2, start metoprolol 50 mg b.i.d. p.o. Continue telemetry monitoring: No significant arrhythmia related to syncope. (4) AMS (altered mental status): Code(s): R41.82 - Altered mental status, unspecified Status: Acute Assessment and Plan: Altered mental status post fall, could be concussion, encephalopathy secondary to seizures, arrhythmia Patient was initially intubated and sedated Now AMS has resolved, patient alert oriented x3 (5) Fracture of T11 vertebra: Qualifiers: Encounter type: initial encounter Fracture morphology: other fracture Fracture type: closed Qualified Code(s): S22.088A - Other fracture of T11-T12 vertebra, initial encounter for closed fracture Code(s): S22.089A - Unspecified fracture of T11-T12 vertebra, initial encounter for closed fracture Status: Acute Assessment and Plan: Neurosurgery has evaluated the patient, no plan for surgical intervention. Patient has to wear her brace for 6-8 weeks Requested nurse to assist patient in wearing the brace. Recommend patient no heavy lifting (6) Hypothyroid: Code(s): E03.9 - Hypothyroidism, unspecified Status: Acute Assessment and Plan: Continue levothyroxine (7) GERD (gastroesophageal reflux disease): Code(s): K21.9 - Gastro-esophageal reflux disease without esophagitis Status: Acute Assessment and Plan: Received famotidine Resume home medication (8) UTI (urinary tract infection): Code(s): N39.0 - Urinary tract infection, site not specified Status: Acute Assessment and Plan: E coli UTI pansensitive, Completed levofloxacin IV total 7 days (9) Delirium: Code(s): R41.0 - Disorientation, unspecified Status: Acute Assessment and Plan: Avoid sedatives. Supported treatment Off Precedex now Resolved Plan DVT prophylaxis: Heparin SQ Stress ulcer prophylaxis: Famotidine Nutrition: Diet order Code Status: Full code Moved patient to medical floor. Patient has a general weakness Consult PT OT home health caregiver for evaluation and assisting placement Discharge patient home with home health Subjective Date/time seen: 05/04/24 09:48 Interval history: I saw examined the patient present of patient's . Patient ambulate, no significant pain, exercise tolerance increased, patient denies chest pain abdomen pain shortness of breath at rest Exam Narrative: GENERAL: Pleasant, in no acute distress. Well-nourished. - EYES: EOMI. Anicteric. - HENT: Moist mucous membranes. Right I J central line in-situ - LUNGS: Clear to auscultation bilateral ly, no wheezing, rhonchi, or rales. - CARDIOVASCULAR: Regular rate and rhyth m. No murmur. No JVD. - ABDOMEN: Soft, non-tender and non-dist ended. No palpable masses. - EXTREMITIES: No edema. Peripheral puls es 2+. Non-tender. - NEUROLOGIC: No focal neurological defi cits. CN II-XII grossly intact. - PSYCHIATRIC: Awake, Alert and oriented x 3. Appropriate mood and affect. - SKIN: No rashes or lesions. Warm. - LYMPH: No cervical lymphadenopathy. Objective Data Vital Signs Vital Signs: Vital Signs - 24 hr 05/03/24 16:00 05/03/24 20:00 05/03/24 21:39 Temperature 97.9 F Pulse Rate 105 H 74 Respiratory Rate 18 Blood Pressure 109/79 Pulse Oximetry 94 Oxygen Delivery Room Air 05/04/24 00:00 05/04/24 06:03 Temperature 98.8 F 98.7 F Pulse Rate 104 H 81 Respiratory Rate 20 20 Blood Pressure 139/88 145/91 H Pulse Oximetry 96 96 Oxygen Delivery Intake/Output Intake/Output: Intake & Output 05/01/24 05/02/24 05/03/24 05/04/24 23:59 23:59 23:59 23:59 Intake Total 1140 550 300 350 Output Total 1175 Balance -35 550 300 350 Meds/Results Medications: Active Medications Generic Name Dose Route Start Last Admin Trade Name Freq PRN Reason Stop Dose Admin Acetaminophen 650 mg 04/25/24 16:28 04/29/24 20:51 Acetaminophen 325 Mg Tablet PO 650 mg Q4H PRN Administration Mild Pain (1-3) or Fever Hydrocodone Bitart/Acetaminophen 1 tab 04/30/24 08:47 Hydrocodone/Acetaminophen (*Crx) 5-325 Mg Tablet PO Q4H PRN Pain Rated > 6 Albuterol/Ipratropium 3 ml 04/30/24 11:43 Ipratropium 0.5 Mg/Albuterol Sulfate 2.5 Mg Ampul.Neb 3 Ml INHALATION Q6HRT PRN shortness of breath/Wheezing Famotidine 20 mg 04/28/24 21:00 05/04/24 08:43 Famotidine 20 Mg/2 Ml Vial IV PUSH 20 mg Q12HR SHAVON Administration Heparin Sodium (Porcine) 5,000 units 04/26/24 09:00 05/04/24 08:43 Heparin Sodium 5,000 Units/Ml Vial SUB-Q 5,000 units Q12HR SHAVON Administration Levothyroxine Sodium 88 mcg 05/01/24 06:30 05/04/24 05:53 Levothyroxine Sodium 88 Mcg Tablet PO 88 mcg DAILY@0630 SHAVON Administration Metoprolol Tartrate 50 mg 05/01/24 18:15 05/04/24 08:43 Metoprolol Tartrate 50 Mg Tab PO 50 mg Q12HR SHAVON Administration Ondansetron HCl 4 mg 04/25/24 16:28 04/29/24 19:37 Ondansetron Inj 4 Mg/2 Ml Vial IV PUSH 4 mg Q4H PRN Administration Nausea Sodium Chloride 20 ml 04/28/24 13:51 Central Line Flush IV PUSH PRN PRN after blood draws Radiology Results: ITS Impressions Chest/Abdomen/Pelvis/Spine CT 04/25/24 14:41 IMPRESSION: 1. Acute appearing T11 compression fracture with 20% anterior vertebral body height loss. 2. No acute pulmonary disease or acute intra-abdominal/pelvic process. 2. 1-2 mm nonobstructing stone at the lower pole of the right kidney. Thoracic Spine X-Ray 04/25/24 17:05 IMPRESSION: Compression fracture of T11 which may be acute or chronic. MRI is advised. Loss of volume of multiple vertebrae in the midthoracic area most likely chronic. Thoracic Spine MRI 04/27/24 12:49 IMPRESSION: 1. Acute T11 burst fracture with 20% anterior vertebral body height loss and 1 mm retropulsion. 2. Moderate thoracic kyphosis with additional chronic mild anterior wedging at T6-T8. 3. Mild thoracic and upper lumbar spondylosis. Head CT 04/28/24 13:04 Impression: No significant abnormality seen. Cervical Spine CT 04/28/24 13:08 Impression: No fracture or subluxation of the cervical spine. Chest CTA 04/28/24 13:19 Impression: No evidence of pulmonary embolus, aortic dissection, or aortic aneurysm. Clear lungs. Acute T11 compression fracture. Please see prior MR from 04/27/2024. Chest X-Ray 04/29/24 07:42 Impression: Stable support tubes. Right IJ line tip remains in the right atrium. Clear lungs. Possible COPD. Carotid Doppler Study 04/29/24 07:59 IMPRESSION: 1. <50% stenosis in the right internal carotid artery. 2. <50% stenosis in the left internal carotid artery. Labs Labs: Laboratory Results - last 24 hr 05/04/24 05:52 WBC 10.0 RBC 4.66 Hgb 14.0 Hct 42.0 MCV 90.1 MCH 30.0 MCHC 33.3 RDW 12.6 Plt Count 258 MPV 9.0 Immature Gran % (Auto) 2.6 H Neut % (Auto) 79.2 H Lymph % (Auto) 7.1 L [place] % (Auto) 10.2 H Eos % (Auto) 0.4 Baso % (Auto) 0.5 Lymph # (Auto) 0.71 L [place] # (Auto) 1.0 H Eos # (Auto) 0.0 Baso # (Auto) 0.1 Abs Immat Gran (auto) 0.26 H Absolute Neuts (auto) 8.0 H Absolute Nucleated RBC 0.000 Nucleated RBC % 0.0 Sodium 139 Potassium 3.8 Chloride 103 Carbon Dioxide 29 Anion Gap 7 BUN 14 Creatinine 0.66 L Estim Creat Clear Calc 70 Estimated GFR > 60 Glucose 106 Calcium 9.6 Total Bilirubin 0.7 AST 21 ALT 30 Alkaline Phosphatase 93 Total Protein 7.0 Albumin 4.2
--- NOTE | 2024-05-04 09:49 | PM.DS ---
DS: Admitting Diagnosis Discharge Date 05/04/24 Admitting Diagnosis (1) Acute respiratory failure: Code(s): J96.00 - Acute respiratory failure, unspecified whether with hypoxia or hypercapnia Status: Acute (2) Fall: Code(s): W19.XXXA - Unspecified fall, initial encounter Status: Acute (3) Influenza A: Code(s): J10.1 - Influenza due to other identified influenza virus with other respiratory manifestations Status: Acute (4) UTI (urinary tract infection): Code(s): N39.0 - Urinary tract infection, site not specified Status: Acute (5) Hypothyroid: Code(s): E03.9 - Hypothyroidism, unspecified Status: Acute (6) GERD (gastroesophageal reflux disease): Code(s): K21.9 - Gastro-esophageal reflux disease without esophagitis Status: Acute (7) Syncope: Qualifiers: Syncope type: unspecified Qualified Code(s): R55 - Syncope and collapse Code(s): R55 - Syncope and collapse Status: Acute DS: Discharge Diagnosis Discharge Diagnosis (1) Acute respiratory failure: Code(s): J96.00 - Acute respiratory failure, unspecified whether with hypoxia or hypercapnia Status: Acute (2) Fall: Code(s): W19.XXXA - Unspecified fall, initial encounter Status: Acute (3) Influenza A: Code(s): J10.1 - Influenza due to other identified influenza virus with other respiratory manifestations Status: Acute (4) UTI (urinary tract infection): Code(s): N39.0 - Urinary tract infection, site not specified Status: Acute (5) Hypothyroid: Code(s): E03.9 - Hypothyroidism, unspecified Status: Acute (6) GERD (gastroesophageal reflux disease): Code(s): K21.9 - Gastro-esophageal reflux disease without esophagitis Status: Acute (7) Syncope: Qualifiers: Syncope type: unspecified Qualified Code(s): R55 - Syncope and collapse Code(s): R55 - Syncope and collapse Status: Acute DS: Summary Hospital Course Hospital Course: Per H&P: Leticia Doyle is a 59 F with a Mhx significant for multiple fractures, kyphoplasty, Hypothyroidism. 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 Her was downstairs and the fall was not witnessed. Her attempts at standing up by self was unsuccessful and she texted him asking for help and when he came up to help her, she was unable to bear weight but with assist devices previously owned, she was able to get to the vehicle and her drove her to the ED. She has previously experienced feet fractures deemed stress fractures as well as a clavicular fracture due to a hyperextension of the ipsilateral limb; does not smoke/chew tobacco, drink alcohol or consume recreational/illicit drugs. Work-up findings: CTAP: 1. Acute appearing T11 compression fracture with 20% anterior vertebral body height loss. 2. No acute pulmonary disease or acute intra-abdominal/pelvic process. 2. 1-2 mm nonobstructing stone at the lower pole of the right kidney. CT Head: Unremarkable CT cervical spine: 1. No fracture. 2. Mild cervical spondylosis. XR thoracic spine: VERTEBRAL BODIES: Severe kyphosis. Loss of volume of T11 which may be acute or chronic with multiple vertebrae in the midthoracic area is noted most likely chronic. Otherwise, Normal height and alignment. No visible fracture or subluxation. DISK SPACES: Multiple narrowing in the upper and midthoracic area. SOFT TISSUES: Normal. IMPRESSION: Compression fracture of T11 which may be acute or chronic. MRI is advised. Loss of volume of multiple vertebrae in the midthoracic area most likely chronic. The following med issues have been addressed during hospitalization (1) Acute respiratory failure: Code(s): J96.00 - Acute respiratory failure, unspecified whether with hypoxia or hypercapnia Status: Acute Assessment and Plan: 04/29 extubated. Now on room air Add incentive spirometry 04/28/2024: Chest CTA Impression: No evidence of pulmonary embolus, aortic dissection, or aortic aneurysm. Clear lungs. Acute T11 compression fracture. Please see prior MR from 04/27/2024. Resolved, patient is on room air, pulse ox 96% (2) Fall: Code(s): W19.XXXA - Unspecified fall, initial encounter Status: Acute Assessment and Plan: 04/25/2024: Patient had a fall in her bathroom 04/28/2024: Patient had a fall in the bathroom in the hospital, found down with LOC, sonorous breaths. Patient was intubated on the medical floor -unclear etiology of falls Carotid Dopplers unremarkable Neurology consulted Cut down on medications that can cause sedation Conservative with pain medication Discontinue Telemetry monitoring Move patient to medical floor consult PT OT Patient will discharge home with home health (3) Syncope: Qualifiers: Syncope type: unspecified Qualified Code(s): R55 - Syncope and collapse Code(s): R55 - Syncope and collapse Status: Acute Assessment and Plan: Unknown etiology, now patient is on a telemonitor, will evaluate for arrhythmias. Echocardiogram is under -no arrhythmias noted on monitor 04/28/2024: Carotid Doppler 1. <50% stenosis in the right internal carotid artery. 2. <50% stenosis in the left internal carotid artery 04/26/2024 echocardiogram: Summary 1. Complete two-dimensional, color flow and Doppler transthoracic echocardiogram is performed. 2. Left ventricular chamber dimension is normal. 3. Left ventricular systolic function is normal, estimated at 55-60%. 4. The left ventricular diastolic function is grade I diastolic dysfunction. 5. E/e' 4 is not elevated. 6. There is trace mitral valve regurgitation. 7. There is trace tricuspid valve regurgitation. 8. No pulmonary hypertension, estimated pulmonary arterial systolic pressure is 27 mmHg. package crimper shows sinus tachycardia, received metoprolol 5 mg x 2, start metoprolol 50 mg b.i.d. p.o. Continue telemetry monitoring: No significant arrhythmia related to syncope. (4) AMS (altered mental status): Code(s): R41.82 - Altered mental status, unspecified Status: Acute Assessment and Plan: Altered mental status post fall, could be concussion, encephalopathy secondary to seizures, arrhythmia Patient was initially intubated and sedated Now AMS has resolved, patient alert oriented x3 (5) Fracture of T11 vertebra: Qualifiers: Encounter type: initial encounter Fracture morphology: other fracture Fracture type: closed Qualified Code(s): S22.088A - Other fracture of T11-T12 vertebra, initial encounter for closed fracture Code(s): S22.089A - Unspecified fracture of T11-T12 vertebra, initial encounter for closed fracture Status: Acute Assessment and Plan: Neurosurgery has evaluated the patient, no plan for surgical intervention. Patient has to wear her brace for 6-8 weeks Requested nurse to assist patient in wearing the brace. Recommend patient no heavy lifting (6) Hypothyroid: Code(s): E03.9 - Hypothyroidism, unspecified Status: Acute Assessment and Plan: Continue levothyroxine (7) GERD (gastroesophageal reflux disease): Code(s): K21.9 - Gastro-esophageal reflux disease without esophagitis Status: Acute Assessment and Plan: Received famotidine Resume home medication (8) UTI (urinary tract infection): Code(s): N39.0 - Urinary tract infection, site not specified Status: Acute Assessment and Plan: E coli UTI pansensitive, Completed levofloxacin IV total 7 days (9) Delirium: Code(s): R41.0 - Disorientation, unspecified Status: Acute Assessment and Plan: Avoid sedatives. Supported treatment Off Precedex now Resolved Plan DVT prophylaxis: Heparin SQ Stress ulcer prophylaxis: Famotidine Nutrition: Diet order Code Status: Full code Moved patient to medical floor. 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 Well-nourished. - EYES: EOMI. Anicteric. - HENT: Moist mucous membranes. Right IJ central line in-situ - LUNGS: Clear to auscultation bilaterally, no wheezing, rhonchi, or rales. - CARDIOVASCULAR: Regular rate and rhythm. No murmur. No JVD. - ABDOMEN: Soft, non-tender and non-distended. No palpable masses. - EXTREMITIES: No edema. Peripheral pulses 2+. Non-tender. - NEUROLOGIC: No focal neurological deficits. CN II-XII grossly intact. - PSYCHIATRIC: Awake, Alert and oriented x 3. Appropriate mood and affect. - SKIN: No rashes or lesions. Warm. - LYMPH: No cervical lymphadenopathy. DS: Data Data Completed and Pending Labs on day of discharge: Labs from last 24 hours 05/04/24 05:52 WBC 10.0 RBC 4.66 Hgb 14.0 Hct 42.0 MCV 90.1 MCH 30.0 MCHC 33.3 RDW 12.6 Plt Count 258 MPV 9.0 Immature Gran % (Auto) 2.6 H Neut % (Auto) 79.2 H Lymph % (Auto) 7.1 L [place] % (Auto) 10.2 H Eos % (Auto) 0.4 Baso % (Auto) 0.5 Lymph # (Auto) 0.71 L [place] # (Auto) 1.0 H Eos # (Auto) 0.0 Baso # (Auto) 0.1 Abs Immat Gran (auto) 0.26 H Absolute Neuts (auto) 8.0 H Absolute Nucleated RBC 0.000 Nucleated RBC % 0.0 Sodium 139 Potassium 3.8 Chloride 103 Carbon Dioxide 29 Anion Gap 7 BUN 14 Creatinine 0.66 L Estim Creat Clear Calc 70 Estimated GFR > 60 Glucose 106 Calcium 9.6 Total Bilirubin 0.7 AST 21 ALT 30 Alkaline Phosphatase 93 Total Protein 7.0 Albumin 4.2 Discharge Plan Discharge Attending physician on discharge: Renee Cueto Consulting providers: Hari Patel; Henrry Novak; Steven Louis Discharging Clinician: Renee Cueto Anticipated Discharge Date/Time: 04/28/24 08:11 Patient Disposition: Home Health Service Activity: as tolerated Diet: as tolerated and heart healthy Discharge Instructions: continue to wear TLSO brace at all times with the exception of showering Follow up with Neurosurgery in 4 weeks Get bone density test as an outpatient and follow up with primary care doctor in 1 week Finish all of your antibiotic as prescribed even if you are feeling better. Patient Instructions: Antibiotic Form, Vertebral Compression Fracture (DC) Patient Language: Citizen Of [place] Stand Alone Forms: General Discharge Information Follow-up/Referrals: Pelon,Ruben Miller DO [Primary Care Provider] - 1 Week Hugo Glass MD [Physician] - 4 Weeks Discharge Medications: New hydrocodone-acetaminophen 5-325 mg Tablet 1 tablet PO Q8H PRN (Reason: Pain Rated > 6) Qty: 20 0RF cyclobenzaprine 5 mg tablet 5 mg PO TID PRN (Reason: Muscle Spasm) Qty: 14 0RF cyclobenzaprine 5 mg tablet 5 mg PO TID PRN (Reason: Muscle Spasm) Qty: 14 0RF Continued levothyroxine 88 mcg tablet 88 mcg PO DAILY Qty: 60 0RF ipratropium bromide 21 mcg (0.03 %) spray,non-aerosol 2 spray INTRANASAL BID Qty: 1 1RF Discontinued azithromycin 250 mg tablet 250 mg PO Q12H oseltamivir 75 mg capsule 75 mg PO Q12H Date of admission: 04/28/24 16:06 Primary Care Provider: Pelon,Ruben Miller Admitting Provider: Jani Jarrett Attending physician on admission: Chayo Martínez Condition: Stable
== END 2024-05-04 12:40 | disposition home or self-care (01) | DRG 208 ==
LOC: ANHED 16:29 → ANH3MED 17:50 → ANHICU 04-28 13:00 → ANH3MEDSUR 05-04 09:54 → ANHICU 05-06 12:51 → ANHIMU 05-06 12:51
PROVIDERS: Internal Medicine; Nurse Practitioner Acute Care; Nurse Practitioner Family; Physician Assistant; Admitting Provider General Practice; Emergency Provider Emergency Medicine; PCP Family Medicine; Visit Provider Hospitalist
DX: J96.00 Acute respiratory failure, unspecified whether with hypoxia or hypercapnia (principal); S22.089A Unspecified fracture of T11-T12 vertebra, initial encounter for closed fracture; N39.0 Urinary tract infection, site not specified; W18.30XA Fall on same level, unspecified, initial encounter; J10.1 Influenza due to other identified influenza virus with other respiratory manifestations; R55 Syncope and collapse; E03.9 Hypothyroidism, unspecified; M40.204 Unspecified kyphosis, thoracic region; K21.9 Gastro-esophageal reflux disease without esophagitis; E55.9 Vitamin D deficiency, unspecified; E86.0 Dehydration; B96.20 Unspecified Escherichia coli [E. coli] as the cause of diseases classified elsewhere; R40.4 Transient alteration of awareness; Z20.822 Contact with and (suspected) exposure to COVID-19
CPT/HCPCS: 31500; 36415; 36600; 70450; 71045; 71250; 71275; 72070; 72125; 72128; 72131; 72157; 74176; 80053; 80307; 81001; 82306; 82375; 82550; 82805; 82948; 83050; 83605; 83735; 84100; 84478; 84484; 85018; 85025; 85055; 85610; 85730; 87086; 87186; 87636; 93005; 93306; 93880; 94002; 94640; 96361; 96365; 96374; 96375; 96376; 97161; 97165; 99285; A9270; A9579; C1751; G0378; J0171; J0330; J0650; J1644; J1956; J2250; J2270; J2405; J2704; J3010; J3475; J3480; J7030; J7120; J7512; P9047; Q9967

== ENCOUNTER 2024-05-10 07:52 | Outpatient (CLI) | payer OTHER, SELFPAY ==
--- NOTE | ~2024-05-10 | NM_ITS ---
EXAMINATION: NM bone scan whole body DATE: 05/10/2024 12:37 INDICATION: Unspecified fracture of T11-T12 vertebra. TECHNIQUE: 24.3 mCi Tc-99m HDP was administered intravenously. Delayed whole-body scintigrams were o btained. COMPARISON: Chest CT 04/28/2024, thoracic spine MRI 05/07/2024 FINDINGS: There is increased activity in T11 vertebral body correlating with a burst fracture by MRI. There is kyphosis of thoracic spine. IMPRESSION: 1. Subacute T11 burst fracture. Reviewed, dictated and finalized at location L.
--- OUTSIDE RECORDS SUMMARY | 2024-05-10 07:56 | XMS_ITS | Encounter Summary ---
Author Organization [facility] Healthcare Address [address] [place] [address] Care Team Providers Care Environmental Auditor Name Role Phone Ruben Bird DO Primary Care Provider Reason for Visit * Reason Onset Date Comments Authorization/Certification 05/07/2024 Encounter Details Date Type Department Care Team ([facility] st Contact Info) Description 05/07/2024 Telephone [facility] Primary Care [address] [id number] Ruben Bird DO [address] [address] Authorization/Certifica tion Social History Tobacco Use Types Packs/Day Years [...] staff should administer the PHQ-9) 0 06/06/2023 PHQ-9 Answer Date Recorded PHQ-9 Total Score 1 05/31/2023 Personal Safety Answer Date Recorded Have you ever been in or are you currently in a harmful physical or emotional relationship or is someone making you feel afraid or unsafe? Denies 05/31/2023 Comments No Sex and Gender Information Value Date Recorded Sex Assigned at Not on file Legal Sex Female 8:09 PM [employer] Gender Identity Female 05/30/2023 9:12 AM CDT Sexual Orientation Not on file documented as of this encounter Miscellaneous Notes * Telephone Encounter - Eneida Falcon - 05/07/2024 1:08 PM CDT Certification for Test/Procedure Type of Certification Needed: Pre-Cert for Test/Procedure Type of caller:Patient/other caller Type of test/procedure needed: NM Bone scan whole body Diagnosis code S22.089A Reason for test/procedure: Unspecified fracture of T11 and T12 Vertibra Is insurance in chart accurate? yes Facility name: [facility] phone#: [phone] Date test/procedure is scheduled: not scheduled Additional Comments: Patient calling in for authorization from insurance. Does message need to be routed? Yes-Action Needed documented in this encounter Plan of Treatment Not on file documented as of this encounter Visit Diagnoses Not on filedocumented in this encounter Care Teams Environmental Auditor Relationship Specialty Start Date End Date Ruben Bird DO [address] [place] [id number] PCP - General Family Medicine 06/06/23 documented as of this encounter
--- OUTSIDE RECORDS SUMMARY | 2024-05-10 07:57 | XMS_ITS | Clinical Summary ---
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
--- OUTSIDE RECORDS SUMMARY | 2024-05-10 07:57 | XMS_ITS | Patient Health Summary ---
Author Organization [facility] [employer] Address [address] [place] [address] Care Team Providers Care Honey Grader And Blender Name Role Phone Pawan Blanchard MD Primary Care Provider Note from [facility],non-owned Affiliates and Associated Physician Practices is amultiple site organization consisting of ambulatory clinics and hospital sitesin [place], [place], [place] and [place]. This disclosure is being madepursuant to the Care Everywhere program and may not contain all information available regarding this patient. Last updated 17.[facility] Allergies * Albuterol(Nausea and/or Vomiting) -Low Criticality * Syada-D(Other) -Low Criticality * Contrast-Iodinated Agents For Ct/Other(Other) [...] triamcinolone (NASACORT AQ) 55 MCG/ACT nasal inhaler [place] 2 sprays into the nose once daily [...] CDT Respiratory Rate 13 04/10/2013 7:05 PM TECH BRAZER TESTER Oxygen Saturation 97% 04/10/2013 7:50 PM TECH BRAZER TESTER Inhaled Oxygen Concentration - - Weight 63.5 kg (140 lb) 12/03/2020 7:43 AM CDT Height 167.6 cm (5' 6 ) 12/03/2020 7:43 AM CDT Body Mass Index 22.6 12/03/2020 7:43 AM CDT Procedures * ESOPHAGUS/GASTROESOPHAGEAL REFLUX TEST(Performed 12/03/2020) Performed for Regurgitation of food, Cough * GASTRIC MOTILITY STUDY(Performed 12/03/2020) Performed for Regurgitation of food, Cough Care Teams Honey Grader And Blender Relationship Specialty Start Date End Date Pawan Blanchard MD PCP - General 04/04/13
--- OUTSIDE RECORDS SUMMARY | 2024-05-10 07:57 | XMS_ITS | Clinical Summary ---
Author Organization [facility] Address [facility] [place] [address] Care Team Providers Care Software Developer Name Role Phone Ruben Bird DO Primary [...] 02/01/2022 03/14/2022 Thoracic myofascial strain, initial encounter 12/24/1903/14/2022 Acute upper respiratory infection 05/01/2019 03/14/2022 Dysuria 02/21/2017 03/14/2022 Closed fracture of zygoma 04/05/2013 Knee pain 11/08/2012 03/14/2022 Routine general medical [...] Cancer Mother lung cancer, Heart Disease Mother ID Mother Stroke Mother Cancer Paternal Grandfather Diabetes [...] YULIANA ROBBIE DIGI Routine 02/10/2022 1:47 PM HEARING AID ASSEMBLY SUPERVISOR Encounter for screening mammogram for malignant neoplasm of breast COLONOSCOPY Routine 12/28/2004 12:00 AM HEARING AID ASSEMBLY SUPERVISOR from Last 3 Months or Most Recently Relevant to Health Maintenance Results * MG SCREENING W YULIANA ROBBIE DIGI (02/10/2022 1:47 PM HEARING AID ASSEMBLY SUPERVISOR) Anatomical Region Laterality Modality Breast Bilateral Mammography 02/10/2022 2:18 PM HEARING AID ASSEMBLY SUPERVISOR Narrative 02/10/2022 2:19 PM HEARING AID ASSEMBLY SUPERVISOR Examination: Digital screening mammogram with CAD. Clinical [...] Resu lt * Colonoscopy (12/28/2004 12:00 AM HEARING AID ASSEMBLY SUPERVISOR) 12/28/2004 12/28/2004 Narrative TOUCHWORKS TO EPIC CONVERSION - 12/28/2004 12:00 AM HEARING AID ASSEMBLY SUPERVISOR Documented hx of procedure Procedure Note Lester Saucedo MD - 05/17/2018 Documented hx of procedure us Generic Conversion Md SAUCEDO GI PROCEDURE ORDERABLES Final Result Performing Organization Address City/State/[facility] Co de Phone Number TOUCHWORKS TO EPIC CONVERSION from Last 3 Months or Most Recently Relevant to Health Maintenance Insurance [facility] Advance Directives * Full Code (Latest Code Status on File) Date Activated Date Inactivated Comments 07/13/2017 2:41 PM 07/14/2017 9:06 PM Care Teams Software Developer Relationship Specialty Start Date End Date Ruben Bird DO [address] [place] [id number] PCP - General FAMILY PRACTICE 05/31/23
--- OUTSIDE RECORDS SUMMARY | 2024-05-10 07:57 | XMS_ITS | Clinical Summary ---
Author Organization [facility] [employer] Address [address] [place] [address] Care Team Providers Care Newspaper Writer Name Role Phone Pawan Blanchard MD Primary Care Provider Source Comments [facility] [employer],non-owned Affiliates and Associated Physician Practices is amultiple site organization consisting of ambulatory clinics and hospital sitesin [place], [place], [place] and [place]. This disclosure is being madepursuant to the Care Everywhere program and may not contain all information available regarding this patient. Last updated 17.[facility] [employer] Allergies Active Allergy Reactions Criticality Noted Date [...] triamcinolone (NASACORT AQ) 55 MCG/ACT nasal inhaler [place] 2 sprays into the nose once daily [...] CDT Respiratory Rate 13 04/10/2013 7:05 PM WALL TAPER Oxygen Saturation 97% 04/10/2013 7:50 PM WALL TAPER Inhaled Oxygen Concentration - - Weight 63.5 [...] complete this topic MENINGOCOCCAL (Group B) VACCINE SHARED DECISION-MAKING Aged Out No longer eligible based on patient's age to complete this topic MENINGOCOCCAL GROUPS A/C/Y/W VACCINE Aged Out No longer eligible b ased on patient's age to complete this topic Care Teams Newspaper Writer Relationship Specialty Start Date End Date Pawan Blanchard MD PCP - General 04/04/13
--- OUTSIDE RECORDS SUMMARY | 2024-05-10 07:57 | XMS_ITS | Encounter Summary ---
Author Organization [employer] Address 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
--- OUTSIDE RECORDS SUMMARY | 2024-05-10 07:57 | XMS_ITS | Encounter Summary ---
Author Organization [facility] Address [address] [place] [address] Care Team Providers Care Cabinet Professional Name Role Phone Ruben Bird DO Primary Care Provider Reason for Visit * Reason Onset Date Comments Dizziness 05/09/2024 Call Back 05/09/2024 Encounter Details Date Type Department Care Team ([facility] st Contact Info) Description 05/09/2024 Nurse Triage [facility] Medical Group Primary Care [address] [place] [phone] Ruben Bird DO [address] [address] Social History Tobacco Use Types Packs/Day Years [...] on file 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 Does message need to be routed? No Reason for Warm Transfer: Patient returning call from practice Practice Accepted the Warm Transfer? Yes Additional Comments If YES above, and no barriers. * Telephone Encounter - Celia Muhammad RN - 05/09/2024 1:44 PM CDT Lmom to offer appt Monday * Telephone Encounter - Heidy Hernandez RN - 05/09/2024 1:01 PM CDT Pt calls to report she was seen in the ED on 05/04 for fall/syncope, at home and while at ED, pt fractured vertebra. Pt is unsure if she had fallen or passed at home, pt thinks she was told she passed out in ed. Pt was told to follow up with pcp after ED visit. Pt also reports she has had dizziness when laying down on her side since the fall, dizziness when standing up once. Pt denies dizziness anyother time. Pt denies feeling like the room is spinning or dizziness at this time. Pt also reports her left ankle is swollen with bruising. Pt does not recall injury to the ankle but reports discomfort in the since her last fall. Pt denies cp, sob. Pt remains able to ambulate like normal. Pt deniesany numbness or weakness on only one side of the body, fever. No OV available for RN to schedule today or tomorrow, pt declines CC at this time. Encouraged rest, hydration, safe dosages for tylenol and ibuprofen provided. Advised pt to call back with new or worsening symptoms. Message routed to office, FYI- no OV for RN to make for pt, for dizziness, ankle pain, ed follow up Please advise pt. Reason for Disposition Patient wants to be seen MODERATE pain (e.g., interferes with normal activities, limping) and present > 3 days Protocols used: Cubqmlzap-Zfkax-WE, Ankle Otda-Jqnpl-RC * Telephone Encounter - Heidy Hernandez RN - 05/09/2024 12:49 PM CDT Regarding: Lightheaded and dizziness ----- Message from [employer] sent at 05/09/2024 12:45 PM CDT ----- Symptom Based Call Chief Complaint(s): Lightheaded and dizziness Duration: Started this morning What type of symptom(s) is the patient experiencing? Red Flag. Is the patient concerned they are experiencing a medical emergency requiring an ambulance? No Additional Comments: Patient states that she had a fall recently and seen at [facility] on 05/04. Does message need to be routed? Yes-Action Needed documented in this encounter Plan of Treatment Not on file documented as of this encounter Visit Diagnoses Not on filedocumented in this encounter Care Teams Cabinet Professional Relationship Specialty Start Date End Date Ruben Bird DO [address] [place] [phone] PCP - General Family Medicine 06/06/23 documented as of this encounter
--- OUTSIDE RECORDS SUMMARY | 2024-05-10 07:57 | XMS_ITS | Encounter Summary ---
Author Organization [facility] [employer] [facility] Address [address] [place] [address] Care Team Providers Care Grades 7 8 Tutor Name Role Phone Unavailable Primary Care Provider Unavailabl e Encounter Details Date Type Department Care Team (Latest Contact Info) Description 04/26/2000 Outpatient Historical [facility] Pickett, Ashlee Lloyd MD NO ADDRESS ON FILE Female infertility of unspecified origin (Primary Dx) Social History Tobacco Use Types Packs/Day Years Used Date Smoking Tobacco: Never Assessed Comments Unknown Sex and Gender Information Value Date Recorded Sex Assigned at Not on file 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
--- OUTSIDE RECORDS SUMMARY | 2024-05-10 07:57 | XMS_ITS | Encounter Summary ---
Author Organization [employer] Address 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
--- OUTSIDE RECORDS SUMMARY | 2024-05-10 07:57 | XMS_ITS | Encounter Summary ---
Author Organization [facility] Address [address] [place] [address] Care Team Providers Care Tire Sorter Name Role Phone Pawan Blanchard MD Primary Care Provider [phone] Ruben Bird DO Primary Care Provider [phone] Encounter Details Date Type Department Care Team (Late st Contact Info) Description 03/28/2020 Prep for Procedure [facility] [place], [place] [id number] Garrett Adrian MD [address] [phone] Social History Tobacco Use Types Packs/Day Years [...] COVID-19? No / Unsure 03/31/2020 12:39 PM PRIZER HAND documented as of this encounter Plan of Treatment Not on file documented as of this encounter Results * PRE-SURGICAL/PRE-PROCEDURE CORONAVIRUS (COVID 19) (03/28/2020 10:37 AM PRIZER HAND) CORONAVIRUS SARS COV 2 PCR (RESP) NOT DETECTED NOT DETECTED 03/29/2020 3:16 PM PRIZER HAND [facility] Comment: A Not Detected (negative) test result [...] providers and patients using the following websites: https://www.Spondo.Cliqset/home/Covid-19/HCP/QuestIVD/fact- sheet.html https://www.Spondo.Cliqset/home/Covid-19/Patients/ QuestIVD/fact-sheet.html This test has been authorized by the FDA under an Emergency Use Authorization (EUA) for use by authorized laboratories. Due to the current public health emergency, [facility] is receiving a high volume of samples [...] about COVID-19 can be found at the [facility] website: www.Bycler.Cliqset/Covid19. Test performed at [facility] [place] [address] [place] [address] Director: PEDRO LUIS GONZALEZ DO,MPH FIRST TEST NO 03/28/2020 8:43 AM [facility] EMPLOYED IN [facility] NO 03/28/2020 8:43 AM PRIZER HAND [facility] SYMPTOMATIC DEFINED BY CDC NO 03/28/2020 8:43 AM PRIZER HAND [facility] DATE OF SYMPTOM ONSET NO 03/28/2020 11:03 AM PRIZER HAND [facility] HOSPITALIZATION STATUS NO 03/28/2020 8:43 AM PRIZER HAND [facility] PATIENT IN ICU NO 03/28/2020 8:43 AM PRIZER HAND [facility] RESIDENT OF [facility] NO 03/28/2020 8:43 AM PRIZER HAND [facility] NOT 03/28/2020 8:43 AM PRIZER HAND [facility] PATIENT'S RACE WHITE OR 03/28/2020 8:43 AM PRIZER HAND [facility] ETHNICITY NONHISPANIC 03/28/2020 8:43 AM PRIZER HAND [facility] SOURCE (QST) NASOPHARYNGEAL SWAB 03/28/2020 8:43 AM PRIZER HAND [facility] NASOPHARYNGEAL SWAB / Unknown 03/28/2020 10:37 AM PRIZER HAND us Garrett Adrian MD MICROBIOLOGY - GENERAL YEMI GRANADOS Final Result [facility] [address] [place] [address], [employer] [facility] [address] [place] [address], documented in this encounter Visit Diagnoses Diagnosis Early satiety- Primary documented in this encounter Additional Health Concerns Infection Onset Date Last Indicated Resolved Time COVID-19 Rule Out 03/28/2020 03/28/2020 03/29/2020 3:16 PM PRIZER HAND documented as of this encounter Care Teams Tire Sorter Relationship Specialty Start Date End Date Pawan Blanchard MD [address] [address] PCP - General 03/30/16 05/30/23 Ruben Bird DO [address] [place] [id number] PCP - General FAMILY PRACTICE 05/31/23 documented as of this encounter
--- OUTSIDE RECORDS SUMMARY | 2024-05-10 07:57 | XMS_ITS | Referral Summary ---
Author Organization [facility] [employer] Address [address] [place] [address] Care Team Providers Care Electric Motorman Name Role Phone Pawan Blanchard MD Primary Care Provider Source Comments [facility] [employer],non-owned Affiliates and Associated Physician Practices is amultiple site organization consisting of ambulatory clinics and hospital sitesin [place], [place], [place] and [place]. This disclosure is being madepursuant to the Care Everywhere program and may not contain all information available regarding this patient. Last updated 17.[facility] [employer] Allergies Active Allergy Reactions Criticality Noted Date [...] triamcinolone (NASACORT AQ) 55 MCG/ACT nasal inhaler [place] 2 sprays into the nose once daily [...] CDT Respiratory Rate 13 04/10/2013 7:05 PM COMPRESS TRUCKER Oxygen Saturation 97% 04/10/2013 7:50 PM COMPRESS TRUCKER Inhaled Oxygen Concentration - - Weight 63.5 kg (140 lb) 12/03/2020 7:43 AM CDT Height 167.6 cm (5' 6 ) 12/03/2020 7:43 AM CDT Body Mass Index 22.6 12/03/2020 7:43 AM CDT Plan of Treatment Not on file Care Teams Electric Motorman Relationship Specialty Start Date End Date Pawan Blanchard MD PCP - General 04/04/13
--- OUTSIDE RECORDS SUMMARY | 2024-05-10 07:57 | XMS_ITS | Encounter Summary ---
Author Organization [employer] Address [address] [place] [address] Care Team Providers Care Vision Care Associate Name Role Phone Unavailable Primary Care Provider [...] on file Legal Sex Female 4:11 AM BINDING CUTTER Gender Identity Not on file Sexual Orientation Not on file documented as of this encounter Plan of Treatment Not on file documented as of this encounter Visit Diagnoses Diagnosis Female infertility of unspecified origin- Primary documented in this encounter
--- OUTSIDE RECORDS SUMMARY | 2024-05-10 07:57 | XMS_ITS | Encounter Summary ---
Author Organization [facility] Address 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
--- OUTSIDE RECORDS SUMMARY | 2024-05-10 07:57 | XMS_ITS | Referral Summary ---
Author Organization [facility] Address [address] [place] [address] Care Team Providers Care Corporate Security Officer Name Role Phone Ruben Bird DO Primary Care Provider Encounters Date Type Department Care Team Description 05/09/2024 Nurse Triage [facility] [address] [place] [address] [address] [place] [phone] Ruben Bird DO 05/07/2024 Telephone [facility] [address] [place] [address] [address] [place] [phone] Ruben Bird DO Authorization/Certi fication 05/03/2024 Orders Only [facility] Information Management [address] [place] [phone] Scanning, Provider 04/25/2024 Nurse Triage [facility] [address] [place] [address] [address] [place] [phone] Tammie Kiser, SHANNON 04/18/2024 Telephone [facility] [address] [place] [address] [address] [place] [phone] Ruben Bird DO Medical Question/Miscellane ous 03/20/2024 Telephone [facility] [address] [place] [address] [address] [place] [phone] Ruben Bird DO Test Results 03/20/2024 Telephone [facility] [address] [place] [phone] Ruben Bird DO Test Results 03/19/2024 12:45 PM GRINDER - 03/19/2024 11:59 PM GRINDER Hospital Encounter [facility] MOB 1 DIAG IMG [address] [place] [address] Left wrist pain Discharge Disposition: Discharge to home or self care 03/19/2024 3:15 PM GRINDER Office Visit [facility] [address] [place] [phone] Ruben Bird DO Left wrist pain (Primary Dx) 03/09/2024 8:30 AM GRINDER Clinical Support [facility] at [address] [phone] Left wrist pain (Primary Dx) 03/08/2024 12:40 PM GRINDER Ancillary Procedure [facility] Imaging at [address] [address] Left hand pain 03/08/2024 12:35 PM GRINDER Ancillary Procedure [facility] Imaging at [address] [address] Left hand pain 03/08/2024 12:30 PM GRINDER Office Visit [facility] Care at [address] [address] Jillian Ram NP Left hand pain (Primary Dx); Accidental fall, initial encounter 03/08/2024 Nurse Triage [facility] [address] [place] [phone] Ruben Bird DO from Last 3 Months [...] by mouth 2 (two) times a day [facility] Active triamcinolone (KENALOG) 0.1 % cream Apply [...] 07/13/2017 07/15/2022 07/15/2022 Closed fracture of zygoma 04/05/2013 07/15/2022 Immunizations Immunization Administration Dates Next Due DT [...] on file Legal Sex Female 8:09 PM GRINDER Gender Identity Female 05/30/2023 9:12 AM CDT Sexual Orientation Not on file Last Filed Vital Signs Vital Sign Reading Time Taken Comments Blood Pressure 122/80 03/19/2024 3:00 PM GRINDER Pulse 82 03/19/2024 3:00 PM GRINDER Temperature 35.9 C (96.7 F) 03/19/2024 3:00 PM GRINDER Respiratory Rate 18 03/19/2024 3:00 PM GRINDER Oxygen Saturation 99% 03/19/2024 3:00 PM GRINDER Inhaled Oxygen Concentration - - Weight 65.5 kg (144 lb 8 oz) 03/19/2024 3:00 PM GRINDER Height 163.8 cm (5' 4.5 ) 03/19/2024 3:00 PM GRINDER Body Mass Index 24.42 03/19/2024 3:00 PM GRINDER Plan of Treatment Not on file Medical Devices Implanted Type Area Sheriffs Device Identifier Shelf Expiration Date Model / Serial / Lot Ethicon Endo Surgery Gynecare Tvt Tape Laser Cut Retropubic Mesh Gynecological Blue [id number] - [id number] Implanted:Qty: 1 on 05/11/2023 by Digna Goodman MD at [facility] Mesh N/A: Urethra Ethicon Endo Surgery 08/26/2025 [id number] / / [id number] Procedures Procedure Name Priority Date/Time Associated Diagnosis Comments SCAN - RADIOLOGY/IMAGING 05/03/2024 9:23 PM GRINDER XR WRIST LEFT 3 OR MORE VIEWS Schedule Routine, Read Routine (OP Routine) 03/19/2024 3:39 PM GRINDER Left wrist pain XR WRIST LEFT 3 OR MORE VIEWS Schedule BREE, Read BREE (Appt Today, Awaiting Results) 03/08/2024 12:44 PM GRINDER Left hand pain XR HAND LEFT 3 OR MORE VIEWS Schedule BREE, Read BREE (Appt Today, Awaiting Results) 03/08/2024 12:43 PM GRINDER Left hand pain HEPATITIS C ANTIBODY Routine 06/06/2023 3:19 PM CDT Need for hepatitis C screening test COLONOSCOPY Routine 12/28/2014 from Last 3 Months or Most Recently Relevant to Health Maintenance Results * SCAN - RADIOLOGY/IMAGING (05/03/2024 9:23 PM GRINDER) Anatomical Region Laterality Modality Other us Provider Scanning Final Result * XR Wrist Left 3+ Vw (03/19/2024 3:39 PM GRINDER) Anatomical Region Laterality Modality Upper Extremities, Wrist Left Compute d Radiography 03/20/2024 11:3 5 AM GRINDER Narrative 03/20/2024 11:36 AM GRINDER EXAM DESCRIPTION: XR WRIST LEFT 3 OR [...] Dorian Ragsdale M.D. TH: TH Report ID: [id number] Reading Location: [id number] Procedure Note Dorian Ragsdale MD - 03/20/2024 [...] Dorian Ragsdale M.D. TH: TH Report ID: [id number] Reading Location: [id number] Ruben Bird DO IMG XR PROCEDURES Jen l Result * XR Wrist Left 3 or More Views (03/08/2024 12:44 PM GRINDER) Anatomical Region Laterality Modality Upper Extremities, Wrist Left Digital Radiography 03/08/2024 2:00 PM GRINDER Narrative 03/08/2024 2:02 PM GRINDER EXAM DESCRIPTION: XR WRIST LEFT 3 OR [...] fracture or dislocation. Joint spaces are intact. Kwcq-xs-uklliizb osteoarthritis 1st carpometacarpal joint. Soft tissues are unremarkable. Left wrist: No fracture or dislocation. Hfml-wa-vhbebgyf osteoarthritis 1st carpometacarpal joint. Soft tissue structures are unremarkable. IMPRESSION: No acute fracture. Zbca-vh-qyrjzsca osteoarthritis 1st carpometacarpal joint. THIS IS AN ELECTRONICALLY VERIFIED FINAL REPORT 03/08/2024 2:02 PM - Electronically signed by Brady Paz M.D. MJ T: Report ID: [id number] Reading Location: [id number] Procedure Note Brady Paz MD - 03/08/2024 [...] acute fracture or dislocation. Joint spacesare intact. Zdqq-mp-ytvdzxpv osteoarthritis 1st carpometacarpal joint. Soft tissues are unremarkable. Left wrist: No fracture or dislocation. Ctsg-yi-bmlgvpll osteoarthritis 1st carpometacarpal joint. Soft tissue structures are unremarkable. IMPRESSION: No acute fracture. Xfbg-yc-rcnoskfs osteoarthritis 1st carpometacarpal joint. THIS IS AN ELECTRONICALLY VERIFIED FINAL REPORT 03/08/2024 2:02 PM - Electronically signed by Brady Paz M.D. MJ T: Report ID: [id number] Reading Location: [id number] Jillian Ram NP IMG XR PROCEDURES Final Result * XR Hand Left 3 or More Views (03/08/2024 12:43 PM GRINDER) Anatomical Region Laterality Modality Upper Extremities, Hand Left Digital Radiography 03/08/2024 2:00 PM GRINDER Narrative 03/08/2024 2:02 PM GRINDER EXAM DESCRIPTION: XR WRIST LEFT 3 OR [...] fracture or dislocation. Joint spaces are intact. Fenp-pu-euhsbran osteoarthritis 1st carpometacarpal joint. Soft tissues are unremarkable. Left wrist: No fracture or dislocation. Jpzp-ct-ggzhatlg osteoarthritis 1st carpometacarpal joint. Soft tissue structures are unremarkable. IMPRESSION: No acute fracture. Wzyr-lb-dsoxcvjv osteoarthritis 1st carpometacarpal joint. THIS IS AN ELECTRONICALLY VERIFIED FINAL REPORT 03/08/2024 2:02 PM - Electronically signed by Brady PFEIFFER T: Report ID: [id number] Reading Location: [id number] Procedure Note Brady Paz MD - 03/08/2024 [...] acute fracture or dislocation. Joint spacesare intact. Urpu-pp-fgmyjfav osteoarthritis 1st carpometacarpal joint. Soft tissues are unremarkable. Left wrist: No fracture or dislocation. Okgi-bp-fvdjhrbg osteoarthritis 1st carpometacarpal joint. Soft tissue structures are unremarkable. IMPRESSION: No acute fracture. Btbm-yn-ydwwgqnk osteoarthritis 1st carpometacarpal joint. THIS IS AN ELECTRONICALLY VERIFIED FINAL REPORT 03/08/2024 2:02 PM - Electronically signed by Brady PFEIFFER T: Report ID: [id number] Reading Location: [id number] Jillian Ram NP IMG XR PROCEDURES Final [...] - GEN ERAL ORDERABLES Final Result [facility] [address] [facility] Department [place] [address] * Colonoscopy (12/28/2014) Anatomical Region Laterality Modality Other Historical Provider MD ENDOSCOPY PROCEDURES Jen l Result from Last 3 Months or Most Recently Relevant to Health Maintenance Insurance [facility] Advance Directives For more information, please contact: [phone] * Full Code (Latest Code Status on File) Date Activated Date Inactivated Comments 05/31/2023 5:39 PM 06/01/2023 8:27 PM * Full Code Date Activated Date Inactivated Comments 05/11/2023 1:25 PM 05/12/2023 1:00 AM * Full Code Date Activated Date Inactivated Comments 05/11/2023 1:25 PM 05/11/2023 1:25 PM Care Teams Corporate Security Officer Relationship Specialty Start Date End Date Ruben Bird DO [address] [place] [phone] PCP - General Family Medicine 06/06/23
--- OUTSIDE RECORDS SUMMARY | 2024-05-10 07:57 | XMS_ITS | Clinical Summary ---
Author Organization [facility] Address [address] [place] [address] Care Team Providers Care Chief Engineer Name Role Phone Ruben Bird DO Primary [...] by mouth 2 (two) times a day [employer] Active triamcinolone (KENALOG) 0.1 % cream [...] 07/15/2022 Closed fracture of zygoma 04/05/2013 07/15/2022 Encounters Date Type Department Care Team Description 05/09/2024 Nurse Triage [facility] Care [address] [place] [phone] Ruben Bird, 05/07/2024 Telephone [facility] [address] [place] [address] [address] [place] [address] Ruben Bird, Authorization/Certi fication 05/03/2024 Orders Only [facility] Health Information Management [address] [place] [address] Scanning, Provider 04/25/2024 Nurse Triage [address] [address] Tammie Kiser, RN 04/18/[address] [address] Ruben Bird, Medical Question/Miscellane ous 03/20/[address] [address] Ruben Bird, Test Results 03/20/[address] [address] Ruben Bird, Test Results 03/19/2024 3:15 PM REGIONAL SALES ENGINEER Office Visit [address] [address] Ruben Bird, Left wrist pain (Primary Dx) 03/19/2024 12:45 PM REGIONAL SALES ENGINEER - 03/19/2024 11:59 PM REGIONAL SALES ENGINEER Hospital Encounter [facility] MOB 1 DIAG IMG [address] [place] [address] Left wrist pain Discharge Disposition: Discharge to home or self care 03/09/2024 8:30 AM REGIONAL SALES ENGINEER Clinical Support [facility] Care at [address] [address] Left wrist pain (Primary Dx) 03/08/2024 12:40 PM REGIONAL SALES ENGINEER Ancillary Procedure [facility] Imaging at [address] [address] Left hand pain 03/08/2024 12:35 PM REGIONAL SALES ENGINEER Ancillary Procedure [facility] Imaging at [address] [phone] Left hand pain 03/08/2024 12:30 PM REGIONAL SALES ENGINEER Office Visit [facility] Convenient Care at [address] [address] Jillian Ram NP Left hand pain (Primary Dx); Accidental fall, initial encounter 03/08/2024 Nurse Triage [facility] Primary Care [address] [facility] [address] [place] [phone] Ruben Bird DO from Last 3 [...] history of malignant neoplasm - (Added by Conv) Hearing loss Mother JMA Heart attack Mother JMA Myocardial infa rction; Hyperlipidemia Mother JMA Hyperlipidemi a; Hypertension Mother JMA Hypertension; Lung [...] history of diabetes mellitus - (Added by Conv) Anesthesia problems Neg Hx Relation Name [...] on file Legal Sex Female 8:09 PM REGIONAL SALES ENGINEER Gender Identity Female 05/30/2023 9:12 AM CDT [...] Comments Blood Pressure 122/80 03/19/2024 3:00 PM REGIONAL SALES ENGINEER Pulse 82 03/19/2024 3:00 PM REGIONAL SALES ENGINEER Temperature 35.9 C (96.7 F) 03/19/2024 3:00 PM REGIONAL SALES ENGINEER Respiratory Rate 18 03/19/2024 3:00 PM REGIONAL SALES ENGINEER Oxygen Saturation 99% 03/19/2024 3:00 PM REGIONAL SALES ENGINEER Inhaled Oxygen Concentration - - Weight 65.5 kg (144 lb 8 oz) 03/19/2024 3:00 PM REGIONAL SALES ENGINEER Height 163.8 cm (5' 4.5 ) 03/19/2024 3:00 PM REGIONAL SALES ENGINEER Body Mass Index 24.42 03/19/2024 3:00 PM REGIONAL SALES ENGINEER Plan of Treatment Health Maintenance Due Date Last Done Comments Hepatitis B Screening 02/05/1982 Zoster Vaccine (1 of 2) 02/05/2014 Breast Cancer Screening-Mammogram 02/10/2023 02/10/2022, 02/10/2022, 10/23/2017 DTaP/Tdap/Td Vaccine (3 - Td or Tdap) 10/08/2023 10/07/2013, 07/22/2003 Covid-19 Vaccine ( - season) 2023 08/09/2021, 01/24/2021, 05/24/2020, Additional history exists Influenza Vaccine (#1) 2023 , 03/08/2021, 12/24/2019, Additional history exists Depression Screening 06/05/2024 06/06/2023, 05/31/2023, 05/31/2023 Regular Well Visit/Exam 18-64 06/05/2024 06/06/2023 Colon Cancer Screening-Colonoscopy 12/28/2024 12/28/2014 Hepatitis C Screening Completed 06/06/2023 Pneumococcal vaccine <65 Aged Out No longer eligible based on patient's age to complete this topic Medical Devices Implanted Type Area Cemetery Warden Device Identifier Shelf Expiration Date Model / Serial / Lot Ethicon Endo Surgery Gynecare Tvt Tape Laser Cut Retropubic Mesh Gynecological Blue [id number] - [id number] Implanted:Qty: 1 on 05/11/2023 by Digna Goodman MD at [facility] Mesh N/A: Urethra Ethicon Endo Surgery 08/26/2025 [id number] / [id number] Procedures Procedure Name Priority Date/Time Associated Diagnosis Comments SCAN - RADIOLOGY/IMAGING 05/03/2024 9:23 PM REGIONAL SALES ENGINEER XR WRIST LEFT 3 OR MORE VIEWS Schedule Routine, Read Routine (OP Routine) 03/19/2024 3:39 PM REGIONAL SALES ENGINEER Left wrist pain XR WRIST LEFT 3 OR MORE VIEWS Schedule BREE, Read BREE (Appt Today, Awaiting Results) 03/08/2024 12:44 PM REGIONAL SALES ENGINEER Left hand pain XR HAND LEFT 3 OR MORE VIEWS Schedule BREE, Read BREE (Appt Today, Awaiting Results) 03/08/2024 12:43 PM REGIONAL SALES ENGINEER Left hand pain HEPATITIS C ANTIBODY Routine 06/06/2023 3:19 PM CDT Need for hepatitis C screening test COLONOSCOPY Routine 12/28/2014 from Last 3 Months or Most Recently Relevant to Health Maintenance Results * SCAN - RADIOLOGY/IMAGING (05/03/2024 9:23 PM REGIONAL SALES ENGINEER) Anatomical Region Laterality Modality Other us Provider Scanning Final Result * XR Wrist Left 3+ Vw (03/19/2024 3:39 PM REGIONAL SALES ENGINEER) Anatomical Region Laterality Modality Upper Extremities, Wrist Left Compute d Radiography 03/20/2024 11:3 5 AM REGIONAL SALES ENGINEER Narrative 03/20/2024 11:36 AM REGIONAL SALES ENGINEER EXAM DESCRIPTION: XR WRIST LEFT 3 OR [...] Dorian Ragsdale M.D. TH: TH Report ID: [id number] Reading Location: [id number] Procedure Note Dorian Ragsdale MD - 03/20/2024 [...] Dorian Ragsdale M.D. TH: TH Report ID: [id number] Reading Location: [id number] Ruben Bird DO IMG XR PROCEDURES Jen l Result * XR Wrist Left 3 or More Views (03/08/2024 12:44 PM REGIONAL SALES ENGINEER) Anatomical Region Laterality Modality Upper Extremities, Wrist Left Digital Radiography 03/08/2024 2:00 PM REGIONAL SALES ENGINEER Narrative 03/08/2024 2:02 PM REGIONAL SALES ENGINEER EXAM DESCRIPTION: XR WRIST LEFT 3 OR [...] fracture or dislocation. Joint spaces are intact. Phwq-ft-mrnrkhyt osteoarthritis 1st carpometacarpal joint. Soft tissues are unremarkable. Left wrist: No fracture or dislocation. Mfer-lf-gocunsst osteoarthritis 1st carpometacarpal joint. Soft tissue structures are unremarkable. IMPRESSION: No acute fracture. Ggwz-ub-vgqvfoga osteoarthritis 1st carpometacarpal joint. THIS IS AN ELECTRONICALLY VERIFIED FINAL REPORT 03/08/2024 2:02 PM - Electronically signed by Brady PFEIFFER T: Report ID: [id number] Reading Location: [id number] Procedure Note Brady Paz MD - 03/08/2024 [...] acute fracture or dislocation. Joint spacesare intact. Pdep-gt-pxefgnhe osteoarthritis 1st carpometacarpal joint. Soft tissues are unremarkable. Left wrist: No fracture or dislocation. Ntfz-kq-jsogdlus osteoarthritis 1st carpometacarpal joint. Soft tissue structures are unremarkable. IMPRESSION: No acute fracture. Yjgn-gd-uayjhfam osteoarthritis 1st carpometacarpal joint. THIS IS AN ELECTRONICALLY VERIFIED FINAL REPORT 03/08/2024 2:02 PM - Electronically signed by Brady Brandi PFEIFFER T: Report ID: [id number] Reading Location: [id number] Jillian Ram NP IMG XR PROCEDURES Final Result * XR Hand Left 3 or More Views (03/08/2024 12:43 PM REGIONAL SALES ENGINEER) Anatomical Region Laterality Modality Upper Extremities, Hand Left Digital Radiography 03/08/2024 2:00 PM REGIONAL SALES ENGINEER Narrative 03/08/2024 2:02 PM REGIONAL SALES ENGINEER EXAM DESCRIPTION: XR WRIST LEFT 3 OR [...] fracture or dislocation. Joint spaces are intact. Evxn-xa-fksxbbvn osteoarthritis 1st carpometacarpal joint. Soft tissues are unremarkable. Left wrist: No fracture or dislocation. Zlqk-yi-jgxainav osteoarthritis 1st carpometacarpal joint. Soft tissue structures are unremarkable. IMPRESSION: No acute fracture. Lyma-mo-wmfznptm osteoarthritis 1st carpometacarpal joint. THIS IS AN ELECTRONICALLY VERIFIED FINAL REPORT 03/08/2024 2:02 PM - Electronically signed by Brady PFEIFFER T: Report ID: [id number] Reading Location: [id number] Procedure Note Brady Paz MD - 03/08/2024 [...] acute fracture or dislocation. Joint spacesare intact. Hbsw-ud-okeepflp osteoarthritis 1st carpometacarpal joint. Soft tissues are unremarkable. Left wrist: No fracture or dislocation. Wwyo-di-dqqrdzyq osteoarthritis 1st carpometacarpal joint. Soft tissue structures are unremarkable. IMPRESSION: No acute fracture. Wiub-bc-ebjjpvcd osteoarthritis 1st carpometacarpal joint. THIS IS AN ELECTRONICALLY VERIFIED FINAL REPORT 03/08/2024 2:02 PM - Electronically signed by Brady Paz M.D. MJ T: Report ID: [id number] Reading Location: [place] [address] Jillian Ram RANCH SUPERVISOR IMG XR PROCEDURES Final Result * Hepatitis [...] - GEN ERAL ORDERABLES Final Result [facility] [address] [facility] Department [place] [address] * Colonoscopy (12/28/2014) Anatomical Region Laterality Modality Other us Historical Provider ENDOSCOPY PROCEDURES Jen l Result from Last 3 Months or Most Recently Relevant to Health Maintenance Insurance [facility] Advance Directives For more information, please contact: [phone] * Full Code (Latest Code Status on File) Date Activated Date Inactivated Comments 05/31/2023 5:39 PM 06/01/2023 8:27 PM * Full Code Date Activated Date Inactivated Comments 05/11/2023 1:25 PM 05/12/2023 1:00 AM * Full Code Date Activated Date Inactivated Comments 05/11/2023 1:25 PM 05/11/2023 1:25 PM Care Teams Chief Engineer Relationship Specialty Start Date End Date Pelon Ruben Gill DO [address] [place] [address] PCP - General Family Medicine 06/06/23
--- OUTSIDE RECORDS SUMMARY | 2024-05-10 07:57 | XMS_ITS | Continuity of Care Document ---
Author Organization [facility] Address [address] [place] [address] [address] [place] [address] Phone Care Team Providers Care Bakery Helper Name Role Phone Doisy, Edward Unavailable Unavailable Advance Directives Directive Yes / No Effective Date File Name No Information Encounters Encounter Description Practice Location Reason(s) For Visit Diagnoses Date Provider Providers Copied on Encounter [facility], [address], [place], [place], [id number], [place] tel:[phone] SEC [facility] No Information Apr-2 1-200 3 Doisy Edward. [address] [facility] , [address], [place], [address], [place]. tel:[phone] Family History Family Member Type Diagnosis Age At Onset No Information Payers Payer name Insurance type Covered republican ID Authoriza tion(s) No Information Social History [...]
== END 2024-05-10 07:53 | disposition home or self-care (01) ==
PROVIDERS: PCP Family Medicine; Visit Provider Nurse Practitioner Acute Care
DX: S22.081A Stable burst fracture of T11-T12 vertebra, initial encounter for closed fracture (principal); X58.XXXA Exposure to other specified factors, initial encounter
CPT/HCPCS: 78306; A9503

== ENCOUNTER 2024-10-30 16:53 | Emergency (ER) | payer OTHER, SELFPAY ==
--- OUTSIDE RECORDS SUMMARY | 2002-06-17 07:30 | XMS_ITS | Continuity of Care Document ---
Author Organization [facility] Address [id number] [place] [address] [address] [place] [address] Phone Care Team Providers Care Rolling Mill Plugger Name Role Phone Doisy, Edward Unavailable Unavailable Advance Directives Directive Yes / No Effective Date File Name No Information Encounters Encounter Description Practice Location Reason(s) For Visit Diagnoses Date Provider Providers Copied on [facility]counter [facility] [address], [place], [place], [id number], [place] tel:[phone] [address] [facility] No Information Apr-2 1-200 3 Doisy Edward. [address] [facility] , [address], [place], [address], [place]. tel:[phone] Family History Family Member Type Diagnosis Age At Onset No Information Payers Payer name Insurance type Covered libertarian ID Authoriza tion(s) No Information Social History Type Description Quantity Date Captured Comments Sex Female Smoking Status No Information Chief Complaint And Reason For Visit No Information Reason For Referral Reason For Referral No Information History Of Present Illness Encounter Date Complaint History Of Prese nt Illness No Information Functional Status Date Functional Assessmen t No Information Instructions Date Instruction Additional Infor mation No Information Assessments Type Assessment Date No Information Patient Care Teams Name Effective Dates (start - stop) Status Members No Information
--- OUTSIDE RECORDS SUMMARY | 2002-06-17 07:30 | XMS_ITS | Continuity of Care Document ---
Author Organization [facility] Address [id number] [place] [address] [address] [place] [address] Phone Care Team Providers Care System Software Developer Name Role Phone Doisy, Edward Unavailable Unavailable Advance Directives Directive Yes / No Effective Date File Name No Information Encounters Encounter Description Practice Location Reason(s) For Visit Diagnoses Date Provider Providers Copied on Encounter [facility], [address], [place], [place], [id number], [place] tel:[phone] [address] [facility] No Information Apr-2 1-200 3 Doisy Edward. [address] [facility] , [address], [place], [address], [place]. tel:[phone] Family History Family Member Type Diagnosis Age [...]
[2024-10-30 16:54] VITALS: BP 131/86; PULSE 87; RESP 16; TEMP 36.4; O2SAT 95
--- OUTSIDE RECORDS SUMMARY | 2024-10-30 17:18 | XMS_ITS | Encounter Summary ---
Author Organization [facility] Address [address] [place] [address] Care Team Providers Care Public Service Officer Name Role Phone Ruben Bird DO Primary Care Provider Misti Ng MD Unavailable Pollo Lopez MD Unavailable [phone] Encounter Details Date Type Department Care Team (Latest Contact Info) Description 08/28/2024 Results Follow-Up [facility] Primary Care [facility] [address] [address] Ruben Bird DO [address] [place] [address] T4, free, TSH, Lipid panel, Comprehensive metabolic panel Social History Tobacco Use Types Packs/Day Years Used Date Smoking Tobacco: Never Passive Smoke Exposure: Current Smokeless Tobacco: Never Alcohol Use Standard Drinks/Week Comments Yes 0 (1 standard drink = 0.6 oz pur e alcohol) AUDIT-C Answer Date Recorded Q1: How often do you have a drink containing alcohol? Never 09/12/2024 Q2: How many drinks containi ng alcohol do you have on a typical day when you are drinking? Patient does not drink Q3: How often do you have si x or more drinks on one occasion? Never 09/12/2024 PHQ-2 Answer Date Recorded PHQ-2 Total Score (If total score is 3 or more points, staff should administer the PHQ-9) 0 06/19/2024 PHQ-9 Answer Date Recorded PHQ-9 Total Score 1 05/31/2023 Personal Safety Answer Date Recorded Have you ever been in or are you currently in a harmful physical or emotional relationship or is someone making you feel afraid or unsafe? Denies 05/31/2023 Comments No Sex and Gender Information Value Date Recorded Sex Assigned at Not on file Legal Sex Female 8:09 PM AUTOMOTIVE SHOP FOREMAN Gender Identity Female 05/30/2023 9:12 AM CDT Sexual Orientation Not on file documented as of this encounter Functional Status documented as of this encounter Miscellaneous Notes * Telephone Encounter - Ruben Bird DO - 08/29/2024 7:21 AM CDT We can recheck in about 6 mo at her next visit documented in this encounter Plan of Treatment Not on file documented as of this encounter Visit Diagnoses Not on filedocumented in this encounter Care Teams Public Service Officer Relationship Specialty Start Date End Date Ruben Bird DO [address] [place] [phone] PCP - General Family Medicine 06/06/23 Misti Ng MD [address] [facility] [address] [place] [address] Consulting Physician Pain Management 09/12/24 Pollo Lopez MD [address] [facility] [address] [place] [address] Surgeon Vascular Surgery 09/12/24 documented as of this encounter
--- OUTSIDE RECORDS SUMMARY | 2024-10-30 17:18 | XMS_ITS | Clinical Summary ---
Author Organization [facility] Address [address] [place] [address] Care Team Providers Care Research Chemical Engineer Name Role Phone SibleyRuben giron Primary Care Provider Misti Ng MD Unavailable Pollo Lopez MD Unavailable [phone] Allergies Active Allergy Reactions Criticality Noted Date [...] veins are on fire Latex Blisters High Meclizine Swelling,Dizziness Medium 06/19/2024 Facial swelling Meperidine Vomiting Low Penicillins Hives Medium Scallops Anaphylaxis High 07/14/2022 Sulfa (Sulfonamide Antibiotics) Swelling,Headache Medium Medications ipratropium (ATROVENT) 21 mcg (0.03 %) nasal sprayIndications: Perennial Allergic Rhinitis Administer 2 sprays into each nostril 2 (two) times a day 022 Active acetaminophen-asp irin-caffeine (Excedrin Migraine) 250-250-65 mg per tabletIndications :Migraine Take 1 tablet by mouth every 6 (six) hours as needed for headaches or pain Active EPINEPHrine 0.3 mg/0.3 mL auto-injection syringe Inject 0.3 mL (0.3 mg total) into the muscle as instructed as needed 019 Active famotidine (PEPCID) 40 mg tabletIndications :gastroesophageal reflux disease Take 1 tablet (40 mg total) by mouth nightly And as needed if has problems during day 021 Active estradioL (Estrace) 0.01 % (0.1 mg/gram) vaginal creamIndications: Vaginal atrophy Insert one gram vaginally nightly for 2 weeks and then decrease to 2 times per week (such as Monday/) 42.5 g 1 023 Active cholecalciferol, vitamin D3, 1,000 unit tablet,chewableIn dications:Vitamin D Deficiency Take 3 tablet/chew tab by mouth 2 (two) times a day Differential Brand Active triamcinolone (KENALOG) 0.1 % cream Apply 1 g topically 2 (two) times a day as needed for irritation Active clobetasoL (TEMOVATE) 0.05 % ointment APPLY OINTMENT TOPICALLY TWICE DAILY FOR 14 DAYS THEN ONCE DAILY FOR 7 DAYS [address] (PROTONIX) 40 mg EC tabletIndications :gastroesophageal reflux disease Take 1 tablet (40 mg total) by mouth 2 (two) times a day 180 tablet 3 024 Active Additional Information Patient not taking.Reported on 10/21/2024 tacrolimus (PROTOPIC) 0.1 % ointment 024 Active cyclobenzaprine (FLEXERIL) 5 mg tablet 025 Active ibuprofen 200 mg tab/cap Take 1 tablet/capsule (200 mg total) by mouth every 6 (six) hours as needed for pain Patient states she states two pills about twice a day for back pain Active levothyroxine (SYNTHROID) 88 mcg tabletIndications :Acquired hypothyroidism Take 1 tablet (88 mcg total) by mouth every morning 30 tablet 3 025 Active pravastatin (PRAVACHOL) 10 mg tablet Take 1 tablet by mouth once daily 90 tablet 025 Active apixaban (Eliquis) 5 mg tablet Take 1 tablet by mouth twice daily 60 tablet 5 025 Active Eliquis 5 mg tablet Take 1 tablet by mouth twice daily 60 tablet 025 2024 Discontinued Active Problems Problem Noted Date Diagnosed Date Acute deep vein thrombosis ( DVT) of distal vein of left lower extremity 06/19/2024 Overview (06/19/2024): US May 15, 2024 Eliquis since May 15, 2024 Compression fracture of T11 vertebra 05/16/2024 Overview (06/19/2024): Following with Pain Mgmt Vitiligo 10/02/2023 GERD without esophagitis 10/02/2023 Overview (10/02/2023): Chronic, stable condition on Protonix and Pepcid Continue same medications Routine physical examination 06/06/2023 Overview (06/19/2024): New: June 06, 2023 June 19, 2024 Hematoma 05/31/2023 Mixed stress and urge urinary [...] relaxer Lymphadenitis 09/29/2020 07/15/2022 Anxiety 10/24/2019 07/15/2022 Overview (06/19/2024): Chronic, stable condition Continue same medications Hiatal hernia 09/26/2018 07/15/2022 Anemia 07/26/2017 07/15/2022 Dyslipidemia 10/25/2016 07/15/2022 Overview (09/17/2024): Chronic, stable condition not requiring medication LDL 101 in February 2022 LDL 122 in August 2024 Knee pain 11/08/2012 Acquired hypothyroidism 06/22/2012 07/16/19 Overview (09/17/2024): Chronic and stable on daily replacement Normal labs April 2022, May 2023, August 2024 Assessment & Plan (06/06/2023 3:12 PM CDT): Repeat lab today Resolved Problems Problem Noted Date Diagnosed Date Resolved Date Urinary incontinence 03/23/2023 024 Upper respiratory tract infection 02/24/2023 06/06/2023 RENALDO (stress urinary incontinence, female) 01/18/2023 06/06/2023 Uterine prolapse 07/13/2017 07/15/2022 07/15/2022 Closed fracture of zygoma 04/05/2013 07/15/2022 Encounters Date Type Department Care Team Description 10/30/2024 Nurse Triage [facility] Primary Care [address] [place] [phone] Ruben Bird DO 10/21/2024 11:01 AM CDT - 10/21/2024 11:59 PM CDT Hospital Encounter [facility] Pain [facility] [address] [address] Misti Ng MD Pain of lumbar facet joint (Primary Dx); Lumbar facet arthropathy Discharge Disposition: Discharge to home or self care 10/07/2024 1:02 PM CDT - 10/07/2024 11:59 PM CDT Hospital Encounter [facility] Pain [facility] [address] [address] Misti Ng MD Lumbar facet arthropathy (Primary Dx); Pain of lumbar facet joint Discharge Disposition: Discharge to home or self care 10/02/2024 3:12 PM CDT - 10/02/2024 11:59 PM CDT Hospital Encounter [facility] Diag Imaging [facility] [place] [address] Compression fracture of T11 vertebra with routine healing, subsequent encounter Discharge Disposition: Discharge to home or self care 10/02/2024 12:59 PM CDT - 10/02/2024 11:59 PM CDT Hospital Encounter [facility] Pain Mgmt [facility] [address] [address] Misti Ng MD Lumbar facet arthropathy (Primary Dx); Lumbar facet joint pain; Chronic midline low back pain without sciatica Discharge Disposition: Discharge to home or self care 10/02/2024 Telephone [facility] [address] [place] [phone] Ruben Bird DO Medical Question/Miscellaneou s 09/17/2024 7:45 AM CDT Office Visit [facility] [address] [place] [address] [place] [phone] Ruben Bird DO Acute deep vein thrombosis (DVT) of distal vein of left lower extremity (HCC) (Primary Dx); Acquired hypothyroidism; Compression fracture of T11 vertebra with routine healing, subsequent encounter; Dyslipidemia; GERD without esophagitis 09/12/2024 12:31 PM CDT - 09/12/2024 11:59 PM CDT Hospital Encounter [facility] Pain [facility] [address] [address] Misti Ng MD Closed wedge compression fracture of T11 vertebra with routine healing, subsequent encounter (Primary Dx) Discharge Disposition: Discharge to home or self care 09/12/2024 Telephone [facility] [address] [place] [phone] Ruben Bird DO Appointment Request 09/12/[address] [facility] Pain Mgmt [address] [place] [address] [address] [place] [address] Misti Ng MD 09/12/2024 Telephone [facility] [address] [place] [phone] Ruben Bird DO Medication Request 09/09/2024 10:04 AM CDT - 09/09/2024 11:59 PM CDT Hospital Encounter [facility] Medical Office Building [address] [place] [phone] Closed wedge compression fracture of T11 vertebra with delayed healing Discharge Disposition: Discharge to home or self care 09/05/2024 10:13 AM CDT - 09/05/2024 11:59 PM CDT Hospital Encounter [facility] MOB [address] DIAG IMG [address] [place] [address] Closed wedge compression fracture of T11 vertebra with delayed healing Discharge Disposition: Discharge to home or self care 08/28/2024 Results Follow-Up [facility] [address] [place] [phone] Ruben Bird, T4, free, TSH, Lipid panel, Comprehensive metabolic panel 08/27/2024 2:45 PM CDT Office Visit [facility] [address] [place] [phone] Ruben Bird DO Dermatitis (Primary Dx) 08/27/2024 Telephone [facility] [address] [place] [phone] Ruben Bird DO Medical Question/Miscellaneou s 08/16/2024 1:48 PM CDT - 08/16/2024 11:59 PM CDT Hospital Encounter [facility] Pain [address] [address] Misti Ng MD Closed wedge compression fracture of T11 vertebra with delayed healing (Primary Dx); Closed wedge compression fracture of T11 vertebra with routine healing, subsequent encounter Discharge Disposition: Discharge to home or self care 08/07/2024 3:45 PM CDT Office Visit [facility] Primary Care [facility] [place] [address] [place] [phone] Ruben Bird DO Dermatitis (Primary Dx) from Last 3 Months Immunizations Immunization Administration Dates Next Due DT 07/22/2003 Influenza, Quadrivalent, Rec ombinant, Egg Free, Preservative Free, Intramuscular 03/14/2022,03/08/2021,12/24/2019 Influenza, Quadrivalent, Spl it, Preservative Free, Intramuscular 01/03/2019 Influenza, Unspecified 05/13/2024(Deferr ed: Patient Refused),01/01/2024(Deferred: Patient Refused),05/27/2023(Deferred: Patient Refused) Tdap 10/07/2013 Surgical [...] Grandfather (Added by TW Conv) Cancer Mother JMManolo Family history of malignant neoplasm - (Added [...] on file Legal 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 Gender Identity Female 05/30/2023 9:12 AM CDT [...] Sign Reading Time Taken Comments Blood Pressure 129/90 10/21/2024 12:03 PM CDT Pulse 72 10/21/2024 12:03 PM CDT Temperature 37.3 C (99.1 F) 10/07/2024 1:32 PM CDT Respiratory Rate 18 10/21/2024 12:03 PM CDT Oxygen Saturation 96% 10/21/2024 12:03 PM CDT Inhaled Oxygen Concentration - - Weight 68 kg (149 lb 14.4 oz) 09/17/2024 7:33 AM CDT Height 167.6 cm (5' 6) 09/17/2024 7:33 AM CDT Body Mass Index 24.19 09/17/2024 7:33 AM CDT Plan of Treatment Health Maintenance Due Date Last Done Comments Zoster Vaccine (1 of 2) 02/05/2014 Breast Cancer Screening-Mammogram 02/10/2023 02/10/2022, 02/10/2022, 10/23/2017 DTaP/Tdap/Td Vaccine (3 - Td or Tdap) 10/08/2023 10/07/2013, 07/22/2003 Covid-19 Vaccine ( season) 2024 08/09/2021, 01/24/2021, 05/24/2020, Additional history exists Influenza Vaccine (#1) 2024 , 03/08/2021, 12/24/2019, Additional history exists Colon Cancer Screening-Colonoscopy 12/28/2024 12/28/2014 Depression Screening 06/19/2025 06/19/2024, 05/13/2024, 06/06/2023, Additional history exists Regular Well Visit/Exam 18-64 06/19/2025 06/19/2024, 06/19/2024, 06/06/2023 Hepatitis C Screening Completed 06/06/2023 Hepatitis B Screening Completed 06/07/2024 Pneumococcal vaccine <65 Aged Out No longer eligible based on patient's age to complete this topic Medical Devices Implanted Type Area Gang Knife Fish Chopper Device Identifier Shelf Expiration Date Model / Serial / Lot [employer] End[employer] Surgery Gynecare Tvt Tape Laser Cut Retropubic Mesh Gynecological Blue [id number] - [id number] Implanted:Qty: 1 on 05/11/2023 by Digna Goodman MD at [facility] Mesh N/A: Urethra [employer] End[employer] Surgery 08/26/2025 [id number] / / [id number] Procedures Procedure Name Priority Date/Time Associated Diagnosis Comments PAIN MGMT IMAGING LUMBAR/SACRAL FACET/ MEDIAL BRANCH BLOCK BILATERAL Schedule Routine, Read Routine (OP Routine) 10/21/2024 11:53 AM CDT Lumbar facet arthropathy PAIN MGMT IMAGING LUMBAR/SACRAL FACET/ MEDIAL BRANCH BLOCK BILATERAL Schedule Routine, Read Routine (OP Routine) 10/07/2024 2:45 PM CDT Lumbar facet arthropathy XR SPINE LUMBAR COMPLETE 4 OR MORE VIEWS Schedule Routine, Read Routine (OP Routine) 10/02/2024 3:36 PM CDT Compression fracture of T11 vertebra with routine healing, subsequent encounter CT THORACIC SPINE WO CONTRAST Schedule Routine, Read Routine (OP Routine) 09/09/2024 10:14 AM CDT Closed wedge compression fracture of T11 vertebra with delayed healing XR SPINE THORACIC 3 VIEWS Schedule Routine, Read Routine (OP Routine) 09/05/2024 10:22 AM CDT Closed wedge compression fracture of T11 vertebra with delayed healing COMPREHENSIVE METABOLIC PANEL Routine 08/27/2024 10:00 AM CDT Acquired hypothyroidism LIPID PANEL Routine 08/27/2024 10:00 AM CDT Acquired hypothyroidism TSH Routine 08/27/2024 10:00 AM CDT Acquired hypothyroidism T4, FREE Routine 08/27/2024 10:00 AM CDT Acquired hypothyroidism HEPATITIS C ANTIBODY Routine 06/06/2023 3:19 PM CDT Need for hepatitis C screening test COLONOSCOPY Routine 12/28/2014 from Last 3 Months or Most Recently Relevant to Health Maintenance Results * Imaging Lumbar/Sacral Facet Medial Branch Block Bilateral ([id number]) (10/21/2024 11:53 AM CDT) Narrative RAD_CLARIO_MHB_MHE - 10/21/2024 3:46 PM CDT The images from this study are not interpreted by Radiology. Please refer to the physician's procedure / OR operative note. Misti Ng MD [facility] PAIN MGMT PROCEDURES Final R esult Performing Organization Address [facility] Co de Phone Number [email or web address] * Imaging Lumbar/Sacral Facet Medial Branch Block Bilateral ([id number]) (10/07/2024 2:45 PM CDT) Narrative RAD_AUDIE_B_MHE - 10/07/2024 4:31 PM CDT The images from this study are not interpreted by Radiology. Please refer to the physician's procedure / OR operative note. Misti Ng MD [facility] PA[facility] MGMT PROCEDURES Final R esult Performing Organization Address [facility] Co de Phone Number [email or web address] * X-ray lumbar spine complete 4+ views (10/02/2024 3:36 PM CDT) Anatomical Region Laterality Modality Spine N/A Computed Radiogr aphy 10/10/2024 2:45 PM CDT Narrative 10/10/2024 2:47 PM CDT EXAM DESCRIPTION: 1. XR SPINE LUMBAR 4 OR MORE VIEWS REASON FOR STUDY: lower back pain Pt sts worsening mid back pain since 04/25/24, s/p fall. Sts hx of thoracic compression fx. Pt ambulatory. FINDINGS: Four views submitted without comparison. No acute fracture. Mild rotary dextrocurvature of the lumbar spine. The intervertebral disc space heights are normal. Moderate inferior lumbar facet osteoarthritis. IMPRESSION: 1. Mild rotary dextrocurvature of the lumbar spine. 2. Moderate inferior lumbar facet osteoarthritis. THIS IS AN ELECTRONICALLY VERIFIED FINAL REPORT 10/10/2024 2:47 PM - Electronically signed by Brady Bennett M.D. T: Report ID: [id number] Reading Location: [id number] Procedure Note Brady Bennett MD - 10/10/2024 EXAM DESCRIPTION: 1. XR SPINE LUMBAR 4 OR MORE VIEWS REASON FOR STUDY: lower back pain Pt sts worsening mid back pain since 04/25/24, s/p fall. Sts hx of thoracic compression fx. Pt ambulatory. FINDINGS: Four views submitted without comparison. No acute fracture. Mild rotary dextrocurvature of the lumbar spine. The intervertebral disc space heights are normal. Moderate inferior lumbarfacet osteoarthritis. IMPRESSION: 1. Mild rotary dextrocurvature of the lumbar spine. 2. Moderate inferior lumbar facet osteoarthritis. THIS IS AN ELECTRONICALLY VERIFIED FINAL REPORT 10/10/2024 2:47 PM - Electronically signed by Brady Bennett M.D. T: Report ID: [id number] Reading Location: [place] [address] Misti Ng MD IMG XR PROCEDURES Final Result * CT Thoracic Spine WO Contrast (09/09/2024 10:14 AM CDT) Anatomical Region Laterality Modality Spine N/A Computed Tomogra phy 09/21/2024 4:31 PM CDT Narrative 09/21/2024 4:36 PM CDT EXAM DESCRIPTION: CT THORACIC SPINE WO CONTRAST REASON FOR STUDY: Compression fracture, thoracic Fall in March and fractured spine. Continued pain. TECHNIQUE: Axial images acquired through the thoracic spine without intravenous contrast. Images reviewed with lung, soft tissue and bone windows. Reconstructed coronal and sagittal MPR images reviewed. Images stored on PACS. Automated exposure control was used as a dose optimization technique for this examination. COMPARISON: Thoracic spine CT dated 05/26/2024. Chest radiograph dated 09/05/2024, 06/13/2024 and 05/15/2024. FINDINGS: ALIGNMENT: Exaggerated thoracic kyphosis. VERTEBRAE: The osseous structures are diffusely demineralized and limits the evaluation for a subtle nondisplaced fracture. The T11 vertebral body compression fracture as seen on the previous CT dated 05/26/2024. The fracture lines are less well-defined. No progressive retropulsion of the posterior fragment. The remainder of the thoracic vertebral body heights are similar. Multilevel endplate degenerative changes and marginal spur formation. DISC HEIGHT: Multilevel intervertebral disc height loss. HARDWARE: None in the spine. THORACIC DISCS T1-T12: Suboptimally evaluated by non myelographic CT technique. There is no gross high-grade osseous spinal canal stenosis. SOFT TISSUES: Linear atelectasis in the lung bases. No focal pneumonic consolidation. Evaluation for pulmonary nodule is limited due to motion related artifact. There is a hiatal hernia. Thickening of the distal esophagus can be seen with esophagitis in the proper clinical scenario. The need for direct visualization as clinically indicated. LOWER CERVICAL: Incompletely imaged. Degenerative changes without high-grade spinal canal stenosis. UPPER LUMBAR: Incompletely imaged. Degenerative changes without high-grade spinal canal stenosis. IMPRESSION: 1. The T11 vertebral body compression deformity as noted on the thoracic spine CT dated 05/26/2024. 2. No gross acute compression fracture in the remainder of the thoracic levels. 3. The multilevel thoracic spine degenerative changes are redemonstrated. 4. Other findings as above. THIS IS AN ELECTRONICALLY VERIFIED FINAL REPORT 09/21/2024 4:36 PM - Electronically signed by Partha Pearson D.O. AP: AP Report ID: [id number] Reading Location: [place] [address] Procedure Note Partha Pearson, DO - 09/21/2024 EXAM DESCRIPTION: CT THORACIC SPINE WO CONTRAST REASON FOR STUDY: Compression fracture, thoracic Fall in March and fractured spine. Continued pain. TECHNIQUE: Axial images acquired through the thoracic spine without intravenous contrast. Images reviewed with lung, soft tissue and bone windows. Reconstructed coronal and sagittal MPR images reviewed. Images stored on PACS. Automated exposure control was used as a dose optimization technique for this examination. COMPARISON: Thoracic spine CT dated 05/26/2024. Chest radiograph dated 09/05/2024, 06/13/2024 and 05/15/2024. FINDINGS: ALIGNMENT: Exaggerated thoracic kyphosis. VERTEBRAE: The osseous structures are diffusely demineralized and limitsthe evaluation for a subtle nondisplaced fracture. The T11 vertebral body compression fracture as seen on the previous CT dated 05/26/2024. The fracture lines are less well-defined. No progressive retropulsion of the posterior fragment. The remainder of the thoracic vertebral body heightsare similar. Multilevel endplate degenerative changes and marginal spur formation. DISC HEIGHT: Multilevel intervertebral disc height loss. HARDWARE: None in the spine. THORACIC DISCS T1-T12: Suboptimally evaluated by non myelographic CT technique. There is no gross high-grade osseous spinal canal stenosis. SOFT TISSUES: Linear atelectasis in the lung bases. No focal pneumonic consolidation. Evaluation for pulmonary nodule is limited due to motion related artifact. There is a hiatal hernia. Thickening of the distal esophagus can be seen with esophagitis in the proper clinical scenario.The need for direct visualization as clinically indicated. LOWER CERVICAL: Incompletely imaged. Degenerative changes without high-grade spinal canal stenosis. UPPER LUMBAR: Incompletely imaged. Degenerative changes withouthigh-grade spinal canal stenosis. IMPRESSION: 1. The T11 vertebral body compression deformity as noted on the thoracic spine CT dated 05/26/2024. 2. No gross acute compression fracture in the remainder of the thoracic levels. 3. The multilevel thoracic spine degenerative changes areredemonstrated. 4. Other findings as above. THIS IS AN ELECTRONICALLY VERIFIED FINAL REPORT 09/21/2024 4:36 PM - Electronically signed by Partha Pearson D.O. AP: AP Report ID: [id number] Reading Location: [id number] Misti Ng MD IMG CT PROCEDURES Final Result * X-ray thoracic spine 3 views (09/05/2024 10:22 AM CDT) Anatomical Region Laterality Modality Spine N/A Computed Radiogr aphy 09/14/2024 8:16 AM CDT Narrative 09/14/2024 8:19 AM CDT EXAM DESCRIPTION: 1. XR SPINE THORACIC 3 VIEWS REASON FOR STUDY: back pain F/u on T11 fracture in March, pain FINDINGS: Three views submitted with comparison 06/13/2024. Redemonstrated is a moderate T11 compression deformity. No new fracture identified. Moderate thoracic kyphosis with multilevel midthoracic degenerative disc disease. IMPRESSION: 1. Unchanged moderate T11 compression deformity. 2. Moderate thoracic kyphosis with multilevel midthoracic degenerative disc disease. THIS IS AN ELECTRONICALLY VERIFIED FINAL REPORT 09/14/2024 8:19 AM - Electronically signed by Brady Bennett M.D. MF: [id number] Report ID: [id number] Reading Location: [id number] Procedure Note Brady Bennett MD - 09/14/2024 EXAM DESCRIPTION: 1. XR SPINE THORACIC 3 VIEWS REASON FOR STUDY: back pain F/u on T11 fracture in March, pain FINDINGS: Three views submitted with comparison 06/13/2024. Redemonstrated is a moderate T11 compression deformity. No new fracture identified. Moderate thoracic kyphosis with multilevel midthoracic degenerative disc disease. IMPRESSION: 1. Unchanged moderate T11 compression deformity. 2. Moderate thoracic kyphosis with multilevel midthoracic degenerativedisc disease. THIS IS AN ELECTRONICALLY VERIFIED FINAL REPORT 09/14/2024 8:19 AM - Electronically signed by Brady Bennett M.D. MF: [id number] Report ID: [id number] Reading Location: [id number] Misti Ng MD IMG XR PROCEDURES Final Result * (ABNORMAL) TSH (08/27/2024 10:00 AM CDT) TSH 0.259(L) 0.450 - 4.500 uIU/mL [facility] - 01 Blood 08/27/2024 10:0 0 AM CDT 08/27/2024 Narrative [facility] - 08/28/2024 11:36 AM CDT Performed at: [address] [place] [id number] Pediatric Geneticist: Sriram Badillo PhD, Phone: [phone] Ruben [facility] BLOOD ORDERABLES F inal Result Performing Organization Address [facility] de Phone Number [facility]CO [facility] - * T4, free (08/27/2024 10:00 AM CDT) T4,Free(Direct) 1.43 0.82 - 1.77 ng/dL [facility] - 01 Blood 08/27/2024 10:0 0 AM CDT 08/27/2024 Narrative [facility] - 08/28/2024 11:36 AM CDT Performed at: [address] [id number] Pediatric Geneticist: Sriram Badillo PhD, Phone: [phone] Ruben [facility] BLOOD ORDERABLES F inal Result Performing Organization Address [facility] de Phone Number [facility] - 01 * (ABNORMAL) Lipid panel (08/27/2024 10:00 AM CDT) Cholesterol 202(H) 100 - 199 mg/dL [facility] - 01 Triglycerides 115 0 - 149 mg/dL [facility] - 01 HDL Cholesterol 60 >39 mg/dL [facility] - 01 VLDL 20 5 - 40 mg/dL [facility] - 01 LDL, calculated 122(H) 0 - 99 mg/dL [facility] - 01 Blood 08/27/2024 10:0 0 AM CDT 08/27/2024 Narrative [facility] - 08/28/2024 11:36 AM CDT Performed at: [address] [place] [id number] Pediatric Geneticist: Sriram Badillo PhD, Phone: [phone] Ruben [facility] BLOOD ORDERABLES F inal Result [facility] - 01 * (ABNORMAL) Comprehensive metabolic panel (08/27/2024 10:00 AM CDT) Glucose 82 70 - 99 mg/dL [facility] - 01 BUN 11 8 - 27 mg/dL [facility] - 01 Creatinine, Serum 0.83 0.57 - 1.00 mg/dL [facility] - 01 eGFR 81 >59 mL/min/1.7 3 [facility] - 01 BUN/creat ratio 13 12 - 28 [facility] - 01 Sodium 140 134 - 144 mmol/L [facility] - 01 Potassium, sr 4.4 3.5 - 5.2 mmol/L [facility] - 01 Chloride 103 96 - 106 mmol/L [facility] - 01 CO2 22 20 - 29 mmol/L [facility] - 01 Calcium 9.4 8.7 - 10.3 mg/dL [facility] - 01 Protein, sr 6.5 6.0 - 8.5 g/dL [facility] - 01 Albumin 4.3 3.8 - 4.9 g/dL [facility] - 01 Globulin, Total 2.2 1.5 - 4.5 g/dL [facility] - 01 Bilirubin, Total 0.7 0.0 - 1.2 mg/dL [facility] - 01 Alk phos 135(H) 44 - 121 IU/L [facility] - 01 AST 22 0 - 40 IU/L [facility] - 01 ALT 17 0 - 32 IU/L [facility] - 01 Blood 08/27/2024 10:0 0 AM CDT 08/27/2024 Narrative [facility] - 08/28/2024 11:36 AM CDT Performed at: - [facility] [place] [id number] [place], [place] [id number] Pediatric Geneticist: Sriram Badillo PhD, Phone: [phone] us Ruben Gill [facility] LAB BLOOD ORDERABLES F inal Result [facility] - 01 * Hepatitis C antibody Blood (06/06/2023 3:19 [...] PM CDT 06/06/2023 5:18 PM CDT Ruben Jairo [facility] LAB MICROBIOLOGY - GEN ERAL ORDERABLES Final Result Performing Organization Address City/[facility] Co de Phone Number [facility] [address] [facility] Department [place] [address] * Colonoscopy (12/28/2014) Anatomical Region Laterality Modality Other Historical Provider ENDOSCOPY PROCEDURES Jen barnett Result from Last 3 Months or Most Recently Relevant to Health Maintenance Insurance [facility] Advance Directives For more information, please contact: [phone] * Full Code (Latest Code Status on File) Date Activated Date Inactivated Comments 05/31/2023 5:39 PM 06/01/2023 8:27 PM * Full Code Date Activated Date Inactivated Comments 05/11/2023 1:25 PM 05/12/2023 1:00 AM * Full Code Date Activated Date Inactivated Comments 05/11/2023 1:25 PM 05/11/2023 1:25 PM Care Teams Research Chemical Engineer Relationship Specialty Start Date End Date Ruben Bird DO [address] [place] [address] PCP - General Family Medicine 06/06/23 Misti Ng MD [address] [facility], [facility] [address] [place] [address] Consulting Physician Pain Management 09/12/24 Pollo Lopez MD [address] [facility] [address] [facility] [address] [place] [address] Surgeon Vascular Surgery 09/12/24
--- OUTSIDE RECORDS SUMMARY | 2024-10-30 17:18 | XMS_ITS | Encounter Summary ---
Author Organization [facility] Address [address] [place] [address] Care Team Providers Care Ship'S Carpenter Name Role Phone Pawan Blanchard MD Primary Care Provider [phone] Ruben Bird DO Primary Care Provider [phone] Encounter Details Date Type Department Care Team (Late st Contact Info) Description 03/28/2020 Prep for Procedure [facility] [place], [place] [id number] Garrett Adrian MD [address] [phone] Social History Tobacco Use Types Packs/Day Years [...] COVID-19? No / Unsure 03/31/2020 12:39 PM HAND LENS POLISHER documented as of this encounter Plan of Treatment Not on file documented as of this encounter Results * PRE-SURGICAL/PRE-PROCEDURE CORONAVIRUS (COVID 19) (03/28/2020 10:37 AM HAND LENS POLISHER) CORONAVIRUS SARS COV 2 PCR (RESP) NOT DETECTED NOT DETECTED 03/29/2020 3:16 PM HAND LENS POLISHER [facility] Comment: A Not Detected (negative) test result [...] providers and patients using the following websites: https://www.[employer].The Vetted Net/home/Covid-19/HCP/QuestIVD/fact- sheet.html https://www.[employer].The Vetted Net/home/Covid-19/Patients/ QuestIVD/fact-sheet.html This test has been authorized by the FDA under an Emergency Use Authorization (EUA) for use by authorized laboratories. Due to the current public health emergency, [facility] is receiving a high volume of samples [...] about COVID-19 can be found at the [facility] website: www.Zady.The Vetted Net/Covid19. Test performed at [facility] [place] [address] [place] [address] Director: PEDRO LUIS GONZALEZ DO,MPH FIRST TEST NO 03/28/2020 8:43 AM [facility] EMPLOYED IN [facility] NO 03/28/2020 8:43 AM HAND LENS POLISHER [facility] SYMPTOMATIC DEFINED BY CDC NO 03/28/2020 8:43 AM HAND LENS POLISHER [facility] DATE OF SYMPTOM ONSET NO 03/28/2020 11:03 AM HAND LENS POLISHER [facility] HOSPITALIZATION STATUS NO 03/28/2020 8:43 AM HAND LENS POLISHER [facility] PATIENT IN ICU NO 03/28/2020 8:43 AM HAND LENS POLISHER [facility] RESIDENT OF [facility] NO 03/28/2020 8:43 AM HAND LENS POLISHER [facility] NOT 03/28/2020 8:43 AM HAND LENS POLISHER [facility] PATIENT'S RACE WHITE OR 03/28/2020 8:43 AM HAND LENS POLISHER [facility] ETHNICITY NONHISPANIC 03/28/2020 8:43 AM HAND LENS POLISHER [facility] SOURCE (QST) NASOPHARYNGEAL SWAB 03/28/2020 8:43 AM HAND LENS POLISHER [facility] NASOPHARYNGEAL SWAB / Unknown 03/28/2020 10:37 AM HAND LENS POLISHER us Garrett Adrian MD MICROBIOLOGY - GENERAL YEMI GRANADOS Final Result [facility] [address] [place] [address], [facility] [address] [place] [address], documented in this encounter Visit Diagnoses Diagnosis Early satiety- Primary documented in this encounter Additional Health Concerns Infection Onset Date Last Indicated Resolved Time COVID-19 Rule Out 03/28/2020 03/28/2020 03/29/2020 3:16 PM HAND LENS POLISHER documented as of this encounter Care Teams Ship'S Carpenter Relationship Specialty Start Date End Date Pawan Blanchard MD [address] [address] PCP - General 03/30/16 05/30/23 Ruben Bird DO [address] [place] [address] PCP - General FAMILY PRACTICE 05/31/23 documented as of this encounter
--- OUTSIDE RECORDS SUMMARY | 2024-10-30 17:18 | XMS_ITS | Encounter Summary ---
Author Organization [employer] Address [address] [place] [address] Care Team Providers Care Security Operations Center Analyst Name Role Phone Unavailable Primary Care [...] on file Legal Sex Female 4:11 AM SCRAP BREAKER Gender Identity Not on file Sexual Orientation Not on file documented as of this encounter Plan of Treatment Not on file documented as of this encounter Visit Diagnoses Diagnosis Unspecified symptom associated with female genital organs- Primary documented in this encounter
--- OUTSIDE RECORDS SUMMARY | 2024-10-30 17:18 | XMS_ITS | Encounter Summary ---
Author Organization [facility] Healthcare Address [address] [place] [address] Care Team Providers Care Underground Distribution Engineer Name Role Phone Ruben Bird DO Primary Care Provider Misti Ng MD Unavailable Pollo Lopez MD Unavailable [phone] Reason for Visit * Reason Onset Date Comments Leg Pain 10/30/2024 Abdominal Pain 10/30/2024 Encounter Details Date Type Department Care Team (Late st Contact Info) Description 10/30/2024 Nurse Triage [facility] Medical Group Primary Care [facility] [address] [address] Ruben Bird DO [address] [place] [address] Social History Tobacco Use Types Packs/Day [...] on file Legal Sex Female 8:09 PM SORTER PACKER Gender Identity Female 05/30/2023 9:12 AM CDT Sexual Orientation Not on file documented as of this encounter Miscellaneous Notes * Telephone Encounter - Celia Mhuammad RN - 10/30/2024 4:56 PM CDT noted * Telephone Encounter - Kenia Ritter - 10/30/2024 4:45 PM CDT Call Back Caller???s Concern: Pt called advised she followed direction however was turned down due to they donot have radiology they referred her to ER. Pt calling to make aware she is headed to ER. Does message need to be routed? No * Telephone Encounter - Darlene Thomas RN - 10/30/2024 1:56 PM CDT Reason for Conversation Leg Pain and Abdominal Pain Background Leticia Doyle reports pain in the left thigh x 3-4 days. 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 Patient reports she had bilateral cramping in the calves but she has been walking a lot.She reports noticing pain in the left thigh about 3-4 days ago. The pain is is intermittent. Deniesredness, swelling, chest pain. Reports chronic SOB but has not worsened. Patient also reports intermittent pain in the middle, lower abdomen. Denies constipation, diarrhea, vomiting, urinary complaints, black or bloody stools. Reports her stools are soft. She reports her urine was dark a few days ago but has been increasing fluids and urine is very light in color. Denies odor. Reports the pain is7/10 when occurring. Patient states she is eating and drinking well. Patient states she has some swelling in her hands and possibly her tongue that she feels is from her diet on vacation. She was eating a lot of sodium and spices at that time. Patient states she noticed indentation from her teeth in her tongue this morning, causing her to believe there may be some swelling. Denies difficulty swallowing. Provider contacted via secure chat for ED disposition consult. Recommendation from provider:No response, other: [facility] Advised patient to be seen at local [facility]. Patient verbalizes understanding. Patient advised to call back if developing new or worsening symptoms. Dicussed nursing care and treatment options. Patient verbalizes understanding of recommendations. FYI Disposition See Today in Office, Go to ED/UCC Now (or to Office With PCP Approval) Reason for Disposition Thigh or calf pain in only one leg and present > 1 hour MODERATE pain (e.g., interferes with normal activities that comes and goes (cramps) lasts > 24 hours (Exception: Pain with Vomiting or Diarrhea - see that Protocol.) No Initial Assessment on file. No Additional Information on file. Protocols Used Abdominal Pain - Tqzlze-Twtby-ZB Leg Rwwe-Srsyb-FQ * Telephone Encounter - Darlene Thomas RN - 10/30/2024 1:42 PM CDT Regarding: Left leg pain, severe lower abdominal pain ----- Message from Yany Crump sent at 10/30/2024 1:41 PM CDT ----- Symptom Based Call Chief Complaint(s): Left leg pain, severe lower abdominal pain Duration: Couple of days What type of symptom(s) is the patient experiencing? Red Flag. Is the patient concerned they are experiencing a medical emergency requiring an ambulance? No Additional Comments: Patient states that back in late March she was informed that she has a blood clot in her left leg, says that she has mild pain at the top of her leg and the calf as well. Patient denies any redness or swelling at this time and says severe abdominal pain comes and goes. Does message need to be routed? Yes-Action Needed documented in this encounter Plan of Treatment Not on file documented as of this encounter Visit Diagnoses Not on filedocumented in this encounter Care Teams Underground Distribution Engineer Relationship Specialty Start Date End Date Ruben Bird DO [address] [place] [address] PCP - General Family Medicine 06/06/23 Misti Ng MD [address] [facility] [address] [place] [address] Consulting Physician Pain Management 09/12/24 Pollo Lopez MD [address] [facility] [address] [facility] [address] [place], [place] [phone] Surgeon Vascular Surgery 09/12/24 documented as of this encounter
--- OUTSIDE RECORDS SUMMARY | 2024-10-30 17:18 | XMS_ITS | Encounter Summary ---
Author Organization [facility] Healthcare Address [address] [place] [address] Care Team Providers Care Bending Machine Operator Name Role Phone Pelon Ruben Gill DO Primary Care Provider Misti Ng MD Unavailable Pollo Lopez MD Unavailable [phone] Encounter Details Date Type Department Care Team (Late st Contact Info) Description 09/12/2024 Telephone [facility] Pain Mgmt [address] [place] [address] Misti Ng MD [address] [place] [address] PAIN CENTER, [address] [address] Social History Tobacco Use Types Packs/Day Years [...] on file Legal Sex Female 8:09 PM PLANNING ANALYST Gender Identity Female 05/30/2023 9:12 AM CDT Sexual Orientation Not on file documented as of this encounter Functional Status documented as of this encounter Plan of Treatment Not on file documented as of this encounter Visit Diagnoses Not on filedocumented in this encounter Care Teams Bending Machine Operator Relationship Specialty Start Date End Date Ruben Bird DO [address] [place] [address] PCP - General Family Medicine 06/06/23 Misti Ng MD [address] [facility] [address] [place] [address] Consulting Physician Pain Management 09/12/24 Pollo Lopez MD [address] [facility] [address] [facility] [address] [place] [address] Surgeon Vascular Surgery 09/12/24 documented as of this encounter
--- OUTSIDE RECORDS SUMMARY | 2024-10-30 17:18 | XMS_ITS | Encounter Summary ---
Author Organization [employer] [facility] Address [address] [place] [address] Care Team Providers Care Livestock Farmworker Name Role Phone Unavailable Primary Care Provider Unavailabl e Encounter Details Date Type Department Care Team (Latest Contact Info) Description 02/02/2000 Outpatient Historical HIS [facility] HERMINIA Pickett, Ashlee Lloyd MD NO ADDRESS ON FILE Female infertility associated with anovulation (Primary Dx) Social History Tobacco Use Types Packs/Day Years Used Date Smoking Tobacco: Never Assessed Comments Unknown Sex and Gender Information Value Date Recorded Sex Assigned at Not on file Legal Sex Female 4:11 AM PROFESSOR OF ART Gender Identity Not on file Sexual Orientation Not on file documented as of this encounter Plan of Treatment Not on file documented as of this encounter Visit Diagnoses Diagnosis Female infertility associated with anovulation- Primary documented in this encounter
--- OUTSIDE RECORDS SUMMARY | 2024-10-30 17:18 | XMS_ITS | Clinical Summary ---
Author Organization [facility] [place] [address] Care Team Providers Care Locks Inspector Name Role Phone Ruben Bird DO Primary [...] a health care facility 05/07/2012 03/21/2022 Immunizations Immunization Administration Dates Next Due Dt (1-<7 Y.O.) [...] Cancer Mother lung cancer, Heart Disease Mother IA Mother Stroke Mother Cancer Paternal Grandfather Diabetes [...] 7:35 AM CDT Height 165.1 cm (5' 5) 05/31/2023 7:35 AM CDT Body Mass Index 24.13 05/31/2023 7:35 AM CDT Plan of Treatment Health Maintenance Due Date Last Done Comments Hepatitis C 02/05/1982 Pneumococcal Vaccine: 50+ Years (1 of 1 - PCV) 02/05/2014 Zoster Vaccines (1 of 2) 02/05/2014 Colorectal Cancer Screening Colonoscopy (10 Years) 12/28/2014 12/28/2004 Annual Physical 03/14/2023 03/14/2022, 02/27, 11/18/2019, Additional history exists DTaP, Tdap and Td Vaccines (2 - Td or Tdap) 10/08/2023 10/07/2013, 07/22/2003 Mammogram Screening 02/11/2024 02/10/2022, 8 COVID-19 Vaccine ( season) 2024 01/24/2021, 05/24/2020, 05/03/2020 RSV Immunization or 60+ Years (1 - [...] YULIANA ROBBIE DIGI Routine 02/10/2022 1:47 PM ACCOUNT CLASSIFICATION CLERK Encounter for screening mammogram for malignant neoplasm of breast COLONOSCOPY Routine 12/28/2004 12:00 AM ACCOUNT CLASSIFICATION CLERK from Last 3 Months or Most Recently Relevant to Health Maintenance Results * MG SCREENING W YULIANA ROBBIE DIGI (02/10/2022 1:47 PM ACCOUNT CLASSIFICATION CLERK) Anatomical Region Laterality Modality Breast Bilateral Mammography 02/10/2022 2:18 PM ACCOUNT CLASSIFICATION CLERK Narrative 02/10/2022 2:19 PM ACCOUNT CLASSIFICATION CLERK Examination: Digital screening mammogram with CAD. Clinical [...] Resu lt * Colonoscopy (12/28/2004 12:00 AM ACCOUNT CLASSIFICATION CLERK) 12/28/2004 12/28/2004 Narrative TOUCHWORKS TO EPIC CONVERSION - 12/28/2004 12:00 AM ACCOUNT CLASSIFICATION CLERK Documented hx of procedure Procedure Note , Generic MD Eddie - 05/17/2018 Documented hx of procedure us Generic Conversion Md [facility] PROCEDURE ORDERABLES Final Result TOUCHWORKS TO EPIC CONVERSION from Last 3 Months or Most Recently Relevant to Health Maintenance Insurance [facility] Advance Directives * Full Code (Latest Code Status on File) Date Activated Date Inactivated Comments 07/13/2017 2:41 PM 07/14/2017 9:06 PM Care Teams Locks Inspector Relationship Specialty Start Date End Date Ruben Bird DO [address] [place] [address] PCP - General FAMILY PRACTICE 05/31/23
--- OUTSIDE RECORDS SUMMARY | 2024-10-30 17:18 | XMS_ITS | Encounter Summary ---
Author Organization [facility] Healthcare Address [address] [place] [address] Care Team Providers Care Fire Sprinkler Inspector Name Role Phone Ruben Bird DO Primary Care Provider Misti Ng MD Unavailable Pollo Lopez MD Unavailable [phone] Encounter Details Date Type Department Care Team ([facility] st Contact Info) Description 05/16/2024 Telephone [facility] Medical Group Primary Care [facility] [address] [address] Ruben Bird DO [address] [place] [address] Social History Tobacco Use Types Packs/Day [...] more points, staff should administer the PHQ-9) 1 05/13/2024 PHQ-9 Answer Date Recorded PHQ-9 Total Score 1 05/31/2023 Personal Safety Answer Date Recorded Have you ever been in or are you currently in a harmful physical or emotional relationship or is someone making you feel afraid or unsafe? Denies 05/31/2023 Comments No Sex and Gender Information Value Date Recorded Sex Assigned at Not on file Legal Sex Female 8:09 PM ADVANCED MANUFACTURING CONSULTANT Gender Identity Female 05/30/2023 9:12 AM CDT Sexual Orientation Not on file documented as of this encounter Plan of Treatment Not on file documented as of this encounter Visit Diagnoses Not on filedocumented in this encounter Care Teams Fire Sprinkler Inspector Relationship Specialty Start Date End Date Ruben Bird DO [address] [place] [address] PCP - General Family Medicine 06/06/23 Misti Ng MD 47[address] [facility] [address] [place] [address] Consulting Physician Pain Management 09/12/24 Pollo Lopez MD [address] [facility] [address] [facility] [address] [place] [address] Surgeon Vascular Surgery 09/12/24 documented as of this encounter
--- OUTSIDE RECORDS SUMMARY | 2024-10-30 17:18 | XMS_ITS | Clinical Summary ---
Author Organization [employer] [facility] Address [address] [facility] Attn: Epic Prelude ADT SHANIKA CANNON [address] Care Team Providers Care Assistant Product Manager Name Role Phone Unavailable Primary Care Provider Unavailabl e Social History Tobacco Use Types Packs/Day Years Used Date Smoking Tobacco: Never Assessed Comments Unknown Sex and Gender Information Value Date Recorded Sex Assigned at Not on file Legal Sex Female 4:11 AM SOLUTIONS SPECIALIST Gender Identity Not on file Sexual Orientation Not on file Plan of Treatment Health Maintenance Due Date Last Done Comments DTAP/TDAP/TD VACCINES (1 - Tdap) 02/05/1983 HPV/Cotest (21-29) 02/05/1985 CERVICAL CANCER SCREENING 02/05/1994 HPV/Cotest (30-65) 02/05/1994 PAP SMEAR 02/05/1994 BREAST CANCER SCREENING 2004 COLORECTAL SCREENING 02/05/2009 Colorectal Cancer Screening 02/05/2009 FIT-DNA Q 3 years 02/05/2009 FIT/FOBT Q 1 year 02/05/2009 Flex Sig/CT Colonography Q 5 years 02/05/2009 ZOSTER VACCINE (1 of 2) 02/05/2014 INFLUENZA VACCINE (#1) 2024 RSV VACCINE (60+ or ) (1 - 1-dose 75+ series) 02/05/2039 HEPATITIS B VACCINES Aged Out No long er eligible based on patient's age to complete this topic
--- OUTSIDE RECORDS SUMMARY | 2024-10-30 17:18 | XMS_ITS | Encounter Summary ---
Author Organization [employer] Address 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
--- OUTSIDE RECORDS SUMMARY | 2024-10-30 17:18 | XMS_ITS | Encounter Summary ---
Author Organization [employer] [facility] Address [address] [place] [address] Care Team Providers Care Scientific Diver Name Role Phone Unavailable Primary Care Provider Unavailabl e Encounter Details Date Type Department Care Team (Latest Contact Info) Description 04/26/2000 Outpatient Historical HIS [facility] HER[facility] Pickett, Ashlee Lloyd MD NO ADDRESS ON FILE Female infertility of unspecified origin (Primary Dx) Social History Tobacco Use Types Packs/Day Years Used Date Smoking Tobacco: Never Assessed Comments Unknown Sex and Gender Information Value Date Recorded Sex Assigned at Not on file Legal Sex Female 4:11 AM THIRD MATE Gender Identity Not on file Sexual Orientation Not on file documented as of this encounter Plan of Treatment Not on file documented as of this encounter Visit Diagnoses Diagnosis Female infertility of unspecified origin- Primary documented in this encounter
--- OUTSIDE RECORDS SUMMARY | 2024-10-30 17:18 | XMS_ITS | Encounter Summary ---
Author Organization [employer] Address [address] [place] [address] Care Team Providers Care Animal Cruelty Investigator Name Role Phone Unavailable Primary Care Provider [...] on file Legal Sex Female 4:11 AM BIBLE TEACHER Gender Identity Not on file Sexual Orientation Not on file documented as of this encounter Plan of Treatment Not on file documented as of this encounter Visit Diagnoses Diagnosis with history of infertility- Primary documented in this encounter
--- OUTSIDE RECORDS SUMMARY | 2024-10-30 17:18 | XMS_ITS | Clinical Summary ---
Author Organization [facility] Address [address] [place] [address] Care Team Providers Care Can Dragger Name Role Phone Pawan Blanchard MD Primary Care Provider Source Comments [facility],non-owned Affiliates and Associated Physician Practices is amultiple site organization consisting of ambulatory clinics and hospital sitesin [place], [place], [place] and [place]. This disclosure is being madepursuant to the Care Everywhere program and may not contain all information available regarding this patient. Last updated 17.[facility] Allergies Active Allergy Reactions Criticality Noted Date [...] document. Alwaysverify current medications with the patient. betamethasone dipropionate augmented (DIPROLENE AF) 0.05 % cream RUB IN WELL TO RED AREAS TWICE DAILY DIRECTED UNTIL CLEAR 0 Active cetirizine (ZYRTEC) 10 MG tablet TAKE 1 TABLET BY MOUTH ONCE DAILY FOR 90 DAYS 0 Active clobetasol (TEMOVATE) 0.05 % cream Apply to affected area as needed Active cyclobenzaprine (FLEXERIL) 10 MG tablet Take 10 mg by mouth 3 times daily as needed FOR MUSCLE SPASM 0 Active Docusate Sodium (DSS) 100 MG Take 100 mg by mouth once daily as needed Active famotidine (PEPCID) 40 MG tablet Take 40 mg by mouth 2 times daily 1 Active levothyroxine (SYNTHROID) 88 MCG tablet Take 88 mcg by mouth once daily 0 Active olopatadine (PATANASE) 0.6 % nasal solution USE 2 SPRAY(S) IN EACH NOSTRIL TWICE DAILY 0 Active triamcinolone (NASACORT AQ) 55 MCG/ACT nasal inhaler Holt 2 sprays into the nose once daily [...] e alcohol) less than one / month Comments Unknown Sex and Gender Information Value Date Recorded Sex Assigned at Not on file Legal Sex Female 6:32 PM RADIO TESTER Gender Identity Not on file Sexual Orientation Not on file Last Filed Vital Signs Vital Sign Reading Time Taken Comments Blood Pressure 106/71 08/16/2013 9:40 AM CDT Pulse 75 08/16/2013 9:40 AM CDT Temperature 36.6 C (97.9 F) 08/16/2013 9:40 AM CDT Respiratory Rate 13 04/10/2013 7:05 PM RADIO TESTER Oxygen Saturation 97% 04/10/2013 7:50 PM RADIO TESTER Inhaled Oxygen Concentration - - Weight 63.5 kg (140 lb) 12/03/2020 7:43 AM CDT Height 167.6 cm (5' 6) 12/03/2020 7:43 AM CDT Body Mass Index [...] SCREENING 1964 LIPID TESTING 1964 MAMMOGRAM 1964 HIV SCREENING 02/05/1979 HEPATITIS C SCREENING 02/01/1982 DTAP/TDAP/TD VACCINES (1 - Tdap) 02/05/1983 PNEUMOCOCCAL VACCINE 50+ (1 of 1 - PCV) 02/05/2014 ZOSTER VACCINE (1 of 2) 02/05/2014 COVID-19 VACCINE (1 - 2023-2 5 season) 2023 DEPRESSION SCREENING 02/28/2024 INFLUENZA VACCINE (#1) 2024 0, 01/03/2019 Respiratory Syncytial Virus (RSV) Vaccine Pt: or [...] on patient's age to complete this topic Insurance AETNA Care Teams Can Dragger Relationship Specialty Start Date End Date Pawan Blanchard MD PCP - General 04/04/13
--- OUTSIDE RECORDS SUMMARY | 2024-10-30 17:18 | XMS_ITS | Encounter Summary ---
Author Organization [facility] Healthcare Address [address] [place] [address] Care Team Providers Care Infusion Pharmacist Name Role Phone Ruben Bird DO Primary Care Provider Misti Ng MD Unavailable Pollo Lopez MD Unavailable [phone] Reason for Visit * Reason Onset Date Comments Medical Question/Miscellaneous 10/02/2024 Encounter Details Date Type Department Care Team (Late st Contact Info) Description 10/02/2024 Telephone [facility] Medical Group Primary Care [address] [address] Ruben Bird DO [facility] [address] Medical Question/Miscellaneous Social History Tobacco Use Types Packs/Day Years [...] on file Legal Sex Female 8:09 PM COMMUNICATIONS DESIGNER Gender Identity Female 05/30/2023 9:12 AM CDT Sexual Orientation Not on file documented as of this encounter Miscellaneous Notes * Telephone Encounter - Nikky Fortune - 10/02/2024 10:01 AM CDT Medical Question/Miscellaneous Caller???s Concern: Patient called asking for CT spine results. Advised her to call 's office since he ordered it. Does message need to be routed? No documented in this encounter Plan of Treatment Not on file documented as of this encounter Visit Diagnoses Not on filedocumented in this encounter Care Teams Infusion Pharmacist Relationship Specialty Start Date End Date Ruben Bird DO [address] [place] [address] PCP - General Family Medicine 06/06/23 Misti Ng MD [address] [facility] [address] [place] [address] Consulting Physician Pain Management 09/12/24 Pollo Lopez MD [address] [facility] [address] [facility] [address] [place] [address] Surgeon Vascular Surgery 09/12/24 documented as of this encounter
[2024-10-30 18:44] LABS: Hematocrit 44.8 % (37.0-47.0); Hemoglobin 14.5 g/dL (12.0-15.0); Immature Granulocyte Percent A 0.5 % (0-0.5); Lymphocytes Absolute Auto 0.80 K/mm3 (0.9-3.2); Mean Corpuscular HGB Conc 32.4 g/dl (32-36); Mean Corpuscular Hemoglobin 29.7 pg (26-34); Mean Corpuscular Volume 91.8 fl (80-100); Nucleated Red Blood Cells Absolute Auto 0.000 K/mm3 (0.0-0.012); Nucleated Red Blood Cells Perc 0.0 % (0.0-0.2); Platelet Count Result 253 k/mm3 (150-375); Red Blood Count 4.88 M/mm3 (4.2-5.4); White Blood Count 6.3 K/mm3 (4.5-10.0)
[2024-10-30 18:54] LABS: Alanine Aminotransferase 23 U/L (6-35); Albumin Level 4.6 g/dL (3.5-5.1); Alkaline Phosphatase 113 U/L (38-126); Anion Gap 6 mmol/L (4-12); Aspartate Amino Transferase 35 U/L (14-36); Bilirubin,Total 0.7 mg/dL (0.2-1.3); Blood Urea Nitrogen 20 mg/dL (7-17); Calcium 9.7 mg/dL (8.4-10.2); Carbon Dioxide 28 mmol/L (22-30); Chloride 102 mmol/L (98-107); Estimated CRCL calculation 59 ml/min; Estimated Glomerular Filt Rate > 60; Glucose 95 mg/dL (65-110); Lipase 58 U/L (23-300); Potassium 4.3 mmol/L (3.4-5.0); Sodium 136 mmol/L (137-145); Total Protein 7.7 g/dL (6.3-8.2)
--- NOTE | 2024-10-30 19:10 | ED_ITS ---
HPI - Abdominal Pain General Chief Complaint: Abdominal Pain Stated Complaint: abd pain Time Seen by Provider: 10/30/24 19:00 History of Present Illness HPI narrative: This is a 59-year-old female with history of DVT on Eliquis, hypothyroidism who presents to the ED for bilateral leg pain and lower abdominal and her cousins that she was at a convention this we then was walking more than usual. For the past day or so, has had worsening soreness to bilateral legs, hips, and lower abdomen. She tried Tylenol for this once couple days ago with minimal relief. Denies chest pain, shortness of breath. Also notes a migraine similar to her priors. Related Data Allergies Allergy/AdvReac Type Severity Reaction Status Date / Time Penicillins Allergy Severe Swelling Verified 04/25/24 18:43 latex Allergy Unknown Blister Verified 04/25/24 18:43 triamcinolone (From Nasacort Allergy Headache Verified 04/25/24 18:43 AQ) honey AdvReac Intermediate Migraine Verified 04/25/24 18:44 sulfite AdvReac Intermediate Migraine Verified 04/25/24 18:43 fexofenadine (From Sayda-D) AdvReac Mild Headache Verified 04/25/24 18:43 pseudoephedrine (From AdvReac Mild Headache Verified 04/25/24 18:43 Sayda-D) meperidine AdvReac Unknown Headache Verified 04/30/24 08:49 Scallop Allergy Severe Anaphylaxis Uncoded 04/25/24 18:43 Contrast Media Allergy Unknown burning Uncoded 04/25/24 18:43 Review of Systems 2 Review of Systems: Gen.: Denies fevers or chills Eyes: Denies eye pain or visual change ENT: Denies congestion Respiratory: Denies shortness of breath or cough CV: Denies chest pain or palpitations GI: Denies abdominal pain nausea, emesis or diarrhea denies burning, urgency, frequency or hematuria Musculoskeletal: As per HPI Neuro: Denies numbness, tingling, weakness or focal weakness Skin: Denies rash Except as documented, all other systems reviewed and negative PMFSH Past Medical History Medical History GERD (gastroesophageal reflux disease) Hypothyroid Seasonal allergies Surgical History Surgical History H/O: hysterectomy Social History Social History Social History: Patient drinks alcohol occasionally, denies toba Smoking status: Never smoker Alcohol intake: former Substance use: never Substance use type: does not use Do You Feel Safe in your Home?: Yes Lack of Transportation: No Lack of Food: Never True Current Housing: Decline to Answer Concerned About Future Housing: Decline to Answer Difficulty Paying Gas/Electric Bills: Decline to Answer Difficulty Paying for Meds: Decline to Answer Currently Unemployed: Decline to Answer Education: Decline to Answer Difficulty w/ Childcare or Family Care: Decline to Answer Spiritual care concerns: No Exam 2 Narrative: APPEARANCE: No acute distress, nontoxic, resting in bed EYES: EOMI HEENT: Normocephalic, atraumatic, OMM RESPIRATORY: No respiratory distress Clear to auscultation bilaterally with no rhonchi wheezing or rales. CARDIOVASCULAR: Regular rate and rhythm without murmurs rubs or gallops. ABDOMINAL: Soft, nontender, nondistended, no rebound or guarding MUSCULOSKELETAl: Moves all extremities. No clubbing, cyanosis or edema. no bony tenderness to the bilateral legs. NEURO: Awake and alert. Following commands, speech normal, no focal deficits SKIN:: Warm, dry. No rashes lesions or abrasions PSYCHIATRIC: Normal affect/mood, Course Vital Signs Vital signs: Vital Signs Temperature 97.6 F 10/30/24 16:54 Pulse Rate 87 10/30/24 16:54 Respiratory Rate 16 10/30/24 16:54 Blood Pressure 131/86 10/30/24 16:54 Pulse Oximetry 95 10/30/24 16:54 Oxygen Delivery Room Air 10/30/24 16:54 Temperature 97.6 F 10/30/24 16:54 Pulse Rate 87 10/30/24 16:54 Respiratory Rate 16 10/30/24 16:54 Blood Pressure 131/86 10/30/24 16:54 Pulse Oximetry 95 10/30/24 16:54 Oxygen Delivery Room Air 10/30/24 16:54 MDM - Abdominal Pain MDM Narrative Medical decision making narrative: 59-year-old female who presents to the ED for bilateral leg/hip pain with suprapubic discomfort. On initial evaluation, patient is afebrile, hemodynamically stable. She had no appreciable tenderness to palpation to either legs or to abdomen. Cbc and CMP and CK showed no concerning findings. UA clear. Suspect patient had overexerted herself this weekend and is having myalgias related to that. She was given Toradol, Reglan, Benadryl, 1 L NS bolus and did have improvement of her headache and myalgias. She was advised follow- up with PCP in the next week for re-evaluation. Patient was agreeable to this plan. Given strict return precautions. Differential Diagnosis Differential diagnosis: Likely other ( Rhabdomyolysis, viral syndrome, myalgias, migraine, tension headache, electrolyte abnormality) Medical Records Attestation: I reviewed the patient's medical records. Lab Data Attestation: I reviewed the patient's lab results. 10/30/24 18:34 10/30/24 18:34 Labs: Lab Results 10/30/24 10/30/24 Range/Units 18:34 19:21 WBC 6.3 (4.5-10.0) K/mm3 RBC 4.88 (4.2-5.4) M/mm3 Hgb 14.5 (12.0-15.0) g/dL Hct 44.8 (37.0-47.0) % MCV 91.8 (80-100) fl MCH 29.7 (26-34) pg MCHC 32.4 (32-36) g/dl RDW 13.8 (11.5-14.5) % Plt Count 253 (150-375) k/mm3 MPV 8.8 (7.4-10.4) fl Immature Gran % (Auto) 0.5 (0-0.5) % Neut % (Auto) 74.6 H (45.5-73.1) % Lymph % (Auto) 12.7 L (18.3-44.2) % Meigs % (Auto) 8.6 H (2.6-8.5) % Eos % (Auto) 3.3 (0-4.4) % Baso % (Auto) 0.3 (0.2-1.2) % Lymph # (Auto) 0.80 L (0.9-3.2) K/mm3 Meigs # (Auto) 0.5 (0.1-0.6) K/mm3 Eos # (Auto) 0.2 (0-0.3) K/mm3 Baso # (Auto) 0.0 (0.0-0.1) K/mm3 Abs Immat Gran (auto) 0.03 (0.00-0.031) K/mm3 Absolute Neuts (auto) 4.7 (1.3-6.7) K/mm3 Absolute Nucleated RBC 0.000 (0.0-0.012) K/mm3 Nucleated RBC % 0.0 (0.0-0.2) % Sodium 136 L (137-145) mmol/L Potassium 4.3 (3.4-5.0) mmol/L Chloride 102 (98-107) mmol/L Carbon Dioxide 28 (22-30) mmol/L Anion Gap 6 (4-12) mmol/L BUN 20 H (7-17) mg/dL Creatinine 0.80 (0.7-1.0) mg/dL Estim Creat Clear Calc 59 ml/min Estimated GFR > 60 (59 - ) Glucose 95 (65-110) mg/dL Calcium 9.7 (8.4-10.2) mg/dL Total Bilirubin 0.7 (0.2-1.3) mg/dL AST 35 (14-36) U/L ALT 23 (6-35) U/L Alkaline Phosphatase 113 (38-126) U/L Total Creatine Kinase 86 (30-135) U/L Total Protein 7.7 (6.3-8.2) g/dL Albumin 4.6 (3.5-5.1) g/dL Lipase 58 (23-300) U/L Urine Color Yellow (Yellow) Urine Appearance Cloudy H (Clear) Urine pH 5.5 (5.0-9.0) Ur Specific [place] 1.023 (1.001-1.035) Urine Protein Negative (Negative) mg/dL Urine Glucose (UA) Negative (Negative) mg/dL Urine Ketones Negative (Negative) mg/dL Ur Blood (Man) 2+ H (Negative) Urine Nitrate Negative (Negative) Urine Bilirubin Negative (Negative) Urine Urobilinogen 0.2 (<2.0) mg/dL Add Ur Microanalysis Reviewed Leukocyte Esterase Rfl Negative (Negative) YVONNE/UL Urine RBC 51-100 H (0-2) /hpf Urine WBC 0-5 (0-3) /hpf Ur Squamous Epith Cells Occasional (Few) /hpf Urine Bacteria None seen /hpf Urine Casts 0-2 Influenza A (RT-PCR) Negative (Negative) Influenza B (RT-PCR) Negative (Negative) RSV (RT-PCR) Negative (Negative) SARS-CoV-2 RNA (RT-PCR) Negative (Negative) Discharge Plan Discharge Clinical Impression: Myalgia Patient Disposition: Home Condition: Stable Instructions: Antibiotic Form, Musculoskeletal Pain (ED) Additional Instructions: you were seen in the ED today for leg pain and hip pain. Labs and EKG and urine were reassuring. Suspect that you have some muscle soreness from over exertion this weekend. Continue follow with her PCP next week for evaluation. you may try heat to the affected muscles. Try resting for the next couple days. Return to the ED for any new worsening symptoms. Patient Language: Irish Prescriptions: No Action cyclobenzaprine 5 mg tablet 5 mg PO TID PRN (Reason: Muscle Spasm) Qty: 14 0RF levothyroxine 88 mcg tablet 88 mcg PO DAILY Qty: 60 0RF ipratropium bromide 21 mcg (0.03 %) spray,non-aerosol 2 spray INTRANASAL BID Qty: 1 1RF hydrocodone-acetaminophen 5-325 mg Tablet 1 tablet PO Q8H PRN (Reason: Pain Rated > 6) Qty: 20 0RF Follow-up/Referrals: Pelon,Ruben Miller DO [Primary Care Provider, Unknown]
[2024-10-30] MEDS: METOCLOPRAMIDE HCL INJ 10 MG/2 ML VIAL IV PUSH (19:29)
[2024-10-30] MEDS: SODIUM CHLORIDE 0.9% IV 1,000 ML 999 ML IV CONT (19:29)
[2024-10-30] MEDS: KETOROLAC 30 MG/ML VIAL (*BKC) IV PUSH (19:29)
[2024-10-30 19:30] LABS: Creatine Kinase 86 U/L (30-135)
--- OUTSIDE RECORDS SUMMARY | 2024-10-30 19:41 | XMS_ITS | Clinical Summary ---
Author Organization [facility] Address [address] [place] [address] Care Team Providers Care Safety Inspector Name Role Phone Pawan Blanchard MD Primary Care Provider [phone] Source Comments [facility],non-owned Affiliates and Associated Physician Practices is amultiple site organization consisting of ambulatory clinics and hospital sitesin [place], [place], [place] and [place]. This disclosure is being madepursuant to the Care Everywhere program and may not contain all information available regarding this patient. Last updated 17.[facility] Allergies Active Allergy Reactions Criticality Noted Date [...] triamcinolone (NASACORT AQ) 55 MCG/ACT nasal inhaler Jerome 2 sprays into the nose once daily [...] on file Legal Sex Female 6:32 PM CROWD CONTROLLER Gender Identity Not on file Sexual Orientation Not on file Last Filed Vital Signs Vital Sign Reading Time Taken Comments Blood Pressure 106/71 08/16/2013 9:40 AM CDT Pulse 75 08/16/2013 9:40 AM CDT Temperature 36.6 C (97.9 F) 08/16/2013 9:40 AM CDT Respiratory Rate 13 04/10/2013 7:05 PM CROWD CONTROLLER Oxygen Saturation 97% 04/10/2013 7:50 PM CROWD CONTROLLER Inhaled Oxygen Concentration - - Weight 63.5 [...] complete this topic Insurance AETNA Care Teams Safety Inspector Relationship Specialty Start Date End Date Pawan Blanchard MD PCP - General 04/04/13
--- OUTSIDE RECORDS SUMMARY | 2024-10-30 19:41 | XMS_ITS | Encounter Summary ---
Author Organization [facility] Address 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
--- OUTSIDE RECORDS SUMMARY | 2024-10-30 19:41 | XMS_ITS | Encounter Summary ---
Author Organization [facility] Address 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
--- OUTSIDE RECORDS SUMMARY | 2024-10-30 19:41 | XMS_ITS | Encounter Summary ---
Author Organization [facility] Address [address] [place] [address] Care Team Providers Care Dental Assistant Instructor Name Role Phone Unavailable Primary Care Provider Unavailabl e Encounter Details Date Type Department Care Team (Latest Contact Info) Description 04/26/[address] 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
--- OUTSIDE RECORDS SUMMARY | 2024-10-30 19:41 | XMS_ITS | Encounter Summary ---
Author Organization [facility] Address 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
--- OUTSIDE RECORDS SUMMARY | 2024-10-30 19:41 | XMS_ITS | Clinical Summary ---
Author Organization [facility] Address [address] [facility] Attn: Epic Prelude ADT SHANIKA [place]NON [address] Care Team Providers Care Managed Care Nurse Name Role Phone Unavailable Primary Care Provider Unavailabl e Social History Tobacco Use Types Packs/Day Years Used Date Smoking Tobacco: Never Assessed Comments Unknown Sex and Gender Information Value Date Recorded Sex Assigned at Not on file Legal Sex Female 4:11 AM RN FAMILY PRACTICE Gender Identity Not on file Sexual Orientation [...]
--- OUTSIDE RECORDS SUMMARY | 2024-10-30 19:41 | XMS_ITS | Encounter Summary ---
Author Organization [facility] Address [address] [place] [address] Care Team Providers Care Powertrain Control Systems Engineer Name Role Phone Unavailable Primary Care [...] on file Legal Sex Female 4:11 AM SURGICAL TECHNOLOGIST Gender Identity Not on file Sexual Orientation Not on file documented as of this encounter Plan of Treatment Not on file documented as of this encounter Visit Diagnoses Diagnosis Unspecified symptom associated with female genital organs- Primary documented in this encounter
--- OUTSIDE RECORDS SUMMARY | 2024-10-30 19:41 | XMS_ITS | Encounter Summary ---
Author Organization [facility] Address [address] [place] [address] Care Team Providers Care Manager Utility Name Role Phone Pawan Blanchard MD Primary Care Provider [phone] Ruben Bird DO Primary Care Provider [phone] Encounter Details Date Type Department Care Team (Late st Contact Info) Description 03/28/2020 Prep for Procedure [facility] [place] [id number] Garrett Adrian MD [address] [id number] Social History Tobacco Use Types Packs/Day Years [...] COVID-19? No / Unsure 03/31/2020 12:39 PM FREIGHT TRAFFIC CONSULTANT documented as of this encounter Plan of Treatment Not on file documented as of this encounter Results * PRE-SURGICAL/PRE-PROCEDURE CORONAVIRUS (COVID 19) (03/28/2020 10:37 AM FREIGHT TRAFFIC CONSULTANT) CORONAVIRUS SARS COV 2 PCR (RESP) NOT DETECTED NOT DETECTED 03/29/2020 3:16 PM FREIGHT TRAFFIC CONSULTANT [facility] Comment: A Not Detected (negative) test result [...] providers and patients using the following websites: https://www.[employer]/home/Covid-19/HCP/[facility]/fact- sheet.html https://www.[employer]/home/Covid-19/Patients/ [facility]/fact-sheet.html This test has been authorized by the FDA under an Emergency Use Authorization (EUA) for use by authorized laboratories. Due to the current public health emergency, [facility] is receiving a high volume of samples [...] about COVID-19 can be found at the [facility] website: www.[employer].[facility]/Covid19. Test performed at [facility] [address] [address] [place] [address] Director: PEDRO LUIS GONZALEZ DO,MPH FIRST TEST NO 03/28/2020 8:43 AM [facility] EMPLOYED IN [facility] NO 03/28/2020 8:43 AM FREIGHT TRAFFIC CONSULTANT [facility] SYMPTOMATIC DEFINED BY CDC NO 03/28/2020 8:43 AM FREIGHT TRAFFIC CONSULTANT [facility] DATE OF SYMPTOM ONSET NO 03/28/2020 11:03 AM FREIGHT TRAFFIC CONSULTANT [facility] HOSPITALIZATION STATUS NO 03/28/2020 8:43 AM FREIGHT TRAFFIC CONSULTANT [facility] PATIENT IN ICU NO 03/28/2020 8:43 AM FREIGHT TRAFFIC CONSULTANT [facility] RESIDENT OF [facility] NO 03/28/2020 8:43 AM FREIGHT TRAFFIC CONSULTANT [facility] NOT 03/28/2020 8:43 AM FREIGHT TRAFFIC CONSULTANT [facility] PATIENT'S RACE WHITE OR 03/28/2020 8:43 AM FREIGHT TRAFFIC CONSULTANT [facility] ETHNICITY NONHISPANIC 03/28/2020 8:43 AM FREIGHT TRAFFIC CONSULTANT [facility] SOURCE (QST) NASOPHARYNGEAL SWAB 03/28/2020 8:43 AM FREIGHT TRAFFIC CONSULTANT [facility] NASOPHARYNGEAL SWAB / Unknown 03/28/2020 10:37 AM FREIGHT TRAFFIC CONSULTANT us Garrett Adrian MD MICROBIOLOGY - GENERAL YEMI GRANADOS Final Result [facility] [address] [place] [address], [facility] [address] [place] [address], documented in this encounter Visit Diagnoses Diagnosis Early satiety- Primary documented in this encounter Additional Health Concerns Infection Onset Date Last Indicated Resolved Time COVID-19 Rule Out 03/28/2020 03/28/2020 03/29/2020 3:16 PM FREIGHT TRAFFIC CONSULTANT documented as of this encounter Care Teams Manager Utility Relationship Specialty Start Date End Date Pawan Blanchard MD [address] [address] PCP - General 03/30/16 05/30/23 Ruben Bird DO [address] [place] [address] PCP - General FAMILY PRACTICE 05/31/23 documented as of this encounter
--- OUTSIDE RECORDS SUMMARY | 2024-10-30 19:42 | XMS_ITS | Encounter Summary ---
Author Organization [facility] Healthcare Address [address] [place] [address] Care Team Providers Care Resource Director Name Role Phone Ruben Bird DO Primary Care Provider Misti Ng MD Unavailable Pollo Lopez MD Unavailable [phone] Encounter Details Date Type Department Care Team (Latest Contact Info) Description 08/28/2024 Results Follow-Up [facility] Medical Group Primary Care [facility] [address] Ruben Bird DO [address] [place] [address] T4, free, TSH, Lipid panel, Comprehensive [...] on file Legal Sex Female 8:09 PM COMMERCIAL ESCROW OFFICER Gender Identity Female 05/30/2023 9:12 AM CDT [...] on filedocumented in this encounter Care Teams Resource Director Relationship Specialty Start Date End Date Ruben Bird DO [address] [place] [address] PCP - General Family Medicine 06/06/23 Misti Ng MD [address] [facility] [address] [place] [address] Consulting Physician Pain Management 09/12/24 Pollo Lopez MD [address] [facility] [address] [place] [address] Surgeon Vascular Surgery 09/12/24 documented as of this encounter
--- OUTSIDE RECORDS SUMMARY | 2024-10-30 19:42 | XMS_ITS | Clinical Summary ---
Author Organization [facility] Address [address] [place] [address] Care Team Providers Care Press Feeder Name Role Phone SagadahocRuben giron Primary Care Provider Misti Ng MD Unavailable Pollo Lopez MD Unavailable [phone] Allergies Active Allergy Reactions Criticality Noted [...] by mouth 2 (two) times a day Skimbl Brand Active triamcinolone (KENALOG) 0.1 % cream [...] Department Care Team Description 10/30/2024 Nurse Triage [facility] Primary Care [address] [place] [phone] Ruben Bird DO 10/21/2024 11:01 AM CDT - 10/21/2024 11:59 PM CDT Hospital Encounter [facility] Pain [facility] [address] [address] Misti Ng MD Pain of lumbar facet joint (Primary Dx); Lumbar facet arthropathy Discharge Disposition: Discharge to home or self care 10/07/2024 1:02 PM CDT - 10/07/2024 11:59 PM CDT Hospital Encounter [facility] Pain Mgmt [address] [address] Misti Ng MD Lumbar facet arthropathy (Primary Dx); Pain of lumbar facet joint Discharge Disposition: Discharge to home or self care 10/02/2024 3:12 PM CDT - 10/02/2024 11:59 PM CDT Hospital Encounter [facility] Diag Imaging [facility] [place] [address] Compression fracture of T11 vertebra with routine healing, subsequent encounter Discharge Disposition: Discharge to home or self care 10/02/2024 12:59 PM CDT - 10/02/2024 11:59 PM CDT Hospital Encounter [facility] Pain Mgmt [facility] [address] [address] Misti Ng MD Lumbar facet arthropathy (Primary Dx); Lumbar facet joint pain; Chronic midline low back pain without sciatica Discharge Disposition: Discharge to home or self care 10/02/2024 Telephone [facility] Primary Care [address] [place] [phone] Ruben Bird DO Medical Question/Miscellaneou s 09/17/2024 7:45 AM CDT Office Visit [facility] Primary Care [address] [place] [address] [place] [phone] Ruben Brid DO Acute deep vein thrombosis (DVT) of distal vein of left lower extremity (HCC) (Primary Dx); Acquired hypothyroidism; Compression fracture of T11 vertebra with routine healing, subsequent encounter; Dyslipidemia; GERD without esophagitis 09/12/2024 12:31 PM CDT - 09/12/2024 11:59 PM CDT Hospital Encounter [facility] Pain Mgmt [address] [address] Misti Ng MD Closed wedge compression fracture of T11 vertebra with routine healing, subsequent encounter (Primary Dx) Discharge Disposition: Discharge to home or self care 09/12/2024 Telephone [facility] Primary Care [address] [place] [phone] Ruben Bird DO Appointment Request 09/12/2024 Telephone [facility] Pain Mgmt [address] [place] [address] [address] [place] [address] Msiti Ng MD 09/12/2024 Telephone [facility] Primary Care [address] [place] [phone] Ruben Bird DO Medication Request 09/09/2024 10:04 AM CDT - 09/09/2024 11:59 PM CDT Hospital Encounter [facility] Medical Office Building [address] [place] [address] Closed wedge compression fracture of T11 vertebra with delayed healing Discharge Disposition: Discharge to home or self care 09/05/2024 10:13 AM CDT - 09/05/2024 11:59 PM CDT Hospital Encounter [facility] MOB 1 DIAG IMG [address] [place] [address] Closed wedge compression fracture of T11 vertebra with delayed healing Discharge Disposition: Discharge to home or self care 08/28/2024 Results Follow-Up [facility] Primary Care [address] [place] [phone] Ruben Bird, T4, free, TSH, Lipid panel, Comprehensive metabolic panel 08/27/2024 2:45 PM CDT Office Visit [facility] Primary Care [address] [place] [phone] Ruben Bird DO Dermatitis (Primary Dx) 08/27/2024 Telephone [facility] Primary Care [address] [place] [phone] Ruben Bird DO Medical Question/Miscellaneou s 08/16/2024 1:48 PM CDT - 08/16/2024 11:59 PM CDT Hospital Encounter [facility] Pain [address] [address] Misti Ng MD Closed wedge compression fracture of T11 vertebra with delayed healing (Primary Dx); Closed wedge compression fracture of T11 vertebra with routine healing, subsequent encounter Discharge Disposition: Discharge to home or self care 08/07/2024 3:45 PM CDT Office Visit [facility] Primary Care [facility] [address] [place] [phone] Ruben Bird DO Dermatitis (Primary [...] on file 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 Gender Identity Female 05/30/2023 9:12 AM CDT [...] this topic Medical Devices Implanted Type Area [place] Aide Device Identifier Shelf Expiration Date Model / Serial / Lot Ethicon Endo Surgery Gynecare Tvt Tape Laser Cut Retropubic Mesh Gynecological Blue [id number] - [id number] Implanted:Qty: 1 on 05/11/2023 by Digna Goodman MD at [facility] Mesh N/A: Urethra Ethicon Endo Surgery 08/26/2025 [id number] / / [id number] Procedures Procedure Name Priority Date/Time Associated Diagnosis [...] Imaging Lumbar/Sacral Facet Medial Branch Block Bilateral (79177) (10/21/2024 11:53 AM CDT) Narrative RAD_CLARIO_MHB_MHE - 10/21/2024 3:46 PM CDT The images from this study are not interpreted by Radiology. Please refer to the physician's procedure / OR operative note. Misti Ng MD [facility] PROCEDURES Final R esult Performing Organization Address [facility] Co de Phone Number RAD_CLARIO_MHB_MHE * Imaging Lumbar/Sacral Facet Medial Branch Block Bilateral ([id number]) (10/07/2024 2:45 PM CDT) Narrative RAD_AUDIE_B_MHE - 10/07/2024 4:31 PM CDT The images from this study are not interpreted by Radiology. Please refer to the physician's procedure / OR operative note. Misti Ng MD [facility] PROCEDURES Final R esult Performing Organization Address [facility] Co de Phone Number RAD_CLARIO_MHB_MHE * [...] by Brady Bennett M.D. T: Report ID: [id number] Reading Location: [id number] Procedure Note Brady Bennett MD - 10/10/2024 [...] by Brady Bennett M.D. T: Report ID: [id number] Reading Location: [place] [address] Misti Ng MD IMG XR PROCEDURES Final [...] Partha Pearson D.O. AP: AP Report ID: [id number] Reading Location: [place] [address] Procedure Note Partha Pearson, DO - 09/21/2024 [...] Partha Pearson D.O. AP: AP Report ID: [id number] Reading Location: [id number] Misti Ng MD IMG CT PROCEDURES Final [...] Brady Bennett M.D. MF: BRYNN Report ID: [id number] Reading Location: [id number] Procedure Note Brady Bennett MD - 09/14/2024 [...] Brady Bennett M.D. MF: BRYNN Report ID: [id number] Reading Location: [id number] Misti Ng MD IMG XR PROCEDURES Final Result * (ABNORMAL) TSH (08/27/2024 10:00 AM CDT) TSH 0.259(L) 0.450 - 4.500 uIU/mL [facility] - 01 Blood 08/27/2024 10:0 0 AM CDT 08/27/2024 Narrative [facility] - 08/28/2024 11:36 AM CDT Performed at: [address] [place] [id number] Pen Tender: Sriram Badillo PhD, Phone: [phone] Ruben [facility] BLOOD ORDERABLES F inal Result Performing Organization Address [facility] de Phone Number [facility] - * T4, free (08/27/2024 10:00 AM CDT) T4,Free(Direct) 1.43 0.82 - 1.77 ng/dL [facility] - 01 Blood 08/27/2024 10:0 0 AM CDT 08/27/2024 Narrative [facility] - 08/28/2024 11:36 AM CDT Performed at: [address] [id number] Pen Tender: Sriram Badillo PhD, Phone: [phone] Ruben [facility] BLOOD ORDERABLES F inal Result Performing Organization Address [facility] de Phone Number [facility] - [...] - 08/28/2024 11:36 AM CDT Performed at: [address] [place] [id number] Pen Tender: Sriram Badillo PhD, Phone: [phone] us [address] Right LAB BLOOD ORDERABLES F inal Result [facility] [...] 11:36 AM CDT Performed at: - [facility] [place] [id number] [place], [place] [id number] Pen Tender: Sriram Badillo PhD, Phone: [phone] us [address] Right LAB BLOOD ORDERABLES F inal Result [facility] [...] 06/06/2023 5:18 PM CDT Ruben Jairo [facility] LAB MICROBIOLOGY - GEN ERAL ORDERABLES Final Result Performing Organization Address [facility] Co de Phone Number [facility] [address] [facility] Department [place] [address] * Colonoscopy (12/28/2014) Anatomical Region Laterality Modality Other Historical Provider ENDOSCOPY PROCEDURES Jen barnett Result from Last 3 Months or Most Recently Relevant to Health Maintenance Insurance [facility] Advance Directives For more information, please contact: [phone] * Full Code (Latest Code Status on File) Date Activated Date Inactivated Comments 05/31/2023 5:39 PM 06/01/2023 8:27 PM * Full Code Date Activated Date Inactivated Comments 05/11/2023 1:25 PM 05/12/2023 1:00 AM * Full Code Date Activated Date Inactivated Comments 05/11/2023 1:25 PM 05/11/2023 1:25 PM Care Teams Press Feeder Relationship Specialty Start Date End Date Ruben Bird DO [address] [place] [address] PCP - General Family Medicine 06/06/23 Misti Ng MD [address] [facility] [address] [place] [address] Consulting Physician Pain Management 09/12/24 Pollo Lopez MD [address] [facility] [address] [facility] [address] [place] [address] Surgeon Vascular Surgery 09/12/24
--- OUTSIDE RECORDS SUMMARY | 2024-10-30 19:42 | XMS_ITS | Encounter Summary ---
Author Organization [facility] Healthcare Address [address] [place] [address] Care Team Providers Care Senior Product Development Engineer Name Role Phone Ruben Bird DO Primary Care Provider Misti Ng MD Unavailable Pollo Lopez MD Unavailable [phone] Encounter Details Date Type Department Care Team ([facility] st Contact Info) Description 05/16/2024 Telephone [facility] Primary Care [facility] [phone] Ruben Bird DO [address] [place] [address] Social History Tobacco Use Types Packs/Day [...] on file 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 [address] [facility] [address] [place] [address] Surgeon Vascular Surgery 09/12/24 documented as of this encounter
--- OUTSIDE RECORDS SUMMARY | 2024-10-30 19:42 | XMS_ITS | Encounter Summary ---
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 Gender Identity Female 05/30/2023 9:12 AM CDT Sexual Orientation Not on file documented as of this encounter Functional Status documented as of this encounter Plan of Treatment Not on file documented as of this encounter Visit Diagnoses Not on filedocumented in this encounter Care Teams Furrier Shop Supervisor Relationship Specialty Start Date End Date Ruben Bird DO [address] [place] [address] PCP - General Family Medicine 06/06/23 Misti Ng MD [address] [facility] [address] [place] [address] Consulting Physician Pain Management 09/12/24 Pollo Lopez MD [address] [facility] [address] [facility] [address] [place] [address] Surgeon Vascular Surgery 09/12/24 documented as of this encounter
--- OUTSIDE RECORDS SUMMARY | 2024-10-30 19:42 | XMS_ITS | Encounter Summary ---
Author Organization [facility] Healthcare Address [address] [place] [address] Care Team Providers Care Gallery Assistant Name Role Phone Ruben Bird DO Primary Care Provider Misti Ng MD Unavailable Pollo Lopez MD Unavailable [phone] Reason for Visit * Reason Onset Date Comments Leg Pain 10/30/2024 Abdominal Pain 10/30/2024 Encounter Details Date Type Department Care Team (Late st Contact Info) Description 10/30/2024 Nurse Triage [facility] Primary Care [facility] [address] [phone] Ruben Bird DO [address] [place] [address] Social History Tobacco Use Types Packs/Day [...] on file 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 Recommendation from provider:No response, other: [facility] [place]vised [place] to be seen at local [facility]. Patient verbalizes understanding. Patient advised to call [...] on file. Protocols Used Abdominal Pain - Mrkpbq-Lrybd-VA Leg Gfjq-Wusbf-UD * Telephone Encounter - Darlene Thomas RN [...] on filedocumented in this encounter Care Teams Gallery Assistant Relationship Specialty Start Date End Date Ruben Bird DO [address] [place] [address] PCP - General Family Medicine 06/06/23 Misti Ng MD 4700 [facility] [address] [place] [address] Consulting Physician Pain Management 09/12/24 Pollo Lopez MD [address] [facility] [address] [facility] [address] [place], [place] [id number] Surgeon Vascular Surgery 09/12/24 documented as of this encounter
--- OUTSIDE RECORDS SUMMARY | 2024-10-30 19:42 | XMS_ITS | Encounter Summary ---
Author Organization [facility] Healthcare Address [address] [place] [address] Care Team Providers Care Etch Operator Semiconductor Wafers Name Role Phone Ruben Bird DO Primary Care Provider Misti Ng MD Unavailable Pollo Lopez MD Unavailable [phone] Reason for Visit * Reason Onset Date Comments Medical Question/Miscellaneous 10/02/2024 Encounter Details Date Type Department Care Team (Late st Contact Info) Description 10/02/2024 Telephone [facility] Group Primary Care [address] [phone] Ruben Bird DO [facility] [address] Medical Question/Miscellaneous Social History Tobacco [...] on file 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 Gender Identity Female 05/30/2023 9:12 AM CDT [...] on filedocumented in this encounter Care Teams Etch Operator Semiconductor Wafers Relationship Specialty Start Date End Date Ruben Bird DO [address] [place] [address] PCP - General Family Medicine 06/06/23 Misti Ng MD 4700 [email or web address] [address] [place] [address] Consulting Physician Pain Management 09/12/24 Pollo Lopez MD [address] [facility] [[email or web address] [address] [facility] [[email or web address] [address] [place] [address] Surgeon Vascular Surgery 09/12/24 documented as of this encounter
[2024-10-30 19:59] LABS: Add Urine Microscopic? YES; Appearance Urine Cloudy (Clear); Glucose Urine UA Negative (Negative); Leukocyte Esterase Ur Negative LEU/UL (Negative); Need Manual Microscopic Reviewed; Nitrate Urine Negative (Negative); Non Pathogenic Casts 0-2; Specific Grav Ur 1.023 (1.001-1.035)
[2024-10-30 20:13] LABS: Influenza A QL RT-PCR Negative (Negative); Influenza B QL RT-PCR Negative (Negative); RSV RNA, RT-PCR Negative (Negative); SARS-CoV-2 RNA PCR Negative (Negative)
== END 2024-10-30 21:00 | disposition home or self-care (01) ==
PROVIDERS: Emergency Medicine; Emergency Provider Student in an Organized Health Care Education/Training Program; PCP Family Medicine
DX: M79.10 Myalgia, unspecified site (principal); Z20.822 Contact with and (suspected) exposure to COVID-19; E03.9 Hypothyroidism, unspecified; K21.9 Gastro-esophageal reflux disease without esophagitis; Z86.718 Personal history of other venous thrombosis and embolism; Z90.710 Acquired absence of both cervix and uterus; Z79.01 Long term (current) use of anticoagulants; Z79.899 Other long term (current) drug therapy
CPT/HCPCS: 36415; 80053; 81001; 82550; 83690; 85025; 87637; 96361; 96374; 96375; 99284; J1200; J1885; J2765; J7030